=== PATIENT | female | born 1990 | race Caucasian/White ===

== ENCOUNTER 2023-11-02 20:26 | Outpatient (REF) | payer SELFPAY ==
--- OUTSIDE RECORDS SUMMARY | 2023-11-03 10:12 | XMS_ITS | CCD ---
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 Name Role Phone Nill, Eusebio R Unavailable Unavailable Nill, Eusebio R Unavailable Unavailable Nill, Eusebio R Unavailable Unavailable DAKOTAHBETH ABDI Unavailable Unavailable MD Omero Cunningham Attending Provider MD Subhash Caba Primary Care Provider [phone] GERTRUDIS, DR SUBHASH Pereyra Admitting Unavailable GERTRUDIS, DR SUBHASH Pereyra Attending Unavailable GERTRUDIS, DR SUBHASH Pereyra Primary Care Unavailable GERTRUDIS, DR SUBHASH Pereyra Consulting Unavailable ISMAEL, DR Hernesto Iqbal Admitting Unavailable ISMAEL, DR Hernesto Iqbal Attending Unavailable GERTRUDIS, DR SUBHASH Pereyra Primary Care Unavailable ISMAEL, DR Hernesto Iqbal Consulting Unavailable Subhash Caba Primary Care Unavailable Omero Cunningham Attending Unavailsusy e Omero Cunningham Admitting Unavailsusy funk Allergies Allergy Classification Reported Allergen(s) Allergy Type Date of Onset Reaction(s) Facility (1 source) Morphine Drug Allergy 04-27-2013 [facility] Repository Medications Current Medications Medication Drug Class(es) Dates Sig (Normalized) Sig (Original) loratadine 10 mg oral tablet (1 source) Start: 02-03-2023 take 10 mg by mouth once daily Loratadine Active 10 MG PO Daily February 03, 2023 12:00am pantoprazole 40 mg delayed release oral tablet (1 source) Proton Pump Inhibitor Start: 02-03-2023 take 40 mg by mouth once daily Pantoprazole Active 40 MG PO Daily February 03, 2023 12:00am Problems Problem Classification Problem Date Documented Da te Episodic/Chronic Abdominal pain (2 sources) Unspecified abdominal pain; Translations: [UNSPECIFIED ABDOMINAL PAIN] Onset: 02-03-2023 Episodic Other gastrointestinal disorders (4 sources) Other specified symptoms and signs involving the digestive system and abdomen; Translations: [OTH SPEC SX SIGNS DIGESTV SYS ABD] Onset: 01-29-2023 Episodic Other gastrointestinal disorders (1 source) Diarrhea, unspecified; Translations: [Diarrhea, unspecified] Onset: 02-03-2023 Episodic Results Test Name Value Interpretation Reference Range Facility LACTOFERRIN FECAL QUANTon Lactoferrin, Fecal, Quant. <1.00 Normal 0.00-7.24 [facility] Comment on above: Result Comment: Re sults verified by repeat testing . Baseline (normal) 0.00 - 7.24 Elevated >7.24 . An elevated result is indicative of the presence of fecal lactoferrin, a marker of intestinal inflammation. A normal result does not exclude the presence of intestinal inflammation. The test can be used as an in vitro diagnostic aid to distinguish patients with active inflammatory bowel disease (IBD) from those with non-inflammatory irritable bowel syndrome (IBS). Performed By: #### L ACTFQ #### [facility] [address] [address] [address] Susana Rivera PANCREATIC ELASTASE FECALon 02-04-2023 Pancreatic Elastase, Fecal 292 ug Elast./g Normal >200 [facility] Comment on above: Result Comment: Elaina re Pancreatic Insufficiency: <100 Moderate Pancreatic Insufficiency: 100 - 200 Normal: >200 Performed By: #### L IVER, TSH, LIPID, BMP #### [facility] [address] [address] [address] Susana Rivera HCG ( test) Gaby peoples Ql (U)Ordered By: Omero Cunningham on 02-03-2023 HCG ( test) Ql (U) Negative [facility] HCG,Urineon 02-03-2023 Beta HCG ( test) Ql (U) Negative Normal [facility] Comment on above: Result Comment: PERF ORMED BY: [place] [address] PATHOLOGIST DELIMER JAIRO LEYVA M.D. Performed By: #### U HCG #### [place] [address] [place] Christoph 02-03-2023 L Specimen: [id number] Received: 02/03/23 Status: KEVIN Taylor Num: [id number] Spec Type: Surgical Subm Dr: Omero Cunningham MD Tissues: A Duodenum - Biopsy (DUODENUM BX) B Esophagus Biopsy (ESOPHAGEAL BX) C Colon Biopsy (RANDOM COLON BX) Procedures: HE/Charlette, Gross/Micro L4/3 Age/ Patient Sex Location Account Attending Physician Elisha Colbert 32/F [id number] Omero Cunningham MD SPEC NUM: [id number] RECD: 02/03/23 STATUS: KEVIN TAYLOR NUM: [id number] STEFFANY: 02/03/23- SUBM DR: Omero Cunningham MD ENTERED: 02/03/[address] [facility] [address]: SPEC TYPE: Surgical DEPT: S ORDERED: HE/6, Gross/Micro L4/3 ORDERED: HE/6, Gross/Micro L4/3 Pathological Diagnosis A. Small bowel, duodenum, biopsy: - Small intestinal mucosa with minimally increased intraepithelial lymphocytes. - No villous blunting identified. COMMENT: Sections show fragments of small bowel mucosa with minimal increase in intraepithelial lymphocytes. There is no evidence of villous atrophy. The differential diagnosis may include chronic H. pylori associated duodenitis, food allergy, immunodeficiency disease, viral enteritis, infectious etiology, tropical sprue, autoimmune disease, NSAID related change, an early stage of celiac disease, and irritable bowel syndrome. Clinical, serologic and endoscopic correlation are recommended. B. 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 - Reflux esophagitis. - Negative for dysplasia. C. Colon, random, biopsy: - Colonic mucosa negative for significant histopathologic changes. - There is no evidence of acute, chronic or microscopic colitis. - Negative for epithelial dysplasia. Specimen: [id number] Received: 02/03/23 [facility] [id number] Spec Type: Surgical Subm Dr: Omero Cunningham MD Tissues: A Duodenum - Biopsy (DUODENUM BX) B Esophagus Biopsy (ESOPHAGEAL BX) C Colon Biopsy (RANDOM COLON BX) Procedures: HE/6, Gross/Micro L4/3 Patient: FilemonElisha [id number] (Continued) Specimen: [id number] Received: 02/03/23 (Continued) Signed (signature on file) Nan Lawler MD 02/04/23 1110 Specimen: [id number] Received: 02/03/23 Status: KEVIN Taylor Num: [id number] Spec Type: Surgical Subm Dr: Omero Cunningham MD Tissues: A Duodenum - Biopsy (DUODENUM BX) B Esophagus Biopsy (ESOPHAGEAL BX) C Colon Biopsy (RANDOM COLON BX) Procedures: HE/Charlette Gross/Micro L4/3 Patient: Elisha Colbert [id number] (Continued) Specimen: [id number] Received: 02/03/23-1216 (Continued) Clinical Information Diarrhea, constipation, abdominal pain, rule out celiac disease, rule out microscopic colitis Gross Description A. Received in formalin labeled with the patient's name, number and duodenum biopsy rule out celiac disease is one fragment of soft sarabia tissue measuring 0.5 x 0.3 x 0.2 cm. Entirely submitted in one cassette labeled A1. B. Received in formalin labeled with the patient's name, number and esophageal biopsy rule out esophagitis is one fragment of soft sarabia tissue measuring 0.3 x 0.3 x 0.2 cm. Entirely submitted in one cassette labeled B1. C. Received in formalin labeled with the patient's name, number and random colon biopsy rule out microscopic colitis are three fragments of soft sarabia tissue averaging 0.4 x 0.2 x 0.2 cm. Entirely submitted in one cassette labeled C1. Microscopic Description A. Two glass slides with H E stained material have been examined. The microscopic findings support the above pathologic diagnosis. B. Two glass slides with H E stained material have been examined. The microscopic findings support the above pathologic diagnosis. C. Two glass slides with H E stained material have been examined. The microscopic findings support the above pathologic diagnosis. CPT Codes 41724?3 --------- (more content not included)... Normal [facility] BOWEL DISORDERS EVALUATION R ULE-OUT CASCon 02-02-2023 Atypical pANCA Negative Normal Negative [facility] Comment on above: Performed By: #### B [facility] #### [facility] [address] [place] [address] Dr. Susana Rivera Note: Comment Normal [facility] Comment on above: Result Comment: Sugg estive of Crohn's disease. Subsequent testing with the Crohn's Disease Prognostic Profile (944457) that includes antiglycan antibodies AMCA, ALCA, ACCA, and Segundo may aid in the differentiation of clinical forms of CD and prognosis of disease progression. Performed By: #### B DERC #### [facility] [address] [address] [address] Susana Rivera Saccharomyces Cer. IgG 34.3 Units Critically high 0.0-24.9 [facility] Comment on above: Result Comment: Nega tive <20.0 Equivocal 20.1 - 24.9 Positive >or= 25.0 Performed By: #### B DERC #### [facility] [address] [address] [address] Susana Rivera tTG/DGP SCR Negative Normal Negative [facility] Comment on above: Result Comment: Ef fective February 04, 2023 this profile will be made non-orderable due to non-availability of reagents for tTG/DGP Combo. No replacement number is available at this time. For further information, please contact your local [facility] Lay Out Technician. Performed By: #### B DERC #### [facility] [address] [place] [address] Dr. Susana Rivera CALPROTECTIN, FECALon 2022 Calprotectin, Fecal 20 ug/g Normal 0-120 [facility] Comment on above: Result Comment: Conc entration Interpretation Follow-Up <16 - 50 ug/g Normal None >50 -120 ug/g Borderline Re-evaluate in 4-6 weeks >120 ug/g Abnormal Repeat as clinically indicated Performed By: #### L IVER, TSH, LIPID, BMP #### [facility] [address] [address] [address] Susana Rivera CHROMOGRANIN Aon 02-02-2023 Chromogranin A 85.4 ng/mL Normal 0.0-101.8 [facility] Comment on above: Result Comment: Water Mechanic mogranin A performed by [employer] methodology . Values obtained with different assay methods or kits cannot be used interchangeably. Performed By: #### C HROMOA #### [facility] [address] [address] [address] Susana Rivera CBC AUTO DIFFon 01-29-2023 BASO # 0.0 103/ul Normal 0.0-0.1 [facility] Comment on above: Performed By: #### C BC #### [facility] [address] [address] [address] Susana Rivera Basophils/100 WBC (Bld) 0.3 % Normal 0.2-2.0 [facility] Comment on above: Performed By: #### C BC #### [facility] [address] [place] [address] Dr. Susana Rivera EO # 0.2 103/ul Normal 0.0-0.7 [facility] Comment on above: Performed By: #### C BC #### [facility] [address] [place] [address] Dr. Susana Rivera Eosinophils/100 WBC (Bld) 3.3 % Normal 0.9-7.0 [facility] Comment on above: Performed By: #### C BC #### [facility] [address] [place] [address] Dr. Susana Rivera Erythrocyte distribution width (RBC) [Ratio] 12.3 % Normal 11.0-15.0 [facility] Comment on above: Performed By: #### C BC #### [facility] [address] [place] [address] Dr. Susana Rivera Hematocrit (Bld) [Volume fraction] 36.9 % Normal 36.0-48.0 [facility] Comment on above: Performed By: #### C BC #### [facility] [address] [place] [address] Dr. Susana Rivera Hemoglobin (Bld) [Mass/Vol] 12.2 g/dL Normal 12.0-16.0 [facility] Comment on above: Performed By: #### C BC #### [facility] [address] [place] [address] Dr. Susana Rivera IG # 0.01 10e3/ul Normal 0.00-0.03 [facility] Comment on above: Performed By: #### C BC #### [facility] [address] [place] [address] Dr. Susana Rivera IG % 0.2 % Normal 0.0-0.5 [facility] Comment on above: Performed By: #### C BC #### [facility] [address] [place] [address] Dr. Susana Rivera LYMPH # 2.8 103/ul Normal 1.2-3.8 [facility] Comment on above: Performed By: #### C BC #### [facility] [address] [place] [address] Dr. Susana Rivera Lymphocytes/100 WBC (Bld) 42.0 % Normal 20.5-60.0 [facility] Comment on above: Performed By: #### C BC #### [facility] [address] [place] [address] Dr. Susana Rivera MANUAL DIFF REQ NO Normal [facility] Comment on above: Performed By: #### C BC #### [facility] [address] [place] [address] Dr. Susana Rivera MCH (RBC) [Entitic mass] 31.2 pg Normal 26.7-34.0 [facility] Comment on above: Performed By: #### C BC #### [facility] [address] [place] [address] Dr. Susana Rivera MCHC (RBC) [Mass/Vol] 33.1 g/dL Normal 29.9-35.2 [facility] Comment on above: Performed By: #### C BC #### [facility] [address] [place] [address] Dr. Susana Rivera MCV (RBC) [Entitic vol] 94.4 fL Normal 81.0-99.0 [facility] Comment on above: Performed By: #### C BC #### [facility] [address] [place] [address] Dr. Susana Rivera MONO # 0.4 103/ul Normal 0.3-0.8 [facility] Comment on above: Performed By: #### C BC #### [facility] [address] [place] [address] Dr. Susana Rivera Monocytes/100 WBC (Bld) 6.5 % Normal 1.7-12.0 [facility] Comment on above: Performed By: #### C BC #### [facility] [address] [place] [address] Dr. Susana Rivera NEUT # 3.1 103/ul Normal 1.4-6.5 [facility] Comment on above: Performed By: #### C BC #### [facility] [address] [place] [address] Dr. Susana Rivera Neutrophils/100 WBC (Bld) 47.7 % Normal 43.0-75.0 [facility] Comment on above: Performed By: #### C BC #### [facility] [address] [place] [address] Dr. Susana Rivera Platelet mean volume (Bld) [Entitic vol] 11.0 fL Normal 9.5-13.5 [facility] Comment on above: Performed By: #### C BC #### [facility] [address] [place] [address] Dr. Susana Rivera PLT 213 103/ul Normal 150-450 [facility] Comment on above: Performed By: #### C BC #### [facility] [address] [place] [address] Dr. Susana Rivera RBC 3.91 106/ul Critically low 4.20-5.[address] [facility] Comment on above: Performed By: #### C BC #### [facility] [address] [place] [address] Dr. Susana Rivera WBC 6.6 103/ul Normal 4.0-11.0 [facility] Comment on above: Performed By: #### C BC #### [facility] [address] [place] [address] Dr. Susana Rivera FREE T4on 01-29-2023 Free T4 [Mass/Vol] 0.92 ng/dL Normal 0.76-1.46 [facility] Comment on above: Performed By: #### L IVER, TSH, LIPID, BMP #### [facility] [address] [place] [address] Dr. Susana Rivera PROF 14(COMP METB)on 023 Albumin [Mass/Vol] 3.6 g/dL Normal 3.4-5.0 [facility] Comment on above: Performed By: #### L IVER, TSH, LIPID, BMP #### [facility] [address] [place] [address] Dr. Susana Rivera Albumin/Globulin [Mass ratio] 0.8 {ratio} Normal [facility] Comment on above: Performed By: #### L IVER, TSH, LIPID, BMP #### [facility] [address] [place] [address] Dr. Susana Rivera ALP [Catalytic activity/Vol] 75 U/L Normal 46-116 [facility] Comment on above: Performed By: #### L IVER, TSH, LIPID, BMP #### [facility] [address] [place] [address] Dr. Susana Rivera ALT [Catalytic activity/Vol] 24 U/L Normal 14-59 [facility] Comment on above: Performed By: #### L IVER, TSH, LIPID, BMP #### [facility] [address] [place] [address] Dr. Susana Rivera Anion gap [Moles/Vol] 12.5 mmol/L Normal [facility] Comment on above: Performed By: #### L IVER, TSH, LIPID, BMP #### [facility] [address] [place] [address] Dr. Susana Rivera AST [Catalytic activity/Vol] 14 U/L Critically low 15-37 [facility] Comment on above: Performed By: #### L IVER, TSH, LIPID, BMP #### [facility] [address] [place] [address] Dr. Susana Rivera Bilirubin [Mass/Vol] 0.3 mg/dL Normal 0.2-1.0 [facility] Comment on above: Performed By: #### L IVER, TSH, LIPID, BMP #### [facility] [address] [address] [address] Susana Rivera Calcium [Mass/Vol] 9.2 mg/dL Normal 8.5-10.1 [facility] Comment on above: Performed By: #### L IVER, TSH, LIPID, BMP #### [facility] [address] [address] [address] Susana Rivera Chloride [Moles/Vol] 106 mmol/L Normal 98-107 [facility] Comment on above: Performed By: #### L IVER, TSH, LIPID, BMP #### [facility] [address] [address] [address] Susana Rivera CO2 [Moles/Vol] 25.6 mmol/L Normal 21.0-32.0 [facility] Comment on above: Performed By: #### L IVER, TSH, LIPID, BMP #### [facility] [address] [address] [address] Susana Rivera Creatinine [Mass/Vol] 0.58 mg/dL Normal 0.55-1.02 [facility] Comment on above: Performed By: #### L IVER, TSH, LIPID, BMP #### [facility] [address] [address] [address] Susana Rivera EGFR-AF BURKINAN >60 Normal >=60 [facility] Comment on above: Performed By: #### L IVER, TSH, LIPID, BMP #### [facility] [address] [address] [address] Susana Rivera EGFR-NON AF BURKINAN >60 Normal >=60 [facility] Comment on above: Performed By: #### L IVER, TSH, LIPID, BMP #### [facility] [address] [address] [address] Susana Rivera Globulin (S) [Mass/Vol] 4.3 g/dL Normal [facility] Comment on above: Performed By: #### L IVER, TSH, LIPID, BMP #### [facility] [address] [address] [address] Susana Rivera Glucose [Mass/Vol] 93 mg/dL Normal 74-106 [facility] Comment on above: Performed By: #### L IVER, TSH, LIPID, BMP #### [facility] [address] [address] [address] Susana Rivera Potassium [Moles/Vol] 4.1 mmol/L Normal 3.5-5.1 [facility] Comment on above: Performed By: #### L IVER, TSH, LIPID, BMP #### [facility] [address] [place] [address] Dr. Susana Rivera Protein [Mass/Vol] 7.9 g/dL Normal 6.4-8.2 [facility] Comment on above: Performed By: #### L IVER, TSH, LIPID, BMP #### [facility] [address] [place] [address] Dr. Susana Rivera Sodium [Moles/Vol] 140 mmol/L Normal 136-145 [facility] Comment on above: Performed By: #### L IVER, TSH, LIPID, BMP #### [facility] [address] [place] [address] Dr. Susana Rivera Urea nitrogen [Mass/Vol] 10.0 mg/dL Normal 7.0-18.0 [facility] Comment on above: Performed By: #### L IVER, TSH, LIPID, BMP #### [facility] [address] [place] [address] Dr. Susana Rivera Urea nitrogen/Creatinine [Mass ratio] 17.2 mg/mg Normal [facility] Comment on above: Performed By: #### L IVER, TSH, LIPID, BMP #### [facility] [address] [place] [address] Dr. Susana Rivera PROTIMEon 01-29-2023 INR Coag (PPP) [Relative time] 0.94 {INR} Normal [facility] Comment on above: Performed By: #### L IVER, TSH, LIPID, BMP #### [facility] [address] [place] [address] Dr. Susana Rivera INR GUIDELINES SEE BELOW Normal [facility] Comment on above: Result Comment: REYMUNDO RED INR: 2.0 - 3.0 CONDITIONS NOT LISTED BELOW 2.5 - 3.5 FOR PROSTHETIC HEART VALVE REPLACEMENT 2.5 - 3.5 RECURRENT THROMBOSIS Performed By: #### L IVER, TSH, LIPID, BMP #### [facility] [address] [place] [address] Dr. Susana Rivera PT Coag (PPP) [Time] 10.0 s Normal 9.0-11.6 [facility] Comment on above: Performed By: #### L IVER, TSH, LIPID, BMP #### [facility] [address] [place] [address] Dr. Susana Rivera TSHon 01-29-2023 TSH 1.619 uIU/mL Normal 0.358-3.740 [facility] Comment on above: Performed By: #### L IVER, TSH, LIPID, BMP #### [facility] [address] [place] [address] Dr. Susana Rivera CBC AUTO DIFFon 07-22-2022 BASO # 0.0 103/ul Normal 0.0-0.1 [facility] Comment on above: Performed By: #### C BC #### [facility] [address] [place] [address] Dr. Susana Rivera Basophils/100 WBC (Bld) 0.3 % Normal 0.2-2.0 [facility] Comment on above: Performed By: #### C BC #### [facility] [address] [place] [address] Dr. Susana Rivera EO # 0.2 103/ul Normal 0.0-0.7 [facility] Comment on above: Performed By: #### C BC #### [facility] [address] [place] [address] Dr. Susana Rivera Eosinophils/100 WBC (Bld) 2.3 % Normal 0.9-7.0 [facility] Comment on above: Performed By: #### C BC #### [facility] [address] [place] [address] Dr. Susana Rivera Erythrocyte distribution width (RBC) [Ratio] 12.3 % Normal 11.0-15.0 [facility] Comment on above: Performed By: #### C BC #### [facility] [address] [place] [address] Dr. Susana Rivera Hematocrit (Bld) [Volume fraction] 38.6 % Normal 36.0-48.0 [facility] Comment on above: Performed By: #### C BC #### [facility] [address] [place] [address] Dr. Susana Rivera Hemoglobin (Bld) [Mass/Vol] 12.4 g/dL Normal 12.0-16.0 [facility] Comment on above: Performed By: #### C BC #### [facility] [address] [place] [address] Dr. Susana Rivera IG # 0.02 10e3/ul Normal 0.00-0.03 [facility] Comment on above: Performed By: #### C BC #### [facility] [address] [place] [address] Dr. Susana Rivera IG % 0.2 % Normal 0.0-0.5 [facility] Comment on above: Performed By: #### C BC #### [facility] [address] [place] [address] Dr. Susana Rivera LYMPH # 3.3 103/ul Normal 1.2-3.8 [facility] Comment on above: Performed By: #### C BC #### [facility] [address] [place] [address] Dr. Susana Rivera Lymphocytes/100 WBC (Bld) 32.0 % Normal 20.5-60.0 [facility] Comment on above: Performed By: #### C BC #### [facility] [address] [place] [address] Dr. Susana Rivera MANUAL DIFF REQ NO Normal [facility] Comment on above: Performed By: #### C BC #### [facility] [address] [place] [address] Dr. Susana Rivera MCH (RBC) [Entitic mass] 30.7 pg Normal 26.7-34.0 [facility] Comment on above: Performed By: #### C BC #### [facility] [address] [place] [address] Dr. Susana Rivera MCHC (RBC) [Mass/Vol] 32.1 g/dL Normal 29.9-35.2 [facility] Comment on above: Performed By: #### C BC #### [facility] [address] [place] [address] Dr. Susana Rivera MCV (RBC) [Entitic vol] 95.5 fL Normal 81.0-99.0 [facility] Comment on above: Performed By: #### C BC #### [facility] [address] [place] [address] Dr. Susana Rivera MONO # 0.6 103/ul Normal 0.3-0.8 [facility] Comment on above: Performed By: #### C BC #### [facility] [address] [place] [address] Dr. Susana Rivera Monocytes/100 WBC (Bld) 5.9 % Normal 1.7-12.0 [facility] Comment on above: Performed By: #### C BC #### [facility] [address] [place] [address] Dr. Susana Rivera NEUT # 6.2 103/ul Normal 1.4-6.5 [facility] Comment on above: Performed By: #### C BC #### [facility] [address] [place] [address] Dr. Susana Rivera Neutrophils/100 WBC (Bld) 59.3 % Normal 43.0-75.0 [facility] Comment on above: Performed By: #### C BC #### [facility] [address] [place] [address] Dr. Susana Rivera Platelet mean volume (Bld) [Entitic vol] 11.2 fL Normal 9.5-13.5 [facility] Comment on above: Performed By: #### C BC #### [facility] [address] [place] [address] Dr. Susana Rivera PLT 235 103/ul Normal 150-450 [facility] Comment on above: Performed By: #### C BC #### [facility] [address] [place] [address] Dr. Susana Rivera RBC 4.04 106/ul Critically low 4.20-5.40 [facility] Comment on above: Performed By: #### C BC #### [facility] [address] [place] [address] Dr. Susana Rivera WBC 10.4 103/ul Normal 4.0-11.0 [facility] Comment on above: Performed By: #### C BC #### [facility] [address] [place] [address] Dr. Susana Rivera GLYCOHEMOGLOBIN A1Con 2021 ADA RECOMMENDATION SEE BELOW Normal [facility] Comment on above: Result Comment: ADA RECOMMENDED LIMIT 4.0 - 6.0 ADA THERAPEUTIC TARGET < 7.0 ACTION SUGGESTED > 7.0 Performed By: #### A 1C #### [facility] [address] [place] [address] Dr. Susana Rivera Glucose [Mass/Vol] 105 mg/dL Normal [facility] Comment on above: Performed By: #### A 1C #### [facility] [address] [place] [address] Dr. Susana Rivera HbA1c (Bld) [Mass fraction] 5.3 % Normal 4.5-6.2 [facility] Comment on above: Performed By: #### A 1C #### [facility] [address] [place] [address] Dr. Susana Rivera LIPID PROFILEon 07-22-2022 CHOL-HDL RATIO NORM SEE BELOW Normal [facility] Comment on above: Result Comment: 3.3 - 4.4 LOW RISK 4.4 - 7.1 AVERAGE RISK 7.1 - 11.0 MODERATE RISK >11.0 HIGH RISK Performed By: #### L IVER, TSH, LIPID, BMP #### [facility] [address] [place] [address] Dr. Susana Rivera Cholesterol [Mass/Vol] 193 mg/dL Normal <=200 [facility] Comment on above: Performed By: #### L IVER, TSH, LIPID, BMP #### [facility] [address] [place] [address] Dr. Susana Rivera Cholesterol in HDL [Mass/Vol] 45 mg/dL Normal 40-60 [facility] Comment on above: Performed By: #### L IVER, TSH, LIPID, BMP #### [facility] [address] [address] [address] Susana Rivera Cholesterol in LDL [Mass/Vol] 121.0 mg/dL Normal [facility] Comment on above: Performed By: #### L IVER, TSH, LIPID, BMP #### [facility] [address] [address] [address] Susana Rivera Cholesterol.total/Cho lesterol in HDL [Mass ratio] 4.3 {ratio} Normal [facility] Comment on above: Performed By: #### L IVER, TSH, LIPID, BMP #### [facility] [address] [place] [address] Dr. Susana Rivera HDL NORMAL > or = 60 mg/dl - LOW CARDIOVASCULAR RISK <40 mg/dl - HIGH CARDIOVASCULAR RISK Normal [facility] Comment on above: Performed By: #### L IVER, TSH, LIPID, BMP #### [facility] [address] [place] [address] Dr. Susana Rivera LDL CALC NORMAL SEE BELOW Normal [facility] Comment on above: Result Comment: <100 mg/dl OPTIMAL 100 - 129 mg/dl NEAR OR ABOVE OPTIMAL 130 - 159 mg/dl BORDERLINE HIGH 160 - 189 mg/dl HIGH >190 mg/dl VERY HIGH Performed By: #### L IVER, TSH, LIPID, BMP #### [facility] [address] [address] [address] Susana Rivera Triglyceride [Mass/Vol] 135 mg/dL Normal <=150 [facility] Comment on above: Performed By: #### L IVER, TSH, LIPID, BMP #### [facility] [address] [place] [address] Dr. Susana Rivera VLDL CALC 27.0 mg/dL Normal [facility] Comment on above: Performed By: #### L IVER, TSH, LIPID, BMP #### [facility] [address] [address] [address] Susana Rivera LIVER PROFILEon 07-22-2022 Albumin [Mass/Vol] 3.8 g/dL Normal 3.4-5.0 [facility] Comment on above: Performed By: #### L IVER, TSH, LIPID, BMP #### [facility] [address] [place] [address] Dr. Susana Rivera Albumin/Globulin [Mass ratio] 0.8 {ratio} Normal [facility] Comment on above: Performed By: #### L IVER, TSH, LIPID, BMP #### [facility] [address] [place] [address] Dr. Susana Rivera ALP [Catalytic activity/Vol] 73 U/L Normal 46-116 [facility] Comment on above: Performed By: #### L IVER, TSH, LIPID, BMP #### [facility] [address] [place] [address] Dr. Susana Rivera ALT [Catalytic activity/Vol] 27 U/L Normal 14-59 [facility] Comment on above: Performed By: #### L IVER, TSH, LIPID, BMP #### [facility] [address] [place] [address] Dr. Susana Rivera AST [Catalytic activity/Vol] 17 U/L Normal 15-37 [facility] Comment on above: Performed By: #### L IVER, TSH, LIPID, BMP #### [facility] [address] [place] [address] Dr. Susana Rivera BILI, CONJUGATED 0.1 mg/dL Normal 0.0-0.2 [facility] Comment on above: Performed By: #### L IVER, TSH, LIPID, BMP #### [facility] [address] [place] [address] Dr. Susana Rivera Bilirubin [Mass/Vol] 0.3 mg/dL Normal 0.2-1.0 [facility] Comment on above: Performed By: #### L IVER, TSH, LIPID, BMP #### [facility] [address] [place] [address] Dr. Susana Rivera Globulin (S) [Mass/Vol] 4.6 g/dL Normal [facility] Comment on above: Performed By: #### L IVER, TSH, LIPID, BMP #### [facility] [address] [place] [address] Dr. Susana Rivera Protein [Mass/Vol] 8.4 g/dL Critically high 6.4-8.2 [facility] Comment on above: Performed By: #### L IVER, TSH, LIPID, BMP #### [facility] [address] [address] [address] Susana Rivera PROF CHEM 8 (BAS METB)on Anion gap [Moles/Vol] 12.3 mmol/L Normal [facility] Comment on above: Performed By: #### L IVER, TSH, LIPID, BMP #### [facility] [address] [place] [address] Dr. Susana Rivera Calcium [Mass/Vol] 9.2 mg/dL Normal 8.5-10.1 [facility] Comment on above: Performed By: #### L IVER, TSH, LIPID, BMP #### [facility] [address] [place] [address] Dr. Susana Rivera Chloride [Moles/Vol] 104 mmol/L Normal 98-107 [facility] Comment on above: Performed By: #### L IVER, TSH, LIPID, BMP #### [facility] [address] [place] [address] Dr. Susana Rivera CO2 [Moles/Vol] 24.7 mmol/L Normal 21.0-32.0 [facility] Comment on above: Performed By: #### L IVER, TSH, LIPID, BMP #### [facility] [address] [place] [address] Dr. Susana Rivera Creatinine [Mass/Vol] 0.67 mg/dL Normal 0.55-1.02 [facility] Comment on above: Performed By: #### L IVER, TSH, LIPID, BMP #### [facility] [address] [place] [address] Dr. Susana Rivrea EGFR-AF BURKINAN >60 Normal >=60 [facility] Comment on above: Performed By: #### L IVER, TSH, LIPID, BMP #### [facility] [address] [address] [address] Susana Rivera EGFR-NON AF BURKINAN >60 Normal >=60 [facility] Comment on above: Performed By: #### L IVER, TSH, LIPID, BMP #### [facility] [address] [address] [address] Susana Rivera Glucose [Mass/Vol] 94 mg/dL Normal 74-106 [facility] Comment on above: Performed By: #### L IVER, TSH, LIPID, BMP #### [facility] [address] [address] [address] Susana Rivera Potassium [Moles/Vol] 4.0 mmol/L Normal 3.5-5.1 [facility] Comment on above: Performed By: #### L IVER, TSH, LIPID, BMP #### [facility] [address] [place] [address] Dr. Susana Rivera Sodium [Moles/Vol] 137 mmol/L Normal 136-145 [facility] Comment on above: Performed By: #### L IVER, TSH, LIPID, BMP #### [facility] [address] [address] [address] Susana Rivera Urea nitrogen [Mass/Vol] 21.0 mg/dL Critically high 7.0-18.0 [facility] Comment on above: Performed By: #### L IVER, TSH, LIPID, BMP #### [facility] [address] [address] [address] Susana Rivera Urea nitrogen/Creatinine [Mass ratio] 31.3 mg/mg Normal [facility] Comment on above: Performed By: #### L IVER, TSH, LIPID, BMP #### [facility] [address] [place] [address] Dr. Susana Rivera TSHon 07-22-2022 TSH 2.863 uIU/mL Normal 0.358-3.740 [facility] Comment on above: Performed By: #### L IVER, TSH, LIPID, BMP #### [facility] [address] [place] [address] Dr. Susana Rivera Vital Signs Date Time Vital Sign Value Performing Clinician Abby dumont 02-03-2023 12:23-0400 Diastolic blood pressure 80 mm[Hg] MD Subhash Caba Work Phone: [facility] 02-03-2023 12:23-0400 Heart rate 56 /min MD Subhash Caba Work Phone: [facility] 02-03-2023 12:23-0400 Respiratory rate 18 /min MD Subhash Caba Work Phone: [facility] 02-03-2023 12:23-0400 SaO2% (BldA) [Mass fraction] 96 % MD Subhash Caba Work Phone: [facility] 02-03-2023 12:23-0400 Systolic blood pressure 135 mm[Hg] MD Subhash Caba Work Phone: [facility] 02-03-2023 10:14-0400 Body height 162.56 cm MD Subhash Caba Work Phone: [facility] 02-03-2023 10:14-0400 Body temperature 97.7 [degF] MD Subhash Caba Work Phone: [facility] 02-03-2023 10:14-0400 Body weight 99.79 kg MD Subhash Caba Work Phone: [facility] Encounters Encounter Date Encounter Type Care Provider Facility Start: 02-03-2023 End: 02-03-2023 ambulatory Subhash Caba Facility:[facility] Start: 02-03-2023 End: 02-03-2023 Admission to same day surgery center MD Subhash Caba Work Phone: [facility] Work Phone: Start: 02-03-2023 End: 02-03-2023 ambulatory MD Subhash Caba Work Phone: [facility] Work Phone: Start: 01-29-2023 End: 01-30-[address] Hernesto CUN[place]HAM Facility:[facility] Start: 07-25-2022 Encounter for genera l adult medical examination without abnormal findings DR SUBHASH CABA [facility] Start: 07-22-2022 End: 07-23-[address] SUBHASH CABA Facility:[facility] Start: 07-22-2022 End: 07-23-2022 Encounter for general adult medical examination without abnormal findings DR SUBHASH CABA Facility:[facility] Start: 12-06-2016 End: 12-07-2016 Ambulatory Eusebio Iqbal Rupert Facility:[facility] Procedures Date Procedure Procedure Detail Performing Clinician Start: 02-03-2023 Esophagogastroduodenoscopy MD Subhash Caba Work Phone: Plan of Treatment Date Care Activity Detail Author Start: 02-03-2023 [facility] Patient Education Esophagitis Hi atal Hernia (DC) [facility] Work Phone: Payers Date Payer Category Payer Self-pay 1990 Unknown [id number] 1988 Unknown [id number] 1959 Unknown [id number] 1959 Unknown [id number] Unknown [id number] Social History Date Type Detail Facility [facility] Work Phone: Start: 1990 Sex Assigned At Female F [facility] Goals Date Patient Goal Desired Activity /State Procedure note 02-03-2023 Note Date & Type Note Facility 02-03-[address] [facility] Evaluation note Note Date & Type Note Facility Evaluation note No assessment information availa ble [facility] Work Phone: Hospital Discharge instructions Note Date & Type Note Facility Hospital Discharge instructions Additional Instructions DISCHARGE INSTRUCTIONS FOR ENDOSCOPY FOR COLONOSCOPY: -Expect a gassy or full feeling after a colonoscopy. Report any NEW abdominal pain or vomiting. -Watch for rectal bleeding if you have a polyp removed. You may have oozing, but notify the doctor if you pass clots. -Avoid aspirin for 2 days IF a polyp is removed. -It is important to keep your appointments for follow up examinations because polyps can grow back. FOR WILKERSON/EGD/ERCP/PEG: -Your throat may feel sore today from the scope that the doctor passed through your throat to visualize your stomach. Take a throat lozenge or suck on ice to ease the discomfort. -Do NOT smoke. -You may notice some streaks of blood in your sputum if the doctor has taken a biopsy. Notify the doctor if you cough up large amounts of blood. -Expect a gassy or full feeling after esophagoscopy. Report any persistent pain or vomiting. -Take it easy today. You need not stay in bed, but avoid strenuous activities such as jogging. FOR SEDATION FOR 24 HOURS: -NO driving -Do NOT operate machinery such as power tools, lawn mowers, snow blowers, sewing machines, etc. -Avoid alcoholic beverages and drugs for allergies, nerves, or sleep. -Do NOT stay alone. Do NOT leave your child unattended. -Do NOT make important personal or business decisions or sign any legal documents. -Eat solid foods and drink liquids in smaller amounts than usual until normal appetite returns. If you should experience an upset stomach, liquids high in sugar content (soda, Saul-aid, non-acid juices) are recommended. -You can resume normal activities tomorrow. FOLLOW UP Please call the office and make a follow up appointment to see me in 6-8 weeks. Low FODMAP diet [employer] 1 p.o. every morning IBgard 1-2 once or twice a day -Notify the doctor if you have any problems. -Office number [phone] [facility] Work Phone: Summary Purpose Family History No Family History Records Found Relationship Condition Age at Onset Recorded Date/T lino Not Specified No pertinent family history Unknown Advance Directives No Advanced Directives Records Found Advance Directive Response Recorded Date/ Time Advance Directives No February 02, 2 023 3:13pm Chief Complaint and Reason for Visit Chief Complaint Alternating, Diarrhe a, Constipation, Abdominal Sylvester Additional Source Comments INFORMATION SOURCE (unrecogn ized section and content) DATE CREATED AUTHOR 05/10/2018 [facility] DATE CREATED AUTHOR AUTHOR'S ORGANIZ ATION 02/13/2023 [facility] DATE CREATED AUTHOR AUTHOR'S ORGANIZ ATION 02/15/2023 [facility] Care Teams (unrecognized sec tion and content) Team Status: Active Member Role Status Dates Subhash Caba MD Primary Care Provider Active Team Status: Inactive Member Role Status Dates Omero Cunningham MD Attending Provider Active Subhash Caba MD Primary Care Provider Active FOR RECORDS PERTAINING TO PATIENTS WHO ARE OR HAVE BEEN ENROLLED IN A CHEMICAL DEPENDENCY/SUBSTANCEABUSE PROGRAM, SOME INFORMATION MAY BE OMITTED. This clinical summary was aggregated from multiple sources. Caution should be exercised in using it in the provision of clinical care. This summary normalizes information from multiple sources, and as a consequence, information in this document may materially change the coding, format and clinical context of patient data. In addition, data may be omitted in some cases. CLINICAL DECISIONS SHOULD BE BASED ON THE PRIMARY CLINICAL RECORDS. [facility] [employer] provides no warranty or guarantee of the accuracy or completeness of information in this document.
[2023-11-09 00:07] LABS: Age Gdln ACOG Testing Note (.); HPV Aptima Negative (Negative); IGP, Aptima HPV, rfx 16/18,45 Note (.)
== END 2023-11-02 20:27 | disposition home or self-care (01) ==
LOC: LAB 20:26
PROVIDERS: PCP Family Medicine; Visit Provider Physician Assistant
DX: Z01.419 Encounter for gynecological examination (general) (routine) without abnormal findings (principal)
CPT/HCPCS: 87624; G0145

== ENCOUNTER 2023-11-08 | Outpatient (REF) | payer OTHER, SELFPAY | END 2023-11-08 00:01 | disposition home or self-care (01) | LOC: LAB | PROVIDERS: PCP Family Medicine; Visit Provider Obstetrics & Gynecology | DX: N89.8 Other specified noninflammatory disorders of vagina (principal) | CPT/HCPCS: 88305; 88312; 88341; 88342 ==

== ENCOUNTER 2023-11-12 07:05 | Emergency (ER) | payer OTHER, SELFPAY ==
[2023-11-12 07:08] VITALS: BP 152/90; PULSE 98; RESP 18; TEMP 37.7; O2SAT 95; BMI 36.7
--- OUTSIDE RECORDS SUMMARY | 2023-11-12 07:17 | XMS_ITS | CCD ---
Author Name Unknown Address [address] [place] [address] Organization [facility] Care Team Providers Care Prototype Machine Operator Name Role Phone Nill, Eusebio Iqbal Unavailable Unavailable Nill, Eusebio Iqbal Unavailable Unavailable Nill, Eusebio Iqbal Unavailable Unavailable DAKOTAHBETH Unavailable Unavailable MD Omero Cunningham Attending Provider [phone] MD Subhash Caba Primary Care Provider [phone] GERTRUDIS, DR SUBHASH Pereyra Admitting Unavailable GERTRUDIS, DR SUBHASH Pereyra Attending Unavailable GERTRUDIS, DR SUBHASH Pereyra Primary Care Unavailable GERTRUDIS, DR SUBHASH Pereyra Consulting Unavailable OCTAVIO, DR Hernesto Iqbal Admitting Unavailable OCTAIVO, DR Hernesto Iqbal Attending Unavailable GERTRUDIS, DR SUBHASH Pereyra Primary Care Unavailable OCTAVIO, DR Hernesto Iqbal Consulting Unavailable Subhash Caba Primary Care Unavailable Octavio, Omero Iqbal Attending Unavailsusy Cunningham, Omero Iqbal Admitting UnavailWALKER Silva Attending Unavailable MERLE, WALKER Attending Unavailable Allergies Allergy Classification Reported Allergen(s) Allergy Type Date of Onset Reaction(s) Facility (1 source) Morphine Drug Allergy 04-27-2013 [facility] Repository Medications Current Medications Medication [...] QUANTon Lactoferrin, Fecal, Quant. <1.00 Normal 0.00-7.24 [facility] Comment on above: Result Comment: Re [...] (IBS). Performed By: #### L ACTFQ #### [facility] [address] [address] [address] Susana Rivera PANCREATIC ELASTASE FECALon 02-04-2023 Pancreatic Elastase, Fecal 292 ug Elast./g Normal >200 [facility] Comment on above: Result Comment: Elaina re Pancreatic Insufficiency: <100 Moderate Pancreatic Insufficiency: 100 - 200 Normal: >200 Performed By: #### L IVER, TSH, LIPID, BMP #### [facility] [address] [place], [place] [address] Dr. Susana Rivera HCG ( test) IA.rapi d Ql (U)Ordered By: Omero Cunningham on 02-03-2023 HCG ( test) Ql (U) Negative [facility] HCG,Urineon 02-03-2023 Beta HCG ( test) Ql (U) Negative Normal [facility] Comment on above: Result Comment: PERF ORMED BY: [facility] [address] [place] [address] PATHOLOGIST STRIPPING MACHINE OPERATOR JAIRO LEYVA M.D. Performed By: #### U HCG #### [facility] [place] [facility] [address] [place] [address] [facility] 02-03-2023 L Specimen: [id number] Received: 02/03/23 Status: KEVIN Taylor Num: [id number] Spec Type: Surgical Subm Dr: Omero Cunningham MD Tissues: A Duodenum - Biopsy (DUODENUM BX) B Esophagus Biopsy (ESOPHAGEAL BX) C Colon Biopsy (RANDOM COLON BX) Procedures: HE/Charlette, Gross/Micro L4/3 Age/ Patient Sex Location Account Attending Physician Elisha Colbert 32/F [id number] Omero Cunningham MD SPEC NUM: [id number] RECD: 02/03/23 STATUS: KEVIN MEZA NUM: [id number] STEFFANY: 02/03/23- DR: Omero Cunningham MD ENTERED: 02/03/23 [facility] DR: SPEC TYPE: Surgical DEPT: S ORDERED: [...] colitis. - Negative for epithelial dysplasia. Specimen: [id number] Received: 02/03/23 Status: KEVIN Meza Num: [id number] Spec Type: Surgical Subm Dr: Omero Cunningham MD Tissues: A Duodenum - Biopsy (DUODENUM BX) B Esophagus Biopsy (ESOPHAGEAL BX) C Colon Biopsy (RANDOM COLON BX) Procedures: HE/6, Gross/Micro L4/3 Patient: FilemonElisha [id number] (Continued) Specimen: [id number] Received: 02/03/23 (Continued) Signed (signature on file) Nan Lawler MD 02/04/23 1110 Specimen: Received: 02/03/23 Status: MISHAJonatan Taylor Num: [id number] Spec Type: Surgical Subm Dr: Omero Cunningham MD Tissues: A Duodenum - Biopsy (DUODENUM BX) B Esophagus Biopsy (ESOPHAGEAL BX) C Colon Biopsy (RANDOM COLON BX) Procedures: HE/6, Gross/Micro L4/3 Patient: Elisha Colbert [id number] (Continued) Specimen: [id number] Received: 02/03/23 (Continued) Clinical Information Diarrhea, constipation, abdominal pain, [...] support the above pathologic diagnosis. CPT Codes 67188?3 --------- (more content not included)... Normal [facility] BOWEL DISORDERS EVALUATION R ULE-OUT CASCon 02-02-2023 Atypical pANCA Negative Normal Negative [facility] Comment on above: Performed By: #### B [facility] #### [facility] [address] [place] [address] Dr. Susana Rivera Note: Comment Normal [facility] Comment on above: Result Comment: Sugg estive of Crohn's disease. Subsequent testing with the Crohn's Disease Prognostic Profile (809494) that includes antiglycan antibodies AMCA, ALCA, ACCA, and Segundo may aid in the differentiation of clinical forms of CD and prognosis of disease progression. Performed By: #### B DERC #### [facility] [address] [address] [address] Susana Rivera Saccharomyces Cer. IgG 34.3 Units Critically high 0.0-24.9 [facility] Comment on above: Result Comment: Nega tive <20.0 Equivocal 20.1 - 24.9 Positive >or= 25.0 Performed By: #### B DERC #### [facility] [address] [place] [address] Dr. Susana Rivera tTG/DGP SCR Negative Normal Negative [facility] Comment on above: Result Comment: Ef fective February 04, 2023 this profile will be made non-orderable due to non-availability of reagents for tTG/DGP Combo. No replacement number is available at this time. For further information, please contact your local [facility] Junior Business Analyst. Performed By: #### B DERC #### [facility] [address] [place] [address] Dr. Susana Rivera CALPROTECTIN, FECALon 2022 Calprotectin, Fecal 20 ug/g Normal 0-120 [facility] Comment on above: Result Comment: Conc entration Interpretation Follow-Up <16 - 50 ug/g Normal None >50 -120 ug/g Borderline Re-evaluate in 4-6 weeks >120 ug/g Abnormal Repeat as clinically indicated Performed By: #### L IVER, TSH, LIPID, BMP #### [facility] [address] [place] [address] Dr. Susana Rivera CHROMOGRANIN Aon 02-02-2023 Chromogranin A 85.4 ng/mL Normal 0.0-101.8 [facility] Comment on above: Result Comment: Post Doctoral Fellow mogranin A performed by [employer]atial/IMay[employer] KRYPTOR methodology . Values obtained with different assay methods or kits cannot be used interchangeably. Performed By: #### C HROMOA #### [facility] [address] [place] [address] Dr. Susana Rivera CBC AUTO DIFFon 01-29-2023 BASO # 0.0 103/ul Normal 0.0-0.1 [facility] Comment on above: Performed By: #### C BC #### [facility] [address] [place] [address] Dr. Susana Rivera Basophils/100 WBC (Bld) 0.3 % Normal 0.2-2.0 [facility] Comment on above: Performed By: #### C BC #### [facility] [address] [place] [address] Dr. Susana Rivera EO # 0.2 103/ul Normal 0.0-0.7 [facility] Comment on above: Performed By: #### C BC #### [facility] [address] [place] [address] Dr. Susana Rivera Eosinophils/100 WBC (Bld) 3.3 % Normal 0.9-7.0 [facility] Comment on above: Performed By: #### C BC #### [facility] [address] [place] [address] Dr. Susana Rivera Erythrocyte distribution width (RBC) [Ratio] 12.3 % Normal 11.0-15.0 [facility] Comment on above: Performed By: #### C BC #### [facility] [address] [place] [address] Dr. Susana Rivera Hematocrit (Bld) [Volume fraction] 36.9 % Normal 36.0-48.0 [facility] Comment on above: Performed By: #### C BC #### [facility] [address] [place] [address] Dr. Susana Rivera Hemoglobin (Bld) [Mass/Vol] 12.2 g/dL Normal 12.0-16.0 [facility] Comment on above: Performed By: #### C BC #### [facility] [address] [place] [address] Dr. Susana Rivera IG # 0.01 10e3/ul Normal 0.00-0.03 [facility] Comment on above: Performed By: #### C BC #### [facility] [address] [place] [address] Dr. Susana Rivera IG % 0.2 % Normal 0.0-0.5 [facility] Comment on above: Performed By: #### C BC #### [facility] [address] [place] [address] Dr. Susana Rivera LYMPH # 2.8 103/ul Normal 1.2-3.8 [facility] Comment on above: Performed By: #### C BC #### [facility] [address] [place] [address] Dr. Susana Rivera Lymphocytes/100 WBC (Bld) 42.0 % Normal 20.5-60.0 [facility] Comment on above: Performed By: #### C BC #### [facility] [address] [place] [address] Dr. Susana Rivera MANUAL DIFF REQ NO Normal [facility] Comment on above: Performed By: #### C BC #### [facility] [address] [place] [address] Dr. Susana Rivera MCH (RBC) [Entitic mass] 31.2 pg Normal 26.7-34.0 [facility] Comment on above: Performed By: #### C BC #### [facility] [address] [place] [address] Dr. Susana Rivera MCHC (RBC) [Mass/Vol] 33.1 g/dL Normal 29.9-35.2 [facility] Comment on above: Performed By: #### C BC #### [facility] [address] [place] [address] Dr. Susana Rivera MCV (RBC) [Entitic vol] 94.4 fL Normal 81.0-99.0 [facility] Comment on above: Performed By: #### C BC #### [facility] [address] [place] [address] Dr. Susana Rivera MONO # 0.4 103/ul Normal 0.3-0.8 [facility] Comment on above: Performed By: #### C BC #### [facility] [address] [place] [address] Dr. Susana Rivera Monocytes/100 WBC (Bld) 6.5 % Normal 1.7-12.0 [facility] Comment on above: Performed By: #### C BC #### [facility] [address] [place] [address] Dr. Susana Rivera NEUT # 3.1 103/ul Normal 1.4-6.5 [facility] Comment on above: Performed By: #### C BC #### [facility] [address] [place] [address] Dr. Susana Rivera Neutrophils/100 WBC (Bld) 47.7 % Normal 43.0-75.0 [facility] Comment on above: Performed By: #### C BC #### [facility] [address] [place] [address] Dr. Susana Rivera Platelet mean volume (Bld) [Entitic vol] 11.0 fL Normal 9.5-13.5 [facility] Comment on above: Performed By: #### C BC #### [facility] [address] [place] [address] Dr. Susana Rivera PLT 213 103/ul Normal 150-450 [facility] Comment on above: Performed By: #### C BC #### [facility] [address] [place] [address] Dr. Susana Rivera RBC 3.91 106/ul Critically low 4.20-5.40 [facility] Comment on above: Performed By: #### C BC #### [facility] [address] [place] [address] Dr. Susana Rivera WBC 6.6 103/ul Normal 4.0-11.0 [facility] Comment on above: Performed By: #### C BC #### [facility] [address] [place] [address] Dr. Susana Rivera FREE T4on 01-29-2023 Free T4 [Mass/Vol] 0.92 ng/dL Normal 0.76-1.46 [facility] Comment on above: Performed By: #### L IVER, TSH, LIPID, BMP #### [facility] [address] [place] [address] Dr. Susana Rivera PROF 14(COMP METB)on 023 Albumin [Mass/Vol] 3.6 g/dL Normal 3.4-5.0 [facility] Comment on above: Performed By: #### L IVER, TSH, LIPID, BMP #### [facility] [address] [place] [address] Dr. Susana Rivera Albumin/Globulin [Mass ratio] 0.8 {ratio} Normal [facility] Comment on above: Performed By: #### L IVER, TSH, LIPID, BMP #### [facility] [address] [place] [address] Dr. Susana Rivera ALP [Catalytic activity/Vol] 75 U/L Normal 46-116 [facility] Comment on above: Performed By: #### L IVER, TSH, LIPID, BMP #### [facility] [address] [place] [address] Dr. Susana Rivera ALT [Catalytic activity/Vol] 24 U/L Normal 14-59 [facility] Comment on above: Performed By: #### L IVER, TSH, LIPID, BMP #### [facility] [address] [place] [address] Dr. Susana Rivera Anion gap [Moles/Vol] 12.5 mmol/L Normal [facility] Comment on above: Performed By: #### L IVER, TSH, LIPID, BMP #### [facility] [address] [place] [address] Dr. Susana Rivera AST [Catalytic activity/Vol] 14 U/L Critically low 15-37 [facility] Comment on above: Performed By: #### L IVER, TSH, LIPID, BMP #### [facility] [address] [place] [address] Dr. Susana Rivera Bilirubin [Mass/Vol] 0.3 mg/dL Normal 0.2-1.0 [facility] Comment on above: Performed By: #### L IVER, TSH, LIPID, BMP #### [facility] [address] [address] [address] Susana Rivera Calcium [Mass/Vol] 9.2 mg/dL Normal 8.5-10.1 [facility] Comment on above: Performed By: #### L IVER, TSH, LIPID, BMP #### [facility] [address] [place] [address] Dr. Susana Rivera Chloride [Moles/Vol] 106 mmol/L Normal 98-107 [facility] Comment on above: Performed By: #### L IVER, TSH, LIPID, BMP #### [facility] [address] [place] [address] Dr. Susana Rivera CO2 [Moles/Vol] 25.6 mmol/L Normal 21.0-32.0 [facility] Comment on above: Performed By: #### L IVER, TSH, LIPID, BMP #### [facility] [address] [place] [address] Dr. Susana Rivera Creatinine [Mass/Vol] 0.58 mg/dL Normal 0.55-1.02 [facility] Comment on above: Performed By: #### L IVER, TSH, LIPID, BMP #### [facility] [address] [place] [address] Dr. Susana Rivera EGFR-AF TAIWANESE >60 Normal >=60 [facility] Comment on above: Performed By: #### L IVER, TSH, LIPID, BMP #### [facility] [address] [place] [address] Dr. Susana Rivera EGFR-NON AF TAIWANESE >60 Normal >=60 [facility] Comment on above: Performed By: #### L IVER, TSH, LIPID, BMP #### [facility] [address] [place] [address] Dr. Susana Rivera Globulin (S) [Mass/Vol] 4.3 g/dL Normal [facility] Comment on above: Performed By: #### L IVER, TSH, LIPID, BMP #### [facility] [address] [place] [address] Dr. Susana Rivera Glucose [Mass/Vol] 93 mg/dL Normal 74-106 [facility] Comment on above: Performed By: #### L IVER, TSH, LIPID, BMP #### [facility] [address] [address] [address] Susana Rivera Potassium [Moles/Vol] 4.1 mmol/L Normal 3.5-5.1 [facility] Comment on above: Performed By: #### L IVER, TSH, LIPID, BMP #### [facility] [address] [address] [address] Susana Rivera Protein [Mass/Vol] 7.9 g/dL Normal 6.4-8.2 [facility] Comment on above: Performed By: #### L IVER, TSH, LIPID, BMP #### [facility] [address] [address] [address] Susana Rivera Sodium [Moles/Vol] 140 mmol/L Normal 136-145 [facility] Comment on above: Performed By: #### L IVER, TSH, LIPID, BMP #### [facility] [address] [address] [address] Susana Rivera Urea nitrogen [Mass/Vol] 10.0 mg/dL Normal 7.0-18.0 [facility] Comment on above: Performed By: #### L IVER, TSH, LIPID, BMP #### [facility] [address] [address] [address] Susana Rivera Urea nitrogen/Creatinine [Mass ratio] 17.2 mg/mg Normal [facility] Comment on above: Performed By: #### L IVER, TSH, LIPID, BMP #### [facility] [address] [address] [address] Susana Rivera PROTIMEon 01-29-2023 INR Coag (PPP) [Relative time] 0.94 {INR} Normal [facility] Comment on above: Performed By: #### L IVER, TSH, LIPID, BMP #### [facility] [address] [address] [address] Susana Rivera INR GUIDELINES SEE BELOW Normal [facility] Comment on above: Result Comment: REYMUNDO RED INR: 2.0 - 3.0 CONDITIONS NOT LISTED BELOW 2.5 - 3.5 FOR PROSTHETIC HEART VALVE REPLACEMENT 2.5 - 3.5 RECURRENT THROMBOSIS Performed By: #### L IVER, TSH, LIPID, BMP #### [facility] [address] [place] [address] Dr. Susana Rivera PT Coag (PPP) [Time] 10.0 s Normal 9.0-11.6 [facility] Comment on above: Performed By: #### L IVER, TSH, LIPID, BMP #### [facility] [address] [place] [address] Dr. Susana Rivera TSHon 01-29-2023 TSH 1.619 uIU/mL Normal 0.358-3.740 [facility] Comment on above: Performed By: #### L IVER, TSH, LIPID, BMP #### [facility] [address] [place] [address] Dr. Susana Rivera CBC AUTO DIFFon 07-22-2022 BASO # 0.0 103/ul Normal 0.0-0.1 [facility] Comment on above: Performed By: #### C BC #### [facility] [address] [place] [address] Dr. Susana Rivera Basophils/100 WBC (Bld) 0.3 % Normal 0.2-2.0 [facility] Comment on above: Performed By: #### C BC #### [facility] [address] [place] [address] Dr. Susana Rivera EO # 0.2 103/ul Normal 0.0-0.7 [facility] Comment on above: Performed By: #### C BC #### [facility] [address] [place] [address] Dr. Susana Rivera Eosinophils/100 WBC (Bld) 2.3 % Normal 0.9-7.0 [facility] Comment on above: Performed By: #### C BC #### [facility] [address] [place] [address] Dr. Susana Rivera Erythrocyte distribution width (RBC) [Ratio] 12.3 % Normal 11.0-15.0 [facility] Comment on above: Performed By: #### C BC #### [facility] [address] [place] [address] Dr. Susana Rivera Hematocrit (Bld) [Volume fraction] 38.6 % Normal 36.0-48.0 [facility] Comment on above: Performed By: #### C BC #### [facility] [address] [place] [address] Dr. Susana Rivera Hemoglobin (Bld) [Mass/Vol] 12.4 g/dL Normal 12.0-16.0 [facility] Comment on above: Performed By: #### C BC #### [facility] [address] [place] [address] Dr. Susana Rivera IG # 0.02 10e3/ul Normal 0.00-0.03 [facility] Comment on above: Performed By: #### C BC #### [facility] [address] [place] [address] Dr. Susana Rivera IG % 0.2 % Normal 0.0-0.5 [facility] Comment on above: Performed By: #### C BC #### [facility] [address] [place] [address] Dr. Susana Rivera LYMPH # 3.3 103/ul Normal 1.2-3.8 [facility] Comment on above: Performed By: #### C BC #### [facility] [address] [place] [address] Dr. Susana Rivera Lymphocytes/100 WBC (Bld) 32.0 % Normal 20.5-60.0 [facility] Comment on above: Performed By: #### C BC #### [facility] [address] [place] [address] Dr. Susana Rivera MANUAL DIFF REQ NO Normal [facility] Comment on above: Performed By: #### C BC #### [facility] [address] [place] [address] Dr. Susana Rivera MCH (RBC) [Entitic mass] 30.7 pg Normal 26.7-34.0 [facility] Comment on above: Performed By: #### C BC #### [facility] [address] [address] [address] Susana Rivera MCHC (RBC) [Mass/Vol] 32.1 g/dL Normal 29.9-35.2 [facility] Comment on above: Performed By: #### C BC #### [facility] [address] [address] [address] Susana Rivera MCV (RBC) [Entitic vol] 95.5 fL Normal 81.0-99.0 [facility] Comment on above: Performed By: #### C BC #### [facility] [address] [place] [address] Dr. Susana Rivera MONO # 0.6 103/ul Normal 0.3-0.8 [facility] Comment on above: Performed By: #### C BC #### [facility] [address] [place] [address] Dr. Susana Rivera Monocytes/100 WBC (Bld) 5.9 % Normal 1.7-12.0 [facility] Comment on above: Performed By: #### C BC #### [facility] [address] [place] [address] Dr. Susana Rivera NEUT # 6.2 103/ul Normal 1.4-6.5 [facility] Comment on above: Performed By: #### C BC #### [facility] [address] [place] [address] Dr. Susana Rivera Neutrophils/100 WBC (Bld) 59.3 % Normal 43.0-75.0 [facility] Comment on above: Performed By: #### C BC #### [facility] [address] [address] [address] Susana Rivera Platelet mean volume (Bld) [Entitic vol] 11.2 fL Normal 9.5-13.5 [facility] Comment on above: Performed By: #### C BC #### [facility] [address] [place] [address] Dr. Susana Rivera PLT 235 103/ul Normal 150-450 [facility] Comment on above: Performed By: #### C BC #### [facility] [address] [address] [address] Susana Rivera RBC 4.04 106/ul Critically low 4.20-5.40 [facility] Comment on above: Performed By: #### C BC #### [facility] [address] [address] [address] Susana Rivera WBC 10.4 103/ul Normal 4.0-11.0 [facility] Comment on above: Performed By: #### C BC #### [facility] [address] [address] [address] Susana Rivera GLYCOHEMOGLOBIN A1Con 2021 ADA RECOMMENDATION SEE BELOW Normal [facility] Comment on above: Result Comment: ADA RECOMMENDED LIMIT 4.0 - 6.0 ADA THERAPEUTIC TARGET < 7.0 ACTION SUGGESTED > 7.0 Performed By: #### A 1C #### [facility] [address] [place] [address] Dr. Susana Rivera Glucose [Mass/Vol] 105 mg/dL Normal [facility] Comment on above: Performed By: #### A 1C #### [facility] [address] [place] [address] Dr. Susana Rivera HbA1c (Bld) [Mass fraction] 5.3 % Normal 4.5-6.2 [facility] Comment on above: Performed By: #### A 1C #### [facility] [address] [place] [address] Dr. Susana Rivera LIPID PROFILEon 07-22-2022 CHOL-HDL RATIO NORM SEE BELOW Normal [facility] Comment on above: Result Comment: 3.3 - 4.4 LOW RISK 4.4 - 7.1 AVERAGE RISK 7.1 - 11.0 MODERATE RISK >11.0 HIGH RISK Performed By: #### L IVER, TSH, LIPID, BMP #### [facility] [address] [place] [address] Dr. Susana Rivera Cholesterol [Mass/Vol] 193 mg/dL Normal <=200 [facility] Comment on above: Performed By: #### L IVER, TSH, LIPID, BMP #### [facility] [address] [address] [address] Susana Rivera Cholesterol in HDL [Mass/Vol] 45 mg/dL Normal 40-60 [facility] Comment on above: Performed By: #### L IVER, TSH, LIPID, BMP #### [facility] [address] [address] [address] Susana Rivera Cholesterol in LDL [Mass/Vol] 121.0 mg/dL Normal [facility] Comment on above: Performed By: #### L IVER, TSH, LIPID, BMP #### [facility] [address] [address] [address] Susana Rivera Cholesterol.total/Cho lesterol in HDL [Mass ratio] 4.3 {ratio} Normal [facility] Comment on above: Performed By: #### L IVER, TSH, LIPID, BMP #### [facility] [address] [address] [address] Susana Rivera HDL NORMAL > or = 60 mg/dl - LOW CARDIOVASCULAR RISK <40 mg/dl - HIGH CARDIOVASCULAR RISK Normal [facility] Comment on above: Performed By: #### L IVER, TSH, LIPID, BMP #### [facility] [address] [address] [address] Susana Rivera LDL CALC NORMAL SEE BELOW [facility] [facility] Comment on above: Result Comment: <100 mg/dl OPTIMAL 100 - 129 mg/dl NEAR OR ABOVE OPTIMAL 130 - 159 mg/dl BORDERLINE HIGH 160 - 189 mg/dl HIGH >190 mg/dl VERY HIGH Performed By: #### L IVER, TSH, LIPID, BMP #### [facility] [address] [address] [address] Susana Rivera Triglyceride [Mass/Vol] 135 mg/dL Normal <=150 [facility] Comment on above: Performed By: #### L IVER, TSH, LIPID, BMP #### [facility] [address] [address] [address] Susana Rivera VLDL CALC 27.0 mg/dL Normal [facility] Comment on above: Performed By: #### L IVER, TSH, LIPID, BMP #### [facility] [address] [place] [address] Dr. Susana Rivera LIVER PROFILEon 07-22-2022 Albumin [Mass/Vol] 3.8 g/dL Normal 3.4-5.0 [facility] Comment on above: Performed By: #### L IVER, TSH, LIPID, BMP #### [facility] [address] [place] [address] Dr. Susana Rivera Albumin/Globulin [Mass ratio] 0.8 {ratio} Normal [facility] Comment on above: Performed By: #### L IVER, TSH, LIPID, BMP #### [facility] [address] [place] [address] Dr. Susana Rivera ALP [Catalytic activity/Vol] 73 U/L Normal 46-116 [facility] Comment on above: Performed By: #### L IVER, TSH, LIPID, BMP #### [facility] [address] [place] [address] Dr. Susana Rivera ALT [Catalytic activity/Vol] 27 U/L Normal 14-59 [facility] Comment on above: Performed By: #### L IVER, TSH, LIPID, BMP #### [facility] [address] [place] [address] Dr. Susana Rivera AST [Catalytic activity/Vol] 17 U/L Normal 15-37 [facility] Comment on above: Performed By: #### L IVER, TSH, LIPID, BMP #### [facility] [address] [place] [address] Dr. Susana Rivera BILI, CONJUGATED 0.1 mg/dL Normal 0.0-0.2 [facility] Comment on above: Performed By: #### L IVER, TSH, LIPID, BMP #### [facility] [address] [place] [address] Dr. Susana Rivera Bilirubin [Mass/Vol] 0.3 mg/dL Normal 0.2-1.0 [facility] Comment on above: Performed By: #### L IVER, TSH, LIPID, BMP #### [facility] [address] [place] [address] Dr. Susana Rivera Globulin (S) [Mass/Vol] 4.6 g/dL Normal [facility] Comment on above: Performed By: #### L IVER, TSH, LIPID, BMP #### [facility] [address] [address] [address] Susana Rivera Protein [Mass/Vol] 8.4 g/dL Critically high 6.4-8.2 [facility] Comment on above: Performed By: #### L IVER, TSH, LIPID, BMP #### [facility] [address] [address] [address] Susana Rivera PROF CHEM 8 (BAS METB)on Anion gap [Moles/Vol] 12.3 mmol/L Normal [facility] Comment on above: Performed By: #### L IVER, TSH, LIPID, BMP #### [facility] [address] [place] [address] Dr. Susana Rivera Calcium [Mass/Vol] 9.2 mg/dL Normal 8.5-10.1 [facility] Comment on above: Performed By: #### L IVER, TSH, LIPID, BMP #### [facility] [address] [address] [address] Susana Rivera Chloride [Moles/Vol] 104 mmol/L Normal 98-107 [facility] Comment on above: Performed By: #### L IVER, TSH, LIPID, BMP #### [facility] [address] [address] [address] Susana Rivera CO2 [Moles/Vol] 24.7 mmol/L Normal 21.0-32.0 [facility] Comment on above: Performed By: #### L IVER, TSH, LIPID, BMP #### [facility] [address] [address] [address] Susana Rivera Creatinine [Mass/Vol] 0.67 mg/dL Normal 0.55-1.02 [facility] Comment on above: Performed By: #### L IVER, TSH, LIPID, BMP #### [facility] [address] [address] [address] Susana Rivera EGFR-AF TAIWANESE >60 Normal >=60 [facility] Comment on above: Performed By: #### L IVER, TSH, LIPID, BMP #### [facility] [address] [place] [address] Dr. Susana Rivera EGFR-NON AF TAIWANESE >60 Normal >=60 [facility] Comment on above: Performed By: #### L IVER, TSH, LIPID, BMP #### [facility] [address] [place] [address] Dr. Susana Rivera Glucose [Mass/Vol] 94 mg/dL Normal 74-106 [facility] Comment on above: Performed By: #### L IVER, TSH, LIPID, BMP #### [facility] [address] [place] [address] Dr. Susana Rivera Potassium [Moles/Vol] 4.0 mmol/L Normal 3.5-5.1 [facility] Comment on above: Performed By: #### L IVER, TSH, LIPID, BMP #### [facility] [address] [place] [address] Dr. Susana Rivera Sodium [Moles/Vol] 137 mmol/L Normal 136-145 [facility] Comment on above: Performed By: #### L IVER, TSH, LIPID, BMP #### [facility] [address] [place] [address] Dr. Susana Rivera Urea nitrogen [Mass/Vol] 21.0 mg/dL Critically high 7.0-18.0 [facility] Comment on above: Performed By: #### L IVER, TSH, LIPID, BMP #### [facility] [address] [place] [address] Dr. Susana Rivera Urea nitrogen/Creatinine [Mass ratio] 31.3 mg/mg Normal [facility] Comment on above: Performed By: #### L IVER, TSH, LIPID, BMP #### [facility] [address] [place] [address] Dr. Susana Rivera TSHon 07-22-2022 TSH 2.863 uIU/mL Normal 0.358-3.740 [facility] Comment on above: Performed By: #### L IVER, TSH, LIPID, BMP #### [facility] [address] [address] [address] Susana Rivera Vital Signs Date Time Vital Sign Value Performing Clinician Abby dumont 02-03-2023 12:23-0400 Diastolic blood pressure 80 mm[Hg] MD Subhash Caba Work Phone: [facility] 02-03-2023 12:23-0400 Heart rate 56 /min MD Subhash Caba Work Phone: [facility] 02-03-2023 12:23-0400 Respiratory rate 18 /min MD Subhash Caba Work Phone: [facility] 02-03-2023 12:23-0400 SaO2% (BldA) [Mass fraction] 96 % MD Subhash Caba Work Phone: [facility] 02-03-2023 12:23-0400 Systolic blood pressure 135 mm[Hg] MD Subhash Caba Work Phone: [facility] 02-03-2023 10:14-0400 Body height 162.56 cm MD Subhash Caba Work Phone: [facility] 02-03-2023 10:14-0400 Body temperature 97.7 [degF] MD Subhash Caba Work Phone: [facility] 02-03-2023 10:14-0400 Body weight 99.79 kg MD Subhash Caba Work Phone: [facility] Encounters Encounter Date Encounter Type Care Provider Facility Start: 11-08-2023 End: 11-08-2023 ambulatory [facility] Not Available Start: 11-02-2023 End: 11-02-2023 ambulatory [facility] Not Available Start: 02-03-2023 End: 02-03-2023 ambulatory Subhash Caba Facility:[facility] Start: 02-03-2023 End: 02-03-2023 Admission to same day surgery center MD Subhash Caba Work Phone: [facility] Work Phone: Start: 02-03-2023 End: 02-03-2023 ambulatory MD Subhash Caba Work Phone: [facility] Work Phone: Start: 01-29-2023 End: 01-30-[address] Hernesto CUNNINGHAM Facility:[facility] Start: 07-25-2022 Encounter for genera l adult medical examination without abnormal findings DR SUBHASH CABA [facility] Start: 07-22-2022 End: 07-23-[address] SUBHASH CABA Facility:[facility] Start: 07-22-2022 End: 07-23-2022 Encounter for general adult medical examination without abnormal findings DR SUBHASH CABA Facility:[facility] Start: 12-06-2016 End: 12-07-2016 Ambulatory Eusebio Emery Facility:[facility] Procedures Date Procedure Procedure Detail Performing Clinician Start: 02-03-2023 Esophagogastroduodenoscopy MD Subhash Caba Work Phone: Plan of Treatment Date Care Activity Detail Author Start: 02-03-2023 [facility] Patient Education Esophagitis Hi atal Hernia (DC) [facility] Work Phone: Payers Date Payer Category Payer Self-pay 1990 Unknown [id number] 1988 Unknown [id number] 1988 Unknown [id number] 1988 Unknown [id number] 1959 Unknown [id number] 1959 Unknown [id number] Unknown [id number] Social History Date Type Detail Facility Tobacco smoking stat [facility] Unknown if ever smoked [facility] Work Phone: Start: 1990 Sex Assigned At Female F [facility] Goals Date Patient Goal Desired Activity /State Procedure note 02-03-2023 Note Date & Type Note Facility 02-03-2023 Procedure note [facility] Evaluation note Note Date & Type Note Facility Evaluation note No assessment information availa ble [facility] Work Phone: Hospital Discharge instructions Note Date [...] me in 6-8 weeks. Low FODMAP diet Moni 1 p.o. every morning IBgard 1-2 once or twice a day -Notify the doctor if you have any problems. -Office number [phone] [facility] Work Phone: Summary Purpose Family History [...] section and content) DATE CREATED AUTHOR 05/10/2018 Dawn Harris [facility] DATE CREATED AUTHOR AUTHOR'S ORGANIZ ATION 02/13/2023 [facility] DATE CREATED AUTHOR AUTHOR'S ORGANIZ ATION 02/15/2023 [facility] DATE CREATED AUTHOR AUTHOR'S ORGANIZ ATION 11/10/2023 [facility] Care Teams (unrecognized sec tion and content) [...] BE BASED ON THE PRIMARY CLINICAL RECORDS. [employer] provides no warranty or guarantee of the accuracy or completeness of information in this document.
[2023-11-12 07:36] LABS: SARS-CoV-2 Ag POSITIVE (NEGATIVE)
--- NOTE | 2023-11-12 07:36 | ED_ITS ---
HPI - URI/Sore Throat General Chief Complaint: Upper Respiratory Infection Stated Complaint: SHORTNESS OF BREATH Time Seen by Provider: 11/12/23 07:18 Source: patient Limitations: no limitations History of Present Illness HPI Narrative: The patient is coming to the ER with a few days history of generalized body ache headache as well as a runny nose no nausea or vomiting with the patient also have a cough and difficulty breathing, the patient does have history of asthma but she has not been responding to her inhaler. There is no other complaints the patient tried contacting her primary care doctor but he did not call medication for her Related Data Previous Rx's Medication Instructions Recorded albuterol sulfate 2.5 mg/3 mL 2.5 mg (3 mL) inhalation Q6H PRN 11/12/23 (0.083 %) solution for nebulization wheezing #90 mL prednisone 50 mg tablet 50 mg PO DAILY 5 days #5 tabs 11/12/23 Allergies Allergy/AdvReac Type Severity Reaction Status Date / Time No Known Drug Allergies Allergy Verified 11/12/23 07:07 Review of Systems ROS Status of ROS 10 or more systems reviewed and unremark able except as noted in history and below Exam Narrative Exam Narrative: Nurses notes and vital signs reviewed and patient is not hypoxic. General: Well-appearing and in no apparent distress. Skin: Warm, dry, no pallor noted. No rash. Head: Normocephalic, atraumatic. Neck: Supple, non-tender. Eye: Pupils are equal, round and EOMI. No scleral icterus. Ears, Nose, Mouth, and Throat: TM are clear, no nasal mucosal hypertrophy. Oral mucosa is moist, no posterior oropharynx erythema, uvula is mid-line Cardiovascular: Regular Rate and Rhythm without murmur, gallop or rub. Respiratory: No accessory muscle use or respiratory distress. Lungs there is bilateral expiratory lung wheezes Chest Wall: no tenderness Back: No midline thoracic or lumbar vertebral tenderness. No CVA tenderness Musculoskeletal: normal ROM, no calf or popliteal tenderness, no lower extremity edema/swelling GI: Abdomen is soft, non-distended. Normal bowel sounds. No masses appreciated. No tenderness to palpation. No rebound, guarding, or rigidity noted. Neurological: A&O x4. No cranial nerve dysfunction observed. No truncal ataxia. Moves all extremities. Sensation intact. Psychiatric: Cooperative and interactive. Normal mood and affect. Constitutional Vital Signs, click to edit/add: Last Vital Signs Temp 99.9 F 11/12/23 07:08 Pulse 98 H 11/12/23 07:08 Resp 18 11/12/23 07:08 BP 152/90 H 11/12/23 07:08 Pulse Ox 95 11/12/23 07:08 Course Vital Signs Vital signs: Vital Signs Temperature 99.9 F 11/12/23 07:08 Pulse Rate 98 H 11/12/23 07:08 Respiratory Rate 18 11/12/23 07:08 Blood Pressure 152/90 H 11/12/23 07:08 Pulse Oximetry 95 11/12/23 07:08 Temperature 99.9 F 11/12/23 07:08 Pulse Rate 98 H 11/12/23 07:08 Respiratory Rate 18 11/12/23 07:08 Blood Pressure 152/90 H 11/12/23 07:08 Pulse Oximetry 95 11/12/23 07:08 MDM - URI/Sore Throat MDM Narrative Medical decision making narrative: The patient COVID test is positive right now she is presenting with a mild asthma exacerbation viral symptoms Right now the patient to continue supportive care at home with hydration as well as prednisone and albuterol and she was treated in the ER with prednisone albuterol before getting discharged Also the patient was provided with a work excuse the patient was instructed that in case their primary care doctor called in the prescription she is just to take the medication that I prescribed for her not to over take the medication The patient is to follow up with primary care physician in next 2-3 days or to return to the emergency department should any of the signs or symptoms worsen or new symptoms develop. The patient agrees with the following Diagnosis and Treatment plan and the patient will be discharged home. Lab Data Labs: Lab Results 11/12/23 Range/Units 07:10 SARS-CoV-2 (PCR) Positive A (NEGATIVE) Discharge Plan Discharge Chief Complaint: Upper Respiratory Infection Clinical Impression: COVID-19 Patient Disposition: Home, Self-Care Time of Disposition Decision: 07:38 Condition: Good Prescriptions / Home Meds: New prednisone 50 mg tablet 50 mg PO DAILY 5 Days Qty: 5 0RF albuterol sulfate 2.5 mg /3 mL (0.083 %) solution for nebulization 2.5 mg inhalation Q6H PRN (Reason: wheezing) Qty: 90 0RF Instructions: COVID-19 (Coronavirus Disease 2019) (ED) Stand Alone Forms: Portal Instructions Referrals: Subhash Segovia MD [Primary Care Provider] - 1 week
[2023-11-12] MEDS: PREDNISONE 20 MG TABLET 40 MG PO (07:40)
[2023-11-12] MEDS: IPRATROPIUM/ALBUTEROL SULFATE 3 ML AMPUL.NEB IH (07:53)
[2023-11-12 08:01] VITALS: PULSE 89; RESP 18; O2SAT 95
== END 2023-11-12 08:01 | disposition home or self-care (01) ==
PROVIDERS: Emergency Provider Emergency Medicine; PCP Family Medicine
DX: U07.1 COVID-19 (principal); J45.901 Unspecified asthma with (acute) exacerbation; R50.9 Fever, unspecified
CPT/HCPCS: 87811; 94640; 99283

== ENCOUNTER 2024-07-25 10:10 | Outpatient (OUT) | payer OTHER, SELFPAY ==
--- NOTE | 2024-07-25 10:33 | US_ITS ---
The [address] [address] Patient Name: SOMMER FABIAN MRN: [id number] date: 1990 Sex: F Assigned Patient Location: [place] Current Patient Location: Accession/Order Number: [id number] Exam Date: 07/25/2024 10:34 Report Date: 07/26/2024 09:41 At the request of: RAMBO URBINA Procedure: US pelvis w/ transvaginal EXAMINATION: US pelvis w/ transvaginal HISTORY: Female Fertility Problem, Polycystic Ovarian Syndrome COMPARISON: No relevant comparison available. FINDINGS: The uterus is normal in size, contour and echotexture measuring 8.1 x 3.7 x 4.8 cm. The uterus is anteflexed. No focal mass. Endometrium measures 12.2 mm, normal. The right ovary is nonvisualized consistent with prior known oophorectomy Left ovary measures 4.6 x 2.1 x 3.3 cm. Ill-defined elongated area of hypoechoic echogenicity measuring 2.1 x 1.8 x 1.3 cm No free fluid US/US pelvis w/ transvaginal IMPRESSION: No evidence of polycystic ovarian morphology Electronically authenticated by: KAELYN FABIAN Date: 07/26/2024 09:41
[2024-07-25 10:41] LABS: Basophils Percent Auto 0.4 % (0.2-2.0); Eosinophils Absolute Auto 0.2 10^3/uL (0.0-0.7); Eosinophils Percent Auto 2.5 % (0.9-7.0); Hematocrit 37.6 % (36.0-48.0); Hemoglobin 12.5 g/dL (12.0-16.0); Immature Granulocytes Abs Auto 0.01 10^3/uL (0.00-0.03); Immature Granulocytes Pct Auto 0.1 % (0.0-0.5); Lymphocytes Percent Auto 35.3 % (20.5-60.0); Mean Corpuscular HGB Conc 33.2 g/dL (29.9-35.2); Mean Corpuscular Hemoglobin 31.9 pg (26.7-34.0); Mean Corpuscular Volume 95.9 fL (81.0-99.0); Mean Platelet Volume 10.5 fL (9.5-13.5); Monocytes Absolute Auto 0.4 10^3/uL (0.3-0.8); Monocytes Percent Auto 5.3 % (1.7-12.0); Neutrophils Absolute Auto 4.7 10^3/uL (1.4-6.5); Neutrophils Percent Auto 56.4 % (43.0-75.0); Platelet Count 228 10^3/uL (150-450); Red Blood Count 3.92 10^6/uL (4.20-5.40); Red Cell Distribution Width 12.4 % (11.0-15.0); White Blood Count 8.4 10^3/uL (4.0-11.0)
[2024-07-25 11:52] LABS: HCG Quantitative <1 mIU/mL; Thyroid Stimulating Hormone 3.889 uIU/mL (0.358-3.740)
[2024-07-25 11:57] LABS: Free T4 0.85 ng/dL (0.76-1.46)
[2024-07-26 04:12] LABS: DHEA-Sulfate 65.6 ug/dL (57.3-279.2); FSH 4.3 mIU/mL (.); Luteinizing Hormone(LH) 10.4 mIU/mL (.)
[2024-07-28 03:47] LABS: Anti-Mullerian Hormone (AMH) 2.73 ng/mL (.)
== END 2024-07-25 10:11 | disposition home or self-care (01) ==
LOC: US 10:10
PROVIDERS: PCP Family Medicine; Visit Provider Obstetrics & Gynecology
DX: N97.9 Female infertility, unspecified (principal); E28.2 Polycystic ovarian syndrome
CPT/HCPCS: 36415; 76830; 76856; 82397; 82626; 82627; 83001; 83002; 84439; 84443; 84702; 85025

== ENCOUNTER 2024-08-23 15:08 | Outpatient (OUT) | payer OTHER, SELFPAY ==
--- OUTSIDE RECORDS SUMMARY | 2024-08-23 15:22 | XMS_ITS | CCD ---
Author Organization [facility] Care Team Providers Care Proof Operator Name Role Phone Nill, Eusebio R Unavailable Unavailable Nill, Eusebio R Unavailable Unavailable Nill, Eusebio R Unavailable Unavailable BETH CLAIRE Unavailable Unavailable MD Omero Cunningham Attending Provider MD Subhash Caba Primary Care Provider GERTRUDIS, DR SUBHASH Pereyra Admitting Unavailable BRIDGETTEEREFarida, DR SUBHASH Pereyra Attending Unavailable BRIDGETTEEREFarida, DR SUBHASH Pereyra Primary Care Unavailable GERTRUDIS, DR SUBHASH Pereyra Consulting Unavailable ISMAEL, DR Hernesto Iqbal Admitting Unavailable ISMAEL, DR Hernesto Iqbal Attending Unavailable GERTRUDIS, DR SUBHASH Pereyra Primary Care Unavailable ISMAEL, DR Hernesto Iqbal Consulting Unavailable Subhash Caba Primary Care Unavailable Omero Cunningham Attending UnavailOmero Covarrubias Admitting Unavailsusy e Unavailable Primary Care Provider Unavailsusy Caba MD, Subhash Primary Care Provider MELQUIADES WEBER Attending Unavailable SUBHASH CABA Primary Care Unavailable SUBHASH CABA Referring Unavailable SUBHASH CABA Primary Care Unavailable TIA, ANJADIONYKA Admitting Unavailable MELQUIADES WEBER Attending Unavailable TIA ANJAMICAELA Referring Unavailable SUBHASH CABA Primary Care Unavailable NATASHA SANTANA Attending Unavailable SUBHASH CABA Primary Care Unavailable WALKER BLOOM Attending Unavailable RAMBO LA Attending Unavailable SUBHASH CABA Attending Unavailable MIKAYLA SIN Attending Unavailable MIKAYLA SIN Referring Unavailable MIKAYLA SIN Referring Unavailable JR. KAM GEORGE C Attending Unavaila ble MIKAYLA SIN Attending Unavailable MIKAYLA SIN Attending Unavailable MIKAYLA SIN Attending Unavailable RAMBO LA Attending Unavailable WALKER BLOOM Attending Unavailable CHELA RODRIGUEZ Attending Unavailable SUBHASH CABA Referring Unavailable SUBHASH CABA Primary Care Unavailable SUBHASH CABA Referring Unavailable SUBHASH CABA Primary Care Unavailable CHELA RODRIGUEZ Attending Unavailable SUBHASH CABA Referring Unavailable SUBHASH CABA Primary Care Unavailable MELQUIADES WEBER Referring Unavailable SUBHASH CABA Primary Care Unavailable CHELA RODRIGUEZ Attending Unavailable SUBHASH CABA Referring Unavailable SUBHASH CABA Primary Care Unavailable Allergies Allergy Classification Reported Allergen(s) Allergy Type Date of Onset Reaction(s) Facility (1 source) Morphine Drug Allergy 04-27-2013 [facility] Repository Medications Current Medications Medication Drug Class(es) Dates Sig (Normalized) Sig (Original) acetaminophen 500 mg oral tablet (3 sources) Start: 12-22-2023 take 2 tablets by mouth every eight hours acetaminophen (TYLENOL EXTRA STRENGTH) 500 mg tablet Take 2 tablets (1,000 mg total) by mouth every 8 (eight) hours. 30 tablet 0 12/22/2023 Active ibuprofen 800 mg oral tablet (1 source) Nonsteroidal Anti-inflammatory Drug Start: 12-22-2023 End: 12-27-2023 take 1 tablet by mouth every eight hours as needed for pain ibuprofen (MOTRIN) 800 mg tablet Take 1 tablet (800 mg total) by mouth every 8 (eight) hours as needed for pain for up to 5 days. 15 tablet 0 12/22/2023 12/27/2023 Active loratadine 10 mg oral tablet (8 sources) Start: 02-03-2023 take 10 mg by mouth once daily Loratadine Active 10 MG PO Daily February 03, 2023 12:00am pantoprazole 40 mg delayed release oral tablet (8 sources) Proton Pump Inhibitor Start: 07-26-2023 take 1 tablet by mouth in the morning pantoprazole (PROTONIX) 40 mg EC tablet Indications: gastroesophageal reflux disease Take 1 tablet (40 mg total) by mouth in the morning. Indications: gastroesophageal reflux disease. 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] Onset: 01-03-2024 01-03-2024 Chronic Other aftercare (2 sources) Postoperative visit; Translations: [Encounter for other specified surgical aftercare] 01-03-2024 Episodic Other female genital disorders (2 sources) Dysplasia of vulva; Translations: [Dysplasia of vulva, unspecified] 12-12-2023 Episodic Other gastrointestinal disorders (4 sources) Other specified symptoms and signs involving the digestive system and abdomen; Translations: [OTH SPEC SX SIGNS DIGESTV SYS ABD] Onset: 01-29-2023 Episodic Other gastrointestinal disorders (1 source) Diarrhea, unspecified; Translations: [Diarrhea, unspecified] Onset: 02-03-2023 Episodic Other nervous system disorders (1 source) Other acute postprocedural pain; Translations: [Other acute postprocedural pain] Onset: 12-22-2023 Episodic Unclassified (1 source) VULVAR DYSPLASIA Onset: 12-22-2023 Past or Other Problems Problem Classification Problem Date Documented Da te Episodic/Chronic Other female genital disorders (1 source) Dysplasia of vulva, unspecified; Translations: [Dysplasia of vulva, unspecified] Onset: 12-19-2023 Episodic Results Test Name Value Interpretation Reference Range Facility MR WRIST RIGHT WO IV CONTRAS Ton 03-02-2024 MR WRIST RIGHT WO IV CONTRAST HISTORY: Right wrist pain. TECHNIQUE: Routine MRI of the wrist, right side; COMPARISON: Radiographs 02/27/2024. RESULT: Some limitations from motion. BONE MARROW: There is no evidence of fracture, bone bruise or osteonecrosis. LIGAMENTS: The scapholunate ligament and lunotriquetral ligament appear to be intact. TRIANGULAR FIBROCARTILAGE: The triangular fibrocartilage appears to be intact. CARTILAGE: The articular cartilage of the radiocarpal and intercarpal joints is preserved. TENDONS: The flexor and extensor tendons appear intact with small amount of increased fluid in the second and third extensor compartments which may be physiologic or trace tenosynovitis. NERVES: The visualized portions of the median and ulnar nerves appear to be within normal limits. JOINT FLUID AND SYNOVIUM: Lobular cystic lesion along the dorsal aspect of the mid wrist from the level of the radiocarpal joint to the mid capitate measuring approximately 0.8 cm AP by 1.8 cm transverse by 1.4 cm craniocaudal, with some thin septations, overall suggestive of ganglion cyst OTHER: No other significant abnormality. IMPRESSION: Dorsal ganglion cyst as discussed. Possible trace tenosynovitis of the second and third extensor compartments. ELECTRONICALLY SIGNED BY: Griffin Norris MD Normal Not Available BASIC METABOLIC PANLon 02-28 Anion gap [Moles/Vol] 10 mmol/L Normal 5-15 [facility] Comment on above: Performed By: #### C BCA, BMP, 02019-6, LIVR, 3016-3 #### [facility] ([id number]) [address], [address] [place] [address] Calcium [Mass/Vol] 9.5 mg/dL Normal 8.5-10.5 [facility] Comment on above: Performed By: #### C BCA, BMP, 00550-1, LIVR, 3016-3 #### [facility] ([id number]) [address], [address] [place] [address] Chloride [Moles/Vol] 104 mmol/L Normal 98-109 [facility] Comment on above: Performed By: #### C BCA, BMP, 47968-7, LIVR, 3016-3 #### [facility] ([id number]) [address], [address] [place] [address] CO2 [Moles/Vol] 25 mmol/L Normal 22-32 [facility] Comment on above: Performed By: #### C BCA, BMP, 41149-0, LIVR, 3016-3 #### [facility] ([id number]) [address], [address] [place] [address] Creatinine [Mass/Vol] 0.67 mg/dL Normal 0.40-1.00 [facility] Comment on above: Result Comment: METH OD TRACEABLE TO IDMS STANDARD Performed By: #### C BCA, BMP, 60773-2, LIVR, 3016-3 #### [facility] ([id number]) [address] [address] [place] [address] eGFR (CKD-EPI) NON-RACE DEPENDENT >90 Normal >59 [facility] Comment on above: Result Comment: Reported eGFR is based on the CKD-EPI 2020 equation that does not use a race coefficient. Performed By: #### C BCA, BMP, 46215-7, LIVR, 3016-3 #### [facility] ([id number]) [address] [address] [place] [address] Glucose [Mass/Vol] 75 mg/dL Normal 65-99 [facility] Comment on above: Performed By: #### C BCA, BMP, 23122-6, LIVR, 3016-3 #### [facility] ([id number]) [address] [address] [place] [address] Potassium [Moles/Vol] 3.8 mmol/L Normal 3.5-5.0 [facility] Comment on above: Performed By: #### C BCA, BMP, 01045-3, LIVR, 3016-3 #### [facility] ([id number]) [address] [address] [place] [address] Sodium [Moles/Vol] 139 mmol/L Normal 134-146 [facility] Comment on above: Performed By: #### C BCA, BMP, 82020-3, LIVR, 3016-3 #### [facility] ([id number]) [address] [address] [place] [address] Urea nitrogen [Mass/Vol] 13 mg/dL Normal 5-23 [facility] Comment on above: Performed By: #### C BCA, BMP, 56377-4, LIVR, 3016-3 #### [facility] ([id number]) [address] [address] [place] [address] CBC AND AUTO DIFFon 02-29-20 24 ABSOLUTE BASOPHIL 0.0 X10E9/L Normal 0.0-0.2 [facility] Comment on above: Performed By: #### C BCA, BMP, 69387-0, LIVR, 3016-3 #### [facility] ([id number]) [address], [facility] [address] [place] [address] ABSOLUTE NEUTROPHIL 4.3 X10E9/L Normal 1.5-6.6 [facility] Comment on above: Performed By: #### C BCA, BMP, 04505-0, LIVR, 3016-3 #### [facility] ([id number]) [address], [address] [address] Basophils/100 WBC (Bld) 0.4 % Normal [facility] Comment on above: Performed By: #### Billy BCA, BMP, 26160-5, LIVR, 6-3 #### [facility] ([id number]) [address] [address] Eosinophils (Bld) [#/Vol] 0.1 10*3/uL Normal 0.0-0.4 [facility] Comment on above: Performed By: #### Billy BCA, BMP, 69283-2, LIVR, 3015-3 #### [facility] ([id number]) [address] [address] Eosinophils/100 WBC (Bld) 1.6 % Normal [facility] Comment on above: Performed By: #### C BCA, BMP, 85142-7, LIVR, 3016-3 #### [facility] ([id number]) [address] [address] [place] [address] Erythrocyte distribution width (RBC) [Ratio] 12.9 % Normal 11.5-15.0 [facility] Comment on above: Performed By: #### C BCA, BMP, 82614-7, LIVR, 3016-3 #### [facility] ([id number]) [address], [address] [place] [address] Hematocrit (Bld) [Volume fraction] 36.5 % Normal 35-47 [facility] Comment on above: Performed By: #### C BCA, BMP, 44398-7, LIVR, 301-3 #### [facility] ([id number]) [address], [address] [place] [address] Hemoglobin (Bld) [Mass/Vol] 12.5 g/dL Normal 11.7-15.5 [facility] Comment on above: Performed By: #### C BCA, BMP, 93402-8, LIVR, 3016-01 #### [facility] ([id number]) [address], [facility] [address] [place] [address] Lymphocytes (Bld) [#/Vol] 3.3 10*3/uL Normal 1.0-3.5 [facility] Comment on above: Performed By: #### C BCA, BMP, 67852-5, LIVR, 3015- #### [facility] ([id number]) [address], [facility] [address] [place] [address] Lymphocytes/100 WBC (Bld) 40.3 % Normal [facility] Comment on above: Performed By: #### C BCA, BMP, 25735-6, LIVR, 3015-3 #### [facility] ([id number]) [address], [address] [place] [address] MCH (RBC) [Entitic mass] 32.1 pg Normal 27-34 [facility] Comment on above: Performed By: #### C BCA, BMP, 70420-4, LIVR, 6-3 #### [facility] ([id number]) [address], [address] [place] [address] MCHC (RBC) [Mass/Vol] 34.3 g/dL Normal 32-[address] [facility] Comment on above: Performed By: #### C BCA, BMP, 06312-0, LIVR, 3016-3 #### [facility] ([id number]) [address], [address] [place] [address] MCV (RBC) [Entitic vol] 94 fL Normal 80-100 [facility] Comment on above: Performed By: #### C BCA, BMP, 73514-1, LIVR, 6-3 #### [facility] ([id number]) [address], [address] [place] [address] Monocytes (Bld) [#/Vol] 0.4 10*3/uL Normal 0-0.9 [facility] Comment on above: Performed By: #### Billy BCA, BMP, 46021-0, LIVR, 3015- #### [facility] ([id number]) [address], [address] [place] [address] Monocytes/100 WBC (Bld) 4.9 % Normal [facility] Comment on above: Performed By: #### C BCA, BMP, 84576-5, LIVR, 3015- #### [facility] ([id number]) [address] [address] [place] [address] Neutrophils/100 WBC (Bld) 52.8 % Normal [facility] Comment on above: Performed By: #### C BCA, BMP, 52067-6, LIVR, 3015- #### [facility] ([id number]) [address], [address] [place] [address] Platelet mean volume (Bld) [Entitic vol] 9.7 fL Normal 7-12 [facility] Comment on above: Performed By: #### C BCA, BMP, 92125-1, LIVR, 3016-3 #### [facility] ([id number]) [address], [address] [place] [address] Platelets (Bld) [#/Vol] 254 10*3/uL Normal 150-450 [facility] Comment on above: Performed By: #### C ALLY MARTIN, 72956-0, LIVR, 3016-3 #### [facility] ([id number]) [address], [facility] [address] [place] [address] RBC COUNT 3.90 X10E12/L Normal 3.80-5.20 [facility] Comment on above: Performed By: #### C MARIO, ALLY, 56579-2, LIVR, 6-3 #### [facility] ([id number]) [address] [address] [place] [address] WBC (Bld) [#/Vol] 8.2 10*3/uL Normal 4.0-11.0 [facility] Comment on above: Performed By: #### C ALLY MARTIN, 31032-1, LIVR, 3016-3 #### [facility] ([id number]) [address], [facility] [address] [place] [address] HGB A1C (GLYCO-HGB)on 2023 Glucose [Mass/Vol] 103 mg/dL Normal [facility] Comment on above: Performed By: #### C ALLY MARTIN, 11702-4, LIVR, 3016-3 #### [facility] ([id number]) [address] [address] [place] [address] HbA1c (Bld) [Mass fraction] 5.2 % Normal 4.4-5.6 [facility] Comment on above: Result Comment: NOTE ADA Guidelines Result HgbA1c Normal : less than 5.7 % Prediabetes : 5.7 % to 6.4 % Diabetes : > 6.4 % Use with caution in patients with abnormal hemoglobin variants as the half-life of red blood cells and in vivo glycation rates are affected. Performed By: #### C MARIO, BMP, 75467-2, LIVR, 3016-3 #### [facility] ([id number]) [address], [address] [place] [address] LIVER PANELon 02-29-2024 Albumin [Mass/Vol] 4.5 g/dL Normal 3.2-5.3 [facility] Comment on above: Performed By: #### C BCA, BMP, 97812-6, LIVR, 3016-3 #### [facility] ([id number]) [address], [address] [place] [address] ALP [Catalytic activity/Vol] 84 U/L Normal 39-130 [facility] Comment on above: Performed By: #### C BCA, BMP, 76260-5, LIVR, 3016-3 #### [facility] ([id number]) [address], [address] [place] [address] ALT [Catalytic activity/Vol] 23 U/L Normal 0-31 [facility] Comment on above: Performed By: #### C BCA, BMP, 90992-6, LIVR, 3016-3 #### [facility] ([id number]) [address], [address] [place] [address] AST [Catalytic activity/Vol] 19 U/L Normal 0-41 [facility] Comment on above: Performed By: #### C BCA, BMP, 20217-5, LIVR, 6-3 #### [facility] ([id number]) [address], [address] [place] [address] Bilirubin [Mass/Vol] 0.5 mg/dL Normal 0.3-1.2 [facility] Comment on above: Performed By: #### C BCA, BMP, 57967-0, LIVR, 3016-3 #### [facility] ([id number]) [address], [address] [place] [address] Bilirubin.direct [Mass/Vol] 0.1 mg/dL Normal 0.0-0.4 [facility] Comment on above: Performed By: #### C BCA, BMP, 35564-0, LIVR, 3016-3 #### [facility] ([id number]) [address], [address] [place] [address] Protein [Mass/Vol] 8.1 g/dL High 6.0-8.0 [facility] Comment on above: Performed By: #### C BCA, BMP, 90264-7, LIVR, 3016-3 #### [facility] ([id number]) [address], [address] [place] [address] Lipid 1996 panelon 4 Cholesterol [Mass/Vol] 197 mg/dL Normal 150-200 [facility] Comment on above: Performed By: #### Billy BCA, BMP, 32281-7, LIVR, 3016-3 #### [facility] ([id number]) [address], [address] [place] [address] Cholesterol in HDL [Mass/Vol] 50 mg/dL Normal >39 [facility] Comment on above: Result Comment: HDL <40 mg/dL - High Risk HDL > or = 40mg/dL- Desirable HDL >60 mg/dL - Negative Risk Performed By: #### C BCA, BMP, 55738-6, LIVR, 3016-3 #### [facility] ([id number]) [address], [address] [place] [address] Cholesterol in LDL [Mass/Vol] 130 mg/dL High <130 [facility] Comment on above: Result Comment: LDL <100 mg/dL - Desirable LDL >160 mg/dL - High Risk Performed By: #### C BCA, BMP, 85047-2, LIVR, 3016-3 #### [facility] ([id number]) [address], [address] [address] Cholesterol in VLDL [Mass/Vol] 17 mg/dL Normal 0-30 [facility] Comment on above: Performed By: #### C BCA, BMP, 57939-6, LIVR, 3016-3 #### [facility] ([id number]) [address], [facility] [address] [place] [address] CHOLESTEROL:HDL 3.9 Normal 1.0-5.0 [facility] Comment on above: Performed By: #### C BCA, BMP, 38000-9, LIVR, 3016-3 #### [facility] ([id number]) [address] [address] Triglyceride [Mass/Vol] 85 mg/dL Normal 27-150 [facility] Comment on above: Performed By: #### C BCA, BMP, 16770-5, LIVR, 3016-3 #### [facility] ([id number]) [address], [address] [address] TSH Qnon 02-29-2024 TSH 2.50 uIU/mL Normal 0.49-4.67 [facility] Comment on above: Performed By: #### C BCA, BMP, 58852-9, LIVR, 3016-3 #### [facility] ([id number]) [address], [facility] [address] [place] [address] HCG ( test) Ql (U)o n 12-22-2023 Beta HCG ( test) Ql (U) Negative Normal NEG [facility] Comment on above: Performed By: #### 2 106-3 #### [facility] ([id number]) [address] [place] [address] Surgical Pathologyon 024 Surgical Pathology Normal [facility] Comment on above: Result Comment: [facility] [address] [place] [address] Surgical Pathology Consultation Patient Name:ELISHA COLBERT:1990 (Age: 32)Gender:FTaken:4Reported:4Physician(s):Melquiades Weber MD ([phone])Copy To: Rec. 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 Clinical History Vulvar dysplasia. Gross Description Received in formalin labeled RUI, left vulvar is a pink-sarabia ellipse of skin oriented with a suture at the 12:00 periphery. The specimen is 4.6 cm 12:00-6:00, 3.5 cm 9:00-3:00, excised to depth of 0.5 cm. Centrally located on the skin is a pale pink wrinkled lesion, 2.8 x 2.2 cm. The lesion is situated 0.4 cm to the 6:00 margin, 0.5 cm to the 9:00 margin, 1.5 cm to the 12:00 margin and 0.5 cm to the 3:00 margin. The resection margin of the 3:00 half is inked orange and the 9:00 half is inked green. The 12:00 and 6:00 tips are amputated and trisected. The remainder of the specimen is serially sectioned from 12:00 to 6:00. The specimen is submitted entirely in sequential order from the 12:00 tip in cassette A to the 6:00 tip in cassette F. (6,ns,[id number], m6) . /12/22/2023GR Microscopic Findings Microscopic examination performed. Specimen(s) Received Left vulva Fee Codes(s): 1; 65462 COMPLETE BLOOD COUNTon 12-19 Erythrocyte distribution width (RBC) [Ratio] 13.3 % Normal 11.5-15.0 [facility] Comment on above: Performed By: #### C BC, CMP #### [facility] ([id number]) [address], [address] [place] [address] Hematocrit (Bld) [Volume fraction] 36.4 % Normal 35-47 [facility] Comment on above: Performed By: #### C BC, CMP #### [facility] ([id number]) [address], [address] [place] [address] Hemoglobin (Bld) [Mass/Vol] 12.2 g/dL Normal 11.7-15.5 [facility] Comment on above: Performed By: #### C BC, CMP #### [facility] ([id number]) [address], [address] [place] [address] MCH (RBC) [Entitic mass] 31.4 pg Normal 27-34 [facility] Comment on above: Performed By: #### C BC, CMP #### [facility] ([id number]) [address], [address] [place] [address] MCHC (RBC) [Mass/Vol] 33.5 g/dL Normal 32-36 [facility] Comment on above: Performed By: #### C BC, CMP #### [facility] ([id number]) [address], [address] [place] [address] MCV (RBC) [Entitic vol] 94 fL Normal 80-100 [facility] Comment on above: Performed By: #### C BC, CMP #### [facility] ([id number]) [address], [address] [place] [address] Platelet mean volume (Bld) [Entitic vol] 9.8 fL Normal 7-12 [facility] Comment on above: Performed By: #### C BC, CMP #### [facility] ([id number]) [address], [address] [place] [address] Platelets (Bld) [#/Vol] 226 10*3/uL Normal 150-450 [facility] Comment on above: Performed By: #### C BC, CMP #### [facility] ([id number]) [address], [address] [place] [address] RBC COUNT 3.89 X10E12/L Normal 3.80-5.20 [facility] Comment on above: Performed By: #### C BC, CMP #### [facility] ([id number]) [address], [address] [place] [address] WBC (Bld) [#/Vol] 11.0 10*3/uL Normal 4.0-11.0 [facility] Comment on above: Performed By: #### C BALDO, CMP #### [facility] ([id number]) [address] [place] [address] COMPREHENSIVE METABOLIC PANE Christoph 12-19-2023 Albumin [Mass/Vol] 4.3 g/dL Normal 3.2-5.3 [facility] Comment on above: Performed By: #### C BC, CMP #### [facility] ([id number]) [address] [place] [address] ALP [Catalytic activity/Vol] 65 U/L Normal 39-130 [facility] Comment on above: Performed By: #### C BC, CMP #### [facility] ([id number]) [address], [address] [place] [address] ALT [Catalytic activity/Vol] 14 U/L Normal 0-31 [facility] Comment on above: Performed By: #### C BC, CMP #### [facility] ([id number]) [address], [address] [place] [address] Anion gap [Moles/Vol] 10 mmol/L Normal 5-15 [facility] Comment on above: Performed By: #### C BC, CMP #### [facility] ([id number]) [address], [address] [place] [address] AST [Catalytic activity/Vol] 14 U/L Normal 0-41 [facility] Comment on above: Performed By: #### C BALDO, CMP #### [facility] ([id number]) [address], [address] [place] [address] Bilirubin [Mass/Vol] 0.4 mg/dL Normal 0.3-1.2 [facility] Comment on above: Performed By: #### Billy BLAND, CMP #### [facility] ([id number]) [address] [place] [address] Calcium [Mass/Vol] 9.6 mg/dL Normal 8.5-10.5 [facility] Comment on above: Performed By: #### C BALDO, CMP #### [facility] ([id number]) [address], [address] [place] [address] Chloride [Moles/Vol] 106 mmol/L Normal 98-109 [facility] Comment on above: Performed By: #### C BALDO, CMP #### [facility] ([id number]) [address], [address] [place] [address] CO2 [Moles/Vol] 24 mmol/L Normal 22-32 [facility] Comment on above: Performed By: #### C BALDO, CMP #### [facility] ([id number]) [address], [address] [place] [address] Creatinine [Mass/Vol] 0.70 mg/dL Normal 0.40-1.00 [facility] [facility] Comment on above: Result Comment: METH OD TRACEABLE TO IDMS STANDARD Performed By: #### C BALDO, CMP #### [facility] ([id number]) [address], [address] [place] [address] eGFR (CKD-EPI) NON-RACE DEPENDENT >90 Normal >59 [facility] Comment on above: Result Comment: Reported eGFR is based on the CKD-EPI 2020 equation that does not use a race coefficient. Performed By: #### C BALDO, CMP #### [facility] ([id number]) [address], [address] [place] [address] Glucose [Mass/Vol] 79 mg/dL Normal 65-99 [facility] Comment on above: Performed By: #### C BALDO, CMP #### [facility] ([id number]) [address], [address] [place] [address] Potassium [Moles/Vol] 3.7 mmol/L Normal 3.5-5.0 [facility] Comment on above: Performed By: #### C BALDO, CMP #### [facility] ([id number]) [address] [place] [address] Protein [Mass/Vol] 7.7 g/dL Normal 6.0-8.0 [facility] Comment on above: Performed By: #### C BALDO, CMP #### [facility] ([id number]) [address], [address] [place] [address] Sodium [Moles/Vol] 140 mmol/L Normal 134-146 [facility] Comment on above: Performed By: #### C BALDO, CMP #### [facility] ([id number]) [address] [place] [address] Urea nitrogen [Mass/Vol] 12 mg/dL Normal 5-23 [facility] Comment on above: Performed By: #### C BALDO, CMP #### [facility] ([id number]) [address], [address] [place] [address] LACTOFERRIN FECAL QUANTon Lactoferrin, Fecal, Quant. <1.00 Normal 0.00-7.24 [facility] Comment on above: Result Comment: Re [...] (IBS). Performed By: #### L ACTFQ #### [facility] [address] [place] [address] Dr. Susana Rivera PANCREATIC ELASTASE FECALon 02-04-2023 Pancreatic Elastase, Fecal 292 ug Elast./g Normal >200 [facility] Comment on above: Result Comment: Elaina re Pancreatic Insufficiency: <100 Moderate Pancreatic Insufficiency: 100 - 200 Normal: >200 Performed By: #### L IVER, TSH, LIPID, BMP #### [facility] [address] [place] [address] Dr. Susana Rivera HCG ( test) Gaby peoples Ql (U)Ordered By: Omero Cunningham on 02-03-2023 HCG ( test) Ql (U) Negative [facility] HCG,Urineon 02-03-2023 Beta HCG ( test) Ql (U) Negative Normal [facility] Comment on above: Result Comment: PERF ORMED BY: [place] [address] PATHOLOGIST FLAG DECORATOR JAIRO LEYVA M.D. Performed By: #### U HCG #### [place] [address] [place] Christoph 02-03-2023 L Specimen: [id number] Received: 02/03/23 Status: KEVIN Ramirezmatt Num: [id number] Spec Type: Surgical Subm Dr: Omero Cunningham MD Tissues: A Duodenum - Biopsy (DUODENUM BX) B Esophagus Biopsy (ESOPHAGEAL BX) C Colon Biopsy (RANDOM COLON BX) Procedures: HE/6, Gross/Micro L4/3 Age/ Patient Sex Location Account Attending Physician Elisha Colbert 32/F [id number] Omero Cunningham MD SPEC NUM: [id number] RECD: 02/03/23 STATUS: KEVIN FIDEL NUM: [id number] STEFFANY: 02/03/23- SUBM DR: Omero Cunningham MD ENTERED: 02/03/23 ARANZA BARRAZA: SPEC TYPE: Surgical DEPT: S ORDERED: HE/6, [...] colitis. - Negative for epithelial dysplasia. Specimen: [id number] Received: 02/03/23 Status: KEVIN Taylor Num: [id number] Spec Type: Surgical Subm Dr: Omero Cunningham MD Tissues: A Duodenum - Biopsy (DUODENUM BX) B Esophagus Biopsy (ESOPHAGEAL BX) C Colon Biopsy (RANDOM COLON BX) Procedures: HE/6, Gross/Micro L4/3 Patient: Elisha Colbert [id number] (Continued) Specimen: [id number] Received: 02/03/23 (Continued) Signed (signature on file) Nan Lawler MD 02/04/23 1110 Specimen: [id number] Received: 02/03/23 Status: KEVIN Taylor Num: [id number] Spec Type: Surgical Subm Dr: Omero Cunningham MD Tissues: A Duodenum - Biopsy (DUODENUM BX) B Esophagus Biopsy (ESOPHAGEAL BX) C Colon Biopsy (RANDOM COLON BX) Procedures: RODRIGUEZ/Charlette, Gross/Micro L4/3 Patient: Elisha Colbert [id number] (Continued) Specimen: [id number] Received: 02/03/23 (Continued) Clinical Information Diarrhea, constipation, [...] support the above pathologic diagnosis. CPT Codes 36044?3 --------- (more content not included)... Normal [facility] BOWEL DISORDERS EVALUATION R ULE-OUT CASCon 02-02-2023 Atypical pANCA Negative Normal Negative [facility] Comment on above: Performed By: #### B [facility] #### [facility] [address] [place] [address] Dr. Susana Rivera Note: Comment Normal [facility] Comment on above: Result Comment: Sugg estive of Crohn's disease. Subsequent testing with the Crohn's Disease Prognostic Profile (314348) that includes antiglycan antibodies AMCA, ALCA, ACCA, and Segundo may aid in the differentiation of clinical forms of CD and prognosis of disease progression. Performed By: #### B DERC #### [facility] [address] [place] [address] Dr. Susana Rivera Saccharomyces Cer. IgG 34.3 Units Critically high 0.0-24.9 [facility] Comment on above: Result Comment: Nega tive <20.0 Equivocal 20.1 - 24.9 Positive >or= 25.0 Performed By: #### B DERC #### [facility] [address] [place] [address] Dr. Susana Rivera tTG/DGP SCR Negative Normal Negative [facility] Comment on above: Result Comment: Ef fective February 04, 2023 this profile will be made non-orderable due to non-availability of reagents for tTG/DGP Combo. No replacement number is available at this time. For further information, please contact your local [facility]. Performed By: #### B DERC #### [facility] [address] [place] [address] Dr. Susana Rivera CALPROTECTIN, FECALon 2022 Calprotectin, Fecal 20 ug/g Normal 0-120 [facility] Comment on above: Result Comment: Conc entration Interpretation Follow-Up <16 - 50 ug/g Normal None >50 -120 ug/g Borderline Re-evaluate in 4-6 weeks >120 ug/g Abnormal Repeat as clinically indicated Performed By: #### L IVER, TSH, LIPID, BMP #### [facility] [address] [place] [address] Dr. Susana Rivera CHROMOGRANIN Aon 02-02-2023 Chromogranin A 85.4 ng/mL Normal 0.0-101.8 [facility] Comment on above: Result Comment: Senior Web Analyst mogranin A performed by [employer] KRYPTOR methodology . Values obtained with different assay methods or kits cannot be used interchangeably. Performed By: #### C HROMOA #### [facility] [address] [place] [address] Dr. Susana Rivera CBC AUTO DIFFon 01-29-2023 BASO # 0.0 103/ul Normal 0.0-0.1 [facility] Comment on above: Performed By: #### C BC #### [facility] [address] [place] [address] Dr. Susana Rivera Basophils/100 WBC (Bld) 0.3 % Normal 0.2-2.0 [facility] Comment on above: Performed By: #### C BC #### [facility] [address] [place] [address] Dr. Susana Rivera EO # 0.2 103/ul Normal 0.0-0.7 [facility] Comment on above: Performed By: #### C BC #### [facility] [address] [place] [address] Dr. Susana Rivera Eosinophils/100 WBC (Bld) 3.3 % Normal 0.9-7.0 [facility] Comment on above: Performed By: #### C BC #### [facility] [address] [place] [address] Dr. Susana Rivera Erythrocyte distribution width (RBC) [Ratio] 12.3 % Normal 11.0-15.0 [facility] Comment on above: Performed By: #### C BC #### [facility] [address] [place] [address] Dr. Susana Rivera Hematocrit (Bld) [Volume fraction] 36.9 % Normal 36.0-48.0 [facility] Comment on above: Performed By: #### C BC #### [facility] [address] [place] [address] Dr. Susana Rivera Hemoglobin (Bld) [Mass/Vol] 12.2 g/dL Normal 12.0-16.0 [facility] Comment on above: Performed By: #### C BC #### [facility] [address] [place] [address] Dr. Susana Rivera IG # 0.01 10e3/ul Normal 0.00-0.03 [facility] Comment on above: Performed By: #### C BC #### [facility] [address] [place] [address] Dr. Susana Rivera IG % 0.2 % Normal 0.0-0.5 [facility] Comment on above: Performed By: #### C BC #### [facility] [address] [place] [address] Dr. Susana Rivera LYMPH # 2.8 103/ul Normal 1.2-3.8 [facility] Comment on above: Performed By: #### C BC #### [facility] [address] [place] [address] Dr. Susana Rivera Lymphocytes/100 WBC (Bld) 42.0 % Normal 20.5-60.0 [facility] Comment on above: Performed By: #### C BC #### [facility] [address] [place] [address] Dr. Susana Rivera MANUAL DIFF REQ NO Normal [facility] Comment on above: Performed By: #### C BC #### [facility] [address] [place] [address] Dr. Susana Rivera MCH (RBC) [Entitic mass] 31.2 pg Normal 26.7-34.0 [facility] Comment on above: Performed By: #### C BC #### [facility] [address] [place] [address] Dr. Susana Rivera MCHC (RBC) [Mass/Vol] 33.1 g/dL Normal 29.9-35.2 [facility] Comment on above: Performed By: #### C BC #### [facility] [address] [place] [address] Dr. Susana Rivera MCV (RBC) [Entitic vol] 94.4 fL Normal 81.0-99.0 [facility] Comment on above: Performed By: #### C BC #### [facility] [address] [place] [address] Dr. Susana Rivera MONO # 0.4 103/ul Normal 0.3-0.8 [facility] Comment on above: Performed By: #### C BC #### [facility] [address] [place] [address] Dr. Susana Rivera Monocytes/100 WBC (Bld) 6.5 % Normal 1.7-12.0 [facility] Comment on above: Performed By: #### C BC #### [facility] [address] [address] [address] Susana Rivera NEUT # 3.1 103/ul Normal 1.4-6.5 [facility] Comment on above: Performed By: #### C BC #### [facility] [address] [address] [address] Susana Rivera Neutrophils/100 WBC (Bld) 47.7 % Normal 43.0-75.0 [facility] Comment on above: Performed By: #### C BC #### [facility] [address] [address] [address] Susana Rivera Platelet mean volume (Bld) [Entitic vol] 11.0 fL Normal 9.5-13.5 [facility] Comment on above: Performed By: #### C BC #### [facility] [address] [place] [address] Dr. Susana Rivera PLT 213 103/ul Normal 150-450 [facility] Comment on above: Performed By: #### C BC #### [facility] [address] [address] [address] Susana Rivera RBC 3.91 106/ul Critically low 4.20-5.40 [facility] Comment on above: Performed By: #### C BC #### [facility] [address] [address] [address] Susana Rivera WBC 6.6 103/ul Normal 4.0-11.0 [facility] Comment on above: Performed By: #### C BC #### [facility] [address] [address] [address] Susana Rivera FREE T4on 01-29-2023 Free T4 [Mass/Vol] 0.92 ng/dL Normal 0.76-1.46 [facility] Comment on above: Performed By: #### L IVER, TSH, LIPID, BMP #### [facility] [address] [address] [address] Susana Rivera PROF 14(COMP METB)on 03-18-2 023 Albumin [Mass/Vol] 3.6 g/dL Normal 3.4-5.0 [facility] Comment on above: Performed By: #### L IVER, TSH, LIPID, BMP #### [facility] [address] [place] [address] Dr. Susana Rivera Albumin/Globulin [Mass ratio] 0.8 {ratio} Normal [facility] Comment on above: Performed By: #### L IVER, TSH, LIPID, BMP #### [facility] [address] [place] [address] Dr. Susana Rivera ALP [Catalytic activity/Vol] 75 U/L Normal 46-116 [facility] Comment on above: Performed By: #### L IVER, TSH, LIPID, BMP #### [facility] [address] [place] [address] Dr. Susana Rivera ALT [Catalytic activity/Vol] 24 U/L Normal 14-59 [facility] Comment on above: Performed By: #### L IVER, TSH, LIPID, BMP #### [facility] [address] [place] [address] Dr. Susana Rivera Anion gap [Moles/Vol] 12.5 mmol/L Normal [facility] Comment on above: Performed By: #### L IVER, TSH, LIPID, BMP #### [facility] [address] [place] [address] Dr. Susana Rivera AST [Catalytic activity/Vol] 14 U/L Critically low 15-37 [facility] Comment on above: Performed By: #### L IVER, TSH, LIPID, BMP #### [facility] [address] [place] [address] Dr. Susana Rivera Bilirubin [Mass/Vol] 0.3 mg/dL Normal 0.2-1.0 [facility] Comment on above: Performed By: #### L IVER, TSH, LIPID, BMP #### [facility] [address] [place] [address] Dr. Susana Rivera Calcium [Mass/Vol] 9.2 mg/dL Normal 8.5-10.1 [facility] Comment on above: Performed By: #### L IVER, TSH, LIPID, BMP #### [facility] [address] [place] [address] Dr. Susana Rivera Chloride [Moles/Vol] 106 mmol/L Normal 98-107 [facility] Comment on above: Performed By: #### L IVER, TSH, LIPID, BMP #### [facility] [address] [place] [address] Dr. Susana Rivera CO2 [Moles/Vol] 25.6 mmol/L Normal 21.0-32.0 [facility] Comment on above: Performed By: #### L IVER, TSH, LIPID, BMP #### [facility] [address] [place] [address] Dr. Susana Rivera Creatinine [Mass/Vol] 0.58 mg/dL Normal 0.55-1.02 [facility] Comment on above: Performed By: #### L IVER, TSH, LIPID, BMP #### [facility] [address] [place] [address] Dr. Susana Rivera EGFR-AF PAKISTANI >60 Normal >=60 [facility] Comment on above: Performed By: #### L IVER, TSH, LIPID, BMP #### [facility] [address] [place] [address] Dr. Susana Rivera EGFR-NON AF PAKISTANI >60 Normal >=60 [facility] Comment on above: Performed By: #### L IVER, TSH, LIPID, BMP #### [facility] [address] [place] [address] Dr. Susana Rivera Globulin (S) [Mass/Vol] 4.3 g/dL Normal [facility] Comment on above: Performed By: #### L IVER, TSH, LIPID, BMP #### [facility] [address] [place] [address] Dr. Susana Rivera Glucose [Mass/Vol] 93 mg/dL Normal 74-106 [facility] Comment on above: Performed By: #### L IVER, TSH, LIPID, BMP #### [facility] [address] [place] [address] Dr. Susana Rivera Potassium [Moles/Vol] 4.1 mmol/L Normal 3.5-5.1 [facility] Comment on above: Performed By: #### L IVER, TSH, LIPID, BMP #### [facility] [address] [address] [address] Susana Rivera Protein [Mass/Vol] 7.9 g/dL Normal 6.4-8.2 [facility] Comment on above: Performed By: #### L IVER, TSH, LIPID, BMP #### [facility] [address] [place] [address] Dr. Susana Rivera Sodium [Moles/Vol] 140 mmol/L Normal 136-145 [facility] Comment on above: Performed By: #### L IVER, TSH, LIPID, BMP #### [facility] [address] [place] [address] Dr. Susana Rivera Urea nitrogen [Mass/Vol] 10.0 mg/dL Normal 7.0-18.0 [facility] Comment on above: Performed By: #### L IVER, TSH, LIPID, BMP #### [facility] [address] [place] [address] Dr. Susana Rivera Urea nitrogen/Creatinine [Mass ratio] 17.2 mg/mg Normal [facility] Comment on above: Performed By: #### L IVER, TSH, LIPID, BMP #### [facility] [address] [place] [address] Dr. Susana Rivera PROTIMEon 01-29-2023 INR Coag (PPP) [Relative time] 0.94 {INR} Normal [facility] Comment on above: Performed By: #### L IVER, TSH, LIPID, BMP #### [facility] [address] [place] [address] Dr. Susana Rivera INR GUIDELINES SEE BELOW Normal [facility] Comment on above: Result Comment: REYMUNDO RED INR: 2.0 - 3.0 CONDITIONS NOT LISTED BELOW 2.5 - 3.5 FOR PROSTHETIC HEART VALVE REPLACEMENT 2.5 - 3.5 RECURRENT THROMBOSIS Performed By: #### L IVER, TSH, LIPID, BMP #### [facility] [address] [place] [address] Dr. Susana Rivera PT Coag (PPP) [Time] 10.0 s Normal 9.0-11.6 [facility] Comment on above: Performed By: #### L IVER, TSH, LIPID, BMP #### [facility] [address] [place] [address] Dr. Susana Rivera TSHon 01-29-2023 TSH 1.619 uIU/mL Normal 0.358-3.740 [facility] Comment on above: Performed By: #### L IVER, TSH, LIPID, BMP #### [facility] [address] [place] [address] Dr. Susana Rivera CBC AUTO DIFFon 07-22-2022 BASO # 0.0 103/ul Normal 0.0-0.1 [facility] Comment on above: Performed By: #### C BC #### [facility] [address] [place] [address] Dr. Susana Rivera Basophils/100 WBC (Bld) 0.3 % Normal 0.2-2.0 [facility] Comment on above: Performed By: #### C BC #### [facility] [address] [place] [address] Dr. Susana Rivera EO # 0.2 103/ul Normal 0.0-0.7 [facility] Comment on above: Performed By: #### C BC #### [facility] [address] [place] [address] Dr. Susana Rivera Eosinophils/100 WBC (Bld) 2.3 % Normal 0.9-7.0 [facility] Comment on above: Performed By: #### C BC #### [facility] [address] [place] [address] Dr. Susana Rivera Erythrocyte distribution width (RBC) [Ratio] 12.3 % Normal 11.0-15.0 [facility] Comment on above: Performed By: #### C BC #### [facility] [address] [place] [address] Dr. Susana Rivera Hematocrit (Bld) [Volume fraction] 38.6 % Normal 36.0-48.0 [facility] Comment on above: Performed By: #### C BC #### [facility] [address] [address] [address] Susana Rivera Hemoglobin (Bld) [Mass/Vol] 12.4 g/dL Normal 12.0-16.0 [facility] Comment on above: Performed By: #### C BC #### [facility] [address] [address] [address] Susana Rivera IG # 0.02 10e3/ul Normal 0.00-0.03 [facility] Comment on above: Performed By: #### C BC #### [facility] [address] [place] [address] Dr. Susana Rivera IG % 0.2 % Normal 0.0-0.5 [facility] Comment on above: Performed By: #### C BC #### [facility] [address] [place] [address] Dr. Susana Rivera LYMPH # 3.3 103/ul Normal 1.2-3.8 [facility] Comment on above: Performed By: #### C BC #### [facility] [address] [place] [address] Dr. Susana Rivera Lymphocytes/100 WBC (Bld) 32.0 % Normal 20.5-60.0 [facility] Comment on above: Performed By: #### C BC #### [facility] [address] [place] [address] Dr. Susana Rivera MANUAL DIFF REQ NO Normal [facility] Comment on above: Performed By: #### C BC #### [facility] [address] [place] [address] Dr. Susana Rivera MCH (RBC) [Entitic mass] 30.7 pg Normal 26.7-34.0 [facility] Comment on above: Performed By: #### C BC #### [facility] [address] [place] [address] Dr. Susana Rivera MCHC (RBC) [Mass/Vol] 32.1 g/dL Normal 29.9-35.2 [facility] Comment on above: Performed By: #### C BC #### [facility] [address] [address] [address] Susana Rivera MCV (RBC) [Entitic vol] 95.5 fL Normal 81.0-99.0 [facility] Comment on above: Performed By: #### C BC #### [facility] [address] [address] [address] Susana Rivera MONO # 0.6 103/ul Normal 0.3-0.8 [facility] Comment on above: Performed By: #### C BC #### [facility] [address] [address] [address] Susana Rivera Monocytes/100 WBC (Bld) 5.9 % Normal 1.7-12.0 [facility] Comment on above: Performed By: #### C BC #### [facility] [address] [place] [address] Dr. Susana Rivera NEUT # 6.2 103/ul Normal 1.4-6.5 [facility] Comment on above: Performed By: #### C BC #### [facility] [address] [place] [address] Dr. Susana Rivera Neutrophils/100 WBC (Bld) 59.3 % Normal 43.0-75.0 [facility] Comment on above: Performed By: #### C BC #### [facility] [address] [address] [address] Susana Rivera Platelet mean volume (Bld) [Entitic vol] 11.2 fL Normal 9.5-13.5 [facility] Comment on above: Performed By: #### C BC #### [facility] [address] [place] [address] Dr. Susana Rivera PLT 235 103/ul Normal 150-450 [facility] Comment on above: Performed By: #### C BC #### [facility] [address] [address] [address] Susana Rivera RBC 4.04 106/ul Critically low 4.20-5.40 [facility] Comment on above: Performed By: #### C BC #### [facility] [address] [address] [address] Susana Rivera WBC 10.4 103/ul Normal 4.0-11.0 [facility] Comment on above: Performed By: #### C BC #### [facility] [address] [address] [address] Susana Rivera GLYCOHEMOGLOBIN A1Con 2021 ADA RECOMMENDATION SEE BELOW Normal [facility] Comment on above: Result Comment: ADA RECOMMENDED LIMIT 4.0 - 6.0 ADA THERAPEUTIC TARGET < 7.0 ACTION SUGGESTED > 7.0 Performed By: #### A 1C #### [facility] [address] [address] [address] Susana Rivera Glucose [Mass/Vol] 105 mg/dL Normal [facility] Comment on above: Performed By: #### A 1C #### [facility] [address] [place] [address] Dr. Susana Rivera HbA1c (Bld) [Mass fraction] 5.3 % Normal 4.5-6.2 [facility] Comment on above: Performed By: #### A 1C #### [facility] [address] [place] [address] Dr. Susana Rivera LIPID PROFILEon 07-22-2022 CHOL-HDL RATIO NORM SEE BELOW Normal [facility] Comment on above: Result Comment: 3.3 - 4.4 LOW RISK 4.4 - 7.1 AVERAGE RISK 7.1 - 11.0 MODERATE RISK >11.0 HIGH RISK Performed By: #### L IVER, TSH, LIPID, BMP #### [facility] [address] [place] [address] Dr. Susana Rivera Cholesterol [Mass/Vol] 193 mg/dL Normal <=200 [facility] Comment on above: Performed By: #### L IVER, TSH, LIPID, BMP #### [facility] [address] [address] [address] Susana Rivera Cholesterol in HDL [Mass/Vol] 45 mg/dL Normal 40-60 [facility] Comment on above: Performed By: #### L IVER, TSH, LIPID, BMP #### [facility] [address] [address] [address] Susana Rivera Cholesterol in LDL [Mass/Vol] 121.0 mg/dL Normal [facility] Comment on above: Performed By: #### L IVER, TSH, LIPID, BMP #### [facility] [address] [place] [address] Dr. Susana Rivera Cholesterol.total/Cho lesterol in HDL [Mass ratio] 4.3 {ratio} Normal [facility] Comment on above: Performed By: #### L IVER, TSH, LIPID, BMP #### [facility] [address] [address] [address] Susana Rivera HDL NORMAL > or = 60 mg/dl - LOW CARDIOVASCULAR RISK <40 mg/dl - HIGH CARDIOVASCULAR RISK Normal [facility] Comment on above: Performed By: #### L IVER, TSH, LIPID, BMP #### [facility] [address] [place] [address] Dr. Susana Rivera LDL CALC NORMAL SEE BELOW Normal [facility] Comment on above: Result Comment: <100 mg/dl OPTIMAL 100 - 129 mg/dl NEAR OR ABOVE OPTIMAL 130 - 159 mg/dl BORDERLINE HIGH 160 - 189 mg/dl HIGH >190 mg/dl VERY HIGH Performed By: #### L IVER, TSH, LIPID, BMP #### [facility] [address] [place] [address] Dr. Susana Rivera Triglyceride [Mass/Vol] 135 mg/dL Normal <=150 [facility] Comment on above: Performed By: #### L IVER, TSH, LIPID, BMP #### [facility] [address] [place] [address] Dr. Susana Rivera VLDL CALC 27.0 mg/dL Normal [facility] Comment on above: Performed By: #### L IVER, TSH, LIPID, BMP #### [facility] [address] [place] [address] Dr. Susana Rivera LIVER PROFILEon 07-22-2022 Albumin [Mass/Vol] 3.8 g/dL Normal 3.4-5.0 [facility] Comment on above: Performed By: #### L IVER, TSH, LIPID, BMP #### [facility] [address] [address] [address] Susana Rivera Albumin/Globulin [Mass ratio] 0.8 {ratio} Normal [facility] Comment on above: Performed By: #### L IVER, TSH, LIPID, BMP #### [facility] [address] [address] [address] Susana Rivera ALP [Catalytic activity/Vol] 73 U/L Normal 46-116 [facility] Comment on above: Performed By: #### L IVER, TSH, LIPID, BMP #### [facility] [address] [address] [address] Ssuana Rivera ALT [Catalytic activity/Vol] 27 U/L Normal 14-59 [facility] Comment on above: Performed By: #### L IVER, TSH, LIPID, BMP #### [facility] [address] [place] [address] Dr. Susana Rivera AST [Catalytic activity/Vol] 17 U/L Normal 15-37 [facility] Comment on above: Performed By: #### L IVER, TSH, LIPID, BMP #### [facility] [address] [address] [address] Susana Rivera BILI, CONJUGATED 0.1 mg/dL Normal 0.0-0.2 [facility] Comment on above: Performed By: #### L IVER, TSH, LIPID, BMP #### [facility] [address] [address] [address] Susana Rivera Bilirubin [Mass/Vol] 0.3 mg/dL Normal 0.2-1.0 [facility] Comment on above: Performed By: #### L IVER, TSH, LIPID, BMP #### [facility] [address] [address] [address] Susana Rivera Globulin (S) [Mass/Vol] 4.6 g/dL Normal [facility] Comment on above: Performed By: #### L IVER, TSH, LIPID, BMP #### [facility] [address] [address] [address] Susana Rivera Protein [Mass/Vol] 8.4 g/dL Critically high 6.4-8.2 [facility] Comment on above: Performed By: #### L IVER, TSH, LIPID, BMP #### [facility] [address] [place] [address] Dr. Susana Rivera PROF CHEM 8 (BAS METB)on Anion gap [Moles/Vol] 12.3 mmol/L Normal [facility] Comment on above: Performed By: #### L IVER, TSH, LIPID, BMP #### [facility] [address] [place] [address] Dr. Susana Rivera Calcium [Mass/Vol] 9.2 mg/dL Normal 8.5-10.1 [facility] Comment on above: Performed By: #### L IVER, TSH, LIPID, BMP #### [facility] [address] [place] [address] Dr. Susana Rivera Chloride [Moles/Vol] 104 mmol/L Normal 98-107 [facility] Comment on above: Performed By: #### L IVER, TSH, LIPID, BMP #### [facility] [address] [place] [address] Dr. Susana Rivera CO2 [Moles/Vol] 24.7 mmol/L Normal 21.0-32.0 [facility] Comment on above: Performed By: #### L IVER, TSH, LIPID, BMP #### [facility] [address] [place] [address] Dr. Susana Rivera Creatinine [Mass/Vol] 0.67 mg/dL Normal 0.55-1.02 [facility] Comment on above: Performed By: #### L IVER, TSH, LIPID, BMP #### [facility] [address] [place] [address] Dr. Susana Rivera EGFR-AF PAKISTANI >60 Normal >=60 [facility] Comment on above: Performed By: #### L IVER, TSH, LIPID, BMP #### [facility] [address] [place] [address] Dr. Susana Rivera EGFR-NON AF PAKISTANI >60 Normal >=60 [facility] Comment on above: Performed By: #### L IVER, TSH, LIPID, BMP #### [facility] [address] [address] [address] Susana Rivera Glucose [Mass/Vol] 94 mg/dL Normal 74-106 [facility] Comment on above: Performed By: #### L IVER, TSH, LIPID, BMP #### [facility] [address] [place] [address] Dr. Susana Rivera Potassium [Moles/Vol] 4.0 mmol/L Normal 3.5-5.1 [facility] Comment on above: Performed By: #### L IVER, TSH, LIPID, BMP #### [facility] [address] [place] [address] Dr. Susana Rivera Sodium [Moles/Vol] 137 mmol/L Normal 136-145 [facility] Comment on above: Performed By: #### L IVER, TSH, LIPID, BMP #### [facility] [address] [place] [address] Dr. Susana Rivera Urea nitrogen [Mass/Vol] 21.0 mg/dL Critically high 7.0-18.0 [facility] Comment on above: Performed By: #### L IVER, TSH, LIPID, BMP #### [facility] [address] [place] [address] Dr. Susana Rivera Urea nitrogen/Creatinine [Mass ratio] 31.3 mg/mg Normal [facility] Comment on above: Performed By: #### L IVER, TSH, LIPID, BMP #### [facility] [address] [place] [address] Dr. Susana Rivera TSHon 07-22-2022 TSH 2.863 uIU/mL Normal 0.358-3.740 [facility] Comment on above: Performed By: #### L IVER, TSH, LIPID, BMP #### [facility] [address] [place] [address] Dr. Susana Rivera Vital Signs Date Time Vital Sign Value Performing Clinician Abby dumont 01-24-2024 09:22-0400 Body height 165.1 cm Chela HILL Work Phone: [facility] 01-24-2024 09:22-0400 Body mass index (BMI) [Ratio] 38.77 kg/m2 Chela Rodriguez PA [facility] 01-24-2024 09:22-0400 Body temperature 98.8 [degF] [facility] Rodriguez [facility] 01-24-2024 09:22-0400 Body weight 105.69 kg Chela Rodriguez PA [facility] 01-24-2024 09:22-0400 Diastolic blood pressure 89 mm[Hg] Chela Rodriguez PA [facility] 01-24-2024 09:22-0400 Heart rate 73 /min Chela Rodriguez PA [facility] 01-24-2024 09:22-0400 Respiratory rate 16 /min Chela Rodriguez PA [facility] 01-24-2024 09:22-0400 SaO2% (BldA) [Mass fraction] 98 % Chela Rodriguez PA [facility] 01-24-2024 09:22-0400 Systolic blood pressure 142 mm[Hg] Chela Rodriguez PA [facility] 01-03-2024 08:27-0500 Body height 165.1 cm Chela Rodriguez PA [facility] 01-03-2024 08:27-0500 Body mass index (BMI) [Ratio] 38.11 kg/m2 Chela Rodriguez PA [facility] 01-03-2024 08:27-0500 Body temperature 98.8 [degF] Chela Rodriguez PA [facility] 01-03-2024 08:27-0500 Body weight 103.87 kg Chela Rodriguez PA Work Phone: [facility] 01-03-2024 08:27-0500 Diastolic blood pressure 90 mm[Hg] Chela Romerone PA Work Phone: [facility] 01-03-2024 08:27-0500 Heart rate 90 /min Chela Romerone PA Work Phone: [facility] 01-03-2024 08:27-0500 Respiratory rate 16 /min Chela Romerone PA Work Phone: [facility] 01-03-2024 08:27-0500 SaO2% (BldA) [Mass fraction] 97 % Chela Romerone PA Work Phone: [facility] 01-03-2024 08:27-0500 Systolic blood pressure 145 mm[Hg] Chela Romerone PA Work Phone: [facility] 12-21-2023 15:23-0500 Body height 167 cm Metro 2 [facility] 12-21-2023 15:23-0500 Body mass index (BMI) [Ratio] 36.59 kg/m2 Metro 2 [facility] 12-21-2023 15:23-0500 Body weight 102.06 kg Metro 2 [facility] 12-12-2023 09:09-0500 Diastolic blood pressure 84 mm[Hg] Melquiades Weber MD Work Phone: [facility] 12-12-2023 09:09-0500 Heart rate 77 /min Melquiades Weber MD Work Phone: [facility] 12-12-2023 09:09-0500 SaO2% (BldA) [Mass fraction] 98 % Melquiades Weber MD Work Phone: [facility] 12-12-2023 09:09-0500 Systolic blood pressure 136 mm[Hg] Melquiades Weber MD Work Phone: [facility] 12-12-2023 09:03-0500 Body height 167 cm Melquiades Weber MD Work Phone: [facility] 12-12-2023 09:03-0500 Body mass index (BMI) [Ratio] 37.08 kg/m2 Melquiades Weber MD Work Phone: [facility] 12-12-2023 09:03-0500 Body weight 103.42 kg Melquiades Weber MD Work Phone: [facility] 02-03-2023 12:23-0400 Diastolic blood pressure 80 mm[Hg] MD Subhash Caba Work Phone: [facility] 02-03-2023 12:23-0400 Heart rate 56 /min MD Subhash Caba Work Phone: [facility] 02-03-2023 12:23-0400 Respiratory rate 18 /min MD Subhash Caba Work Phone: [facility] 02-03-2023 12:23-0400 SaO2% (BldA) [Mass fraction] 96 % MD Subhash Caba Work Phone: [facility] 02-03-2023 12:23-0400 Systolic blood pressure 135 mm[Hg] MD Subhash Caba Work Phone: [facility] 02-03-2023 10:14-0400 Body height 162.56 cm MD Subhash Caba Work Phone: [facility] 02-03-2023 10:14-0400 Body temperature 97.7 [degF] MD Subhash Caba Work Phone: [facility] 02-03-2023 10:14-0400 Body weight 99.79 kg MD Subhash Caba Work Phone: [facility] Encounters Encounter Date Encounter Type Care Provider Facility Start: 07-31-2024 End: 08-04-2024 [facility] Start: 07-23-2024 End: 07-23-2024 ambulatory RAMBO LA Not Available Start: 06-06-2024 End: 06-06-2024 ambulatory MIKAYLA SIN Not Available Start: 05-25-2024 End: 05-25-2024 ambulatory MIKAYLA SIN Not Available Start: 05-01-2024 End: 05-01-2024 ambulatory MIKAYLA SIN Not Available Start: 03-14-2024 End: 03-14-2024 ambulatory DANAE QUIÑONES EDDY Not Available Start: 03-02-2024 End: 03-02-2024 ambulatory MIKAYLA SIN Not Available Start: 02-29-2024 End: 02-29-2024 ambulatory SUBHASH CABA [facility] Start: 02-29-2024 Encounter for genera l adult medical examination without abnormal findings [facility] Start: 02-27-2024 End: 02-27-2024 ambulatory MIKAYLA SIN Not Available Start: 02-23-2024 End: 02-23-2024 ambulatory SUBHASH CABA Not Available Start: 01-24-2024 End: 01-24-2024 Postop follow up visit related to original px Chela HILL Work Phone: [facility] Comment on above: 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); Encounter for postoperative care Start: 01-24-2024 End: 01-24-2024 ambulatory [facility] Start: 01-03-2024 End: 01-03-2024 Postop follow up visit related to original px Chela HILL Work Phone: [facility] Comment on above: 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); Encounter for postoperative care Start: 01-03-2024 End: 01-03-2024 ambulatory [facility] Start: 12-27-2023 Telephone encounter Chela HILL Work Phone: [facility] Start: 12-22-2023 End: 12-22-2023 Evaluation and management of inpatient NATASHA SANTANA [facility] Start: 12-22-2023 End: 12-22-2023 Evaluation and management of inpatient [facility] Start: 12-21-2023 End: 12-21-2023 ambulatory SUBHASH CABA [facility] Start: 12-20-2023 End: 12-21-2023 Admission to [facility] Phone Call Provider [facility] Start: 12-19-2023 End: 12-19-2023 ambulatory [facility] Start: 12-19-2023 Encounter for other preprocedural examination CHELA RODRIGUEZ [facility] Start: 12-16-2023 Orders Only Melquiades Mott i, MD Work Phone: [facility] Comment on above: Vulvar dysplasia (Pr imary Dx); Pre-op testing Start: 12-16-2023 Patient encounter status Felipe Weber MD Work Phone: [facility] Start: 12-13-2023 Telephone encounter [facility] Work Phone: [facility] Start: 12-12-2023 End: 12-12-2023 ambulatory [facility] Start: 12-12-2023 End: 12-12-2023 Office outpatient new 45 minutes Melquiades Weber MD Work Phone: [facility] Comment on above: Vulvar dysplasia (Pr imary Dx); Encounter for tobacco use cessation counseling Start: 12-01-2023 Telephone encounter Celine Mccauley RN [facility] Start: 11-30-2023 End: 11-30-2023 ambulatory RAMBO LA Not Available Start: 11-08-2023 End: 11-08-2023 ambulatory WALKER BLOOM Not Available Start: 11-02-2023 End: 11-02-2023 ambulatory WALKER BLOOM Not Available Start: 02-03-2023 End: 02-03-2023 ambulatory Subhash Caba Facility:[facility] Start: 02-03-2023 End: 02-03-2023 Admission to same day surgery center MD Subhash Caba Work Phone: [facility] Work Phone: Start: 02-03-2023 End: 02-03-2023 ambulatory MD Subhash Caba Work Phone: [facility] Work Phone: Start: 01-29-2023 End: 01-30-[address] Hernesto CUNNINGHAM Facility:[facility] Start: 07-25-2022 Encounter for genera l adult medical examination without abnormal findings DR SUBHASH CABA [facility] Start: 07-22-2022 End: 07-23-[address] SUBHASH CABA Facility:[facility] Start: 07-22-2022 End: 07-23-2022 Encounter for general adult medical examination without abnormal findings DR SUBHASH CABA Facility:[facility] Start: 12-06-2016 End: 12-07-2016 Ambulatory Eusebio Emery Facility:[facility] Procedures Date Procedure Procedure Detail Performing Clinician Start: 01-24-2024 Follow-up visit Follow-up KIKA RODRIGUEZ Start: 02-03-2023 Esophagogastroduodenoscopy MD Subhash Caba Work Phone: Plan of Treatment Date Care Activity Detail Author Start: 01-23-2025 Adult BMI Screening Adult BMI Screen ing [facility] [employer] [facility] Start: 01-03-2025 Adult BMI Screening [facility] Start: 12-22-2024 Adult BMI Screening [facility] ing [facility] Start: 12-22-2024 Tobacco Screening [facility] [employer] [facility] Start: 12-12-2024 Adult BMI Screening Adult BMI Screen ing [facility] [employer] [facility] Start: 12-12-2024 Tobacco Screening Tobacco Screening [facility] [employer] [facility] Start: 07-31-2024 End: 07-31-2024 Patient encounter procedure 07/31/2024 8:30 AM EDT Office Visit [facility] [address] [place] [address], [place] [address] Chela Rodriguez PA [address] [place] [address] [facility] Start: 01-24-2024 End: 01-24-2024 Patient encounter procedure 01/24/2024 9:30 AM EDT Office Visit [facility] [place] [facility] [address] [place] [phone] Chela Rodriguez, SERGIO [address] [facility] [place] [address] [facility] Start: 01-03-2024 End: 01-03-2024 Patient encounter procedure 01/03/2024 8:30 AM EST Office Visit [facility] [address] [place] [phone] Chela Rodriguez PA [address] [place] [address] [facility] [place] [facility] Start: 12-22-2023 End: 12-22-2023 Admission to same day surgery center 12/22/2023 7:30 AM EST - 12/22/2023 8:45 AM EST Surgery [facility] - Surgery [address] [place] [address] Melquiades Weber MD [address] [place] [address] WIDE LOCAL EXCISION LESION VULVA [facility] - Surgery Comment on above: WIDE LOCAL EXCISION LESION VULVA Start: 12-22-2023 End: 12-22-2023 BIOPSY VULVA BIOPSY VULVA VULVAR DYSPLASIA 12/22/2023 7:30 AM EST [facility] Start: 12-22-2023 End: 12-22-2023 EXCISION LESION VULVA EXCISION LESION VULVA VULVAR DYSPLASIA 12/22/2023 7:30 AM EST [facility] Start: 12-22-2023 Subsequent hospital visit by physician 12/22/2023 7:30 AM EST Hospital Encounter [facility] - Surgery [address] [address] Melquiades Weber MD [address] [place] [address] [facility] - Surgery Start: 12-20-2023 End: 12-20-2023 Admission to establishment 12/20/2023 8:00 AM EST [facility] [address] [address] [facility] Start: 12-12-2023 End: 12-12-2023 Patient encounter procedure 12/12/2023 9:00 AM EST [facility] [address] [place] [address] Melquiades Weber MD [address] [place] [address] [facility] Start: 07-15-2023 Influenza vaccination Influenza Vacc ine [facility] Start: 02-03-2023 [facility] Start: 2009 Screening for malign ant neoplasm of cervix Pap Smear [facility] Start: 2007 DTaP,Tdap and Td Vaccines (1 - Tdap) DTaP,Tdap and Td Vaccines (1 - Tdap) [facility] Start: 2006 Adult BMI Follow Up Plan Adult BMI Follow Up Plan [facility] Start: 2006 Adult BMI Screening Adult BMI Screen ing [facility] Start: 2000 Depression Screening Depression Scre ening [facility] Start: 2000 Tobacco [facility]ening [facility] Start: 1988 Tobacco Counseling Tobacco Counselin kalen [facility] End: 12-16-2024 CBC panel - Blood by Automated count CBC without diff Lab Routine Vulvar dysplasia Pre-op testing 1 Occurrences starting 12/16/2023 until 12/16/2024 [employer] Work Phone: Comment on above: 1 Occurrences starti ng 12/16/2023 until 12/16/2024 End: 12-16-2024 Comprehensive metabolic 2000 panel - Serum or Plasma Comprehensive metabolic panel Lab Routine Vulvar dysplasia Pre-op testing 1 Occurrences starting 12/16/2023 until 12/16/2024 [facility] Comment on above: 1 Occurrences starti ng 12/16/2023 until 12/16/2024 Patient Education Esophagitis Hi atal Hernia (DC) [facility] Work Phone: Payers Date Payer Category Payer Self-pay 2022 Private Health Insurance [facility] [id number] 2022-Present [phone] [address] [address] [place] [address] [id number] 1988 Unknown [id number] 2.16.840.1.339867.3.579 .2.593 1988 Unknown [id number] 2.16.840.1.350277.3.579 .2.593 1988 Unknown [id number] 2.16.840.1.253358.3.579 .2.1286 1988 Unknown [id number] 2.16.840.1.765024.3.579 .2.1286 1988 Unknown [id number] 2.16.840.1.408403.3.579 .2.1286 1988 Unknown [id number] 2.16.840.1.165745.3.579 .2.6 1988 Unknown [id number] 2.16.840.1.689394.3.579 .2.1258 1988 Unknown [id number] 2.16.840.1.116612.3.579 .2.1258 1988 Unknown [id number] 2.16.840.1.263826.3.579 .2.1258 1988 Unknown [id number] 2.16.840.1.088097.3.579 .2.1258 1988 Unknown [id number] 2.16.840.1.108491.3.579 .2.1258 1988 Unknown [id number] 2.16.840.1.062394.3.579 .2.1258 1988 Unknown [id number] 2.16.840.1.548947.3.579 .2.1258 1988 Unknown [id number] 2.16.840.1.106588.3.579 .2.1258 1988 Unknown [id number] 2.16.840.1.769760.3.579 .2.1258 1988 Unknown [id number] 2.16.840.1.417695.3.579 .2.1258 1988 Unknown [id number] 2.16.840.1.496048.3.579 .2.1258 1988 Unknown [id number] 2.16.840.1.972163.3.579 .2.1258 1988 Unknown [id number] 2.16.840.1.692793.3.579 .2.1285 1988 Unknown [id number] 2.16.840.1.213078.3.579 .2.1285 1988 Unknown [id number] 2.16.840.1.417929.3.579 .2.1285 1988 Unknown [id number] 2.16.840.1.948890.3.579 .2.1286 1988 Unknown [id number] 2.16.840.1.526628.3.579 .2.1286 1959 Unknown [id number] 1959 Unknown [id number] Unknown [id number] 2.16.840.1.988845.3.579 .2.531 Social History Date Type Detail Facility [facility] Work Phone: Start: 1990 Sex Assigned At Female F [facility] Tobacco smoking stat [facility] Tobacco smoking consumption unknown [facility] Start: 04-25-2019 End: 01-24-2024 History of Social function [facility] Start: 04-25-2019 End: 01-24-2024 Housing Instability [facility] Housing Instability Unknown [facility] Start: 1988 Sex Assigned At Not on file P [facility] Start: 11-14-2006 End: 12-21-2023 Tobacco smoking status NHIS Smokes tobacco daily [facility] Work Phone: Start: 11-14-2006 History of tobacco use Cigarette Smo ker [facility] Start: 12-12-2023 End: 12-21-2023 Tobacco use and exposure Smokeless tobacco non-user [facility] Start: 12-12-2023 End: 12-22-2023 Alcohol intake Lifetime non-drinker (finding) [facility] How hard is it for y ou to pay for the very basics like food, housing, medical care, and heating Hard [facility] Goals Date Patient Goal Desired Activity /State Clinical Notes 02-03-2023 to 01-24-2024 SERGIO Coleman - 01/24/2024 9:30 AM SERGIO Saucedo - 01/03/2024 8:30 AM ESTTelephone Encounter - SERGIO Coleman - 12/27/2023 10:53 AM Chalo Weber MD - 12/12/2023 9:00 AM EST Note Date & Type Note Facility 01-24-2024 History of Presen t illness Narrative Subjective: Elisha Colbert female who is 33 y.o. female who is s/p a WLE of the vulva on 12/22/23. Pathology: TIM III, negative margins She is doing well post-operatively. She reports significant improvement in her pain. She is back to work without problems. She denies any bleeding or drainage. Normal bowel and bladder habits. No fevers, chills, N/V, N/T, SOB, vaginal bleeding. Patient was originally a consultation from Dr. La for evaluation and management of HSIL vulvar biopsy. Oncology History No history exists. Elisha Colbert Denies Early satiety Denies Abdominal distention Denies Leg swelling Denies Shortness of breath Denies Vaginal bleeding Denies Change in bowel habits Denies Change in bladder habits Denies Nausea and vomiting All other systems negative, unless specifically noted in HPI. Past Gynecologic History: OB History 0 Para 0 Term 0 0 AB 0 Living 0 SAB 0 IAB 0 Ectopic 0 Multiple 0 Live Births 0 No LMP recorded. Patient has had an implant. Hormonal Contraceptives No HRT use No History of abnormal pap No Past Surgical History: Procedure Laterality Date APPENDECTOMY 2009 open BIOPSY VULVA N/A 12/22/2023 Performed by Melquiades Weber MD at [facility] SURGERY COLONOSCOPY 2022 COLONOSCOPY 2016 OOPHORECTOMY Right 2009 performed at time of appendectomy WIDE LOCAL EXCISION LESION VULVA N/A 12/22/2023 Performed by Melquiades Weber MD at [facility] [facility] Past Medical History: Diagnosis Date Asthma Carpal tunnel syndrome GERD (gastroesophageal reflux disease) IBS (irritable bowel syndrome) PCOS (polycystic ovarian syndrome) Visual impairment glasses Family History Problem Relation Age of Onset Melanoma Maternal Aunt Lung cancer Maternal Grandfather Cancer Maternal Grandfather Anesthesia problems Neg Hx Social History Socioeconomic History Marital status: Single Spouse name: Not on file Number of children: Not on file Years of education: Not on file Highest education level: Not on file Occupational History Not on file Tobacco Use Smoking status: Every Day Packs/day: 0.50 Years: 17.00 Additional pack years: 0.00 Total pack years: 8.50 Types: Cigarettes Start date: 2006 Smokeless tobacco: Never Vaping Use Vaping Use: Never used Substance and Sexual Activity Alcohol use: Never Drug use: Never Sexual activity: Defer Other Topics Concern Not on file Social History Narrative Not on file Social Determinants of Health Financial Resource Strain: High Risk (01/24/2024) Overall Financial Resource Strain (CARDIA) Difficulty of Paying Living Expenses: Hard Food Insecurity: Food Insecurity Present (01/24/2024) Hunger Screening Food Insecurity - Worry: Sometimes True Food Insecurity - Inability: Sometimes True Transportation Needs: No Transportation Needs (01/24/2024) PRAPARE - Transportation Lack of Transportation (Medical): No Lack of Transportation (Non-Medical): No Physical Activity: Not on file Stress: Not on file Social Connections: Not on file Interpersonal Safety: Not on file Housing Instability: Low Risk (01/24/2024) Housing Instability Housing Instability: No Review of Symptoms: Pertinent items are noted in HPI. Objective: BP 142/89 Pulse 73 Temp 37.1 C (98.8 F) (Oral) Resp 16 Ht 165.1 cm (5' 5 ) Wt 105.7 kg (233 lb) SpO2 98% BMI 38.77 kg/m ECO- Asymptomatic General appearance: alert, appears stated age and cooperative Head: Normocephalic, without obvious abnormality, atraumatic Lungs: clear to auscultation bilaterally Heart: regular rate and rhythm, S1, S2 normal, no murmur, click, rub or gallop Abdomen: soft, nontender Pelvic: vulva: well healed incision along the left labia majora with sutures resolved, minimal swelling, no erythema, drainage or dehiscence. Extremities: extremities normal, atraumatic, no cyanosis or edema Pulses: 2+ and symmetric Skin: Skin color, texture, turgor normal. No rashes or lesions Lymph nodes: Cervical, supraclavicular, and axillary nodes normal. Neurologic: Grossly normal Labs: Lab Results Component Value Date WBC 11.0 12/19/2023 HGB 12.2 12/19/2023 HCT 36.4 12/19/2023 MCV 94 12/19/2023 PLT 226 12/19/2023 Lab Results Component Value Date GLU 79 12/19/2023 CALCIUM 9.6 12/19/2023 SODIUM 140 12/19/2023 K 3.7 12/19/2023 CO2 24 12/19/2023 BUN 12 12/19/2023 CREATININE 0.70 12/19/2023 No results found for: CA125 Assessment: Patient is diagnosed with TIM III S/p WLE Plan: Post op care - she is progressing well. Restriction lifted. Reviewed pathology which revealed TIM III with negative margins. We discussed the possible recurrence rates and for dysplasia checks over the next two years. We discussed the risk factors for recurrence including immunosuppression, smoking, HPV positivity. She may resume well-woman exams with Dr. La at any time. We will begin surveillance checks after postop care, every 6 months. *An evaluation and management service unrelated to the patient's post-op care was performed today (within the post operative period), therefore a modifier 24 was affixed. *The patient has a documented plan of care to address pain. All questions were answered to the patient's satisfaction. She is agreeable to this plan of care. *This note was completed using a voice flat sorter processor system. Every effort was made to ensure accuracy. However, inadvertent computerized flat sorter processor errors may be present. .Total time spent was 26 minutes: Preparing to see the patient (e.g., review of tests) Performing a medically appropriate examination and/or evaluation Counseling and educating the patient/family/caregiver Documenting clinical information in the electronic or other health record Care coordination (not separately reported) Chela Rodriguez PA-C, RD, IF SERGIO Coleman 01/24/24 1010 documented in this encounter [facility] [employer] 01-03-2024 History of Presen t illness Narrative Subjective: Elisha Colbert female who is 33 y.o. female who is s/p a WLE of the vulva on 12/22/23. Pathology: TIM III, negative margins She is doing well post-operatively. Is occasional discomfort at one particular spot along her incision but states this is not painful. She denies any bleeding or drainage. Normal bowel and bladder habits. No fevers, chills, N/V, N/T, SOB, vaginal bleeding. Patient was originally a consultation from Dr. La for evaluation and management of HSIL vulvar biopsy. Oncology History No history exists. Elisha Colbert Denies Early satiety Denies Abdominal distention Denies Leg swelling Denies Shortness of breath Denies Vaginal bleeding Denies Change in bowel habits Denies Change in bladder habits Denies Nausea and vomiting All other systems negative, unless specifically noted in HPI. Past Gynecologic History: OB History 0 Para 0 Term 0 0 AB 0 Living 0 SAB 0 IAB 0 Ectopic 0 Multiple 0 Live Births 0 No LMP recorded. Patient has had an implant. Hormonal Contraceptives No HRT use No History of abnormal pap No Past Surgical History: Procedure Laterality Date APPENDECTOMY 2009 open BIOPSY VULVA N/A 12/22/2023 Performed by Melquiades Weber MD at [facility] COLONOSCOPY 2022 COLONOSCOPY 2016 OOPHORECTOMY Right 2009 performed at time of appendectomy WIDE LOCAL EXCISION LESION VULVA N/A 12/22/2023 Performed by Melquiades Weber MD at [facility] Past Medical History: Diagnosis Date Asthma Carpal tunnel syndrome GERD (gastroesophageal reflux disease) IBS (irritable bowel syndrome) PCOS (polycystic ovarian syndrome) Visual impairment glasses Family History Problem Relation Age of Onset Melanoma Maternal Aunt Lung cancer Maternal Grandfather Cancer Maternal Grandfather Anesthesia problems Neg Hx Social History Socioeconomic History Marital status: Single Spouse name: Not on file Number of children: Not on file Years of education: Not on file Highest education level: Not on file Occupational History Not on file Tobacco Use Smoking status: Every Day Packs/day: 0.50 Years: 17.00 Additional pack years: 0.00 Total pack years: 8.50 Types: Cigarettes Start date: 2006 Smokeless tobacco: Never Vaping Use Vaping Use: Never used Substance and Sexual Activity Alcohol use: Never Drug use: Never Sexual activity: Defer Other Topics Concern Not on file Social History Narrative Not on file Social Determinants of Health Financial Resource Strain: Not on file Food Insecurity: No Food Insecurity (12/21/2023) Hunger Screening Food Insecurity - Worry: Never True Food Insecurity - Inability: Never True Transportation Needs: Not on file Physical Activity: Not on file Stress: Not on file Social Connections: Not on file Interpersonal Safety: Not on file Housing Instability: Not on file Review of Symptoms: Pertinent items are noted in HPI. Objective: BP 145/90 Pulse 90 Temp 37.1 C (98.8 F) (Oral) Resp 16 Ht 165.1 cm (5' 5 ) Wt 103.9 kg (229 lb) SpO2 97% BMI 38.11 kg/m ECO- Asymptomatic General appearance: alert, appears stated age and cooperative Head: Normocephalic, without obvious abnormality, atraumatic Lungs: clear to auscultation bilaterally Heart: regular rate and rhythm, S1, S2 normal, no murmur, click, rub or gallop Abdomen: soft, nontender Pelvic: vulva: 5 cm incision along the left labia majora with sutures intact, slight swelling, no erythema, drainage or dehiscence. Extremities: extremities normal, atraumatic, no cyanosis or edema Pulses: 2+ and symmetric Skin: Skin color, texture, turgor normal. No rashes or lesions Lymph nodes: Cervical, supraclavicular, and axillary nodes normal. Neurologic: Grossly normal Labs: Lab Results Component Value Date WBC 11.0 12/19/2023 HGB 12.2 12/19/2023 HCT 36.4 12/19/2023 MCV 94 12/19/2023 PLT 226 12/19/2023 Lab Results Component Value Date GLU 79 12/19/2023 CALCIUM 9.6 12/19/2023 SODIUM 140 12/19/2023 K 3.7 12/19/2023 CO2 24 12/19/2023 BUN 12 12/19/2023 CREATININE 0.70 12/19/2023 No results found for: CA125 Assessment: Patient is diagnosed with TIM III S/p WLE Plan: Post op care - she is progressing well. We discussed the postop lifting and pelvic restrictions over the next several weeks. Would recommend an additional week off work with RTW date of 01/12/24, note provided. Reviewed pathology which revealed TIM III with negative margins. We discussed the possible recurrence rates and for dysplasia checks over the next two years. We discussed the risk factors for recurrence including immunosuppression, smoking, HPV positivity. She may resume well-woman exams with Dr. La at any time. We will begin surveillance checks after postop care, every 3-6 months. *An evaluation and management service unrelated to the patient's post-op care was performed today (within the post operative period), therefore a modifier 24 was affixed. *The patient has a documented plan of care to address pain. All questions were answered to the patient's satisfaction. She is agreeable to this plan of care. *This note was completed using a voice flat sorter processor system. Every effort was made to ensure accuracy. However, inadvertent computerized flat sorter processor errors may be present. .Total time spent was 26 minutes: Preparing to see the patient (e.g., review of tests) Performing a medically appropriate examination and/or evaluation Counseling and educating the patient/family/caregiver Documenting clinical information in the electronic or other health record Care coordination (not separately reported) Chela Rodriguez PA-C, RD, IF SERGIO Coleman 01/03/24 0912 documented in this encounter [facility] 12-27-2023 Miscellaneous Notes Spoke with patient regarding surgery results, explaining TIM III with negative margins. She is doing well at home. Pain well controlled. No drainage, bleeding, fevers/chills. Post op appt confirmed. [facility] encounter [facility] 12-27-2023 Telephone encounter Note Spoke with patient regarding surgery results, explaining TIM III with negative margins. She is doing well at home. Pain well controlled. No drainage, bleeding, fevers/chills. Post op appt confirmed. [email or web address] Work Phone: 12-21-2023 Instructions Formatting of th is note might be different from the original. Your surgery/procedure is scheduled at [facility] on 12/22/23 at 0730 Arrival Time [address] [facility] Address: [address] [place] [address], [address] [address] in the Emergency Center Parking lot. Report to the service desk manager in the Emergency/Surgery Registration lobby of the hospital. Please call Pre-Admission Clinic at [phone] if you have any questions prior to surgery. For questions the morning of surgery, please call the Pre-op Department at [phone]. IF YOU DO NOT FOLLOW THESE INSTRUCTIONS YOUR SURGERY MAY BE CANCELLED Take the following medications the morning of surgery with a sip of water: Protonix Take inhalers as prescribed the morning of surgery. Notify your surgeon if you develop any illness such as a cold, cough, fever, sore throat or vomiting between now and your surgery. Your Surgeon wants you in the best possible health for your surgery. STOP TAKING: UNLESS OTHERWISE DIRECTED BY YOUR SURGEON Blood thinners: Medications such as Coumadin, Heparin, aspirin, Plavix, and non-steroidal anti-inflammatory drugs (NSAIDS) affect the body's blood clotting capabilities. These medications are usually stopped 3-7 days prior to surgery. Please contact your physician regarding a stop date for these medications. Diabetics: If you take insulin, contact your prescribing doctor for instructions on how to manage this the night before and the morning of surgery. You must stop all weight loss medications at least 2 weeks prior to surgery. Vitamins: Stop taking all vitamins, supplements, and herbal products, including herbal tea, 1 week before your surgery. Some vitamins and herbal products may not react well with the medicine used to put you to sleep and/or may thin the blood. Stop marijuana 72 hours prior to surgery, stop CBD oil 48 hours prior to surgery. If you have been given bowel prep instructions by your surgeon, please call the surgeon's office with any questions about these instructions. What do I do the day of Surgery? Age 2 through adult - Stop all solids by midnight, You may have clear liquids up to 2 hours before surgery, unless otherwise instructed by your surgeon Clear liquids are: water, sports drinks such as Gatorade or G2, or apple juice. You may NOT have: tube feedings, dairy products, alcoholic beverages, orange juice, or any liquids with solids or pulp in it If applicable, shower again with CHG soap the morning of your surgery. If you received a green plastic bracelet, bring it with you the day of surgery and your nurse will put it on you. What do I need to do to prepare for surgery? If you will be going home the same day as your surgery, arrange for an adult over [address] Riding in a bus or taxi by yourself is not permitted. You should not smoke or drink alcohol 24 hours before your surgery. Smoking increases the risk of breathing problems after surgery. Alcohol thins the blood and may cause bleeding problems during surgery If you have been assigned ERIN Education by your surgeon's office, please complete this education prior to your surgery. For questions regarding ERIN education, reach out to your surgeons office. If you have been given a prescription for occupational, physical or speech therapy, please set up these appointments before your procedure. If you would like to schedule therapy at a [facility] facility, please call [phone] ([phone]). Do not use lotions, creams, powders, perfume, make up, cologne or after-shaves day of surgery. Remove ALL jewelry including wedding rings, body piercings, hair extensions that contain metal, nail azeri, make-up, and contact lens. You may brush your teeth the morning of surgery, but do not swallow the water. Wear your dentures and partial plates to the hospital (no adhesive). Shower the night the before. If applicable, use the CHG (chlorhexidine gluconate) soap or wipes. Please be advised, [employer] has transitioned to a cashless payment system. What should I bring to the hospital? If you received a green plastic bracelet, bring it with you the day of surgery and your nurse will put it on you. Eyeglass or contact lens case If you will be spending the night, please bring personal care items and leave them in the car until you are taken to your room after surgery. Leave ALL valuables at home. If any of these instructions conflict with those you recieved from the surgeon, please seek clarification from your surgeon's office. DEEP BREATHING EXERCISES This exercise helps promote good air exchange and helps to prevent pneumonia after surgery. Breathe in slowly and deeply through the nose. Hold your breath for a few seconds and then exhale slowly through the mouth. Repeat this three times and then cough.Coughing helps to clear your lungs. If you have had a surgery with an incision into your abdomen or chest, press gently against your incision with a pillow or a folded blanket when you cough. Please be aware - it may not be babb to cough following some types of surgeries involving the eyes, ears, sinuses and throat. Always follow your doctor's instructions. LEG EXERCISES These exercises help promote good circulation and help to prevent blood clots after surgery. Point your toes to the ceiling and then point them to the wall. Do this slowly about 15-20 times. You may also move your feet in circles. Do the exercise that is most comfortable for you. If you have had surgery involving your shoulder or arm, we recommend you move your fingers. PRACTICING We ask that you begin practicing these exercises before your surgery. After surgery try to do both exercises at least every 2 hours during the day and early evening. SURGICAL SITE INFECTION AND PREVENTION What is a Surgical Site Infection? Infection can happen to the area of the body where surgery is done. This is called a surgical site infection (SSI). A SSI does not happen very often. Can SSIs be treated? Antibiotics are used to treat SSI. Some patients may need another surgery to treat the infection. The doctor will discuss treatment options with you. What are some of the things that hospitals are doing to prevent SSIs? Soap and water or alcohol hand rub are used before and after caring for each patient. Special soap is used to clean surgery workers hands and arms just before the surgery. Masks, gowns, gloves and hair covers are worn during the surgery to keep the area clean. Hair in the surgery area may be removed with clippers (not razors). A special soap that kills germs is used to clean the skin at the surgery site. Antibiotics may be given before the surgery starts. What can you do to prevent SSIs? Before surgery: You may be asked to shower or bathe with a special soap that kills germs the night before and the day of surgery. Use the soap as you were told. If you smoke, stop or cut down. Ask your doctor about ways to quit. Do not shave near where you will have surgery. Shaving can irritate the skin and make it easier to get and infection. After surgery: Be sure that the doctors and nurses clean their hands before and after touching you. Be sure your family and friends clean their hands before and after visiting you. Do not be afraid to remind them. * Care for your wound at home as told by your doctor or nurse * Call your doctor right away if you have fever, redness, increased pain, or drainage at the surgery site. Further questions? Contact the doctor, nurse or the Infection Prevention and Control department if you have any questions. PATIENT RIGHTS AND RESPONSIBILITIES As a patient at [facility], you have the right to: Receive medical care and be informed of who is taking care of you Be treated with dignity and respect Have a family member/education courses sales representative of choice and your physician notified of your admission Receive information and actively participate in decisions about your care and treatment Refuse care, treatment and services Decide who may provide your support and speak for you Access jehovah's witness and spiritual services Participate in ethical issues and questions about your care Receive private and confidential care Have appropriate assessment and management of your pain Know guest visitation restrictions or limitations Have an advance directive Access protective services Consent or refuse to participate in research studies or production or recordings, films or other images Have resolution of your complaints Receive information of hospital charges and payment methods Patient/patient education courses sales representative responsibilities are to: Provide information about health status to facilitate care, treatment and services Follow the treatment, plan, keep appointments and speak up when you do not understand the plan Respect the rights of other patients and healthcare personnel Follow organizational rules and regulations that support quality care and a safe environment Fulfill financial obligations as promptly as possible [facility] 12-21-2023 Miscellaneous Notes Your surgery/procedure is scheduled at [facility] on 12/22/23 at 0730 [address]rival Time [address] [place] [address] Address: [address] [place] [address], [facility] Park in the Emergency Center Parking lot. Report to the service desk manager in the Emergency/Surgery Registration lobby of the hospital. Please call Pre-Admission Clinic at [phone] if you have any questions prior to surgery. For questions the morning of surgery, please call the Pre-op Department at [phone]. IF YOU DO NOT FOLLOW THESE INSTRUCTIONS YOUR SURGERY MAY BE CANCELLED Take the following medications the morning of surgery with a sip of water: Protonix Take inhalers as prescribed the morning of surgery. Notify your surgeon if you develop any illness such as a cold, cough, fever, sore throat or vomiting between now and your surgery. Your Surgeon wants you in the best possible health for your surgery. STOP TAKING: UNLESS OTHERWISE DIRECTED BY YOUR SURGEON Blood thinners: Medications such as Coumadin, Heparin, aspirin, Plavix, and non-steroidal anti-inflammatory drugs (NSAIDS) affect the body's blood clotting capabilities. These medications are usually stopped 3-7 days prior to surgery. Please contact your physician regarding a stop date for these medications. Diabetics: If you take insulin, contact your prescribing doctor for instructions on how to manage this the night before and the morning of surgery. You must stop all weight loss medications at least 2 weeks prior to surgery. Vitamins: Stop taking all vitamins, supplements, and herbal products, including herbal tea, 1 week before your surgery. Some vitamins and herbal products may not react well with the medicine used to put you to sleep and/or may thin the blood. Stop marijuana 72 hours prior to surgery, stop CBD oil 48 hours prior to surgery. If you have been given bowel prep instructions by your surgeon, please call the surgeon's office with any questions about these instructions. What do I do the day of Surgery? Age 2 through adult - Stop all solids by midnight, You may have clear liquids up to 2 hours before surgery, unless otherwise instructed by your surgeon Clear liquids are: water, sports drinks such as Gatorade or G2, or apple juice. You may NOT have: tube feedings, dairy products, alcoholic beverages, orange juice, or any liquids with solids or pulp in it If applicable, shower again with CHG soap the morning of your surgery. If you received a green plastic bracelet, bring it with you the day of surgery and your nurse will put it on you. What do I need to do to prepare for surgery? If you will be going home the same day as your surgery, arrange for an adult over [address] Riding in a bus or taxi by yourself is not permitted. You should not smoke or drink alcohol 24 hours before your surgery. Smoking increases the risk of breathing problems after surgery. Alcohol thins the blood and may cause bleeding problems during surgery If you have been assigned ERIN Education by your surgeon's office, please complete this education prior to your surgery. For questions regarding ERIN education, reach out to your surgeons office. If you have been given a prescription for occupational, physical or speech therapy, please set up these appointments before your procedure. If you would like to schedule therapy at a [facility] facility, please call [phone] ([phone]). Do not use lotions, creams, powders, perfume, make up, cologne or after-shaves day of surgery. Remove ALL jewelry including wedding rings, body piercings, hair extensions that contain metal, nail azeri, make-up, and contact lens. You may brush your teeth the morning of surgery, but do not swallow the water. Wear your dentures and partial plates to the hospital (no adhesive). Shower the night the before. If applicable, use the CHG (chlorhexidine gluconate) soap or wipes. Please be advised, [facility] has transitioned to a cashless payment system. What should I bring to the hospital? If you received a green plastic bracelet, bring it with you the day of surgery and your nurse will put it on you. Eyeglass or contact lens case If you will be spending the night, please bring personal care items and leave them in the car until you are taken to your room after surgery. Leave ALL valuables at home. If any of these instructions conflict with those you recieved from the surgeon, please seek clarification from your surgeon's office. DEEP BREATHING EXERCISES This exercise helps promote good air exchange and helps to prevent pneumonia after surgery. Breathe in slowly and deeply through the nose. Hold your breath for a few seconds and then exhale slowly through the mouth. Repeat this three times and then cough.Coughing helps to clear your lungs. If you have had a surgery with an incision into your abdomen or chest, press gently against your incision with a pillow or a folded blanket when you cough. Please be aware - it may not be babb to cough following some types of surgeries involving the eyes, ears, sinuses and throat. Always follow your doctor's instructions. LEG EXERCISES These exercises help promote good circulation and help to prevent blood clots after surgery. Point your toes to the ceiling and then point them to the wall. Do this slowly about 15-20 times. You may also move your feet in circles. Do the exercise that is most comfortable for you. If you have had surgery involving your shoulder or arm, we recommend you move your fingers. PRACTICING We ask that you begin practicing these exercises before your surgery. After surgery try to do both exercises at least every 2 hours during the day and early evening. SURGICAL SITE INFECTION AND PREVENTION What is a Surgical Site Infection? Infection can happen to the area of the body where surgery is done. This is called a surgical site infection (SSI). A SSI does not happen very often. Can SSIs be treated? Antibiotics are used to treat SSI. Some patients may need another surgery to treat the infection. The doctor will discuss treatment options with you. What are some of the things that hospitals are doing to prevent SSIs? Soap and water or alcohol hand rub are used before and after caring for each patient. Special soap is used to clean surgery workers hands and arms just before the surgery. Masks, gowns, gloves and hair covers are worn during the surgery to keep the area clean. Hair in the surgery area may be removed with clippers (not razors). A special soap that kills germs is used to clean the skin at the surgery site. Antibiotics may be given before the surgery starts. What can you do to prevent SSIs? Before surgery: You may be asked to shower or bathe with a special soap that kills germs the night before and the day of surgery. Use the soap as you were told. If you smoke, stop or cut down. Ask your doctor about ways to quit. Do not shave near where you will have surgery. Shaving can irritate the skin and make it easier to get and infection. After surgery: Be sure that the doctors and nurses clean their hands before and after touching you. Be sure your family and friends clean their hands before and after visiting you. Do not be afraid to remind them. * Care for your wound at home as told by your doctor or nurse * Call your doctor right away if you have fever, redness, increased pain, or drainage at the surgery site. Further questions? Contact the doctor, nurse or the Infection Prevention and Control department if you have any questions. PATIENT RIGHTS AND RESPONSIBILITIES As a patient at [facility], you have the right to: Receive medical care and be informed of who is taking care of you Be treated with dignity and respect Have a family member/education courses sales representative of choice and your physician notified of your admission Receive information and actively participate in decisions about your care and treatment Refuse care, treatment and services Decide who may provide your support and speak for you Access jehovah's witness and spiritual services Participate in ethical issues and questions about your care Receive private and confidential care Have appropriate assessment and management of your pain Know guest visitation restrictions or limitations Have an advance directive Access protective services Consent or refuse to participate in research studies or production or recordings, films or other images Have resolution of your complaints Receive information of hospital charges and payment methods Patient/patient education courses sales representative responsibilities are to: Provide information about health status to facilitate care, treatment and services Follow the treatment, plan, keep appointments and speak up when you do not understand the plan Respect the rights of other patients and healthcare personnel Follow organizational rules and regulations that support quality care and a safe environment Fulfill financial obligations as promptly as possible documented in this encounter [facility] 12-13-2023 Miscellaneous Notes New referral received from Dr. Melquiades Weber for tobacco cessation with Michelle LOPEZ. Patient saw provider on 12/12/2023. Patient has a history of tobacco use 1.5 PPD x 17 years. She has quit using tobacco products for a period of time in the past. At that point she quit on her own without use of nicotine replacement or alternative medications. She was interested in smoking cessation program. Called patient at [phone] and left a voicemail requesting a callback to schedule an appointment. Lennie Buenrostro 12/13/2023 0951 Called patient again at [phone] and left message for patient to call back to schedule visit with pharmacist. documented in this encounter [facility] 12-13-2023 Telephone encounter Note New referral received from Dr. Melquiades Weber for tobacco cessation with Michelle LOPEZ. Patient saw provider on 12/12/2023. Patient has a history of tobacco use 1.5 PPD x 17 years. She has quit using tobacco products for a period of time in the past. At that point she quit on her own without use of nicotine replacement or alternative medications. She was interested in smoking cessation program. Called patient at [phone] and left a voicemail requesting a callback to schedule an appointment. Lennie Buenrostro 12/13/2023 0951 [facility] 12-13-2023 Telephone encounter Note Called patient again at [phone] and left message for patient to call back to schedule visit with pharmacist. [employer] Work Phone: 12-12-2023 History of Presen t illness Narrative Subjective: Elisha is a 32 y.o. female here for consultation from Dr. La for evaluation and management of HSIL vulvar biopsy. She first noticed a dime sized bump on her left inner labia in August 2023. Over time she has not noticed any change in the lesion size. She does note occasional pruritis, sometimes painful with rubbing on clothing. She had a pap with her provider which was negative, had a vulvar culture which was inconclusive, and a biopsy which showed HSIL. She denies history of any similar lesions. Denies history of abnormal pap smears. She has been using tobacco products for the past 17 years and currently smokes 1.5 ppd. She has quit using tobacco products for a period of time in the past. At that point she quit cold turkey and instead would consume hard candy. She would consider trying to quit again. Oncology History No overview note Elisha : Denies Early satiety Denies Abdominal distention Denies Leg swelling Denies Shortness of breath Denies Vaginal bleeding Denies Change in bowel habits Denies Change in bladder habits Denies Nausea and vomiting All other systems negative, unless specifically noted in HPI. Past Gynecologic History: OB History 0 Para 0 Term 0 0 AB 0 Living 0 SAB 0 IAB 0 Ectopic 0 Multiple 0 Live Births 0 No LMP recorded. Hx PCOS - has irregular menstrual cycles Hormonal Contraceptives No HRT use No History of abnormal pap No Past Surgical History: Procedure Laterality Date APPENDECTOMY open OOPHORECTOMY Right performed at time of appendectomy Past Medical History: Diagnosis Date Carpal tunnel syndrome GERD (gastroesophageal reflux disease) Hypertension IBS (irritable bowel syndrome) PCOS (polycystic ovarian syndrome) Family History Problem Relation Age of Onset Lung cancer Maternal Grandfather Cancer Maternal Grandfather Social History Tobacco Use Smoking status: Every Day Packs/day: 1 Types: Cigarettes Smokeless tobacco: Never Substance Use Topics Alcohol use: Never Review of Symptoms: Pertinent items are noted in HPI. Objective: BP 136/84 Pulse 77 Ht 167 cm (5' 5.75 ) Wt 103.4 kg (228 lb) SpO2 98% BMI 37.08 kg/m ECO- Asymptomatic General appearance: alert, appears stated age and cooperative Head: Normocephalic, without obvious abnormality, atraumatic Neck: supple, symmetrical, trachea midline and thyroid not enlarged, symmetric, no tenderness/mass/nodules Lungs: clear to auscultation bilaterally Heart: regular rate and rhythm, S1, S2 normal, no murmur, click, rub or gallop Abdomen: abnormal findings: soft, nondistended Pelvic: Acetic acid applied. 3-4 cm raised round whitened lesion along left inner labia minora at 4 o'clock position (if 12 o'clock at clitoris), small skin tag right side inner groin/buttocks. Otherwise normal external genitalia without aceto-white change. Extremities: extremities normal, atraumatic, no cyanosis or edema Skin: Skin color, texture, turgor normal. No rashes or lesions Neurologic: Grossly normal Labs: No results found for: WBC , RBC , HGB , HCT , MCH , MCHC , PLT , MPV , RDW No results found for: BUN , NA , K , CL , BICARBONATE , GLUCOSE , ALBUMIN , PROT , CA , ALKP , AST , LABBILI No results found for: GGT No results found for: LDH No results found for: MG No results found for: PHOS No results found for: URIC Assessment/Plan: 1. Left vulvar lesion, HSIL on biopsy - 3-4 cm raised, acetowhite change - We discussed in detail the possibilities of a pre-malignant or malignant process. Although prior biopsy showed HSIL, there is a possibility that an invasive cancer is present at a separate area of the lesion outside of the biopsy site. We discussed the options of topical therapy, destructive therapy via laser, or surgical excision of the lesion and the recommendation for surgical excision to decrease the recurrence risk. Explained that a wide local excision would be the initial surgery with a goal for 1 cm margins. Based on final pathology, lesion size, and depth of invasion there may be a need for further excision or lymph node resection as a further surgical procedure down the road. - We discussed the risks of surgery including risk of bleeding, possibly to anemia requiring blood transfusion, risk of infection, and risk of damage to surrounding structures including, but not limited to, anus, urethra, nerves, arteries, and veins. We also discussed the risk of needing rotational flaps, poor cosmesis, wound breakdown, or second surgery if carcinoma is diagnosed on path review. Patient expressed understanding and desires to proceed. All questions were answered and the consent form was signed. - Patient lives in [place] - will follow up with SERGIO [place] - Will request Pap report from Dr. La's office. 2. Tobacco use - 1.5 PPD x 17 years - Patient has quit using tobacco products for a period of time in the past. At that point she quit on her own without use of nicotine replacement or alternative medications. - We discussed the association of tobacco use with HPV dysplasia. - Reviewed the option of a smoking cessation program to assist provide support, and she is interested in this option. We will place a referral. 3. Medical comorbidities - PCOS - BMI 38 - GERD - takes pantoprazole - IBS 4. Total time spent was 48 minutes: Preparing to see the patient (e.g., review of tests) Performing a medically appropriate examination and/or evaluation Counseling and educating the patient/family/caregiver Ordering medications, tests, or procedures Referring and communicating with other health customer care consultant (not separately reported) Documenting clinical information in the electronic or other health record Independently interpreting results (not separately reported) and communicating results to the patient/family/caregiver Patient seen and examined with Lawanda Eaton MD PGY-4 MELQUIADES WEBER MD documented in this encounter [facility] 12-01-2023 Miscellaneous Notes Left VM to schedule [employer] appt with faceter onc, call back number provided. documented in this encounter [facility] 12-01-2023 Telephone encounter Note Left VM to schedule [facility] appt with faceter onc, call back number provided. 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 Low FODMAP diet [email or web address] 1 p.o. every morning IBgard 1-2 once or twice a day -Notify the doctor if you have any problems. -Office number [phone] Work Phone: InstructionsNot on filedocumented in this encounter [employer] SystemInstructionsNot on filedocumented in this encounter [employer] SystemInstructionsNot on filedocumented in this encounter [employer] SystemInstructionsNot on filedocumented in this encounter [employer] SystemInstructionsNot on filedocumented in this encounter [employer] SystemInstructionsNot on filedocumented in this encounter [facility] SystemReason for referral (narrative)* Consultation (Routine) - Pending Review Specialty Diagnoses / Procedures Referred By Contlaure t Referred To Contact Medication Therapy Management Diagnoses Encounter for tobacco use cessation counseling Melquiades Weber MD [address] [place] [address] [facility] [address] [place] [address] Referral ID Status Reason Start Date Expiration Date Visits Requested Visits Authorized [id number] Pending Review Specialty Services Required 12/12/2023 12/11/2024 [facility] Summary Purpose Family History No Family History Records Found Relationship Condition Age at Onset Recorded Date/T lion Not Specified No pertinent family history Unknown Advance Directives No Advanced Directives Records Found Advance Directive Response Recorded Date/ Time Advance Directives No February 02, 2 023 3:13pm Chief Complaint and Reason for Visit Chief Complaint Alternating, Diarrhe a, Constipation, Abdominal Sylvester Additional Source Comments INFORMATION SOURCE (unrecogn ized section and content) DATE CREATED AUTHOR 05/10/2018 [facility] DATE CREATED AUTHOR 'S ORGANIZ ATION 02/13/2023 [facility] DATE CREATED AUTHOR AUTHOR'S ORGANIZ ATION 02/15/2023 [facility] DATE CREATED AUTHOR AUTHOR'S ORGANIZ ATION 12/13/2023 [facility] DATE CREATED AUTHOR AUTHOR'S ORGANIZ ATION 12/28/2023 [facility] DATE CREATED AUTHOR AUTHOR'S ORGANIZ ATION 07/24/2024 [facility] DATE CREATED AUTHOR AUTHOR'S ORGANIZ ATION 08/06/2024 [facility] Teams (unrecognized sec tion and content) Team Status: Active Member Role Status Dates Subhash Caba MD Primary Care Provider Active Team Status: Inactive Member Role Status Dates Omero Cunningham MD Attending Provider Active Subhash Caba MD Primary Care Provider Active Proof Operator Relationship Specialty Start Date End Date Subhash Caba MD [address] [place] [address] PCP - General Family Medicine 12/12/23 Proof Operator Relationship Specialty Start Date End Date Subhash Caba MD [address] [place] [address] PCP - General Family Medicine 12/12/23 Proof Operator Relationship Specialty Start Date End Date Subhash Caba MD [address] [place] [address] PCP - General Family Medicine 12/12/23 Proof Operator Relationship Specialty Start Date End Date Subhash Caba MD [address] [place] [address] PCP - General Family Medicine 12/12/23 Reason for Visit (unrecogniz ed section and content) Reason Comments New Patient HSIL VULVAPt states she noticed small bump on vulva in Augid have some itching or irritation at timesHad bx Oct 2023 Reason Comments Follow-up FOR RECORDS PERTAINING TO PATIENTS WHO ARE [...] BE BASED ON THE PRIMARY CLINICAL RECORDS. [facility] [employer], [facility]. provides no warranty or guarantee of the accuracy or completeness of information in this document.
[2024-08-25 04:10] LABS: Progesterone 18.5 ng/mL (.)
== END 2024-08-23 15:09 | disposition home or self-care (01) ==
LOC: LAB 15:08
PROVIDERS: PCP Family Medicine; Visit Provider Obstetrics & Gynecology
DX: E28.2 Polycystic ovarian syndrome (principal); N97.0 Female infertility associated with anovulation
CPT/HCPCS: 36415; 84144

== ENCOUNTER 2024-09-24 15:08 | Outpatient (OUT) | payer OTHER, SELFPAY ==
[2024-09-26 04:08] LABS: Progesterone 12.5 ng/mL (.)
== END 2024-09-24 15:09 | disposition home or self-care (01) ==
LOC: LAB 15:08
PROVIDERS: PCP Family Medicine; Visit Provider Obstetrics & Gynecology
DX: E28.2 Polycystic ovarian syndrome (principal); N97.0 Female infertility associated with anovulation
CPT/HCPCS: 36415; 84144

== ENCOUNTER 2024-10-26 10:51 | Outpatient (RCR) | payer OTHER, SELFPAY ==
[2024-10-27 09:11] LABS: Progesterone 14.2 ng/mL (.)
== END 2024-11-13 10:44 | disposition home or self-care (01) ==
LOC: LAB 10:51
PROVIDERS: PCP Family Medicine; Visit Provider Obstetrics & Gynecology
DX: E28.2 Polycystic ovarian syndrome (principal); N97.0 Female infertility associated with anovulation
CPT/HCPCS: 36415; 84144

== ENCOUNTER 2024-11-12 18:14 | Outpatient (REF) | payer OTHER, SELFPAY ==
--- OUTSIDE RECORDS SUMMARY | 2024-11-12 18:19 | XMS_ITS | CCD ---
Author Organization [facility] Care Team Providers Care Planning Coordinator Name Role Phone Nill, Eusebio R Unavailable Unavailable Nill, Eusebio R Unavailable Unavailable Nill, Eusebio R Unavailable Unavailable BETH CLAIRE Unavailable Unavailable MD Omero Cunningham Attending Provider MD Subhash Caba Primary Care Provider [phone] GERTRUDIS, DR SUBHASH Pereyra Admitting Unavailable GERTRUDIS, DR SUBHASH Pereyra Attending Unavailable GERTRUDIS, DR SUBHASH Pereyra Primary Care Unavailable GERTRUDIS, DR SUBHASH Pereyra Consulting Unavailable ISMAEL, DR Hernesto Iqbal Admitting Unavailable ISMAEL, DR Hernesto Iqbal Attending Unavailable GERTRUDIS, DR SUBHASH Pereyra Primary Care Unavailable ISMAEL, DR Hernesto Iqbal Consulting Unavailable Subhash Caba Primary Care Unavailable Omero Cunningham Attending Unavailsusy Cunningham, Omero Iqbal Admitting Unavailsusy funk Unavailable Primary Care Provider UnavailSubhash Hill MD Primary Care Provider [phone] MELQUIADES WEBER Attending Unavailable SUBHASH CABA Primary Care Unavailable SUBHASH CABA Referring Unavailable SUBHASH CABA Primary Care Unavailable MELQUIADES WEBER Admitting Unavailable MELQUIADES WEBER Attending Unavailable MELQUIADES WEBER Referring Unavailable SUBHASH CABA Primary Care Unavailable NATASHA SANTANA Attending Unavailable SUBHASH CABA Primary Care Unavailable VIVIANA BLOOM Attending Unavailable RAMBO LA Attending Unavailable SUBHASH CABA Attending Unavailable MIKAYLA SIN Attending Unavailable MIKAYLA SIN Referring Unavailable MIKAYLA SIN Referring Unavailable JR. KAM GEORGE C Attending Unavaila ble MIKAYLA SIN Attending Unavailable MIKAYLA SIN Attending Unavailable MIKAYLA SIN Attending Unavailable RAMBO LA Attending Unavailable VIVIANA BLOOM Attending Unavailable CHELA RODRIGUEZ Attending Unavailable SUBHASH CABA Referring Unavailable SUBHASH CABA Primary Care Unavailable SUBHASH CABA Referring Unavailable SUBHASH CABA Primary Care Unavailable CHELA RODRIGUEZ Attending Unavailable SUBHASH CABA Referring Unavailable SUBHASH CABA Primary Care Unavailable MELQUIADES WEBER Referring Unavailable SUBHASH CABA Primary Care Unavailable CHELA RODRIGUEZ Attending Unavailable SUBHASH CABA Referring Unavailable SUBHASH CABA Primary Care Unavailable Subhash Caba MD Primary Care Provider [phone] Allergies Allergy Classification Reported Allergen(s) Allergy Type Date of Onset Reaction(s) Facility (1 source) Morphine Drug Allergy 04-27-2013 [facility] Medications Current Medications Medication Drug Class(es) Dates Sig (Normalized) Sig (Original) acetaminophen 500 mg oral tablet (3 sources) Start: 12-22-2023 take 2 tablets by mouth every eight hours acetaminophen (TYLENOL EXTRA STRENGTH) 500 mg tablet Take 2 tablets (1,000 mg total) by mouth every 8 (eight) hours. 30 tablet 0 12/22/2023 Active albuterol 0.83 mg/ml inhalation solution (10 sources) beta2-Adrenergic Agonist Start: 11-12-2023 albuterol (2.5 MG/3ML) 0.083% nebulizer solution INHALE 3ml BY MOUTH EVERY 6 HOURS NEEDED FOR WHEEZING 11/12/2023 Active ibuprofen 800 mg oral tablet (1 [...] 12/27/2023 Active loratadine 10 mg oral tablet (18 sources) Start: 02-29-2024 End: 08-02-2025 take 1 tablet by mouth once daily loratadine (Claritin) 10 MG tablet Indications: Seasonal allergic rhinitis due to pollen Take 1 tablet (10 mg) by mouth Daily 30 tablet 11 08/02/2024 08/02/2025 Active Start: 02-03-2023 take 10 mg by mouth once daily Loratadine Active 10 MG PO Daily February 03, 2023 12:00am pantoprazole 40 mg delayed release oral tablet (18 sources) Proton Pump Inhibitor Start: 02-29-2024 End: 08-02-2025 take 1 tablet by mouth once daily pantoprazole (ProtoNix) 40 MG EC tablet Indications: Gastroesophageal reflux disease without esophagitis Take 1 tablet (40 mg) by mouth Daily 30 tablet 11 08/02/2024 08/02/2025 Active Start: 07-26-2023 take 1 tablet by samm th in the morning pantoprazole (PROTONIX) 40 mg [...] abdominal pain; Translations: [UNSPECIFIED ABDOMINAL PAIN] Onset: 3 Episodic Administrative/social admission (1 source) Patient encounter status; Translations: [Tobacco abuse counseling] 12-12-2023 Episodic Cancer of other female genital organs (5 sources) Vulval intraepithelial neoplasia grade 3; 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] Onset: 4 01-03-2024 Chronic Esophageal disorders (10 sources) Gastroesophageal reflux disease without esophagitis; Translations: [Gastro-esophageal reflux disease without esophagitis] Onset: 4 02-23-2024 Chronic Female infertility (10 sources) Anovulation; Translations: [Female infertility associated with anovulation] Onset: 4 08-06-2024 Chronic Other aftercare (2 sources) Postoperative visit; Translations: [Encounter for other specified surgical aftercare] 01-03-2024 Episodic Other endocrine disorders (10 sources) Polycystic ovary syndrome; Translations: [Polycystic ovarian syndrome] Onset: 4 08-06-2024 Chronic Other female genital disorders (2 sources) Dysplasia of vulva; Translations: [Dysplasia of vulva, unspecified] 12-12-2023 Episodic Other gastrointestinal disorders (10 sources) Irritable bowel syndrome; Translations: [Mixed irritable bowel syndrome] Onset: 4 02-23-2024 Chronic Other gastrointestinal disorders (4 sources) Other specified symptoms and signs involving the digestive system and abdomen; Translations: [OTH SPEC SX SIGNS DIGESTV SYS ABD] Onset: 3 Episodic Other gastrointestinal disorders (1 source) Diarrhea, unspecified; Translations: [Diarrhea, unspecified] Onset: 3 Episodic Other nervous system disorders (1 source) Other acute postprocedural pain; Translations: [Other acute postprocedural pain] Onset: 4 Episodic Other upper respiratory disease (10 sources) Allergic rhinitis due to pollen; Translations: [Allergic rhinitis due to pollen] Onset: 4 02-23-2024 Chronic Unclassified (1 source) VULVAR DYSPLASIA Onset: 4 Past or Other Problems Problem Classification Problem Date Documented Da te Episodic/Chronic Other connective tissue disease (10 sources) Ganglion cyst of right dorsal wrist; Translations: [Ganglion, right wrist] Onset: 02-23-2024 02-23-2024 Episodic Other female genital disorders (1 source) Dysplasia of vulva, unspecified; Translations: [Dysplasia of vulva, unspecified] Onset: 12-19-2023 Episodic Other screening for suspected conditions (not mental disorders or infectious disease) (10 sources) Lesion of vulva; Translations: [Abnormal cytological findings in specimens from other female genital organs] Onset: 11-30-2023 11-30-2023 Episodic Results Test Name Value Interpretation Reference Range Facility ALL PROGESTERONEon 4 PROGESTERONE 14.2 ng/mL . [facility] are Comment on above: Follicular phase 0.1 - 0.9 Luteal phase 1.8 - 23.9 Ovulation phase 0.1 - 12.0 First trimester 11.0 - 44.3 Second trimester 25.4 - 83.3 Third trimester 58.7 - 214.0 Postmenopausal 0.0 - 0.1 Performed at: [address] [id number] Clinical Administrator: Jose Chaney PhD, Phone: [phone] [facility] ALL PROGESTERONEon 4 PROGESTERONE 12.5 ng/mL . [facility] are Comment on above: Follicular phase 0.1 - 0.9 Luteal phase 1.8 - 23.9 Ovulation phase 0.1 - 12.0 First trimester 11.0 - 44.3 Second trimester 25.4 - 83.3 Third trimester 58.7 - 214.0 Postmenopausal 0.0 - 0.1 Performed at: [address] [id number] Clinical Administrator: Jose Chaney PhD, Phone: [phone] [facility]EverypostUNIVERSITY HOSPITALViewRay e ALL PROGESTERONEon PROGESTERONE 18.5 ng/mL . [facility] are Comment on above: Follicular phase 0.1 - 0.9 Luteal phase 1.8 - 23.9 Ovulation phase 0.1 - 12.0 First trimester 11.0 - 44.3 Second trimester 25.4 - 83.3 Third trimester 58.7 - 214.0 Postmenopausal 0.0 - 0.1 Performed at: [facility] BookitNow![address] [id number] Clinical Administrator: Jose Chaney PhD, Phone: [phone] [facility]EverypostUNIVERSITY HOSPITALViewRay e ALL CBC WITH AUTO DIFFon BASOPHILS ABSOLUTE AUTO 0.0 [facility] Basophils/100 WBC (Bld) 0.4 % 0.2 - 2.0 % [facility] Eosinophils/100 WBC (Bld) 2.5 % 0.9 - 7.0 % [facility] Erythrocyte distribution width (RBC) [Ratio] 12.4 % 11.0 - 15.0 % [facility] Hematocrit (Bld) [Volume fraction] 37.6 % 36.0 - 48.0 % [facility] Fanchimpcar e Hemoglobin (Bld) [Mass/Vol] 12.5 g/dL 12.0 - 16.0 g/dL [facility] IMMATURE GRANULOCYTES ABS AUTO 0.01 [facility] Immature granulocytes/100 WBC (Bld) 0.1 % 0.0 - 0.5 % [facility] Interpretation and review of laboratory results Abnormal [facility] LYMPHOCYTES ABSOLUTE AUTO 3.0 [facility] Lymphocytes/100 WBC (Bld) 35.3 % 20.5 - 60.0 % [facility] MCH (RBC) [Entitic mass] 31.9 pg 26.7 - 34.0 pg [facility] MCHC (RBC) [Mass/Vol] 33.2 g/dL 29.9 - 35.2 g/dL [facility] MCV (RBC) [Entitic vol] 95.9 fL 81.0 - 99.0 fL [facility] MONOCYTES ABSOLUTE AUTO 0.4 [facility] Monocytes/100 WBC (Bld) 5.3 % 1.7 - 12.0 % [facility] NEUTROPHILS ABSOLUTE AUTO 4.7 [facility] Neutrophils/100 WBC (Bld) 56.4 % 43.0 - 75.0 % [facility] Platelet mean volume (Bld) [Entitic vol] 10.5 fL 9.5 - 13.5 fL [facility] are TBH EO # 0.2 [facility] PLT 228 [facility] RBC 3.92 Low [facility] WBC 8.4 [facility] e MR WRIST RIGHT WO IV CONTRAS Ton [...] [Moles/Vol] 10 mmol/L Normal 5-[address] [facility] Comment on above: Performed By: #### C BCA, BMP, 93362-0, LIVR, 3016-3 #### [facility] ([id number]) [address] [address] [place] [address] Calcium [Mass/Vol] 9.5 mg/dL Normal 8.5-10.5 [facility] Comment on above: Performed By: #### C BCA, BMP, 06224-0, LIVR, 3016-3 #### [facility] ([id number]) [address], [address] [place] [address] Chloride [Moles/Vol] 104 mmol/L Normal 98-109 [facility] Comment on above: Performed By: #### C BCA, BMP, 90904-6, LIVR, 3016-3 #### [facility] ([id number]) [address], [facility] [address] [place] [address] CO2 [Moles/Vol] 25 mmol/L Normal 22-[address] [facility] Comment on above: Performed By: #### C BCA, BMP, 92997-0, LIVR, 3016-3 #### [facility] ([id number]) [address] [address] [place] [address] Creatinine [Mass/Vol] 0.67 mg/dL Normal 0.40-1.[address] [facility] Comment on above: Result Comment: METH OD TRACEABLE TO IDMS STANDARD Performed By: #### C BCA, BMP, 14477-6, LIVR, 3016-3 #### [facility] ([id number]) [address] [address] [place] [address] eGFR (CKD-EPI) NON-RACE DEPENDENT >90 Normal >[address] [facility] Comment on above: Result Comment: Reported eGFR is based on the CKD-EPI 2020 equation that does not use a race coefficient. Performed By: #### C BCA, BMP, 69576-2, LIVR, 3016-3 #### [facility] ([id number]) [address], [address] [place] [address] Glucose [Mass/Vol] 75 mg/dL Normal 65-99 [facility] Comment on above: Performed By: #### C BCA, BMP, 85671-6, LIVR, 3016-3 #### [facility] ([id number]) [address], [address] [place] [address] Potassium [Moles/Vol] 3.8 mmol/L Normal 3.5-5.[address] [facility] Comment on above: Performed By: #### C BCA, BMP, 62804-6, LIVR, 3016-3 #### [facility] ([id number]) [address], [address] [place] [address] Sodium [Moles/Vol] 139 mmol/L Normal 134-146 [facility] Comment on above: Performed By: #### C BCA, BMP, 45738-9, LIVR, 3015-3 #### [facility] ([id number]) [address], [address] [place] [address] Urea nitrogen [Mass/Vol] 13 mg/dL Normal 5-[address] [facility] Comment on above: Performed By: #### C BCA, BMP, 14049-2, LIVR, 3016-3 #### [facility] ([id number]) [address], [address] [place] [address] CBC AND AUTO DIFFon 02-29-20 24 ABSOLUTE BASOPHIL 0.0 X10E9/L Normal 0.0-0.2 [facility] Comment on above: Performed By: #### C BCA, BMP, 99127-6, LIVR, 3016-3 #### [facility] ([id number]) [address], [address] [place] [address] ABSOLUTE NEUTROPHIL 4.3 X10E9/L Normal 1.5-6.6 [facility] Comment on above: Performed By: #### C BCA, BMP, 21933-6, LIVR, 3015-3 #### [facility] ([id number]) [address] [address] [place] [address] Basophils/100 WBC (Bld) 0.4 % Normal [facility] Comment on above: Performed By: #### C BCA, BMP, 85940-1, LIVR, 3016-3 #### [facility] ([id number]) [address], [facility] [address] [place] [address] Eosinophils (Bld) [#/Vol] 0.1 10*3/uL Normal 0.0-0.[address] [facility] Comment on above: Performed By: #### C BCA, BMP, 52899-4, LIVR, 3015- #### [facility] ([id number]) [address] [address] [place] [address] Eosinophils/100 WBC (Bld) 1.6 % Normal [facility] Comment on above: Performed By: #### C BCA, BMP, 27919-8, LIVR, 3015- #### [facility] ([id number]) [address] [address] [place] [address] Erythrocyte distribution width (RBC) [Ratio] 12.9 % Normal 11.5-15.[address] [facility] Comment on above: Performed By: #### C BCA, BMP, 64357-1, LIVR, 3015- #### [facility] ([id number]) [address] [address] [place] [address] Hematocrit (Bld) [Volume fraction] 36.5 % Normal 35-[address] [facility] Comment on above: Performed By: #### C BCA, BMP, 34686-6, LIVR, 3016-3 #### [facility] ([id number]) [address] [address] [place] [address] Hemoglobin (Bld) [Mass/Vol] 12.5 g/dL Normal 11.7-15.[address] [facility] Comment on above: Performed By: #### C BCA, BMP, 07835-0, LIVR, 3015- #### [facility] ([id number]) [address] [address] Lymphocytes (Bld) [#/Vol] 3.3 10*3/uL Normal 1.0-3.[address] [facility] Comment on above: Performed By: #### C BCA, BMP, 71834-8, LIVR, 3015- #### [facility] ([id number]) [address] [address] Lymphocytes/100 WBC (Bld) 40.3 % Normal [facility] Comment on above: Performed By: #### C BCA, BMP, 21523-2, LIVR, 3016-01 #### [facility] ([id number]) [address], [address] [address] MCH (RBC) [Entitic mass] 32.1 pg Normal 27-[address] [facility] Comment on above: Performed By: #### C BCA, BMP, 91398-3, LIVR, 3016-01 #### [facility] ([id number]) [address] [address] MCHC (RBC) [Mass/Vol] 34.3 g/dL Normal 32-[address] [facility] Comment on above: Performed By: #### C BCA, BMP, 71276-4, LIVR, 3015- #### [facility] ([id number]) [address] [address] MCV (RBC) [Entitic vol] 94 fL Normal 80-[address] [facility] Comment on above: Performed By: #### C BCA, BMP, 38849-4, LIVR, 3016- #### [facility] ([id number]) [address] [place] [address] Monocytes (Bld) [#/Vol] 0.4 10*3/uL Normal 0-0.[address] [facility] Comment on above: Performed By: #### C BCA, BMP, 41265-5, LIVR, 3016-3 #### [facility] ([id number]) [address], [facility] [address] [place] [address] Monocytes/100 WBC (Bld) 4.9 % Normal [facility] Comment on above: Performed By: #### C BCA, BMP, 15395-6, LIVR, 3016-3 #### [facility] ([id number]) [address], [facility] [address] [place] [address] Neutrophils/100 WBC (Bld) 52.8 % Normal [facility] Comment on above: Performed By: #### C BCA, BMP, 51589-7, LIVR, 6-3 #### [facility] ([id number]) [address], [facility] [address] [place] [address] Platelet mean volume (Bld) [Entitic vol] 9.7 fL Normal 7-[address] [facility] Comment on above: Performed By: #### C BCA, BMP, 54249-6, LIVR, 6- #### [facility] ([id number]) [address], [facility] [address] [place] [address] Platelets (Bld) [#/Vol] 254 10*3/uL Normal 150-[address] [facility] Comment on above: Performed By: #### C BCA, BMP, 52583-6, LIVR, 3016-3 #### [facility] ([id number]) [address], [facility] [address] [place] [address] RBC COUNT 3.90 X10E12/L Normal 3.80-5.[address] [facility] Comment on above: Performed By: #### C BCA, BMP, 42925-9, LIVR, 3016-3 #### [facility] ([id number]) [address], [address] [place] [address] WBC (Bld) [#/Vol] 8.2 10*3/uL Normal 4.0-11.0 [facility] Comment on above: Performed By: #### C BCA, BMP, 74380-9, LIVR, 3016-3 #### [facility] ([id number]) [address], [facility] [address] [place] [address] HGB A1C (GLYCO-HGB)on 2023 Glucose [Mass/Vol] 103 mg/dL Normal [facility] Comment on above: Performed By: #### C MARIO BMP, 98735-4, LIVR, 3016-3 #### [facility] ([id number]) [address] [address] [place] [address] HbA1c (Bld) [Mass fraction] 5.2 % Normal 4.4-5.[address] [facility] Comment on above: Result Comment: NOTE ADA Guidelines Result HgbA1c Normal : less than 5.7 % Prediabetes : 5.7 % to 6.4 % Diabetes : > 6.4 % Use with caution in patients with abnormal hemoglobin variants as the half-life of red blood cells and in vivo glycation rates are affected. Performed By: #### C BCA, BMP, 72483-9, LIVR, 6-3 #### [facility] ([id number]) [address], [address] [place] [address] LIVER PANELon 02-29-2024 Albumin [Mass/Vol] 4.5 g/dL Normal 3.2-5.3 [facility] Comment on above: Performed By: #### C BCA, BMP, 15996-1, LIVR, 3016-3 #### [facility] ([id number]) [address] [address] [place] [address] ALP [Catalytic activity/Vol] 84 U/L Normal 39-[address] [facility] Comment on above: Performed By: #### C BCA, BMP, 96433-6, LIVR, 3016-3 #### [facility] ([id number]) [address], [address] [place] [address] ALT [Catalytic activity/Vol] 23 U/L Normal 0-[address] [facility] Comment on above: Performed By: #### C BCA, BMP, 46957-6, LIVR, 3016-3 #### [facility] ([id number]) [address], [address] [place] [address] AST [Catalytic activity/Vol] 19 U/L Normal 0-[address] [facility] Comment on above: Performed By: #### C BCA, BMP, 58622-4, LIVR, 3016-3 #### [facility] ([id number]) [address], [address] [place] [address] Bilirubin [Mass/Vol] 0.5 mg/dL Normal 0.3-1.2 [facility] Comment on above: Performed By: #### C BCA, BMP, 15564-4, LIVR, 3016- #### [facility] ([id number]) [address], [address] [place] [address] Bilirubin.direct [Mass/Vol] 0.1 mg/dL Normal 0.0-0.[address] [facility] Comment on above: Performed By: #### C BCA, BMP, 03746-5, LIVR, 3016-3 #### [facility] ([id number]) [address], [address] [place] [address] Protein [Mass/Vol] 8.1 g/dL High 6.0-8.0 [facility] Comment on above: Performed By: #### C BCA, BMP, 67524-4, LIVR, 3016-3 #### [facility] ([id number]) [address], [address] [place] [address] Lipid 1996 panelon 4 Cholesterol [Mass/Vol] 197 mg/dL Normal 150-[address] [facility] Comment on above: Performed By: #### C BCA, BMP, 60425-5, LIVR, 3016-3 #### [facility] ([id number]) [address], [address] [place] [address] Cholesterol in HDL [Mass/Vol] 50 mg/dL Normal >[address] [facility] Comment on above: Result Comment: HDL <40 mg/dL - High Risk HDL > or = 40mg/dL- Desirable HDL >60 mg/dL - Negative Risk Performed By: #### C BCA, BMP, 20262-2, LIVR, 3016-3 #### [facility] ([id number]) [address], [address] [place] [address] Cholesterol in LDL [Mass/Vol] 130 mg/dL High <[address] [facility] Comment on above: Result Comment: LDL <100 mg/dL - Desirable LDL >160 mg/dL - High Risk Performed By: #### C BCA, BMP, 31130-5, LIVR, 3016-3 #### [facility] ([id number]) [address], [address] [place] [address] Cholesterol in VLDL [Mass/Vol] 17 mg/dL Normal 0-[address] [facility] Comment on above: Performed By: #### C BCA, BMP, 04670-7, LIVR, 3016-3 #### [facility] ([id number]) [address], [address] [place] [address] CHOLESTEROL:HDL 3.9 Normal 1.0-5.[address] [facility] Comment on above: Performed By: #### C BCA, BMP, 66567-0, LIVR, 3016-3 #### [facility] ([id number]) [address] [facility], [address] [place] [address] Triglyceride [Mass/Vol] 85 mg/dL Normal 27-[address] [facility] Comment on above: Performed By: #### C BCA, BMP, 03412-9, LIVR, 3016-3 #### [facility] ([id number]) [address] [facility], [facility] [address] [place] [address] TSH Qnon 02-29-2024 TSH 2.50 uIU/mL Normal 0.49-4.[address] [facility] Comment on above: Performed By: #### C BCA, BMP, 82282-2, LIVR, 3016-3 #### [facility] ([id number]) [address] [facility] [place] [address] HCG ( test) Ql (U)o n 12-22-2023 Beta HCG ( test) Ql (U) Negative Normal NEG [facility] Comment on above: Performed By: #### 2 106-3 #### [facility] ([id number]) [address] [place] [address] Surgical Pathologyon 024 Surgical Pathology Normal [facility] Comment on above: Result Comment: [facility] [address] [place] [address] Surgical Pathology Consultation Patient Name:ELISHA COLBERT:1990 (Age: 32)Gender:FTaken:4Reported:4Physician(s):Melquiades Weber MD ([phone])Copy To: Rec. 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 Clinical History Vulvar dysplasia. Gross Description Received in formalin labeled FILEMON, left vulvar is a pink-sarabia ellipse of [...] to the 6:00 tip in cassette F. (6,ns,[id number], m6) . /12/22/2023GR Microscopic Findings Microscopic examination performed. Specimen(s) Received Left vulva Fee Codes(s): 1; 71274 COMPLETE BLOOD COUNTon 12-19 Erythrocyte distribution width (RBC) [Ratio] 13.3 % Normal 11.5-15.[address] [facility] Comment on above: Performed By: #### C BC, [facility] #### [facility] ([id number]) [address] [place] [address], [address] [place] [address] Hematocrit (Bld) [Volume fraction] 36.4 % Normal 35-[address] [facility] Comment on above: Performed By: #### C BALDO, CMP #### [facility] ([id number]) [address], [address] [place] [address] Hemoglobin (Bld) [Mass/Vol] 12.2 g/dL Normal 11.7-15.[address] [facility] Comment on above: Performed By: #### C BC, CMP #### [facility] ([id number]) [address], [address] [place] [address] MCH (RBC) [Entitic mass] 31.4 pg Normal 27-[address] [facility] Comment on above: Performed By: #### C BALDO, CMP #### [facility] ([id number]) [address], [address] [place] [address] MCHC (RBC) [Mass/Vol] 33.5 g/dL Normal 32-[address] [facility] Comment on above: Performed By: #### C BALDO, CMP #### [facility] ([id number]) [address], [address] [place] [address] MCV (RBC) [Entitic vol] 94 fL Normal 80-[address] [facility] Comment on above: Performed By: #### C BC, CMP #### [facility] ([id number]) [address], [address] [place] [address] Platelet mean volume (Bld) [Entitic vol] 9.8 fL Normal 7-[address] [facility] Comment on above: Performed By: #### C BC, CMP #### [facility] ([id number]) [address], [address] [place] [address] Platelets (Bld) [#/Vol] 226 10*3/uL Normal 150-[address] [facility] Comment on above: Performed By: #### C BC, CMP #### [facility] ([id number]) [address], [address] [place] [address] RBC COUNT 3.89 X10E12/L Normal 3.80-5.[address] [facility] Comment on above: Performed By: #### C BC, CMP #### [facility] ([id number]) [address], [address] [place] [address] WBC (Bld) [#/Vol] 11.0 10*3/uL Normal 4.0-11.0 [facility] Comment on above: Performed By: #### C BC, CMP #### [facility] ([id number]) [address], [address] [place] [address] COMPREHENSIVE METABOLIC PANE Christoph 12-19-2023 Albumin [Mass/Vol] 4.3 g/dL Normal 3.2-5.3 [facility] Comment on above: Performed By: #### C BALDO, CMP #### [facility] ([id number]) [address], [address] [place] [address] ALP [Catalytic activity/Vol] 65 U/L Normal 39-[address] [facility] Comment on above: Performed By: #### C BALDO, CMP #### [facility] ([id number]) [address], [address] [place] [address] ALT [Catalytic activity/Vol] 14 U/L Normal 0-[address] [facility] Comment on above: Performed By: #### C BC, CMP #### [facility] ([id number]) [address], [address] [place] [address] Anion gap [Moles/Vol] 10 mmol/L Normal 5-[address] [facility] Comment on above: Performed By: #### C BC, CMP #### [facility] ([id number]) [address], [address] [place] [address] AST [Catalytic activity/Vol] 14 U/L Normal 0-[address] [facility] Comment on above: Performed By: #### C BC, CMP #### [facility] ([id number]) [address], [address] [place] [address] Bilirubin [Mass/Vol] 0.4 mg/dL Normal 0.3-1.2 [facility] Comment on above: Performed By: #### C BC, CMP #### [facility] ([id number]) [address], [address] [place] [address] Calcium [Mass/Vol] 9.6 mg/dL Normal 8.5-10.5 [facility] Comment on above: Performed By: #### C BC, CMP #### [facility] ([id number]) [address], [address] [place] [address] Chloride [Moles/Vol] 106 mmol/L Normal 98-109 [facility] Comment on above: Performed By: #### C BC, CMP #### [facility] ([id number]) [address], [address] [place] [address] CO2 [Moles/Vol] 24 mmol/L Normal 22-[address] [facility] Comment on above: Performed By: #### C BC, CMP #### [facility] ([id number]) [address] [address] [place] [address] Creatinine [Mass/Vol] 0.70 mg/dL Normal 0.40-1.[address] [facility] Comment on above: Result Comment: METH OD TRACEABLE TO IDMS STANDARD Performed By: #### C BC, CMP #### [facility] ([id number]) [address] [address] [place] [address] eGFR (CKD-EPI) NON-RACE DEPENDENT >90 Normal >[address] [facility] Comment on above: Result Comment: Reported eGFR is based on the CKD-EPI 2020 equation that does not use a race coefficient. Performed By: #### C BC, CMP #### [facility] ([id number]) [address], [address] [place] [address] Glucose [Mass/Vol] 79 mg/dL Normal 65-99 [facility] Comment on above: Performed By: #### C BC, CMP #### [facility] ([id number]) [address], [facility] [address] [place] [address] Potassium [Moles/Vol] 3.7 mmol/L Normal 3.5-5.[address] [facility] Comment on above: Performed By: #### C BC, CMP #### [facility] ([id number]) [address], [facility] [address] [place] [address] Protein [Mass/Vol] 7.7 g/dL Normal 6.0-8.0 [facility] Comment on above: Performed By: #### C BC, CMP #### [facility] ([id number]) [address] [address] [place] [address] Sodium [Moles/Vol] 140 mmol/L Normal 134-146 [facility] Comment on above: Performed By: #### C BALDO, CMP #### [facility] ([id number]) [address] [address] Urea nitrogen [Mass/Vol] 12 mg/dL Normal 5-[address] [facility] Comment on above: Performed By: #### C BC, CMP #### [facility] ([id number]) [address] [address] Cytology Cervical or vaginal smear or scraping studyOrdered By: Cathy Blum on 11-02-2023 [facility] Health[facility] e LACTOFERRIN FECAL QUANTon Lactoferrin, Fecal, Quant. <1.00 Normal 0.00-7.24 [facility] Comment on above: Result Comment: Re sults [...] (IBS). Performed By: #### L ACTFQ #### [facility] [address] [address] [address] Susana Rivera PANCREATIC ELASTASE FECALon 02-04-2023 Pancreatic Elastase, Fecal 292 ug Elast./g Normal >200 [facility] Comment on above: Result Comment: Elaina re Pancreatic Insufficiency: <100 Moderate Pancreatic Insufficiency: 100 - 200 Normal: >200 Performed By: #### L IVER, TSH, LIPID, BMP #### [facility] [id number] Susana Rivera HCG ( test) IA.rapi d Ql (U)Ordered By: Omero Cunningham on 02-03-2023 HCG ( test) Ql (U) Negative [facility] HCG,Urineon 02-03-2023 Beta HCG ( test) Ql (U) Negative Normal [facility] Comment on above: Result Comment: PERF ORMED BY: [place] [address] PATHOLOGIST [employer] JAIRO LEYVA M.D. Performed By: #### U HCG #### [address] Christoph 02-03-2023 L Specimen: [id number] Received: 02/03/23 Status: KEVIN Taylor Num: [id number] Spec Type: Surgical Subm Dr: Omero Cunningham MD Tissues: A Duodenum - Biopsy (DUODENUM BX) B Esophagus Biopsy (ESOPHAGEAL BX) C Colon Biopsy (RANDOM COLON BX) Procedures: HE/6, Gross/Micro L4/3 Age/ Patient Sex Location Account Attending Physician Elisha Colbert 32/F [id number] Omero Cunningham MD SPEC NUM: [id number] RECD: 02/03/23 STATUS: KEVIN TAYLOR NUM: [id number] STEFFANY: 02/03/23- [facility] DR: Omero Cunningham MD ENTERED: 02/03/[address] [facility] [address]: SOFIYA TYPE: Surgical DEPT: S ORDERED: HE/6, Gross/Micro [...] colitis. - Negative for epithelial dysplasia. Specimen: [id number] Received: 02/03/23 Status: KEVIN Taylor Num: [id number] Spec Type: Surgical Subm Dr: Omero Cunningham MD Tissues: A Duodenum - Biopsy (DUODENUM BX) B Esophagus Biopsy (ESOPHAGEAL BX) C Colon Biopsy (RANDOM COLON BX) Procedures: HE/6, Gross/Micro L4/3 Patient: FilemonElisha [id number] (Continued) Specimen: [id number] Received: 02/03/23 (Continued) Signed (signature on file) Nan Lawler MD 02/04/23 1110 Specimen: [id number] Received: 02/03/23 Status: KEVIN Taylor Num: [id number] Spec Type: Surgical Subm Dr: Omero Cunningham MD Tissues: A Duodenum - Biopsy (DUODENUM BX) B Esophagus Biopsy (ESOPHAGEAL BX) C Colon Biopsy (RANDOM COLON BX) Procedures: HE/6, Gross/Micro L4/3 Patient: Elisha Colbert [id number] (Continued) Specimen: [id number] Received: 02/03/23 (Continued) Clinical Information Diarrhea, constipation, [...] support the above pathologic diagnosis. CPT Codes 04205?3 --------- (more content not included)... Normal [facility] BOWEL DISORDERS EVALUATION R ULE-OUT CASCon 02-02-2023 Atypical pANCA Negative Normal Negative [facility] Comment on above: Performed By: #### B DERC #### [facility] [address] [place] [address] Dr. Susana Rivera Note: Comment Normal [facility] Comment on above: Result Comment: Sugg estive of Crohn's disease. Subsequent testing with the Crohn's Disease Prognostic Profile (400880) that includes antiglycan antibodies AMCA, ALCA, ACCA, and Segundo may aid in the differentiation of clinical forms of CD and prognosis of disease progression. Performed By: #### B DERC #### [facility] [address] [address] [address] Susana Rivera Saccharomyces Cer. IgG 34.3 Units Critically high 0.0-24.9 [facility] Comment on above: Result Comment: Nega tive <20.0 Equivocal 20.1 - 24.9 Positive >or= 25.0 Performed By: #### B DERC #### [facility] [address] [place] [address] Dr. Susana Rivera tTG/DGP SCR Negative Normal Negative [facility] Comment on above: Result Comment: Ef fective February 04, 2023 this profile will be made non-orderable due to non-availability of reagents for tTG/DGP Combo. No replacement number is available at this time. For further information, please contact your local [facility] Laundry Supervisor. Performed By: #### B DERC #### [facility] [address] [place] [address] Dr. Susana Rivera CALPROTECTIN, FECALon 2022 Calprotectin, Fecal 20 ug/g Normal 0-120 [facility] Comment on above: Result Comment: Conc entration Interpretation Follow-Up <16 - 50 ug/g Normal None >50 -120 ug/g Borderline Re-evaluate in 4-6 weeks >120 ug/g Abnormal Repeat as clinically indicated Performed By: #### L IVER, TSH, LIPID, BMP #### [facility] [address] [place] [address] Dr. Susana Rivera CHROMOGRANIN Aon 02-02-2023 Chromogranin A 85.4 ng/mL Normal 0.0-101.8 [facility] Comment on above: Result Comment: Piping Drafter mogranin A performed by [employer] KRYPTOR methodology . Values obtained with different assay methods or kits cannot be used interchangeably. Performed By: #### C HROMOA #### [facility] [address] [place] [address] Dr. Susana Rivera CBC AUTO DIFFon 01-29-2023 BASO # 0.0 103/ul Normal 0.0-0.1 [facility] Comment on above: Performed By: #### C BC #### [facility] [address] [place] [address] Dr. Susana Rivera Basophils/100 WBC (Bld) 0.3 % Normal 0.2-2.0 [facility] Comment on above: Performed By: #### C BC #### [facility] [address] [place] [address] Dr. Susana Rivera EO # 0.2 103/ul Normal 0.0-0.7 [facility] Comment on above: Performed By: #### C BC #### [facility] [address] [place] [address] Dr. Susana Rivera Eosinophils/100 WBC (Bld) 3.3 % Normal 0.9-7.0 [facility] Comment on above: Performed By: #### C BC #### [facility] [address] [place] [address] Dr. Susana Rivera Erythrocyte distribution width (RBC) [Ratio] 12.3 % Normal 11.0-15.0 [facility] Comment on above: Performed By: #### C BC #### [facility] [address] [place] [address] Dr. Susana Rivera Hematocrit (Bld) [Volume fraction] 36.9 % Normal 36.0-48.0 [facility] Comment on above: Performed By: #### C BC #### [facility] [address] [place] [address] Dr. Susana Rivera Hemoglobin (Bld) [Mass/Vol] 12.2 g/dL Normal 12.0-16.0 [facility] Comment on above: Performed By: #### C BC #### [facility] [address] [place] [address] Dr. Susana Rivera IG # 0.01 10e3/ul Normal 0.00-0.03 [facility] Comment on above: Performed By: #### C BC #### [facility] [address] [place] [address] Dr. Susana Rivera IG % 0.2 % Normal 0.0-0.5 [facility] Comment on above: Performed By: #### C BC #### [facility] [address] [place] [address] Dr. Susana Rivera LYMPH # 2.8 103/ul Normal 1.2-3.8 [facility] Comment on above: Performed By: #### C BC #### [facility] [address] [place] [address] Dr. Susana Rivera Lymphocytes/100 WBC (Bld) 42.0 % Normal 20.5-60.0 [facility] Comment on above: Performed By: #### C BC #### [facility] [address] [place] [address] Dr. Susana Rivera MANUAL DIFF REQ NO Normal [facility] Comment on above: Performed By: #### C BC #### [facility] [address] [place] [address] Dr. Susana Rivera MCH (RBC) [Entitic mass] 31.2 pg Normal 26.7-34.0 [facility] Comment on above: Performed By: #### C BC #### [facility] [address] [place] [address] Dr. Susana Rivera MCHC (RBC) [Mass/Vol] 33.1 g/dL Normal 29.9-35.2 [facility] Comment on above: Performed By: #### C BC #### [facility] [address] [place] [address] Dr. Susana Rivera MCV (RBC) [Entitic vol] 94.4 fL Normal 81.0-99.0 [facility] Comment on above: Performed By: #### C BC #### [facility] [address] [place] [address] Dr. Susana Rivera MONO # 0.4 103/ul Normal 0.3-0.8 [facility] Comment on above: Performed By: #### C BC #### [facility] [address] [place] [address] Dr. Susana Rivera Monocytes/100 WBC (Bld) 6.5 % Normal 1.7-12.0 [facility] Comment on above: Performed By: #### C BC #### [facility] [address] [place] [address] Dr. Susana Rivera NEUT # 3.1 103/ul Normal 1.4-6.5 [facility] Comment on above: Performed By: #### C BC #### [facility] [address] [place] [address] Dr. Susana Rivera Neutrophils/100 WBC (Bld) 47.7 % Normal 43.0-75.0 [facility] Comment on above: Performed By: #### C BC #### [facility] [address] [place] [address] Dr. Susana Rivera Platelet mean volume (Bld) [Entitic vol] 11.0 fL Normal 9.5-13.5 [facility] Comment on above: Performed By: #### C BC #### [facility] [address] [place] [address] Dr. Susana Rivera PLT 213 103/ul Normal 150-450 [facility] Comment on above: Performed By: #### C BC #### [facility] [address] [place] [address] Dr. Susana Rivera RBC 3.91 106/ul Critically low 4.20-5.40 [facility] Comment on above: Performed By: #### C BC #### [facility] [address] [place] [address] Dr. Susana Rivera WBC 6.6 103/ul Normal 4.0-11.0 [facility] Comment on above: Performed By: #### C BC #### [facility] [address] [place] [address] Dr. Susana Rivera FREE T4on 01-29-2023 Free T4 [Mass/Vol] 0.92 ng/dL Normal 0.76-1.46 [facility] Comment on above: Performed By: #### L IVER, TSH, LIPID, BMP #### [facility] [address] [place] [address] Dr. Susana Rivera PROF 14(COMP METB)on 023 Albumin [Mass/Vol] 3.6 g/dL Normal 3.4-5.0 [facility] Comment on above: Performed By: #### L IVER, TSH, LIPID, BMP #### [facility] [address] [place] [address] Dr. Susana Rivera Albumin/Globulin [Mass ratio] 0.8 {ratio} Normal [facility] Comment on above: Performed By: #### L IVER, TSH, LIPID, BMP #### [facility] [address] [address] [address] Susana Rivera ALP [Catalytic activity/Vol] 75 U/L Normal 46-116 [facility] Comment on above: Performed By: #### L IVER, TSH, LIPID, BMP #### [facility] [address] [address] [address] Susana Rivera ALT [Catalytic activity/Vol] 24 U/L Normal 14-59 [facility] Comment on above: Performed By: #### L IVER, TSH, LIPID, BMP #### [facility] [address] [address] [address] Susana Rivera Anion gap [Moles/Vol] 12.5 mmol/L Normal [facility] Comment on above: Performed By: #### L IVER, TSH, LIPID, BMP #### [facility] [address] [address] [address] Susana Rivera AST [Catalytic activity/Vol] 14 U/L Critically low 15-37 [facility] Comment on above: Performed By: #### L IVER, TSH, LIPID, BMP #### [facility] [address] [address] [address] Susana Rivera Bilirubin [Mass/Vol] 0.3 mg/dL Normal 0.2-1.0 [facility] Comment on above: Performed By: #### L IVER, TSH, LIPID, BMP #### [facility] [address] [address] [address] Susana Rivera Calcium [Mass/Vol] 9.2 mg/dL Normal 8.5-10.1 [facility] Comment on above: Performed By: #### L IVER, TSH, LIPID, BMP #### [facility] [address] [address] [address] Susana Rivera Chloride [Moles/Vol] 106 mmol/L Normal 98-107 [facility] Comment on above: Performed By: #### L IVER, TSH, LIPID, BMP #### [facility] [address] [address] [address] Susana Rivera CO2 [Moles/Vol] 25.6 mmol/L Normal 21.0-32.0 [facility] Comment on above: Performed By: #### L IVER, TSH, LIPID, BMP #### [facility] [address] [place] [address] Dr. Susana Rivera Creatinine [Mass/Vol] 0.58 mg/dL Normal 0.55-1.02 [facility] Comment on above: Performed By: #### L IVER, TSH, LIPID, BMP #### [facility] [address] [place] [address] Dr. Susana Rivera EGFR-AF JORDANIAN >60 Normal >=60 [facility] Comment on above: Performed By: #### L IVER, TSH, LIPID, BMP #### [facility] [address] [place] [address] Dr. Susana Rivera EGFR-NON AF JORDANIAN >60 Normal >=60 [facility] Comment on above: Performed By: #### L IVER, TSH, LIPID, BMP #### [facility] [address] [place] [address] Dr. Susana Rivera Globulin (S) [Mass/Vol] 4.3 g/dL Normal [facility] Comment on above: Performed By: #### L IVER, TSH, LIPID, BMP #### [facility] [address] [place] [address] Dr. Susana Rivera Glucose [Mass/Vol] 93 mg/dL Normal 74-106 [facility] Comment on above: Performed By: #### L IVER, TSH, LIPID, BMP #### [facility] [address] [place] [address] Dr. Susana Rivera Potassium [Moles/Vol] 4.1 mmol/L Normal 3.5-5.1 [facility] Comment on above: Performed By: #### L IVER, TSH, LIPID, BMP #### [facility] [address] [place] [address] Dr. Susana Rivera Protein [Mass/Vol] 7.9 g/dL Normal 6.4-8.2 [facility] Comment on above: Performed By: #### L IVER, TSH, LIPID, BMP #### [facility] [address] [address] [address] Susana Rivera Sodium [Moles/Vol] 140 mmol/L Normal 136-145 [facility] Comment on above: Performed By: #### L IVER, TSH, LIPID, BMP #### [facility] [address] [place] [address] Dr. Susana Rivera Urea nitrogen [Mass/Vol] 10.0 mg/dL Normal 7.0-18.0 [facility] Comment on above: Performed By: #### L IVER, TSH, LIPID, BMP #### [facility] [address] [place] [address] Dr. Susana Rivera Urea nitrogen/Creatinine [Mass ratio] 17.2 mg/mg Normal [facility] Comment on above: Performed By: #### L IVER, TSH, LIPID, BMP #### [facility] [address] [place] [address] Dr. Susana Rivera PROTIMEon 01-29-2023 INR Coag (PPP) [Relative time] 0.94 {INR} Normal [facility] Comment on above: Performed By: #### L IVER, TSH, LIPID, BMP #### [facility] [address] [place] [address] Dr. Susana Rivera INR GUIDELINES SEE BELOW Normal [facility] Comment on above: Result Comment: REYMUNDO RED INR: 2.0 - 3.0 CONDITIONS NOT LISTED BELOW 2.5 - 3.5 FOR PROSTHETIC HEART VALVE REPLACEMENT 2.5 - 3.5 RECURRENT THROMBOSIS Performed By: #### L IVER, TSH, LIPID, BMP #### [facility] [address] [place] [address] Dr. Susana Rivera PT Coag (PPP) [Time] 10.0 s Normal 9.0-11.6 [facility] Comment on above: Performed By: #### L IVER, TSH, LIPID, BMP #### [facility] [address] [place] [address] Dr. Susana Rivera TSHon 01-29-2023 TSH 1.619 uIU/mL Normal 0.358-3.[address] [facility] Comment on above: Performed By: #### L IVER, TSH, LIPID, BMP #### [facility] [address] [address] [address] Susana Rivera CBC AUTO DIFFon 07-22-2022 BASO # 0.0 103/ul Normal 0.0-0.1 [facility] Comment on above: Performed By: #### C BC #### [facility] [address] [place] [address] Dr. Susana Rivera Basophils/100 WBC (Bld) 0.3 % Normal 0.2-2.0 [facility] Comment on above: Performed By: #### C BC #### [facility] [address] [place] [address] Dr. Susana Rivera EO # 0.2 103/ul Normal 0.0-0.7 [facility] Comment on above: Performed By: #### C BC #### [facility] [address] [place] [address] Dr. Susana Rivera Eosinophils/100 WBC (Bld) 2.3 % Normal 0.9-7.0 [facility] Comment on above: Performed By: #### C BC #### [facility] [address] [place] [address] Dr. Susana Rivera Erythrocyte distribution width (RBC) [Ratio] 12.3 % Normal 11.0-15.0 [facility] Comment on above: Performed By: #### C BC #### [facility] [address] [place] [address] Dr. Susana Rivera Hematocrit (Bld) [Volume fraction] 38.6 % Normal 36.0-48.0 [facility] Comment on above: Performed By: #### C BC #### [facility] [address] [place] [address] Dr. Susana Rivera Hemoglobin (Bld) [Mass/Vol] 12.4 g/dL Normal 12.0-16.0 [facility] Comment on above: Performed By: #### C BC #### [facility] [address] [place] [address] Dr. Susana Rivera IG # 0.02 10e3/ul Normal 0.00-0.03 [facility] Comment on above: Performed By: #### C BC #### [facility] [address] [place] [address] Dr. Susana Rivera IG % 0.2 % Normal 0.0-0.5 [facility] Comment on above: Performed By: #### C BC #### [facility] [address] [place] [address] Dr. Susana Rivera LYMPH # 3.3 103/ul Normal 1.2-3.8 [facility] Comment on above: Performed By: #### C BC #### [facility] [address] [place] [address] Dr. Susana Rivera Lymphocytes/100 WBC (Bld) 32.0 % Normal 20.5-60.0 [facility] Comment on above: Performed By: #### C BC #### [facility] [address] [place] [address] Dr. Susana Rivera MANUAL DIFF REQ NO Normal [facility] Comment on above: Performed By: #### C BC #### [facility] [address] [place] [address] Dr. Susana Rivera MCH (RBC) [Entitic mass] 30.7 pg Normal 26.7-34.0 [facility] Comment on above: Performed By: #### C BC #### [facility] [address] [place] [address] Dr. Susana Rivera MCHC (RBC) [Mass/Vol] 32.1 g/dL Normal 29.9-35.2 [facility] Comment on above: Performed By: #### C BC #### [facility] [address] [place] [address] Dr. Susana Rivera MCV (RBC) [Entitic vol] 95.5 fL Normal 81.0-99.0 [facility] Comment on above: Performed By: #### C BC #### [facility] [address] [place] [address] Dr. Susana Rivear MONO # 0.6 103/ul Normal 0.3-0.8 [facility] Comment on above: Performed By: #### C BC #### [facility] [address] [address] [address] Susana Rivera Monocytes/100 WBC (Bld) 5.9 % Normal 1.7-12.0 [facility] Comment on above: Performed By: #### C BC #### [facility] [address] [address] [address] Susana Rivera NEUT # 6.2 103/ul Normal 1.4-6.5 [facility] Comment on above: Performed By: #### C BC #### [facility] [address] [address] [address] Susana Rivera Neutrophils/100 WBC (Bld) 59.3 % Normal 43.0-75.0 [facility] Comment on above: Performed By: #### C BC #### [facility] [address] [place] [address] Dr. Susana Rivera Platelet mean volume (Bld) [Entitic vol] 11.2 fL Normal 9.5-13.5 [facility] Comment on above: Performed By: #### C BC #### [facility] [address] [address] [address] Susana Rivera PLT 235 103/ul Normal 150-450 [facility] Comment on above: Performed By: #### C BC #### [facility] [address] [place] [address] Dr. Susana Rivera RBC 4.04 106/ul Critically low 4.20-5.40 [facility] Comment on above: Performed By: #### C BC #### [facility] [address] [place] [address] Dr. Susana Rivera WBC 10.4 103/ul Normal 4.0-11.0 [facility] Comment on above: Performed By: #### C BC #### [facility] [address] [place] [address] Dr. Susana Rivera GLYCOHEMOGLOBIN A1Con 2021 ADA RECOMMENDATION SEE BELOW Normal [facility] Comment on above: Result Comment: ADA RECOMMENDED LIMIT 4.0 - 6.0 ADA THERAPEUTIC TARGET < 7.0 ACTION SUGGESTED > 7.0 Performed By: #### A 1C #### [facility] [address] [address] [address] Susana Rivera Glucose [Mass/Vol] 105 mg/dL Normal [facility] Comment on above: Performed By: #### A 1C #### [facility] [address] [address] [address] Susana Rivera HbA1c (Bld) [Mass fraction] 5.3 % Normal 4.5-6.2 [facility] Comment on above: Performed By: #### A 1C #### [facility] [address] [place] [address] Dr. Susana Rivera LIPID PROFILEon 07-22-2022 CHOL-HDL RATIO NORM SEE BELOW Normal [facility] Comment on above: Result Comment: 3.3 - 4.4 LOW RISK 4.4 - 7.1 AVERAGE RISK 7.1 - 11.0 MODERATE RISK >11.0 HIGH RISK Performed By: #### L IVER, TSH, LIPID, BMP #### [facility] [address] [address] [address] Susana Rivera Cholesterol [Mass/Vol] 193 mg/dL Normal <=200 [facility] Comment on above: Performed By: #### L IVER, TSH, LIPID, BMP #### [facility] [address] [place] [address] Dr. Susana Rivera Cholesterol in HDL [Mass/Vol] 45 mg/dL Normal 40-60 [facility] Comment on above: Performed By: #### L IVER, TSH, LIPID, BMP #### [facility] [address] [address] [address] Susana Rivera Cholesterol in LDL [Mass/Vol] 121.0 mg/dL Normal [facility] Comment on above: Performed By: #### L IVER, TSH, LIPID, BMP #### [facility] [address] [place] [address] Dr. Susana Rivera Cholesterol.total/Ch olesterol in HDL [Mass ratio] 4.3 {ratio} Normal [facility] Comment on above: Performed By: #### L IVMELINDA, TSH, LIPID, BMP #### [facility] [address] [address] [address] Susana Rivera HDL NORMAL > or = 60 mg/dl - LOW CARDIOVASCULAR RISK <40 mg/dl - HIGH CARDIOVASCULAR RISK Normal [facility] Comment on above: Performed By: #### L IVER, TSH, LIPID, BMP #### [facility] [address] [address] [address] Susana Rivera LDL CALC NORMAL SEE BELOW Normal [facility] Comment on above: Result Comment: <100 mg/dl OPTIMAL 100 - 129 mg/dl NEAR OR ABOVE OPTIMAL 130 - 159 mg/dl BORDERLINE HIGH 160 - 189 mg/dl HIGH >190 mg/dl VERY HIGH Performed By: #### L IVER, TSH, LIPID, BMP #### [facility] [address] [address] [address] Susaan Rivera Triglyceride [Mass/Vol] 135 mg/dL Normal <=150 [facility] Comment on above: Performed By: #### L IVER, TSH, LIPID, BMP #### [facility] [address] [address] [address] Susana Rivera VLDL CALC 27.0 mg/dL Normal [facility] Comment on above: Performed By: #### L IVER, TSH, LIPID, BMP #### [facility] [address] [address] [address] Susana Rivera LIVER PROFILEon 07-22-2022 Albumin [Mass/Vol] 3.8 g/dL Normal 3.4-5.0 [facility] Comment on above: Performed By: #### L IVER, TSH, LIPID, BMP #### [facility] [address] [address] [address] Susana Rivera Albumin/Globulin [Mass ratio] 0.8 {ratio} Normal [facility] Comment on above: Performed By: #### L IVER, TSH, LIPID, BMP #### [facility] [address] [address] [address] Susana Rivera ALP [Catalytic activity/Vol] 73 U/L Normal 46-116 [facility] Comment on above: Performed By: #### L IVER, TSH, LIPID, BMP #### [facility] [address] [place] [address] Dr. Susana Rivera ALT [Catalytic activity/Vol] 27 U/L Normal 14-59 [facility] Comment on above: Performed By: #### L IVER, TSH, LIPID, BMP #### [facility] [address] [place] [address] Dr. Susana Rivera AST [Catalytic activity/Vol] 17 U/L Normal 15-37 [facility] Comment on above: Performed By: #### L IVER, TSH, LIPID, BMP #### [facility] [address] [place] [address] Dr. Susana Rivera BILI, CONJUGATED 0.1 mg/dL Normal 0.0-0.2 [facility] Comment on above: Performed By: #### L IVER, TSH, LIPID, BMP #### [facility] [address] [place] [address] Dr. Susana Rivera Bilirubin [Mass/Vol] 0.3 mg/dL Normal 0.2-1.0 [facility] Comment on above: Performed By: #### L IVER, TSH, LIPID, BMP #### [facility] [address] [place] [address] Dr. Susana Rivera Globulin (S) [Mass/Vol] 4.6 g/dL Normal [facility] Comment on above: Performed By: #### L IVER, TSH, LIPID, BMP #### [facility] [address] [place] [address] Dr. Susana Rivera Protein [Mass/Vol] 8.4 g/dL Critically high 6.4-8.[address] [facility] Comment on above: Performed By: #### L IVER, TSH, LIPID, BMP #### [facility] [address] [place] [address] Dr. Susana Rivera PROF CHEM 8 (BAS METB)on Anion gap [Moles/Vol] 12.3 mmol/L Normal [facility] Comment on above: Performed By: #### L IVER, TSH, LIPID, BMP #### [facility] [address] [address] [address] Susana Rivera Calcium [Mass/Vol] 9.2 mg/dL Normal 8.5-10.1 [facility] Comment on above: Performed By: #### L IVER, TSH, LIPID, BMP #### [facility] [address] [address] [address] Susana Rivera Chloride [Moles/Vol] 104 mmol/L Normal 98-107 [facility] Comment on above: Performed By: #### L IVER, TSH, LIPID, BMP #### [facility] [address] [address] [address] Susana Rivera CO2 [Moles/Vol] 24.7 mmol/L Normal 21.0-32.0 [facility] Comment on above: Performed By: #### L IVER, TSH, LIPID, BMP #### [facility] [address] [address] [address] Susana Rivera Creatinine [Mass/Vol] 0.67 mg/dL Normal 0.55-1.02 [facility] Comment on above: Performed By: #### L IVER, TSH, LIPID, BMP #### [facility] [address] [place] [address] Dr. Susana Rivera EGFR-AF JORDANIAN >60 Normal >=60 [facility] Comment on above: Performed By: #### L IVER, TSH, LIPID, BMP #### [facility] [address] [address] [address] Susana Rivera EGFR-NON AF JORDANIAN >60 Normal >=60 [facility] Comment on above: Performed By: #### L IVER, TSH, LIPID, BMP #### [facility] [address] [address] [address] Susana Rivera Glucose [Mass/Vol] 94 mg/dL Normal 74-106 [facility] Comment on above: Performed By: #### L IVER, TSH, LIPID, BMP #### [facility] [address] [address] [address] Susana Rivera Potassium [Moles/Vol] 4.0 mmol/L Normal 3.5-5.1 [facility] Comment on above: Performed By: #### L IVER, TSH, LIPID, BMP #### [facility] [address] [address] [address] Susana Rivera Sodium [Moles/Vol] 137 mmol/L Normal 136-145 [facility] Comment on above: Performed By: #### L IVER, TSH, LIPID, BMP #### [facility] [address] [place] [address] Dr. Susana Rivera Urea nitrogen [Mass/Vol] 21.0 mg/dL Critically high 7.0-18.0 [facility] Comment on above: Performed By: #### L IVER, TSH, LIPID, BMP #### [facility] [address] [place] [address] Dr. Susana Rivera Urea nitrogen/Creatinine [Mass ratio] 31.3 mg/mg Normal [facility] Comment on above: Performed By: #### L IVER, TSH, LIPID, BMP #### [facility] [address] [place] [address] Dr. Susana Rivera TSHon 07-22-2022 TSH 2.863 uIU/mL Normal 0.358-3.[address] [facility] Comment on above: Performed By: #### L IVER, TSH, LIPID, BMP #### [facility] [address] [place] [address] Dr. Susana Rivera Vital Signs Date Time Vital Sign Value Performing Clinician Facility 11-12-2024 16:00-0500 Body mass index (BMI) [Ratio] 36.84 kg/m2 Viviana HILL Work Phone: [facility] 11-12-2024 16:00-0500 Body weight 100.43 kg Viviana HILL Work Phone: [facility] 11-12-2024 16:00-0500 Diastolic blood pressure 80 mm[Hg] Viviana HILL Work Phone: [facility] 11-12-2024 16:00-0500 Systolic blood pressure 120 mm[Hg] Viviana HILL Work Phone: [facility] 07-23-2024 15:44-0400 Body height 165.1 cm Rambo Abhinav DO Work Phone: [facility] 07-23-2024 15:44-0400 Body mass index (BMI) [Ratio] 35.47 kg/m2 Rambo Abhinav DO Work Phone: [facility] 07-23-2024 15:44-0400 Body weight 96.67 kg Rambo Abhinav DO Work Phone: [facility] 07-23-2024 15:44-0400 Diastolic blood pressure 80 mm[Hg] Rambo Abhinav DO Work Phone: [facility] 07-23-2024 15:44-0400 Systolic blood pressure 130 mm[Hg] Rambo Abhinav DO Work Phone: [facility] 01-24-2024 09:22-0400 Body height 165.1 cm Chela Rodriguez PA Work Phone: [facility] 01-24-2024 09:22-0400 Body mass index (BMI) [Ratio] 38.77 kg/m2 Chela Rodriguez PA Work Phone: [facility] 01-24-2024 09:22-0400 Body temperature 98.8 [degF] Chela Rodriguez PA Work Phone: [facility] 01-24-2024 09:22-0400 Body weight 105.69 kg Chela Rodriguez PA Work Phone: [facility] 01-24-2024 09:22-0400 Diastolic blood pressure 89 mm[Hg] Chela Rodriguez PA Work Phone: [facility] 01-24-2024 09:22-0400 Heart rate 73 /min Chela Rodriguez PA Work Phone: [facility] 01-24-2024 09:22-0400 Respiratory rate 16 /min Chela Rodriguez PA Work Phone: [facility] 01-24-2024 09:22-0400 SaO2% (BldA) [Mass fraction] 98 % [facility] Rodriguez [facility] 01-24-2024 09:22-0400 Systolic blood pressure 142 mm[Hg] Chela Rodriguez PA [facility] 01-03-2024 08:27-0500 Body height 165.1 cm Chela Rodriguez PA [facility] 01-03-2024 08:27-0500 Body mass index (BMI) [Ratio] 38.11 kg/m2 Chela Rodriguez PA [facility] 01-03-2024 08:27-0500 Body temperature 98.8 [degF] Chela Rodriguez PA [facility] 01-03-2024 08:27-0500 Body weight 103.87 kg Chela Rodriguez PA Work [facility] 01-03-2024 08:27-0500 Diastolic blood pressure 90 mm[Hg] Chela Rodriguez PA [facility] 01-03-2024 08:27-0500 Heart rate 90 /min [facility] 01-03-2024 08:27-0500 Respiratory rate 16 /min Chela Rodriguez PA [facility] 01-03-2024 08:27-0500 SaO2% (BldA) [Mass fraction] 97 % Chela Rodriguez PA [facility] 01-03-2024 08:27-0500 Systolic blood pressure 145 mm[Hg] Chela Rodriguez PA [facility] 12-21-2023 15:23-0500 Body height 167 cm [facility] 12-21-2023 15:23-0500 Body mass index (BMI) [Ratio] 36.59 kg/m2 [facility] 12-21-2023 15:23-0500 Body weight 102.06 kg [facility] 2 [facility] 12-12-2023 09:09-0500 Diastolic blood pressure 84 mm[Hg] Melquiades Weber MD Work Phone: [facility] 12-12-2023 09:09-0500 Heart rate 77 /min Melquiades Weber MD Work Phone: [facility] 12-12-2023 09:09-0500 SaO2% (BldA) [Mass fraction] 98 % Melquiades Weber MD Work Phone: [facility] 12-12-2023 09:09-0500 Systolic blood pressure 136 mm[Hg] Melquiaeds Weber MD Work Phone: [facility] 12-12-2023 09:03-0500 Body height 167 cm Melquiades Weber MD Work Phone: [facility] 12-12-2023 09:03-0500 Body mass index (BMI) [Ratio] 37.08 kg/m2 Melquiades Weber MD Work Phone: [facility] 12-12-2023 09:03-0500 Body weight 103.42 kg Melquiades Weber MD Work Phone: [facility] 02-03-2023 12:23-0400 Diastolic blood pressure 80 mm[Hg] MD Subhash Caba Work Phone: [facility] 02-03-2023 12:23-0400 Heart rate 56 /min MD Subhash Caba Work Phone: [facility] 02-03-2023 12:23-0400 Respiratory rate 18 /min MD Subhash Caba Work Phone: [facility] 02-03-2023 12:23-0400 SaO2% (BldA) [Mass fraction] 96 % MD Subhash Caba Work Phone: [facility] 02-03-2023 12:040 Systolic blood pressure 135 mm[Hg] MD Subhash Caba Work Phone: [facility] 02-03-2023 10:040 Body height 162.56 cm MD Subhash Caba Work Phone: [facility] 02-03-2023 10:040 Body temperature 97.7 [degF] MD Subhash Caba Work Phone: [facility] 02-03-2023 10:040 Body weight 99.79 kg MD Subhash Caba Work Phone: [facility] Encounters Encounter Date Encounter Type Care Provider Facility Start: 11-12-2024 End: 11-12-2024 Periodic preventive med est patient 18-39 yrs Viviana HILL Work Phone: [facility] Comment on above: Well woman exam with routine gynecological exam Start: 11-12-2024 End: 11-12-2024 Bamboo flowsheet Viviana HILL Work Phone: [facility] Start: 11-12-2024 End: 11-12-2024 Bamboo flowsheet Viviana HILL Work Phone: [facility] Start: 11-12-2024 End: 11-12-2024 Patient encounter procedure Viviana HILL Work Phone: [facility] Start: 10-26-2024 End: 10-27-2024 Clinisync Result Encounter Rambo Abhinav DO Work Phone: [facility] Unsolicited Start: 10-26-2024 End: 10-27-2024 Clinisync Result Encounter Rambo Abhniav DO Work Phone: [facility] Unsolic[facility] Start: 09-24-2024 End: 09-26-2024 Clinisync Result Encounter Generic External Data Provider [facility]olic[facility] Start: 09-24-2024 End: 09-26-2024 Clinisync Result Encounter Generic External Data Provider [facility] Unsolic[facility] Start: 08-23-2024 End: 08-25-2024 Clinisync Result Encounter Generic External Data Provider [facility] Unsolicited Start: 08-23-2024 End: 08-25-2024 Clinisync Result Encounter Generic External Data Provider [facility] Unsolicited Start: 07-31-2024 End: [facility] 07-25-[facility]24 End: 07-25-2024 Clinisync Result Encounter Generic External Data Provider [facility] Unsolicited Start: 07-25-2024 End: 07-25-2024 Clinisync Result Encounter Generic External Data Provider [facility] Unsolicited Start: 07-23-2024 End: 07-23-2024 Office outpatient visit 15 minutes Rambo Abhinav DO Work Phone: [facility] Comment on above: Female fertility pro blem; PCOS (polycystic ovarian syndrome) Start: 07-23-2024 End: 07-23-2024 ambulatory RAMBO ABHINAV Not Available Start: 07-23-2024 End: 07-23-2024 Bamboo flowsheet Rambo Abhinav DO Work Phone: [facility] Start: 07-23-2024 End: 07-23-2024 Bamboo flowsheet Rambo Abhinav DO Work Phone: [facility] Start: 06-06-2024 End: 06-06-2024 ambulatory MIKAYLA SIN Not Available Start: 05-25-2024 End: 05-25-2024 ambulatory MIKAYLA SIN Not Available Start: 05-01-2024 End: 05-01-2024 ambulatory MIKAYLA SIN Not Available Start: 03-14-2024 End: 03-14-2024 ambulatory DANAE QUIÑONES Not Available Start: 03-02-2024 End: 03-02-2024 ambulatory MIKAYLA SIN Not Available Start: 02-29-2024 End: 02-29-2024 ambulatory [facility] Start: 02-29-2024 Encounter for genera l adult medical examination without abnormal findings [facility] Start: 02-27-2024 End: 02-27-2024 ambulatory MIKAYLA SIN Not Available Start: 02-23-2024 End: 02-23-2024 ambulatory SUBHASH CABA Not Available Start: 02-23-2024 Patient encounter procedure Rambo La DO Work Phone: [facility] Start: 01-24-2024 End: 01-24-2024 Postop follow up visit related to original px Chela HILL Work Phone: [facility] Comment on above: 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); Encounter for postoperative care Start: 01-24-2024 End: 01-24-2024 ambulatory [facility] Start: 01-03-2024 End: 01-03-2024 Postop follow up visit related to original px Chela HILL Work Phone: [facility] Comment on above: 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); Encounter for postoperative care Start: 01-03-2024 End: 01-03-2024 ambulatory [facility] Start: 12-27-2023 Telephone encounter Chela HILL Work Phone: [facility] Start: 12-22-2023 End: 12-22-2023 Evaluation and management of inpatient NATASHA SANTANA [facility] Start: 12-22-2023 End: 12-22-2023 [facility] Start: 12-21-2023 End: 12-21-2023 ambulatory [facility] Start: 12-20-2023 End: 12-21-2023 Admission to [facility] Phone Call Provider [address] [facility] Start: 12-19-2023 End: 12-19-2023 ambulatory [facility] Start: 12-19-2023 Encounter for other preprocedural examination CHELA RODRIGUEZ [facility] Start: 12-16-2023 Orders Only Melquiades Mott i, MD Work Phone: [facility] Comment on above: Vulvar dysplasia (Pr imary Dx); Pre-op testing Start: 12-16-2023 Patient encounter status Felipe Weber MD Work Phone: [facility] Start: 12-13-2023 Telephone encounter [facility] Work Phone: [facility] Start: 12-12-2023 End: 12-12-2023 ambulatory [facility] Start: 12-12-2023 End: 12-12-2023 Office outpatient new 45 minutes Melquiades Weber MD Work Phone: [facility] Comment on above: Vulvar dysplasia (Pr imary Dx); Encounter for tobacco use cessation counseling Start: 12-01-2023 Telephone encounter Celine Mccauley RN [facility] Start: 11-30-2023 End: 11-30-2023 ambulatory RAMBO LA Not Available Start: 11-08-2023 End: 11-08-2023 ambulatory VIVIANA BLOOM Not Available Start: 11-02-2023 End: 11-02-2023 ambulatory VIVIANA BLOOM Not Available Start: 02-03-2023 End: 02-03-2023 ambulatory Subhash Caba Facility:[facility] Start: 02-03-2023 End: 02-03-2023 Admission to same day surgery center MD Subhash Caba Work Phone: [facility] Work Phone: Start: 02-03-2023 End: 02-03-2023 ambulatory MD Subhash Caba Work Phone: [facility] Work Phone: Start: 01-29-2023 End: 01-30-[address] Hernesto CUNNINGHAM Facility:[facility] Start: 07-25-2022 Encounter for genera l adult medical examination without abnormal findings DR SUBHASH CABA [facility] Start: 07-22-2022 End: 07-23-[address] SUBHASH CABA Facility:[facility] Start: 07-22-2022 End: 07-23-2022 Encounter for general adult medical examination without abnormal findings DR SUBHASH CABA Facility:[facility] Start: 12-06-2016 End: 12-07-2016 Ambulatory Eusebio Emery Facility:[facility] Procedures Date Procedure Procedure Detail Performing Clinician Start: 10-26-2024 ALL PROGESTERONE Rambo Abhinav DO Work Phone: Start: 09-24-2024 ALL PROGESTERONE Rambo Abhinav DO Work Phone: Start: 08-23-2024 ALL PROGESTERONE Rambo Abhinav DO Work Phone: Start: 07-25-2024 ALL CBC WITH AUTO DIFF Rambo Abhinav DO Work Phone: Start: 01-24-2024 Follow-up visit Follow-up CHELA RODRIGUEZ Start: 11-02-2023 Microscopic observation [Identifier] in Cervix by Cyto stain Rambo Abhinav DO Work Phone: Start: 11-02-2023 Cytp cerv/vag auto thin layer prep mnl screen Viviana HILL Work Phone: Start: 02-03-2023 Esophagogastroduodenoscopy MD Subhash jones Work Phone: Plan of Treatment Date Care Activity Detail Author Start: 11-02-2028 Screening for malign ant neoplasm of cervix [facility] Start: 01-23-2025 Adult BMI Screening [facility] Start: 01-03-2025 Adult BMI Screening Adult [facility] Start: 12-22-2024 Adult BMI Screening [facility] Start: 12-22-2024 Tobacco Screening Tobacco Screening [facility] Start: 12-12-2024 Adult BMI Screening Adult BMI Screen ing [facility] Start: 12-12-2024 Tobacco Screening Tobacco Screening [facility] Start: 11-12-2024 End: 11-12-2024 Patient encounter procedure [facility] Comment on above: Arrived Start: 07-31-2024 End: 07-31-2024 Patient encounter procedure 07/31/2024 8:30 AM EDT Office Visit [facility] [address] [place] [address] Chela Rodriguez PA [address] [place] [address] [facility] Start: 07-23-2024 End: 07-23-2024 Patient encounter procedure 07/23/2024 3:40 PM EDT Office Visit [facility] [address] [place] [id number] Rambo La, [address] [place] [address] Arrived [facility] Comment on above: Arrived Start: 07-23-2024 End: 07-23-2025 Antimullerian hormone (AMH) Antimullerian hormone (AMH) Lab Routine PCOS (polycystic ovarian syndrome) Expected: 07/23/2024 (Approximate), Expires: 07/23/2025 [facility] Comment on above: Expected: 07/23/2024 (Approximate), Expires: 07/23/2025 Start: 07-23-2024 End: 07-23-2025 DHEA DHEA Lab Routine Female fertility problem PCOS (polycystic ovarian syndrome) Expected: 07/23/2024 (Approximate), Expires: 07/23/2025 [facility] Comment on above: Expected: 07/23/2024 (Approximate), Expires: 07/23/2025 Start: 07-23-2024 End: 07-23-2025 US for US PELVIS-TRANSVAG IF INDICATED Imaging Routine Female fertility problem PCOS (polycystic ovarian syndrome) Expected: 07/23/2024 (Approximate), Expires: 07/23/2025 [facility] Comment on above: Expected: 07/23/2024 (Approximate), Expires: 07/23/2025 Start: 07-15-2024 Influenza vaccination Influenza Vacc ine (#1) [facility] Start: 01-24-2024 End: 01-24-2024 Patient encounter procedure 01/24/2024 9:30 AM EDT Office Visit [facility] - Medical Oncology [address] [place] [phone] Chela Rodriguez PA [address] [place] [address] Silva [facility] Medical Oncology Start: 01-03-2024 End: 01-03-2024 Patient encounter procedure 01/03/2024 8:30 AM EST Office Visit Silva [facility]aman [facility] Medical Oncology [address] [place] [phone] Chela Rodriguez PA [address] [place] [address] Silva [facility]aman [facility] Medical Oncology Start: 12-22-2023 End: 12-22-2023 Admission to same day surgery center 12/22/2023 7:30 AM EST - 12/22/2023 8:45 AM EST Surgery [facility] - Surgery [address] [address] Melquiades Weber MD [address] [place] [address] WIDE LOCAL EXCISION LESION VULVA [facility] - Surgery Comment on above: WIDE LOCAL EXCISION LESION VULVA Start: 12-22-2023 End: 12-22-2023 BIOPSY VULVA BIOPSY VULVA VULVAR DYSPLASIA 12/22/2023 7:30 AM EST [facility] Start: 12-22-2023 End: 12-22-2023 EXCISION LESION VULVA EXCISION LESION VULVA VULVAR DYSPLASIA 12/22/2023 7:30 AM EST [facility] Start: 12-22-2023 Subsequent hospital visit by physician 12/22/2023 7:30 AM EST Hospital Encounter [facility] - Surgery [address] [address] Melquiades Weber MD [address] [place] [address] [facility] - Surgery Start: 12-20-2023 End: 12-20-2023 Admission to establishment 12/20/2023 8:00 AM EST Support Visit [facility] Pre-Admission Clinic On [address] [phone] [facility] Pre-Admission Clinic On [facility] Start: 12-12-2023 End: 12-12-2023 Patient encounter procedure 12/12/2023 9:00 AM EST Office Visit [facility] [address] [facility] [address] Melquiades Weber MD [address] [place] [address] [facility] Start: 07-15-2023 Influenza vaccination Influenza Vacc ine [facility] Start: 02-03-2023 [facility] Start: 2009 Screening for malign ant neoplasm of cervix Pap Smear [facility] Start: 2007 DTaP,Tdap and Td Vaccines (1 - Tdap) DTaP,Tdap and Td Vaccines (1 - Tdap) [facility] Start: 2006 Adult BMI Follow Up Plan Adult BMI Follow Up Plan [facility] Start: 2006 Adult BMI Screening Adult BMI Screen ing [facility] Start: 2000 Depression Screening Depression Scre ening [facility] Start: 2000 Tobacco Screening Tobacco Screening [facility] Start: 1988 Tobacco Counseling Tobacco Counselin g [facility] End: 12-16-2024 CBC panel - Blood by Automated count CBC without diff Lab Routine Vulvar dysplasia Pre-op testing 1 Occurrences starting 12/16/2023 until 12/16/2024 [facility] Work Phone: Comment on above: 1 Occurrences starti ng 12/16/2023 until 12/16/2024 CBC W Auto Different ial panel - Blood CBC and differential Lab Routine Female fertility problem PCOS (polycystic ovarian syndrome) Ordered: 07/23/2024 [facility] [employer] Comment on above: Ordered: 07/23/2024 End: 12-16-2024 Comprehensive metabolic 2000 panel - Serum or Plasma Comprehensive metabolic panel Lab Routine Vulvar dysplasia Pre-op testing 1 Occurrences starting 12/16/2023 until 12/16/2024 [facility] Comment on above: 1 Occurrences starti ng 12/16/2023 until 12/16/2024 Cytology Cervical or vaginal smear or scraping study Pap Smear Pathology and Cytology Routine Well woman exam with routine gynecological exam Ordered: 11/12/2024 [facility] [employer] Work Phone: Comment on above: Ordered: 11/12/2024 DHEA-sulfate DHEA-sulfate Lab Routine Female fertility problem PCOS (polycystic ovarian syndrome) Ordered: 07/23/2024 [facility] [employer] Comment on above: Ordered: 07/23/2024 Follicle stimulating hormone Follicle stimulating hormone Lab Routine Female fertility problem PCOS (polycystic ovarian syndrome) Ordered: 07/23/2024 [facility] [employer] Comment on above: Ordered: 07/23/2024 hCG, quantitative, hCG, quantitative, Lab Routine Female fertility problem PCOS (polycystic ovarian syndrome) Ordered: 07/23/2024 [facility] [employer] Work Phone: Comment on above: Ordered: 07/23/2024 Human papilloma viru s DNA [Presence] in Unspecified specimen by Probe with amplification HPV DNA probe, amplified Microbiology Routine Well woman exam with routine gynecological exam Ordered: 11/12/2024 [facility] [employer] Comment on above: Ordered: 11/12/2024 Luteinizing hormone Luteinizing hormone Lab Routine Female fertility problem PCOS (polycystic ovarian syndrome) Ordered: 07/23/2024 [facility] Comment on above: Ordered: 07/23/2024 Patient Education Esophagitis Hi atal Hernia (DC) [facility] Work Phone: Thyrotropin [Units/volume] in Serum or Plasma TSH Lab Routine Female fertility problem PCOS (polycystic ovarian syndrome) Ordered: 07/23/2024 [facility] Comment on above: Ordered: 07/23/2024 Thyroxine (T4) free [Mass/volume] in Serum or Plasma T4, free Lab Routine Female fertility problem PCOS (polycystic ovarian syndrome) Ordered: 07/23/2024 [facility] Comment on above: Ordered: 07/23/2024 Payers Date Payer Category Payer Unknown [employer] [id number] 2023-Present [phone] [address] [address] [place] [address] [id number] 2023 Self-pay 2022 Private Health Insurance [id number] .[id number] 1988 Unknown [id number] 2.16.840.1.562009.3.579 .2.593 1988 Unknown [id number] 2.16.840.1.791017.3.579 .2.593 1988 Unknown [id number] 2.16.840.1.243252.3.579 .2.1286 1988 Unknown [id number] 2.16.840.1.996295.3.579 .2.1286 1988 Unknown [id number] 2.16.840.1.961005.3.579 .2.1286 1988 Unknown [id number] 2.16.840.1.499141.3.579 .2.1286 1988 Unknown [id number] 2.16.840.1.433165.3.579 .2.1259 1988 Unknown [id number] 2.16.840.1.224270.3.579 .2.1259 1988 Unknown [id number] 2.16.840.1.053454.3.579 .2.9 1988 Unknown [id number] 2.16.840.1.693101.3.579 .2.9 1988 Unknown [id number] 2.16.840.1.275335.3.579 .2.1258 1988 Unknown [id number] 2.16.840.1.617519.3.579 .2.9 1988 Unknown [id number] 2.16.840.1.411685.3.579 .2.1258 1988 Unknown [id number] 2.16.840.1.133149.3.579 .2.1258 1988 Unknown [id number] 2.16.840.1.218680.3.579 .2.1258 1988 Unknown [id number] 2.16.840.1.175781.3.579 .2.1258 1988 Unknown [id number] 2.16.840.1.882320.3.579 .2.1258 1988 Unknown [id number] 2.16.840.1.112732.3.579 .2.1258 1988 Unknown [id number] 2.16.840.1.948148.3.579 .2.1285 1988 Unknown [id number] 2.16.840.1.981122.3.579 .2.1285 1988 Unknown [id number] 2.16.840.1.742142.3.579 .2.1285 1988 Unknown [id number] 2.16.840.1.050825.3.579 .2.1285 1988 Unknown [id number] 2.16.840.1.880475.3.579 .2.1286 1959 Unknown [id number] 1959 Unknown [id number] Unknown [id number] 2.16.840.1.559909.3.579 .2.531 Social History Date Type Detail [facility] Work Phone: Start: 1990 Sex Assigned At Female [facility] Tobacco smoking stat [facility] Tobacco smoking consumption unknown [facility] Start: 04-25-2019 End: 02-23-2024 History of Social function [facility] Start: 04-25-2019 End: 02-23-2024 Housing Instability [facility] Housing Instability Unknown [facility] Start: 1988 Sex Assigned At Not on file [facility] Start: 12-12-2023 End: 05-01-2024 Tobacco smoking status NHIS Smokes tobacco daily [facility] Work Phone: Start: 11-14-2006 History of tobacco use Cigarette Smoker [facility] Start: 12-12-2023 End: 05-01-2024 Tobacco use and exposure Smokeless tobacco non-user [facility] Start: 12-12-2023 End: 07-23-2024 Alcohol intake Lifetime non-drinker (finding) [facility] How hard is it for y ou to pay for the very basics like food, housing, medical care, and heating Hard [facility] History of tobacco use Passive smoker [facility] Start: 11-01-2023 Alcohol Comment Caffeine intake: 3-4 cups per day [facility] Start: 10-13-2023 Gender identity Identifies as female gender (finding) [facility] Start: 10-13-2023 Sexual orientation Heterosexual (finding) [facility] Healthcare Goals Date Patient Goal Desired Activity /State Clinical Notes 02-03-2023 to 11-12-2024 SERGIO Galvan - 11/12/2024 4:00 PM Alejandro Manzo LPN - 07/23/2024 3:40 PM SERGIO Saucedo - 01/24/2024 9:30 AM SERGIO Saucedo - 01/03/2024 8:30 AM EST Note Date & Type Note Facility 11-12-2024 History of Presen t illness Narrative Reason for Appointment: Patient ID: Elisha Colbert is a 33 y.o. female who presents for No chief complaint on file. Patient presents today for Annual Exam. 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 11/30/2023 Irritable bowel syndrome with both constipation and diarrhea 02/23/2024 Gastroesophageal reflux disease without esophagitis 02/23/2024 Seasonal allergic rhinitis due to pollen 02/23/2024 Annual physical exam 02/23/2024 Ganglion cyst of dorsum of right wrist 02/23/2024 PCOS (polycystic ovarian syndrome) 08/06/2024 Anovulation 08/06/2024 Resolved Ambulatory Problems Diagnosis Date Noted No Resolved Ambulatory Problems Past Medical History: Diagnosis Date Acute pharyngitis Carpal tunnel syndrome, right IBS (irritable bowel syndrome) HISTORY PAST MEDICAL HISTORY SOCIAL HISTORY Past Medical History: Diagnosis Date Acute pharyngitis Carpal tunnel syndrome, right Gastroesophageal reflux disease without esophagitis IBS (irritable bowel syndrome) PCOS (polycystic ovarian syndrome) Seasonal allergic rhinitis due to pollen Social History Tobacco Use Smoking status: Every Day Current packs/day: 0.50 Types: Cigarettes Passive exposure: Current Smokeless tobacco: Never Vaping Use Vaping status: Never Used Substance Use Topics Alcohol use: Never Comment: Caffeine intake: 3-4 cups per day Drug use: Never FAMILY HISTORY Family History Problem Relation Name Age of Onset Other (other) Mother Myxedema Hypothyroidism Mother Cancer Maternal Grandfather Irritable bowel syndrome Maternal Grandfather SURGICAL HISTORY Past Surgical History: Procedure Laterality Date APPENDECTOMY CARPAL TUNNEL RELEASE Right 05/10/2024 RT CTR- DR KAM OVARY SURGERY Right REVIEW OF SYSTEMS Review of Systems: Review of Systems All other systems reviewed and are negative. OBJECTIVE Objective: Physical Exam Constitutional: Appearance: Normal appearance. Genitourinary: Right Adnexa: not tender and no mass present. Left Adnexa: not tender and no mass present. No cervical discharge. Breasts: Breasts are soft. Right: Normal. Left: Normal. HENT: Head: Normocephalic. Nose: Nose normal. Mouth/Throat: Mouth: Mucous membranes are moist. Cardiovascular: Rate and Rhythm: Normal rate. Pulmonary: Effort: Pulmonary effort is normal. Abdominal: General: Bowel sounds are normal. Palpations: Abdomen is soft. Musculoskeletal: General: Normal range of motion. Cervical back: Normal range of motion. Neurological: General: No focal deficit present. Mental Status: She is alert. Skin: General: Skin is warm and dry. Psychiatric: Mood and Affect: Mood normal. Vitals and nursing note reviewed. Exam conducted with a asian studies program chair present. Vitals: Estimated body mass index is 35.47 kg/m as calculated from the following: Height as of 07/23/24: 5' 5 . Weight as of 07/23/24: 213 lb 1.9 oz. BP: No LMP recorded. ASSESSMENT & PLAN ICD-10-CM 1. Well woman exam with routine gynecological exam Z01.419 Pap Smear HPV DNA probe, amplified Annual Exam: Patient presents today for an annual exam. Patient states she is doing well and has no complaints. Pap was obtained without difficulty. Orders Placed This Encounter Procedures HPV DNA probe, amplified Follow Up: Patient is to return in one year for annual unless needed otherwise. Documented by Brenda Manzo LPN on behalf of: SERGIO Galvan documented in this encounter [facility] 07-23-2024 History of Presen t illness Narrative Reason for Appointment: Patient ID: Elisha Colbert is a 33 y.o. female who presents for Infertility Patient presents today for Consult appointment. 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 11/30/2023 Irritable bowel syndrome with both constipation and diarrhea 02/23/2024 Gastroesophageal reflux disease without esophagitis 02/23/2024 Seasonal allergic rhinitis due to pollen 02/23/2024 Annual physical exam 02/23/2024 Ganglion cyst of dorsum of right wrist 02/23/2024 Resolved Ambulatory Problems Diagnosis Date Noted No Resolved Ambulatory Problems Past Medical History: Diagnosis Date Acute pharyngitis Carpal tunnel syndrome, right IBS (irritable bowel syndrome) PCOS (polycystic ovarian syndrome) HISTORY PAST MEDICAL HISTORY SOCIAL HISTORY Past Medical History: Diagnosis Date Acute pharyngitis Carpal tunnel syndrome, right Gastroesophageal reflux disease without esophagitis IBS (irritable bowel syndrome) PCOS (polycystic ovarian syndrome) Seasonal allergic rhinitis due to pollen Social History Tobacco Use Smoking status: Every Day Current packs/day: 0.50 Types: Cigarettes Passive exposure: Current Smokeless tobacco: Never Vaping Use Vaping status: Never Used Substance Use Topics Alcohol use: Never Comment: Caffeine intake: 3-4 cups per day Drug use: Never FAMILY HISTORY Family History Problem Relation Name Age of Onset Other (other) Mother Myxedema Hypothyroidism Mother Cancer Maternal Grandfather Irritable bowel syndrome Maternal Grandfather SURGICAL HISTORY Past Surgical History: Procedure Laterality Date APPENDECTOMY CARPAL TUNNEL RELEASE Right 05/10/2024 RT CTR- STEPANIC OVARY SURGERY Right REVIEW OF SYSTEMS Review of Systems: Review of Systems All other systems reviewed and are negative. OBJECTIVE Objective: Physical Exam Constitutional: Appearance: Normal appearance. She is well-developed. Cardiovascular: Rate and Rhythm: Normal rate and regular rhythm. Pulmonary: Effort: Pulmonary effort is normal. Breath sounds: Normal breath sounds. Abdominal: General: Bowel sounds are normal. There is no distension. Palpations: Abdomen is soft. Tenderness: There is no abdominal tenderness. There is no guarding or rebound. Musculoskeletal: General: No swelling. Normal range of motion. Right lower leg: No edema. Left lower leg: No edema. Neurological: Mental Status: She is alert and oriented to person, place, and time. Skin: General: Skin is warm and dry. Psychiatric: Mood and Affect: Mood normal. Behavior: Behavior normal. Vitals and nursing note reviewed. Exam conducted with a asian studies program chair present. Vitals: Estimated body mass index is 35.47 kg/m as calculated from the following: Height as of this encounter: 5' 5 . Weight as of this encounter: 213 lb 1.9 oz. BP: 130/80 Patient's last menstrual period was 07/01/2024. ASSESSMENT & PLAN ICD-10-CM 1. Female fertility problem N97.9 Patient presents today to discuss fertility. Patient was given an ultrasound to have obtained as well as lab orders. Patient was instructed to call the office once menstrual cycle begins so femara can be called into patients pharmacy. Patient has been instructed to take Femara on days 3-7 of cycle. On day 21 of cycle patient is to have progesterone labs drawn. Patient was advised to have intercourse on days 12, 14, 16, 18, and 20 of cycle. We will do three rounds of Femara and if patient has not conceived by then, we will perform HSG. Patient has voiced understanding and will call our office for any further questions/concerns. Also, ordered AMH, but called progesterone at this time as patient missed Day 21 of cycle for this month. If at anytime patient and spouse desire to have semen analysis done then patient will notify office. Orders Placed This Encounter Procedures US PELVIS-TRANSVAG IF INDICATED hCG, quantitative, TSH T4, free CBC and differential Follicle stimulating hormone Luteinizing hormone DHEA-sulfate DHEA Antimullerian hormone (AMH) Progesterone Follow Up: In 4-5 months if not conceived. Patient is already scheduled for annual appointment in October with Viviana OSEGUERA Documented by Brenda Manzo LPN on behalf of: Rambo La DO documented in this encounter [facility] 01-24-2024 History of Presen t illness Narrative [...] 12/22/2023 Performed by Melquiades Weber MD at [facility] COLONOSCOPY 2022 COLONOSCOPY 2016 OOPHORECTOMY Right 2009 performed at time of appendectomy WIDE LOCAL EXCISION LESION VULVA N/A 12/22/2023 Performed by Melquiades Weber MD at [facility] Past Medical History: Diagnosis Date Asthma [...] *This note was completed using a voice forder operator system. Every effort was made to ensure accuracy. However, inadvertent computerized forder operator errors may be present. .Total time spent was 26 minutes: Preparing to see the patient (e.g., review of tests) Performing a medically appropriate examination and/or evaluation Counseling and educating the patient/family/caregiver Documenting clinical information in the electronic or other health record Care coordination (not separately reported) Chela Rodriguez PA-C, RD, IF SERGIO Coleman 01/24/24 1010 documented in this encounter [facility] 01-03-2024 History of Presen t illness Narrative [...] 12/22/2023 Performed by Melquiades Weber MD at [facility] COLONOSCOPY 2022 COLONOSCOPY 2016 OOPHORECTOMY Right 2009 performed at time of appendectomy WIDE LOCAL EXCISION LESION VULVA N/A 12/22/2023 Performed by Melquiades Weber MD at [facility] Past Medical History: Diagnosis Date Asthma [...] *This note was completed using a voice forder operator system. Every effort was made to ensure accuracy. However, inadvertent computerized forder operator errors may be present. .Total time spent was 26 minutes: Preparing to see the patient (e.g., review of tests) Performing a medically appropriate examination and/or evaluation Counseling and educating the patient/family/caregiver Documenting clinical information in the electronic or other health record Care coordination (not separately reported) Chela Rodriguez PA-C, RD, IF SERGIO Coleman 01/03/24 0912 [facility] Miscellaneous Notes Spoke with patient regarding surgery results, explaining TIM III with negative margins. She is doing well at home. Pain well controlled. No drainage, bleeding, fevers/chills. Post op appt confirmed. 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 She is doing well at home. Pain well controlled. No drainage, bleeding, fevers/chills. Post op appt confirmed. [facility] Work Phone: 12-21-2023 Instructions Formatting of th is note might be different from the original. Your surgery/procedure is scheduled at [facility] on 12/22/23 at 0730 Arrival Time 30 [facility] Address: [address] [place] [address], [address] [place] [address] in the Emergency Center Parking lot. Report to the front desk person in the Emergency/Surgery Registration lobby of the hospital. Please call Pre-Admission Clinic at [phone] if you have any questions prior to surgery. For questions the morning of surgery, please call the Pre-op Department at [phone]. IF YOU DO NOT FOLLOW THESE INSTRUCTIONS [...] would like to schedule therapy at a [facility] Total Rehab facility, please call [phone] ([phone]). Do not use lotions, creams, powders, perfume, make up, cologne or after-shaves day of surgery. Remove ALL jewelry including wedding rings, body piercings, hair extensions that contain metal, nail swiss, make-up, and contact lens. You may brush your teeth the morning of surgery, but do not swallow the water. Wear your dentures and partial plates to the hospital (no adhesive). Shower the night the before. If applicable, use the CHG (chlorhexidine gluconate) soap or wipes. Please be advised, [facility] has transitioned to a cashless payment [...] RIGHTS AND RESPONSIBILITIES As a patient at [facility], you have the right to: Receive medical care and be informed of who is taking care of you Be treated with dignity and respect Have a family member/termite control service representative of choice and your physician notified of your admission Receive information and actively participate in decisions about your care and treatment Refuse care, treatment and services Decide who may provide your support and speak for you Access restorationist and spiritual services Participate in ethical issues [...] of hospital charges and payment methods Patient/patient termite control service representative responsibilities are to: Provide information about health status to facilitate care, treatment and services Follow the treatment, plan, keep appointments and speak up when you do not understand the plan Respect the rights of other patients and healthcare personnel Follow organizational rules and regulations that support quality care and a safe environment Fulfill financial obligations as promptly as possible [facility] 12-21-2023 Miscellaneous Notes Your surgery/procedure is scheduled at [facility] on 12/22/23 at 0730 Arrival Time 0530 [facility] Address: [address] [place] [address], [facility], [facility] in the Emergency Center Parking lot. Report to the front desk person in the Emergency/Surgery Registration lobby of the hospital. Please call Pre-Admission Clinic at [phone] if you have any questions prior to surgery. For questions the morning of surgery, please call the Pre-op Department at [phone]. IF YOU DO NOT FOLLOW THESE INSTRUCTIONS [...] would like to schedule therapy at a [facility] facility, please call [phone] ([phone]). Do not use lotions, creams, powders, perfume, make up, cologne or after-shaves day of surgery. Remove ALL jewelry including wedding rings, body piercings, hair extensions that contain metal, nail swiss, make-up, and contact lens. You may brush your teeth the morning of surgery, but do not swallow the water. Wear your dentures and partial plates to the hospital (no adhesive). Shower the night the before. If applicable, use the CHG (chlorhexidine gluconate) soap or wipes. Please be advised, [facility] has transitioned to a cashless payment [...] RIGHTS AND RESPONSIBILITIES As a patient at [facility], you have the right to: Receive medical care and be informed of who is taking care of you Be treated with dignity and respect Have a family member/termite control service representative of choice and your physician notified of your admission Receive information and actively participate in decisions about your care and treatment Refuse care, treatment and services Decide who may provide your support and speak for you Access restorationist and spiritual services Participate in ethical issues [...] of hospital charges and payment methods Patient/patient termite control service representative responsibilities are to: Provide information about [...] promptly as possible documented in this encounter [facility] 12-13-2023 Miscellaneous Notes New referral received [...] in smoking cessation program. Called patient at [phone] and left a voicemail requesting a callback to schedule an appointment. Lennie Buenrostro 12/13/2023 0951 Called patient again at [phone] and left message for patient to call back to schedule visit with pharmacist. documented in this encounter [facility] 12-13-2023 Telephone encounter Note New referral received from Dr. Melquiades Weber for tobacco cessation with [facility]. Patient saw provider on 12/12/2023. Patient has a history of tobacco use 1.5 PPD x 17 years. She has quit using tobacco products for a period of time in the past. At that point she quit on her own without use of nicotine replacement or alternative medications. She was interested in smoking cessation program. Called patient at [phone] and left a voicemail requesting a callback to schedule an appointment. Lennie Buenrostro 12/13/2023 0951 [facility] 12-13-2023 Telephone encounter Note Called patient again at [phone] and left message for patient to call back to schedule visit with pharmacist. [employer] Work Phone: 12-12-2023 History of Presen t [...] form was signed. - Patient lives in [place] - will follow up with SERGIO Coleman in [place] - Will request Pap report from Dr. [...] procedures Referring and communicating with other health animal daycare provider (not separately reported) Documenting clinical information in the electronic or other health record Independently interpreting results (not separately reported) and communicating results to the patient/family/caregiver Patient seen and examined with Lawanda Eaton MD PGY-4 MELQUIADES WEBER MD documented in this encounter [facility] 12-01-2023 Miscellaneous Notes Left VM to schedule CATERPILLAR OPERATOR appt with gauge checker onc, call back number provided. documented in this encounter [facility] 12-01-2023 Telephone encounter Note Left VM to schedule CATERPILLAR OPERATOR appt with gauge checker onc, call back number provided. [facility] 02-03-2023 Procedure note [facility] Evaluation note No assessment inform ation available [facility] Work Phone: Evaluation note Diagnosis Vulvar dysplasia- Primary Other specified noninflammatory disorder of vulva and perineum Encounter for tobacco use cessation counseling [facility] Vulvar dysplasia- Primary Other specified noninflammatory disorder of vulva and perineum Pre-op testing Unspecified pre-operative examination [facility] 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, vulva Encounter for postoperative care [facility] Female fertility problem PCOS (polycystic ovarian syndrome) Polycystic ovaries documented in this encounter [facility] HealthcareEvaluation note* Diagnosis Annual physical exam- Primary Routine general medical examination at a health care facility Ganglion cyst of dorsum of right wrist Irritable bowel syndrome with both constipation and diarrhea Well woman exam with routine gynecological exam Routine gynecological examination documented in this encounter [facility] Discharge instructions Additional Instructions DISCHARGE INSTRUCTIONS FOR [...] me in 6-8 weeks. Low FODMAP diet [employer] 1 p.o. every morning IB[employer] 1-2 once or twice a day -Notify the doctor if you have any problems. -Office number [phone] Work Phone: InstructionsNot on filedocumented in this encounter [facility] filed[facility] filedocumented in this encounter [facility] filedocumented in this encounter [facility] on filedocumented in this encounter [facility]ructionsNot on filedocumented in this encounter [facility] for [facility] (narrative)* Consultation (Routine) - Pending Review Specialty Diagnoses / Procedures Referred By Kam beaulieu Referred To Contact Medication Therapy Management Diagnoses Encounter for tobacco use cessation counseling Melquiades Weber MD [address] [place] [address] [facility] [address] [place] [address] Referral ID Status Reason Start Date Expiration Date Visits Requested Visits Authorized [id number] Pending Review Specialty Services Required 12/12/2023 12/11/2024 1 [facility] Summary Purpose Family History Relationship Condition Age at Onset Recorded Date/T lino Not Specified No pertinent family history Unknown Advance Directives Advance Directive Response Recorded Date/ Time Advance Directives No February 02, 2 023 3:13pm Chief Complaint and Reason for Visit Chief Complaint Alternating, Diarrhe a, Constipation, Abdominal Sylvester Additional Source Comments INFORMATION SOURCE (unrecogn ized section and content) DATE CREATED AUTHOR 05/10/2018 [facility] DATE CREATED AUTHOR AUTHOR'S ORGANIZ ATION 02/13/2023 [facility] DATE CREATED AUTHOR AUTHOR'S ORGANIZ ATION 02/15/2023 [facility] DATE CREATED AUTHOR AUTHOR'S ORGANIZ ATION 12/13/2023 [facility] DATE CREATED AUTHOR AUTHOR'S ORGANIZ ATION 12/28/2023 [facility] DATE CREATED AUTHOR AUTHOR'S ORGANIZ ATION 07/24/2024 [facility] DATE CREATED AUTHOR AUTHOR'S ORGANIZ ATION 08/06/2024 [facility] Care Teams (unrecognized sec tion and content) Team Status: Active Member Role Status Dates Subhash Caba MD Primary Care Provider Active Team Status: Inactive Member Role Status Dates Omero Cunningham MD Attending Provider Active Subhash Caba MD Primary Care Provider Active Planning Coordinator Relationship Specialty Start Date End Date Subhash Caba MD [address] [place] [address] PCP - General Family Medicine 12/12/23 Planning Coordinator Relationship Specialty Start Date End Date Subhash Caba MD [address] [place] [address] PCP - General Family Medicine 12/12/23 Planning Coordinator Relationship Specialty Start Date End Date Subhash Caba MD [address] [place] [address] PCP - General Family Medicine 12/12/23 Planning Coordinator Relationship Specialty Start Date End Date Subhash Caba MD [address] [place] [address] PCP - General Family Medicine 12/12/23 Planning Coordinator Relationship Specialty Start Date End Date Subhash Caba MD [address] [place] [address] PCP - General Family Medicine 02/23/24 Planning Coordinator Relationship Specialty Start Date End Date Subhash Caba MD [address] [place] [address] PCP - General Family Medicine 02/23/24 Planning Coordinator Relationship Specialty Start Date End Date Subhash Caba MD [address] [place] [phone] PCP - General Family Medicine 02/23/24 Planning Coordinator Relationship Specialty Start Date End Date Subhash Caba MD [address] [place] [phone] PCP - General Family Medicine 02/23/24 Planning Coordinator Relationship Specialty Start Date End Date Subhash Caba MD [address] [place] [address] PCP - General Family Medicine 02/23/24 Planning Coordinator Relationship Specialty Start Date End Date Subhash Caba MD [address] [place] [address] PCP - General Family Medicine 02/23/24 Reason for Visit (unrecogniz ed section and content) Reason Comments New Patient HSIL VULVAPt states she noticed small bump on vulva in Augid have some itching or irritation at timesHad bx Oct 2023 Reason Comments Follow-up Reason Comments Infertility Reason Comments Gynecologic Exam FOR RECORDS PERTAINING TO PATIENTS WHO ARE [...] BE BASED ON THE PRIMARY CLINICAL RECORDS. [employer] provides no warranty or guarantee of the accuracy or completeness of information in this document.
[2024-11-19 10:07] LABS: Age Gdln ACOG Testing Note (.); HPV Aptima Negative (Negative); IGP, Aptima HPV, rfx 16/18,45 Note (.)
== END 2024-11-12 18:15 | disposition home or self-care (01) ==
LOC: LAB 18:14
PROVIDERS: PCP Family Medicine; Visit Provider Physician Assistant
DX: Z01.419 Encounter for gynecological examination (general) (routine) without abnormal findings (principal)
CPT/HCPCS: 87624; 88175

== ENCOUNTER 2024-11-23 15:22 | Outpatient (OUT) | payer OTHER, SELFPAY ==
--- OUTSIDE RECORDS SUMMARY | 2024-11-23 15:43 | XMS_ITS | CCD ---
Author Organization [facility] Care Team Providers Care Superintendent [employer] Name Role Phone Nill, Eusebio R Unavailable Unavailable Nill, Eusebio R Unavailable Unavailable Nill, Eusebio R Unavailable Unavailable DAKOTAHBETH ABDI Unavailable Unavailable MD Omero Cunningham Attending Provider MD Subhash Caba Primary Care Provider GERTRUDIS, DR SUBHASH Pereyra Admitting Unavailable NADERER, DR SUBHASH Pereyra Attending Unavailable NADERER, DR SUBHASH Pereyra Primary Care Unavailable NADERER, DR SUBHASH Pereyra Consulting Unavailable ISMAEL, DR Hernesto Iqbal Admitting Unavailable ISMAEL, DR Hernesto Iqbal Attending Unavailable NADERER, DR SUBHASH Pereyra Primary Care Unavailable ISMAEL, DR Hernesto Iqbal Consulting Unavailable Subhash Caba Primary Care Unavailable Ismael, Omero Iqbal Attending Unavailsusy e Ismael, Omero Iqbal Admitting Unavailabl e Unavailable Primary Care Provider UnavailSubhash Hill MD Primary Care Provider MELQUIADES WEBER Attending Unavailable SUBHASH CABA Primary Care Unavailable SUBHASH CABA Referring Unavailable SUBHASH CABA Primary Care Unavailable TIA, ANJALIKA Admitting Unavailable MELQUIADES WEBER Attending Unavailable TIA, ANJADIONYKA Referring Unavailable SUBHASH CABA Primary Care Unavailable NATASHA SANTANA Attending Unavailable SUBHASH CABA Primary Care Unavailable CHELA RODRIGUEZ Attending Unavailable SUBHASH CABA Referring Unavailable BRIDGETTEERESUBHASH Iqbal Primary Care Unavailable SUBHASH CABA Referring Unavailable SUBHASH CABA Primary Care Unavailable CHELA RODRIGUEZ Attending Unavailable SUBHASH CABA Referring Unavailable SUBHASH CABA Primary Care Unavailable TIA, MELQUIADES Referring Unavailable SUBHASH CABA Primary Care Unavailable CHELA RODRIGUEZ Attending Unavailable SUBHASH CABA Referring Unavailable NADEREFarida, SUBHASH Primary Care Unavailable Naderer MD, Subhash Primary Care Provider SWAPNIL LA Attending Unavailable SUBHASH CABA Attending Unavailable MIKAYLA SIN Attending Unavailable MIKAYLA SIN Referring Unavailable MIKAYLA SIN Referring Unavailable JR. KAM GEORGE C Attending UnavailMIKAYLA Austin Attending Unavailable MIKAYLA SIN Attending Unavailable MIKAYLA SIN Attending Unavailable SWAPNIL LA Attending Unavailable VIVIANA BLOOM Attending Unavailable Allergies Allergy Classification Reported Allergen(s) Allergy Type Date of Onset Reaction(s) Facility (1 source) Morphine Drug Allergy 04-27-2013 [facility] Repository Medications Current Medications Medication Drug Class(es) Dates Sig (Normalized) Sig (Original) acetaminophen 500 mg oral tablet (3 sources) Start: 12-22-2023 take 2 tablets by mouth every eight hours acetaminophen (TYLENOL EXTRA STRENGTH) 500 mg tablet Take 2 tablets (1,000 mg total) by mouth every 8 (eight) hours. 30 tablet 0 12/22/2023 Active albuterol 0.83 mg/ml inhalation solution (11 sources) beta2-Adrenergic Agonist Start: 11-12-2023 albuterol (2.5 [...] 12/27/2023 Active loratadine 10 mg oral tablet (19 sources) Start: 02-29-2024 End: 08-02-2025 take 1 [...] pantoprazole 40 mg delayed release oral tablet (19 sources) Proton Pump Inhibitor Start: 02-29-2024 End: [...] vulva] Onset: 4 01-03-2024 Chronic Esophageal disorders (11 sources) Gastroesophageal reflux disease without esophagitis; Translations: [Gastro-esophageal reflux disease without esophagitis] Onset: 4 02-23-2024 Chronic Female infertility (11 sources) Anovulation; Translations: [Female infertility associated with anovulation] Onset: 4 08-06-2024 Chronic Other aftercare (2 sources) Postoperative visit; Translations: [Encounter for other specified surgical aftercare] 01-03-2024 Episodic Other endocrine disorders (11 sources) Polycystic ovary syndrome; Translations: [Polycystic ovarian syndrome] Onset: 4 08-06-2024 Chronic Other female genital disorders (2 sources) Dysplasia of vulva; Translations: [Dysplasia of vulva, unspecified] 12-12-2023 Episodic Other gastrointestinal disorders (11 sources) Irritable bowel syndrome; Translations: [Mixed irritable [...] Onset: 4 Episodic Other upper respiratory disease (11 sources) Allergic rhinitis due to pollen; Translations: [Allergic rhinitis due to pollen] Onset: 4 02-23-2024 Chronic Unclassified (1 source) VULVAR DYSPLASIA Onset: 4 Past or Other Problems Problem Classification Problem Date Documented Da te Episodic/Chronic Other connective tissue disease (11 sources) Ganglion cyst of right dorsal wrist; Translations: [Ganglion, right wrist] Onset: 02-23-2024 02-23-2024 Episodic Other female genital disorders (1 source) Dysplasia of vulva, unspecified; Translations: [Dysplasia of vulva, unspecified] Onset: 12-19-2023 Episodic Other screening for suspected conditions (not mental disorders or infectious disease) (11 sources) Lesion of vulva; Translations: [Abnormal cytological findings in specimens from other female genital organs] Onset: 11-30-2023 11-30-2023 Episodic Results Test Name Value Interpretation Reference Range Facility IGP,APTIMA HPV,AGE GDLNon AGE GDLN ACOG TESTING Note . [facility] Comment on above: TESTS RESULT FLAG UN ITS REF RANGE LAB Clinician Provided Cytology Information Source.............Cervix No. of containers..01 ThinPrep Vial Age Algo ACOG Senait... 30-65 FLAG LEGEND: L-Low Normal,H-High Normal,LL-Alert Low,HH-Alert High <-Panic Low,>-Panic High,A-Abnormal,AA-Critical Abnormal Performed at: 01 =[address] [phone] Myriam Levi MD, HPV APTIMA Negative Negative [facility] Comment on above: This nucleic acid am plification test detects fourteen high- risk HPV types (16,18,31,33,35,39,45,51,52,56,58,59,66,68) without differentiation. Performed at: =[address] [id number] Instrument Panel Assembler: Myriam Levi MD, Phone: [phone] Performed at: [address] [id number] Instrument Panel Assembler: Myriam Levi MD, Phone: [phone] IGP, APTIMA HPV, RFX 16/18,[address] [facility] Comment on above: TESTS RESULT FLAG UN ITS REF RANGE LAB DIAGNOSIS: 02 NEGATIVE FOR INTRAEPITHELIAL LESION OR MALIGNANCY. THIS SPECIMEN WAS RESCREENED PART OF OUR [employer]M MANAGER PROGRAM. Specimen adequacy: 02 Satisfactory for evaluation. No endocervical component is identified. Performed by: Nickie Tse, Custom Wood Stair Builder (ASC) QC reviewed by: Nickie Avalos [employer] Stair Builder . 02 Note: Note 02 The Pap smear is a screening test designed to aid in the detection of premalignant and malignant conditions of the uterine cervix. It is not a diagnostic procedure and should not be used as the sole means of detecting cervical cancer. Both false-positive and false-negative reports do occur. Test Methodology: Note 02 This liquid based ThinPrep(R) pap test was screened with the use of an image guided system. HPV Genotype Reflex Note 02 Criteria not met, HPV Genotype not performed. FLAG LEGEND: L-Low Normal,H-High Normal,LL-Alert Low,HH-Alert High <-Panic Low,>-Panic High,A-Abnormal,AA-Critical Abnormal Performed at: [address] [place] [phone] Myriam Levi MD, BRUSH-SPATULA CERVIX [facility] [employer] ALL PROGESTERONEon 4 PROGESTERONE 14.2 ng/mL . [facility] Comment on above: Follicular phase 0.1 - 0.9 Luteal phase 1.8 - 23.9 Ovulation phase 0.1 - 12.0 First trimester 11.0 - 44.3 Second trimester 25.4 - 83.3 Third trimester 58.7 - 214.0 Postmenopausal 0.0 - 0.1 Performed at: [facility] [employer] [id number] Instrument Panel Assembler: Jose Cahney PhD, Phone: [phone] [facility] CENTERInSound MedicalSAINT [facility] [employer] ALL PROGESTERONEon 4 PROGESTERONE 12.5 ng/mL . [facility] Comment on above: Follicular phase 0.1 - 0.9 Luteal phase 1.8 - 23.9 Ovulation phase 0.1 - 12.0 First trimester 11.0 - 44.3 Second trimester 25.4 - 83.3 Third trimester 58.7 - 214.0 Postmenopausal 0.0 - 0.1 Performed at: [address] [id number] Instrument Panel Assembler: Jose Chaney PhD, Phone: [phone] [facility] ALL PROGESTERONEon PROGESTERONE 18.5 ng/mL . [facility] Comment on above: Follicular phase 0.1 - 0.9 Luteal phase 1.8 - 23.9 Ovulation phase 0.1 - 12.0 First trimester 11.0 - 44.3 Second trimester 25.4 - 83.3 Third trimester 58.7 - 214.0 Postmenopausal 0.0 - 0.1 Performed at: [facility] [employer] [id number] Instrument Panel Assembler: Jose Chaney PhD, Phone: [phone] [facility] ALL CBC WITH AUTO DIFFon BASOPHILS ABSOLUTE AUTO 0.0 [facility] Basophils/100 WBC (Bld) 0.4 % 0.2 - 2.0 % [facility] Eosinophils/100 WBC (Bld) 2.5 % 0.9 - 7.0 % [facility] Erythrocyte distribution width (RBC) [Ratio] 12.4 % 11.0 - 15.0 % [facility] Hematocrit (Bld) [Volume fraction] 37.6 % 36.0 - 48.0 % [facility] Hemoglobin (Bld) [Mass/Vol] 12.5 g/dL 12.0 - 16.0 g/dL [facility] IMMATURE GRANULOCYTES ABS AUTO 0.01 [facility] Immature granulocytes/100 WBC (Bld) 0.1 % 0.0 - 0.5 % [facility] Interpretation and review of laboratory results Abnormal [facility] LYMPHOCYTES ABSOLUTE AUTO 3.0 [facility] Lymphocytes/100 WBC (Bld) 35.3 % 20.5 - 60.0 % [facility] MCH (RBC) [Entitic mass] 31.9 pg 26.7 - 34.[address] [facility] MCHC (RBC) [Mass/Vol] 33.2 g/dL 29.9 - 35.2 g/dL [facility] MCV (RBC) [Entitic vol] 95.9 fL 81.0 - 99.[address] [facility] MONOCYTES ABSOLUTE AUTO 0.4 [facility] Monocytes/100 WBC (Bld) 5.3 % 1.7 - 12.0 % [facility] NEUTROPHILS ABSOLUTE AUTO 4.7 [facility] Neutrophils/100 WBC (Bld) 56.4 % 43.0 - 75.0 % [facility] Platelet mean volume (Bld) [Entitic vol] 10.5 fL 9.5 - 13.[address] [facility] TBH EO # 0.2 [facility] TB PLT 228 [facility] TB RBC 3.92 Low [facility] WBC 8.4 [facility] MR WRIST RIGHT WO IV CONTRAS Ton [...] Anion gap [Moles/Vol] 10 mmol/L Normal 5-15 [facility] Comment on above: Performed By: #### C BCA, BMP, 13774-8, LIVR, 3016-3 #### [facility] ([id number]) [address], [address] [place] [address] Calcium [Mass/Vol] 9.5 mg/dL Normal 8.5-10.5 [facility] Comment on above: Performed By: #### C BCA, BMP, 71366-8, LIVR, 3016-3 #### [facility] ([id number]) [address], [address] [place] [address] Chloride [Moles/Vol] 104 mmol/L Normal 98-109 [facility] Comment on above: Performed By: #### C BCA, BMP, 74944-4, LIVR, 3016-3 #### [facility] ([id number]) [address], [address] [place] [address] CO2 [Moles/Vol] 25 mmol/L Normal 22-32 [facility] Comment on above: Performed By: #### C BCA, BMP, 23977-5, LIVR, 3016-3 #### [facility] ([id number]) [address], [address] [place] [address] Creatinine [Mass/Vol] 0.67 mg/dL Normal 0.40-1.00 [facility] Comment on above: Result Comment: METH OD TRACEABLE TO IDMS STANDARD Performed By: #### C BCA, BMP, 01497-1, LIVR, 3015-3 #### [facility] ([id number]) [address], [address] [place] [address] eGFR (CKD-EPI) NON-RACE DEPENDENT >90 Normal >59 [facility] Comment on above: Result Comment: Reported eGFR is based on the CKD-EPI 2021 equation that does not use a race coefficient. Performed By: #### C BCA, BMP, 95330-7, LIVR, 3016-3 #### [facility] ([id number]) [address], [address] [place] [address] Glucose [Mass/Vol] 75 mg/dL Normal 65-99 [facility] Comment on above: Performed By: #### C BCA, BMP, 16642-0, LIVR, 3016-3 #### [facility] ([id number]) [address], [address] [place] [address] Potassium [Moles/Vol] 3.8 mmol/L Normal 3.5-5.0 [facility] Comment on above: Performed By: #### C BCA, BMP, 82411-7, LIVR, 3016-3 #### [facility] ([id number]) [address], [address] [place] [address] Sodium [Moles/Vol] 139 mmol/L Normal 134-146 [facility] Comment on above: Performed By: #### C BCA, BMP, 73821-7, LIVR, 301-3 #### [facility] ([id number]) [address], [address] [place] [address] Urea nitrogen [Mass/Vol] 13 mg/dL Normal 5-23 [facility] Comment on above: Performed By: #### C BCA, BMP, 62822-5, LIVR, 3 #### [facility] ([id number]) [address], [facility] [address] [place] [address] CBC AND AUTO DIFFon 02-29-20 24 ABSOLUTE BASOPHIL 0.0 X10E9/L Normal 0.0-0.2 [facility] Comment on above: Performed By: #### C BCA, BMP, 48426-6, LIVR, 3015-3 #### [facility] ([id number]) [address], [address] [place] [address] ABSOLUTE NEUTROPHIL 4.3 X10E9/L Normal 1.5-6.6 [facility] Comment on above: Performed By: #### C BCA, BMP, 12625-3, LIVR, 3015-3 #### [facility] ([id number]) [address] [address] [place] [address] Basophils/100 WBC (Bld) 0.4 % Normal [facility] Comment on above: Performed By: #### C BCA, BMP, 42526-8, LIVR, 3016-3 #### [facility] ([id number]) [address] [address] [place] [address] Eosinophils (Bld) [#/Vol] 0.1 10*3/uL Normal 0.0-0.4 [facility] Comment on above: Performed By: #### C BCA, BMP, 39361-5, LIVR, 3016-3 #### [facility] ([id number]) [address], [facility] [address] [place] [address] Eosinophils/100 WBC (Bld) 1.6 % Normal [facility] Comment on above: Performed By: #### C BCA, BMP, 38424-7, LIVR, 6-3 #### [facility] ([id number]) [address] [address] [place] [address] Erythrocyte distribution width (RBC) [Ratio] 12.9 % Normal 11.5-15.0 [facility] Comment on above: Performed By: #### C BCA, BMP, 28707-9, LIVR, 3016- #### [facility] ([id number]) [address] [address] [place] [address] Hematocrit (Bld) [Volume fraction] 36.5 % Normal 35-47 [facility] Comment on above: Performed By: #### C BCA, BMP, 29058-9, LIVR, 6-3 #### [facility] ([id number]) [address] [address] [place] [address] Hemoglobin (Bld) [Mass/Vol] 12.5 g/dL Normal 11.7-15.5 [facility] Comment on above: Performed By: #### C BCA, BMP, 45010-2, LIVR, 3016-3 #### [facility] ([id number]) [address] [place] [address] Lymphocytes (Bld) [#/Vol] 3.3 10*3/uL Normal 1.0-3.5 [facility] Comment on above: Performed By: #### C BCA, BMP, 98406-0, LIVR, 3015- #### [facility] ([id number]) [address] [address] [place] [address] Lymphocytes/100 WBC (Bld) 40.3 % Normal [facility] Comment on above: Performed By: #### C BCA, BMP, 37881-2, LIVR, 3016-01 #### [facility] ([id number]) [address] [address] MCH (RBC) [Entitic mass] 32.1 pg Normal 27-34 [facility] Comment on above: Performed By: #### C BCA, BMP, 70086-4, LIVR, 3016-01 #### [facility] ([id number]) [address] [address] [place] [address] MCHC (RBC) [Mass/Vol] 34.3 g/dL Normal 32-36 [facility] Comment on above: Performed By: #### C BCA, BMP, 23315-9, LIVR, 3016-01 #### [facility] ([id number]) [address] [address] [place] [address] MCV (RBC) [Entitic vol] 94 fL Normal 80-100 [facility] Comment on above: Performed By: #### C BCA, BMP, 30193-9, LIVR, 3015- #### [facility] ([id number]) [address] [address] [place] [address] Monocytes (Bld) [#/Vol] 0.4 10*3/uL Normal 0-0.9 [facility] Comment on above: Performed By: #### C BCA, BMP, 64843-3, LIVR, 3015- #### [facility] ([id number]) [address], [address] [place] [address] Monocytes/100 WBC (Bld) 4.9 % Normal [facility] Comment on above: Performed By: #### C BCA, BMP, 55838-2, LIVR, 3016-3 #### [facility] ([id number]) [address], [address] [place] [address] Neutrophils/100 WBC (Bld) 52.8 % Normal [facility] Comment on above: Performed By: #### C BCA, BMP, 58869-6, LIVR, 6- #### [facility] ([id number]) [address], [address] [place] [address] Platelet mean volume (Bld) [Entitic vol] 9.7 fL Normal 7-12 [facility] Comment on above: Performed By: #### C BCA, BMP, 39332-1, LIVR, 3015- #### [facility] ([id number]) [address], [address] [place] [address] Platelets (Bld) [#/Vol] 254 10*3/uL Normal 150-450 [facility] Comment on above: Performed By: #### C BCA, BMP, 91002-6, LIVR, 3016-3 #### [facility] ([id number]) [address] [place] [address] RBC COUNT 3.90 X10E12/L Normal 3.80-5.20 [facility] Comment on above: Performed By: #### C BCA, BMP, 37940-6, LIVR, 3016-3 #### [facility] ([id number]) [address], [address] [place] [address] WBC (Bld) [#/Vol] 8.2 10*3/uL Normal 4.0-11.0 [facility] Comment on above: Performed By: #### C BCA, BMP, 61320-0, LIVR, 3016-3 #### [facility] ([id number]) [address], [address] [place] [address] HGB A1C (GLYCO-HGB)on 2023 Glucose [Mass/Vol] 103 mg/dL Normal [facility] Comment on above: Performed By: #### C BCA, BMP, 33201-4, LIVR, 3016-3 #### [facility] ([id number]) [address], [address] [place] [address] HbA1c (Bld) [Mass fraction] 5.2 % Normal 4.4-5.6 [facility] Comment on above: Result Comment: NOTE ADA Guidelines Result HgbA1c Normal : less than 5.7 % Prediabetes : 5.7 % to 6.4 % Diabetes : > 6.4 % Use with caution in patients with abnormal hemoglobin variants as the half-life of red blood cells and in vivo glycation rates are affected. Performed By: #### C BCA, BMP, 59963-1, LIVR, 6-3 #### [facility] ([id number]) [address], [address] [place] [address] LIVER PANELon 02-29-2024 Albumin [Mass/Vol] 4.5 g/dL Normal 3.2-5.3 [facility] Comment on above: Performed By: #### C BCA, BMP, 79208-9, LIVR, 3016-3 #### [facility] ([id number]) [address], [address] [place] [address] ALP [Catalytic activity/Vol] 84 U/L Normal 39-130 [facility] Comment on above: Performed By: #### C BCA, BMP, 56871-6, LIVR, 3016-3 #### [facility] ([id number]) [address], [address] [place] [address] ALT [Catalytic activity/Vol] 23 U/L Normal 0-31 [facility] Comment on above: Performed By: #### C BCA, BMP, 76666-7, LIVR, 3016-3 #### [facility] ([id number]) [address] [place] [address] AST [Catalytic activity/Vol] 19 U/L Normal 0-41 [facility] Comment on above: Performed By: #### C BCA, BMP, 57307-8, LIVR, 3016-3 #### [facility] ([id number]) [address], [address] [place] [address] Bilirubin [Mass/Vol] 0.5 mg/dL Normal 0.3-1.2 [facility] Comment on above: Performed By: #### C BCA, BMP, 15966-8, LIVR, 3016-3 #### [facility] ([id number]) [address] [place] [address] Bilirubin.direct [Mass/Vol] 0.1 mg/dL Normal 0.0-0.4 [facility] Comment on above: Performed By: #### C BCA, BMP, 31437-2, LIVR, 3016-3 #### [facility] ([id number]) [address] [place] [address] Protein [Mass/Vol] 8.1 g/dL High 6.0-8.0 [facility] Comment on above: Performed By: #### C BCA, BMP, 64180-8, LIVR, 3016-3 #### [facility] ([id number]) [address], [address] [place] [address] Lipid 1996 panelon 4 Cholesterol [Mass/Vol] 197 mg/dL Normal 150-200 [facility] Comment on above: Performed By: #### C BCA, BMP, 63115-8, LIVR, 3016-3 #### [facility] ([id number]) [address], [facility] [address] [place] [address] Cholesterol in HDL [Mass/Vol] 50 mg/dL Normal >39 [facility] Comment on above: Result Comment: HDL <40 mg/dL - High Risk HDL > or = 40mg/dL- Desirable HDL >60 mg/dL - Negative Risk Performed By: #### C BCA, BMP, 71125-0, LIVR, 3016-3 #### [facility] ([id number]) [address] [place] [address] Cholesterol in LDL [Mass/Vol] 130 mg/dL High <130 [facility] Comment on above: Result Comment: LDL <100 mg/dL - Desirable LDL >160 mg/dL - High Risk Performed By: #### C BCA, BMP, 22259-2, LIVR, 3016-3 #### [facility] ([id number]) [address] [place] [address] Cholesterol in VLDL [Mass/Vol] 17 mg/dL Normal 0-30 [facility] Comment on above: Performed By: #### C BCA, BMP, 37104-9, LIVR, 3016-3 #### [facility] ([id number]) [address], [facility] [address] [place] [address] CHOLESTEROL:HDL 3.9 Normal 1.0-5.0 [facility] Comment on above: Performed By: #### C BCA, BMP, 07762-9, LIVR, 3016-3 #### [facility] ([id number]) [address] [place] [address] Triglyceride [Mass/Vol] 85 mg/dL Normal 27-150 [facility] Comment on above: Performed By: #### C BCA, BMP, 21956-1, LIVR, 3016-3 #### [facility] ([id number]) [address] [place] [address] TSH Qnon 02-29-2024 TSH 2.50 uIU/mL Normal 0.49-4.67 [facility] Comment on above: Performed By: #### C BCA, BMP, 44858-7, LIVR, 3016-3 #### [facility] ([id number]) [address] [place] [address] HCG ( test) Ql (U)o n 12-22-2023 Beta HCG ( test) Ql (U) Negative Normal [facility]G [facility] Comment on above: Performed By: #### 2 106-3 #### [facility] ([id number]) [address] [place] [address] Surgical Pathologyon 024 Surgical Pathology Normal [facility] Comment on above: Result Comment: [facility] [address] [place] [address] Surgical Pathology Consultation Patient Name:ELISHA COLBERT:1990 (Age: 32)Gender:FTaken:4Reported:4Physician(s):Melquiades Weber MD ([phone])Copy To: Rec. 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 Clinical History Vulvar dysplasia. Gross Description Received [...] to the 6:00 tip in cassette F. (6,ns,[id number], m6) . /12/22/2023GR Microscopic Findings Microscopic examination performed. Specimen(s) Received Left vulva Fee Codes(s): 1; 30453 COMPLETE BLOOD COUNTon 12-19 Erythrocyte distribution width (RBC) [Ratio] 13.3 % Normal 11.5-15.0 [facility] Comment on above: Performed By: #### C BC, CMP #### [facility] ([id number]) [address], [address] [place] [address] Hematocrit (Bld) [Volume fraction] 36.4 % Normal 35-47 [facility] Comment on above: Performed By: #### C BC, CMP #### [facility] ([id number]) [address], [address] [place] [address] Hemoglobin (Bld) [Mass/Vol] 12.2 g/dL Normal 11.7-15.5 [facility] Comment on above: Performed By: #### C BALDO, CMP #### [facility] ([id number]) [address], [address] [place] [address] MCH (RBC) [Entitic mass] 31.4 pg Normal 27-34 [facility] Comment on above: Performed By: #### C BC, CMP #### [facility] ([id number]) [address], [address] [place] [address] MCHC (RBC) [Mass/Vol] 33.5 g/dL Normal 32-36 [facility] Comment on above: Performed By: #### C BALDO, CMP #### [facility] ([id number]) [address], [address] [place] [address] MCV (RBC) [Entitic vol] 94 fL Normal 80-100 [facility] Comment on above: Performed By: #### Billy BLAND, CMP #### [facility] ([id number]) [address], [address] [place] [address] Platelet mean volume (Bld) [Entitic vol] 9.8 fL Normal 7-12 [facility] Comment on above: Performed By: #### Billy BLAND, CMP #### [facility] ([id number]) [address], [address] [place] [address] Platelets (Bld) [#/Vol] 226 10*3/uL Normal 150-450 [facility] Comment on above: Performed By: #### C BALDO, CMP #### [facility] ([id number]) [address] [address] [place] [address] RBC COUNT 3.89 X10E12/L Normal 3.80-5.20 [facility] Comment on above: Performed By: #### Billy BLAND, CMP #### [facility] ([id number]) [address] [address] [place] [address] WBC (Bld) [#/Vol] 11.0 10*3/uL Normal 4.0-11.0 [facility] Comment on above: Performed By: #### C BC, CMP #### [facility] ([id number]) [address] [place] [address] COMPREHENSIVE METABOLIC PANE Christoph 12-19-2023 Albumin [Mass/Vol] 4.3 g/dL Normal 3.2-5.3 [facility] Comment on above: Performed By: #### C BALDO, CMP #### [facility] ([id number]) [address] [place] [address] ALP [Catalytic activity/Vol] 65 U/L Normal 39-130 [facility] Comment on above: Performed By: #### C BALDO, CMP #### [facility] ([id number]) [address] [place] [address] ALT [Catalytic activity/Vol] 14 U/L Normal 0-31 [facility] Comment on above: Performed By: #### C BADLO, CMP #### [facility] ([id number]) [address], [address] [place] [address] Anion gap [Moles/Vol] 10 mmol/L Normal 5-15 [facility] Comment on above: Performed By: #### C BC, CMP #### [facility] ([id number]) [address] [place] [address] AST [Catalytic activity/Vol] 14 U/L Normal 0-41 [facility] Comment on above: Performed By: #### C BC, CMP #### [facility] ([id number]) [address] [place] [address] Bilirubin [Mass/Vol] 0.4 mg/dL Normal 0.3-1.2 [facility] Comment on above: Performed By: #### C BALDO, CMP #### [facility] ([id number]) [address] [place] [address] Calcium [Mass/Vol] 9.6 mg/dL Normal 8.5-10.5 [facility] Comment on above: Performed By: #### C BALDO, CMP #### [facility] ([id number]) [address] [place] [address] Chloride [Moles/Vol] 106 mmol/L Normal 98-109 [facility] Comment on above: Performed By: #### C BALDO, CMP #### [facility] ([id number]) [address] [address] [place] [address] CO2 [Moles/Vol] 24 mmol/L Normal 22-32 [facility] Comment on above: Performed By: #### Billy BLAND, CMP #### [facility] ([id number]) [address] [address] [place] [address] Creatinine [Mass/Vol] 0.70 mg/dL Normal 0.40-1.00 [facility] Comment on above: Result Comment: METH OD TRACEABLE TO IDMS STANDARD Performed By: #### C BALDO, CMP #### [facility] ([id number]) [address] [address] [place] [address] eGFR (CKD-EPI) NON-RACE DEPENDENT >90 Normal >59 [facility] Comment on above: Result Comment: Reported eGFR is based on the CKD-EPI 2021 equation that does not use a race coefficient. Performed By: #### C BALDO, CMP #### [facility] ([id number]) [address] [address] [place] [address] Glucose [Mass/Vol] 79 mg/dL Normal 65-99 [facility] Comment on above: Performed By: #### C BALDO, CMP #### [facility] ([id number]) [address] [address] [place] [address] Potassium [Moles/Vol] 3.7 mmol/L Normal 3.5-5.0 [facility] Comment on above: Performed By: #### C BC, CMP #### [facility] ([id number]) [address] [place] [address] Protein [Mass/Vol] 7.7 g/dL Normal 6.0-8.0 [facility] Comment on above: Performed By: #### C BC, CMP #### [facility] ([id number]) [address] [place] [address] Sodium [Moles/Vol] 140 mmol/L Normal 134-146 [facility] Comment on above: Performed By: #### C BC, CMP #### [facility] ([id number]) [address], [address] [place] [address] Urea nitrogen [Mass/Vol] 12 mg/dL Normal 5-23 [facility] Comment on above: Performed By: #### C BC, CMP #### [facility] ([id number]) [address], [facility] [address] [place] [address] Cytology Cervical or vaginal smear or scraping studyOrdered By: Cathy Blum on 11-02-2023 [facility] LACTOFERRIN FECAL QUANTon Lactoferrin, Fecal, Quant. <1.00 Normal 0.00-7.24 [facility] Comment on above: Result Comment: Re [...] (IBS). Performed By: #### L ACTFQ #### [facility] [address] [address] [address] Susana Rivera PANCREATIC ELASTASE FECALon 02-04-2023 Pancreatic Elastase, Fecal 292 ug Elast./g Normal >200 [facility] Comment on above: Result Comment: Elaina villareal Pancreatic Insufficiency: <100 Moderate Pancreatic Insufficiency: 100 - 200 Normal: >200 Performed By: #### L IVER, TSH, LIPID, BMP #### [facility] [address] [address] [address] Susana Rivera HCG ( test) IA.rapi d Ql (U)Ordered By: Omero Cunningham on 02-03-2023 HCG ( test) Ql (U) Negative [facility] HCG,Urineon 02-03-2023 Beta HCG ( test) Ql (U) Negative Normal [facility] Comment on above: Result Comment: PERF ORMED BY: [place] [address] PATHOLOGIST [employer] JAIRO LEYVA M.D. Performed By: #### U HCG #### [address] Christoph 02-03-2023 L - -------- Specimen: [id number] Received: 02/03/23 Status: KEVIN Taylor Num: [id number] Spec Type: Surgical Subm Dr: Omero Cunningham MD Tissues: A Duodenum - Biopsy (DUODENUM BX) B Esophagus Biopsy (ESOPHAGEAL BX) C Colon Biopsy (RANDOM COLON BX) Procedures: HE/6, Gross/Micro L4/3 -------- Age/ Patient Sex Location Account Attending Physician -------- FilemonElisha 32/F [id number] Omero Cunningham MD -------- SPEC NUM: [id number] RECD: 02/03/23 STATUS: KEVIN TAYLOR NUM: [id number] STEFFANY: 02/03/23- [facility] DR: Omero Cunningham MD ENTERED: 02/03/23 [facility] [address]: SOFIYA TYPE: Surgical DEPT: S ORDERED: [...] microscopic colitis. - Negative for epithelial dysplasia. -------- Specimen: [id number] Received: 02/03/23 Status: KEVIN Taylor Num: [id number] Spec Type: Surgical Subm Dr: Omero Cunningham MD Tissues: A Duodenum - Biopsy (DUODENUM BX) B Esophagus Biopsy (ESOPHAGEAL BX) C Colon Biopsy (RANDOM COLON BX) Procedures: HE/6, Gross/Micro L4/3 -------- Patient: Elisha Colbert [id number] (Continued) -------- Specimen: [id number] Received: 02/03/23 (Continued) Signed (signature on file) Nan Lawler MD 02/04/23 1110 -------- Specimen: [id number] Received: 02/03/23 Status: KEVIN Taylor Num: [id number] Spec Type: Surgical Subm Dr: Omero Cunningham MD Tissues: A Duodenum - Biopsy (DUODENUM BX) B Esophagus Biopsy (ESOPHAGEAL BX) C Colon Biopsy (RANDOM COLON BX) Procedures: HE/6, Gross/Micro L4/3 -------- Patient: FilemonElisha [id number] (Continued) -------- Specimen: [id number] Received: 02/03/23 (Continued) Clinical Information Diarrhea, constipation, [...] support the above pathologic diagnosis. CPT Codes 84472?3 ----- (more content not included)... Normal [facility] BOWEL DISORDERS EVALUATION R ULE-OUT CASCon 02-02-2023 Atypical pANCA Negative Normal Negative [facility] Comment on above: Performed By: #### B DERC #### [facility] [address] [place] [address] Dr. Susana Rivera Note: Comment Normal [facility] Comment on above: Result Comment: Sugg estive of Crohn's disease. Subsequent testing with the Crohn's Disease Prognostic Profile (148746) that includes antiglycan antibodies AMCA, ALCA, ACCA, and Segundo may aid in the differentiation of clinical forms of CD and prognosis of disease progression. Performed By: #### B DERC #### [facility] [address] [address] [address] Susana Rivera Saccharomyces Cer. IgG 34.3 Units Critically high 0.0-24.9 [facility] Comment on above: Result Comment: Nega tive <20.0 Equivocal 20.1 - 24.9 Positive >or= 25.0 Performed By: #### B DERC #### [facility] [address] [place] [address] Dr. Susana Rivera tTG/DGP SCR Negative Normal Negative [facility] Comment on above: Result Comment: Ef fective February 04, 2023 this profile will be made non-orderable due to non-availability of reagents for tTG/DGP Combo. No replacement number is available at this time. For further information, please contact your local [facility]. Performed By: #### B DERC #### [facility] [address] [place] [address] Dr. Susana Rivera CALPROTECTIN, FECALon 2022 Calprotectin, Fecal 20 ug/g Normal 0-120 [facility] Comment on above: Result Comment: Conc entration Interpretation Follow-Up <16 - 50 ug/g Normal None >50 -120 ug/g Borderline Re-evaluate in 4-6 weeks >120 ug/g Abnormal Repeat as clinically indicated Performed By: #### L IVER, TSH, LIPID, BMP #### [facility] [address] [place] [address] Dr. Susana Rivera CHROMOGRANIN Aon 02-02-2023 Chromogranin A 85.4 ng/mL Normal 0.0-101.8 [facility] Comment on above: Result Comment: Bone Char Puller mogranin A performed by [employer] methodology . Values obtained with different assay methods or kits cannot be used interchangeably. Performed By: #### C HROMOA #### [facility] [address] [place] [address] Dr. Susana Rivera CBC AUTO DIFFon 01-29-2023 BASO # 0.0 103/ul Normal 0.0-0.1 [facility] Comment on above: Performed By: #### C BC #### [facility] [address] [place] [address] Dr. Susana Rivera Basophils/100 WBC (Bld) 0.3 % Normal 0.2-2.0 [facility] Comment on above: Performed By: #### C BC #### [facility] [address] [place] [address] Dr. Susana Rivera EO # 0.2 103/ul Normal 0.0-0.7 [facility] Comment on above: Performed By: #### C BC #### [facility] [address] [place] [address] Dr. Susana Rivera Eosinophils/100 WBC (Bld) 3.3 % Normal 0.9-7.0 [facility] Comment on above: Performed By: #### C BC #### [facility] [address] [place] [address] Dr. Susana Rivera Erythrocyte distribution width (RBC) [Ratio] 12.3 % Normal 11.0-15.0 [facility] Comment on above: Performed By: #### C BC #### [facility] [address] [place] [address] Dr. Susana Rivera Hematocrit (Bld) [Volume fraction] 36.9 % Normal 36.0-48.0 [facility] Comment on above: Performed By: #### C BC #### [facility] [address] [place] [address] Dr. Susana Rivera Hemoglobin (Bld) [Mass/Vol] 12.2 g/dL Normal 12.0-16.0 [facility] Comment on above: Performed By: #### C BC #### [facility] [address] [place] [address] Dr. Susana Rivera IG # 0.01 10e3/ul Normal 0.00-0.03 [facility] Comment on above: Performed By: #### C BC #### [facility] [address] [place] [address] Dr. Susana Rivera IG % 0.2 % Normal 0.0-0.5 [facility] Comment on above: Performed By: #### C BC #### [facility] [address] [place] [address] Dr. Susana Rivera LYMPH # 2.8 103/ul Normal 1.2-3.8 [facility] Comment on above: Performed By: #### C BC #### [facility] [address] [place] [address] Dr. Susana Rivera Lymphocytes/100 WBC (Bld) 42.0 % Normal 20.5-60.0 [facility] Comment on above: Performed By: #### C BC #### [facility] [address] [place] [address] Dr. Susana Rivera MANUAL DIFF REQ NO Normal [facility] Comment on above: Performed By: #### C BC #### [facility] [address] [place] [address] Dr. Susana Rivera MCH (RBC) [Entitic mass] 31.2 pg Normal 26.7-34.0 [facility] Comment on above: Performed By: #### C BC #### [facility] [address] [place] [address] Dr. Susana Rivera MCHC (RBC) [Mass/Vol] 33.1 g/dL Normal 29.9-35.2 [facility] Comment on above: Performed By: #### C BC #### [facility] [address] [place] [address] Dr. Susana Rivera MCV (RBC) [Entitic vol] 94.4 fL Normal 81.0-99.0 [facility] Comment on above: Performed By: #### C BC #### [facility] [address] [place] [address] Dr. Susana Rivera MONO # 0.4 103/ul Normal 0.3-0.8 [facility] Comment on above: Performed By: #### C BC #### [facility] [address] [place] [address] Dr. Susana Rivera Monocytes/100 WBC (Bld) 6.5 % Normal 1.7-12.0 [facility] Comment on above: Performed By: #### C BC #### [facility] [address] [place] [address] Dr. Susana Rivera NEUT # 3.1 103/ul Normal 1.4-6.5 [facility] Comment on above: Performed By: #### C BC #### [facility] [address] [place] [address] Dr. Susana Rivera Neutrophils/100 WBC (Bld) 47.7 % Normal 43.0-75.0 [facility] Comment on above: Performed By: #### C BC #### [facility] [address] [place] [address] Dr. Susana Rivera Platelet mean volume (Bld) [Entitic vol] 11.0 fL Normal 9.5-13.5 [facility] Comment on above: Performed By: #### C BC #### [facility] [address] [place] [address] Dr. Susana Rivera PLT 213 103/ul Normal 150-450 [facility] Comment on above: Performed By: #### C BC #### [facility] [address] [address] [address] Susana Rivera RBC 3.91 106/ul Critically low 4.20-5.40 [facility] Comment on above: Performed By: #### C BC #### [facility] [address] [place] [address] Dr. Susana Rivera WBC 6.6 103/ul Normal 4.0-11.0 [facility] Comment on above: Performed By: #### C BC #### [facility] [address] [place] [address] Dr. Susana Rivera FREE T4on 01-29-2023 Free T4 [Mass/Vol] 0.92 ng/dL Normal 0.76-1.46 [facility] Comment on above: Performed By: #### L IVER, TSH, LIPID, BMP #### [facility] [address] [place] [address] Dr. Susana Rivera PROF 14(COMP METB)on 023 Albumin [Mass/Vol] 3.6 g/dL Normal 3.4-5.0 [facility] Comment on above: Performed By: #### L IVER, TSH, LIPID, BMP #### [facility] [address] [place] [address] Dr. Susana Rivera Albumin/Globulin [Mass ratio] 0.8 {ratio} Normal [facility] Comment on above: Performed By: #### L IVER, TSH, LIPID, BMP #### [facility] [address] [place] [address] Dr. Susana Rivera ALP [Catalytic activity/Vol] 75 U/L Normal 46-116 [facility] Comment on above: Performed By: #### L IVER, TSH, LIPID, BMP #### [facility] [address] [address] [address] Susana Rivera ALT [Catalytic activity/Vol] 24 U/L Normal 14-59 [facility] Comment on above: Performed By: #### L IVER, TSH, LIPID, BMP #### [facility] [address] [address] [address] Susana Rivera Anion gap [Moles/Vol] 12.5 mmol/L Normal [facility] Comment on above: Performed By: #### L IVER, TSH, LIPID, BMP #### [facility] [address] [address] [address] Susana Rivera AST [Catalytic activity/Vol] 14 U/L Critically low 15-37 [facility] Comment on above: Performed By: #### L IVER, TSH, LIPID, BMP #### [facility] [address] [address] [address] Susana Rivera Bilirubin [Mass/Vol] 0.3 mg/dL Normal 0.2-1.0 [facility] Comment on above: Performed By: #### L IVER, TSH, LIPID, BMP #### [facility] [address] [address] [address] Susana Rivera Calcium [Mass/Vol] 9.2 mg/dL Normal 8.5-10.1 [facility] Comment on above: Performed By: #### L IVER, TSH, LIPID, BMP #### [facility] [address] [address] [address] Susana Rivera Chloride [Moles/Vol] 106 mmol/L Normal 98-107 [facility] Comment on above: Performed By: #### L IVER, TSH, LIPID, BMP #### [facility] [address] [address] [address] Susana Rivera CO2 [Moles/Vol] 25.6 mmol/L Normal 21.0-32.0 [facility] Comment on above: Performed By: #### L IVER, TSH, LIPID, BMP #### [facility] [address] [address] [address] Susana Rivera Creatinine [Mass/Vol] 0.58 mg/dL Normal 0.55-1.02 [facility] Comment on above: Performed By: #### L IVER, TSH, LIPID, BMP #### [facility] [address] [place] [address] Dr. Susana Rivera EGFR-AF CROATIAN >60 Normal >=60 [facility] Comment on above: Performed By: #### L IVER, TSH, LIPID, BMP #### [facility] [address] [place] [address] Dr. Susana Rivera EGFR-NON AF CROATIAN >60 Normal >=60 [facility] Comment on above: Performed By: #### L IVER, TSH, LIPID, BMP #### [facility] [address] [place] [address] Dr. Susana Rivera Globulin (S) [Mass/Vol] 4.3 g/dL Normal [facility] Comment on above: Performed By: #### L IVER, TSH, LIPID, BMP #### [facility] [address] [place] [address] Dr. Susana Rivera Glucose [Mass/Vol] 93 mg/dL Normal 74-106 [facility] Comment on above: Performed By: #### L IVER, TSH, LIPID, BMP #### [facility] [address] [place] [address] Dr. Susana Rivera Potassium [Moles/Vol] 4.1 mmol/L Normal 3.5-5.1 [facility] Comment on above: Performed By: #### L IVER, TSH, LIPID, BMP #### [facility] [address] [place] [address] Dr. Susana Rivera Protein [Mass/Vol] 7.9 g/dL Normal 6.4-8.2 [facility] Comment on above: Performed By: #### L IVER, TSH, LIPID, BMP #### [facility] [address] [place] [address] Dr. Susana Rivera Sodium [Moles/Vol] 140 mmol/L Normal 136-145 [facility] Comment on above: Performed By: #### L IVER, TSH, LIPID, BMP #### [facility] [address] [place] [address] Dr. Susana Rivera Urea nitrogen [Mass/Vol] 10.0 mg/dL Normal 7.0-18.0 [facility] Comment on above: Performed By: #### L IVER, TSH, LIPID, BMP #### [facility] [address] [place] [address] Dr. Susana Rivera Urea nitrogen/Creatinine [Mass ratio] 17.2 mg/mg Normal [facility] Comment on above: Performed By: #### L IVER, TSH, LIPID, BMP #### [facility] [address] [place] [address] Dr. Susana Rivera PROTIMEon 01-29-2023 INR Coag (PPP) [Relative time] 0.94 {INR} Normal [facility] Comment on above: Performed By: #### L IVER, TSH, LIPID, BMP #### [facility] [address] [place] [address] Dr. Susana Rivera INR GUIDELINES SEE BELOW Normal [facility] Comment on above: Result Comment: REYMUNDO RED INR: 2.0 - 3.0 CONDITIONS NOT LISTED BELOW 2.5 - 3.5 FOR PROSTHETIC HEART VALVE REPLACEMENT 2.5 - 3.5 RECURRENT THROMBOSIS Performed By: #### L IVER, TSH, LIPID, BMP #### [facility] [address] [place] [address] Dr. Susana Rivera PT Coag (PPP) [Time] 10.0 s Normal 9.0-11.6 [facility] Comment on above: Performed By: #### L IVER, TSH, LIPID, BMP #### [facility] [address] [place] [address] Dr. Susana Rivera TSHon 01-29-2023 TSH 1.619 uIU/mL Normal 0.358-3.740 [facility] Comment on above: Performed By: #### L IVER, TSH, LIPID, BMP #### [facility] [address] [place] [address] Dr. Susana Rivera CBC AUTO DIFFon 07-22-2022 BASO # 0.0 103/ul Normal 0.0-0.1 [facility] Comment on above: Performed By: #### C BC #### [facility] [address] [address] [address] Susana Rivera Basophils/100 WBC (Bld) 0.3 % Normal 0.2-2.0 [facility] Comment on above: Performed By: #### C BC #### [facility] [address] [address] [address] Susana Rivera EO # 0.2 103/ul Normal 0.0-0.7 [facility] Comment on above: Performed By: #### C BC #### [facility] [address] [place] [address] Dr. Susana Rivera Eosinophils/100 WBC (Bld) 2.3 % Normal 0.9-7.0 [facility] Comment on above: Performed By: #### C BC #### [facility] [address] [place] [address] Dr. Susana Rivera Erythrocyte distribution width (RBC) [Ratio] 12.3 % Normal 11.0-15.0 [facility] Comment on above: Performed By: #### C BC #### [facility] [address] [place] [address] Dr. Susana Rivera Hematocrit (Bld) [Volume fraction] 38.6 % Normal 36.0-48.0 [facility] Comment on above: Performed By: #### C BC #### [facility] [address] [place], [place] [address] Dr. Susana Rivera Hemoglobin (Bld) [Mass/Vol] 12.4 g/dL Normal 12.0-16.0 [facility] Comment on above: Performed By: #### C BC #### [facility] [address] [place] [address] Dr. Susana Rivera IG # 0.02 10e3/ul Normal 0.00-0.03 [facility] Comment on above: Performed By: #### C BC #### [facility] [address] [place] [address] Dr. Susana Rivera IG % 0.2 % Normal 0.0-0.5 [facility] Comment on above: Performed By: #### C BC #### [facility] [address] [place] [address] Dr. Susana Rivera LYMPH # 3.3 103/ul Normal 1.2-3.8 [facility] Comment on above: Performed By: #### C BC #### [facility] [address] [place] [address] Dr. Susana Rivera Lymphocytes/100 WBC (Bld) 32.0 % Normal 20.5-60.0 [facility] Comment on above: Performed By: #### C BC #### [facility] [address] [place] [address] Dr. Susana Rivera MANUAL DIFF REQ NO Normal [facility] Comment on above: Performed By: #### C BC #### [facility] [address] [place] [address] Dr. Susana Rivera MCH (RBC) [Entitic mass] 30.7 pg Normal 26.7-34.0 [facility] Comment on above: Performed By: #### C BC #### [facility] [address] [place] [address] Dr. Susana Rivera MCHC (RBC) [Mass/Vol] 32.1 g/dL Normal 29.9-35.2 [facility] Comment on above: Performed By: #### C BC #### [facility] [address] [place] [address] Dr. Susana Rivera MCV (RBC) [Entitic vol] 95.5 fL Normal 81.0-99.0 [facility] Comment on above: Performed By: #### C BC #### [facility] [address] [place] [address] Dr. Susana Rivera MONO # 0.6 103/ul Normal 0.3-0.8 [facility] Comment on above: Performed By: #### C BC #### [facility] [address] [place] [address] Dr. Susana Rivera Monocytes/100 WBC (Bld) 5.9 % Normal 1.7-12.0 [facility] Comment on above: Performed By: #### C BC #### [facility] [address] [address] [address] Susana Rivera NEUT # 6.2 103/ul Normal 1.4-6.5 [facility] Comment on above: Performed By: #### C BC #### [facility] [address] [address] [address] Susana Rivera Neutrophils/100 WBC (Bld) 59.3 % Normal 43.0-75.0 [facility] Comment on above: Performed By: #### C BC #### [facility] [address] [address] [address] Susana Rivera Platelet mean volume (Bld) [Entitic vol] 11.2 fL Normal 9.5-13.5 [facility] Comment on above: Performed By: #### C BC #### [facility] [address] [place] [address] Dr. Susana Rivera PLT 235 103/ul Normal 150-450 [facility] Comment on above: Performed By: #### C BC #### [facility] [address] [place] [address] Dr. Susana Rivera RBC 4.04 106/ul Critically low 4.20-5.40 [facility] Comment on above: Performed By: #### C BC #### [facility] [address] [place] [address] Dr. Susana Rivera WBC 10.4 103/ul Normal 4.0-11.0 [facility] Comment on above: Performed By: #### C BC #### [facility] [address] [place] [address] Dr. Susana Rivera GLYCOHEMOGLOBIN A1Con 2021 ADA RECOMMENDATION SEE BELOW Normal [facility] Comment on above: Result Comment: ADA RECOMMENDED LIMIT 4.0 - 6.0 ADA THERAPEUTIC TARGET < 7.0 ACTION SUGGESTED > 7.0 Performed By: #### A 1C #### [facility] [address] [place] [address] Dr. Susana Rivera Glucose [Mass/Vol] 105 mg/dL Normal [facility] Comment on above: Performed By: #### A 1C #### [facility] [address] [address] [address] Susana Rivera HbA1c (Bld) [Mass fraction] 5.3 % Normal 4.5-6.2 [facility] Comment on above: Performed By: #### A 1C #### [facility] [address] [place] [address] Dr. Susana Rivera LIPID PROFILEon 07-22-2022 CHOL-HDL RATIO NORM SEE BELOW Normal [facility] Comment on above: Result Comment: 3.3 - 4.4 LOW RISK 4.4 - 7.1 AVERAGE RISK 7.1 - 11.0 MODERATE RISK >11.0 HIGH RISK Performed By: #### L IVER, TSH, LIPID, BMP #### [facility] [address] [place] [address] Dr. Susana Rivera Cholesterol [Mass/Vol] 193 mg/dL Normal <=200 [facility] Comment on above: Performed By: #### L IVER, TSH, LIPID, BMP #### [facility] [address] [place] [address] Dr. Susana Rivera Cholesterol in HDL [Mass/Vol] 45 mg/dL Normal 40-60 [facility] Comment on above: Performed By: #### L IVER, TSH, LIPID, BMP #### [facility] [address] [place] [address] Dr. Susana Rivera Cholesterol in LDL [Mass/Vol] 121.0 mg/dL Normal [facility] Comment on above: Performed By: #### L IVER, TSH, LIPID, BMP #### [facility] [address] [place] [address] Dr. Susana Rivera Cholesterol.total/Ch olesterol in HDL [Mass ratio] 4.3 {ratio} Normal [facility] Comment on above: Performed By: #### L IVER, TSH, LIPID, BMP #### [facility] [address] [place] [address] Dr. Susana Rivera HDL NORMAL > or = 60 mg/dl - LO W CARDIOVASCULAR RISK <40 mg/dl - HIGH CARDIOVASCULAR RISK Normal [facility] Comment on above: Performed By: #### L IVER, TSH, LIPID, BMP #### [facility] [address] [address] [address] Susana Rivera LDL CALC NORMAL SEE BELOW Normal [facility] Comment on above: Result Comment: <100 mg/dl OPTIMAL 100 - 129 mg/dl NEAR OR ABOVE OPTIMAL 130 - 159 mg/dl BORDERLINE HIGH 160 - 189 mg/dl HIGH >190 mg/dl VERY HIGH Performed By: #### L IVER, TSH, LIPID, BMP #### [facility] [address] [address] [address] Suasna Rivera Triglyceride [Mass/Vol] 135 mg/dL Normal <=150 [facility] Comment on above: Performed By: #### L IVER, TSH, LIPID, BMP #### [facility] [address] [place] [address] Dr. Susana Rivera VLDL CALC 27.0 mg/dL Normal [facility] Comment on above: Performed By: #### L IVER, TSH, LIPID, BMP #### [facility] [address] [place] [address] Dr. Susana Rivera LIVER PROFILEon 07-22-2022 Albumin [Mass/Vol] 3.8 g/dL Normal 3.4-5.0 [facility] Comment on above: Performed By: #### L IVER, TSH, LIPID, BMP #### [facility] [address] [place] [address] Dr. Susana Rivera Albumin/Globulin [Mass ratio] 0.8 {ratio} Normal [facility] Comment on above: Performed By: #### L IVER, TSH, LIPID, BMP #### [facility] [address] [address] [address] Susana Rivera ALP [Catalytic activity/Vol] 73 U/L Normal 46-116 [facility] Comment on above: Performed By: #### L IVER, TSH, LIPID, BMP #### [facility] [address] [address] [address] Susana Rivera ALT [Catalytic activity/Vol] 27 U/L Normal 14-59 [facility] Comment on above: Performed By: #### L IVER, TSH, LIPID, BMP #### [facility] [address] [place] [address] Dr. Susana Rivera AST [Catalytic activity/Vol] 17 U/L Normal 15-37 [facility] Comment on above: Performed By: #### L IVER, TSH, LIPID, BMP #### [facility] [address] [place] [address] Dr. Susana Rivera BILI, CONJUGATED 0.1 mg/dL Normal 0.0-0.2 [facility] Comment on above: Performed By: #### L IVER, TSH, LIPID, BMP #### [facility] [address] [place] [address] Dr. Susana Rivera Bilirubin [Mass/Vol] 0.3 mg/dL Normal 0.2-1.0 [facility] Comment on above: Performed By: #### L IVER, TSH, LIPID, BMP #### [facility] [address] [place] [address] Dr. Susana Rivera Globulin (S) [Mass/Vol] 4.6 g/dL Normal [facility] Comment on above: Performed By: #### L IVER, TSH, LIPID, BMP #### [facility] [address] [place] [address] Dr. Susana Rivera Protein [Mass/Vol] 8.4 g/dL Critically high 6.4-8.2 [facility] Comment on above: Performed By: #### L IVER, TSH, LIPID, BMP #### [facility] [address] [place] [address] Dr. Susana Rivera PROF CHEM 8 (BAS METB)on Anion gap [Moles/Vol] 12.3 mmol/L Normal [facility] Comment on above: Performed By: #### L IVER, TSH, LIPID, BMP #### [facility] [address] [place] [address] Dr. Susana Rivera Calcium [Mass/Vol] 9.2 mg/dL Normal 8.5-10.1 [facility] Comment on above: Performed By: #### L IVER, TSH, LIPID, BMP #### [facility] [address] [address] [address] Susana Rivera Chloride [Moles/Vol] 104 mmol/L Normal 98-107 [facility] Comment on above: Performed By: #### L IVER, TSH, LIPID, BMP #### [facility] [address] [address] [address] Susana Rivera CO2 [Moles/Vol] 24.7 mmol/L Normal 21.0-32.0 [facility] Comment on above: Performed By: #### L IVER, TSH, LIPID, BMP #### [facility] [address] [address] [address] Susana Rivera Creatinine [Mass/Vol] 0.67 mg/dL Normal 0.55-1.02 [facility] Comment on above: Performed By: #### L IVER, TSH, LIPID, BMP #### [facility] [address] [address] [address] Susana Rivera EGFR-AF CROATIAN >60 Normal >=60 [facility] Comment on above: Performed By: #### L IVER, TSH, LIPID, BMP #### [facility] [address] [address] [address] Susana Rivera EGFR-NON AF CROATIAN >60 Normal >=60 [facility] Comment on above: Performed By: #### L IVER, TSH, LIPID, BMP #### [facility] [address] [address] [address] Susana Rivera Glucose [Mass/Vol] 94 mg/dL Normal 74-106 [facility] Comment on above: Performed By: #### L IVER, TSH, LIPID, BMP #### [facility] [address] [address] [address] Susana Rivera Potassium [Moles/Vol] 4.0 mmol/L Normal 3.5-5.1 [facility] Comment on above: Performed By: #### L IVER, TSH, LIPID, BMP #### [facility] [address] [address] [address] Susana Rivera Sodium [Moles/Vol] 137 mmol/L Normal 136-145 [facility] Comment on above: Performed By: #### L IVER, TSH, LIPID, BMP #### [facility] [address] [address] [address] Susana Rivera Urea nitrogen [Mass/Vol] 21.0 mg/dL Critically high 7.0-18.0 [facility] Comment on above: Performed By: #### L IVER, TSH, LIPID, BMP #### [facility] [address] [address] [address] Susana Rivera Urea nitrogen/Creatinine [Mass ratio] 31.3 mg/mg Normal [facility] Comment on above: Performed By: #### L IVER, TSH, LIPID, BMP #### [facility] [address] [place] [address] Dr. Susana Rivera TSHon 07-22-2022 TSH 2.863 uIU/mL Normal 0.358-3.740 [facility] Comment on above: Performed By: #### L IVER, TSH, LIPID, BMP #### [facility] [address] [place] [address] Dr. Susana Rivera Vital Signs Date Time Vital Sign Value Performing Clinician Facility 11-12-2024 16:00-0500 Body mass index (BMI) [Ratio] 36.84 kg/m2 Viviana HILL Work Phone: [facility] 11-12-2024 16:00-0500 Body weight 100.43 kg Viviana HILL Work Phone: [facility] 11-12-2024 16:00-0500 Diastolic blood pressure 80 mm[Hg] Viviana HILL Work Phone: [facility] 11-12-2024 16:00-0500 Systolic blood pressure 120 mm[Hg] Viviana HILL Work Phone: [facility] 07-23-2024 15:44-0400 Body height 165.1 cm Swapnil La DO Work Phone: [facility] 07-23-2024 15:44-0400 Body mass index (BMI) [Ratio] 35.47 kg/m2 Swapnil Abhinav DO Work Phone: [facility] 07-23-2024 15:44-0400 Body weight 96.67 kg Swapnil Abhinav DO Work Phone: [facility] 07-23-2024 15:44-0400 Diastolic blood pressure 80 mm[Hg] Swapnil Abhinav DO Work Phone: [facility] 07-23-2024 15:44-0400 Systolic blood pressure 130 mm[Hg] Swapnil Abhinav DO Work Phone: [facility] 01-24-2024 09:22-0400 Body height 165.1 cm Chela Rodriguez PA Work Phone: [facility] 01-24-2024 09:22-0400 Body mass index (BMI) [Ratio] 38.77 kg/m2 Chela Rodriguez PA Work Phone: [facility] 01-24-2024 09:22-0400 Body temperature 98.8 [degF] Chela Rodriguez PA Work Phone: [facility] 01-24-2024 09:22-0400 Body weight 105.69 kg Chela Rodriguez PA Work Phone: [facility] 01-24-2024 09:22-0400 Diastolic blood pressure 89 mm[Hg] Chela Rodriguez PA Work Phone: [facility] 01-24-2024 09:22-0400 Heart rate 73 /min Chela Rodriguez PA Work Phone: [facility] [employer] 01-24-2024 09:22-0400 Respiratory rate 16 /min Chela Rodriguez PA Work Phone: [facility] [employer] 01-24-2024 09:22-0400 SaO2% (BldA) [Mass fraction] 98 % Chela Rodriguez PA Work Phone: [facility] 01-24-2024 09:22-0400 Systolic blood pressure 142 mm[Hg] [facility] 01-03-2024 08:27-0500 Body height 165.1 cm [facility] 01-03-2024 08:27-0500 Body mass index (BMI) [Ratio] 38.11 kg/m2 Chela Rodriguez PA [facility] 01-03-2024 08:27-0500 Body temperature 98.8 [degF] [facility] 01-03-2024 08:27-0500 Body weight 103.87 kg Chela Rodriguez PA [facility] 01-03-2024 08:27-0500 Diastolic blood pressure 90 mm[Hg] Chela Rodriguez PA [facility] 01-03-2024 08:27-0500 Heart rate 90 /min [facility] Rodriguez [facility] 01-03-2024 08:27-0500 Respiratory rate 16 /min Chela Rodriguez PA [facility] 01-03-2024 08:27-0500 SaO2% (BldA) [Mass fraction] 97 % Chela Rodriguez PA [facility] 01-03-2024 08:27-0500 Systolic blood pressure 145 mm[Hg] Chela Rodriguez PA [facility] 12-21-2023 15:23-0500 Body height 167 cm [facility] 12-21-2023 15:23-0500 Body mass index (BMI) [Ratio] 36.59 kg/m2 [facility] 12-21-2023 15:23-0500 Body weight 102.06 kg [facility] 12-12-2023 09:09-0500 Diastolic blood pressure 84 mm[Hg] Melquiades Weber MD Work Phone: [facility] 12-12-2023 09:09-0500 Heart rate 77 /min Melquiades Weber MD Work Phone: [facility] 12-12-2023 09:09-0500 SaO2% (BldA) [Mass fraction] 98 % Melquiades Weber MD Work Phone: [facility] 12-12-2023 09:09-0500 Systolic blood pressure 136 mm[Hg] Melquiades Weber MD Work Phone: [facility] 12-12-2023 09:03-0500 Body height 167 cm Melquiades Weber MD Work Phone: [facility] 12-12-2023 09:03-0500 Body mass index (BMI) [Ratio] 37.08 kg/m2 Melquiades Weber MD Work Phone: [facility] 12-12-2023 09:03-0500 Body weight 103.42 kg Melquiades Weber MD Work Phone: [facility] 02-03-2023 12:23-0400 Diastolic blood pressure 80 mm[Hg] MD Subhash Caba Work Phone: [facility] 02-03-2023 12:23-0400 Heart rate 56 /min MD Subhash Caba Work Phone: [facility] 02-03-2023 12:23-0400 Respiratory rate 18 /min MD Subhash Caba Work Phone: [facility] 02-03-2023 12:23-0400 SaO2% (BldA) [Mass fraction] 96 % MD Subhash Caba Work Phone: [facility] 02-03-2023 12:23-0400 Systolic blood pressure 135 mm[Hg] MD Subhash aCba Work Phone: [facility] 02-03-2023 10:14 Body height 162.56 cm MD Subhash Caba Work Phone: [facility] 02-03-2023 10:14 Body temperature 97.7 [degF] MD Subhash Caba Work Phone: [facility] 02-03-2023 10: Body weight 99.79 kg MD Subhash Caba Work Phone: [facility] Encounters Encounter Date Encounter Type Care Provider Facility Start: 11-12-2024 End: 11-12-2024 Periodic preventive med est patient 18-39 yrs Viviana HILL Work Phone: [facility] Comment on above: Well woman exam with routine gynecological exam Start: 11-12-2024 End: 11-12-2024 ambulatory VIVIANA BLOOM Not Available Start: 11-12-2024 End: 11-12-2024 Bamboo flowsheet Viviana HLIL Work Phone: [facility] Start: 11-12-2024 End: 11-19-2024 Bamboo flowsheet Viviana HILL Work Phone: [facility] Start: 11-12-2024 End: 11-19-2024 Clinisync Result Encounter Generic External Data Provider [facility] Unsolicited Start: 11-12-2024 End: 11-12-2024 Patient encounter procedure Viviana HILL Work Phone: [facility] Start: 10-26-2024 End: 10-27-2024 Clinisync Result Encounter Swapnil Abhinav DO Work Phone: [facility] Unsolicited Start: 10-26-2024 End: 10-27-2024 Clinisync Result Encounter Swapnil Abhinav DO Work Phone: [facility] [...] Unsolicited Start: 07-31-2024 End: 08-04-2024 ambulatory CHELA [facility] Start: 07-25-2024 End: 07-25-2024 Clinisync Result Encounter Generic External Data Provider [facility] Unsolicited Start: 07-25-2024 End: 07-25-2024 Clinisync Result Encounter Generic External Data Provider [facility] External [facility] Unsolicited Start: 07-23-2024 End: 07-23-2024 Office outpatient visit 15 minutes Swapnil Abhinav DO Work Phone: [facility] Comment on above: Female fertility pro blem; PCOS (polycystic ovarian syndrome) Start: 07-23-2024 End: 07-23-2024 ambulatory SWAPNIL ABHINAV Not Available Start: 07-23-2024 End: 07-23-2024 Bamboo flowsheet Swapnil Abhinav DO Work Phone: [facility] Start: 07-23-2024 End: 07-23-2024 Bamboo flowsheet Swapnil Abhinav DO Work Phone: [facility] Start: 06-06-2024 End: 06-06-2024 ambulatory MIKAYLA SIN Not Available Start: 05-25-2024 End: 05-25-2024 ambulatory MIKAYLA SIN Not Available Start: 05-01-2024 End: 05-01-2024 ambulatory MIKAYLA SIN Not Available Start: 03-14-2024 End: 03-14-2024 ambulatory DANAE QUIÑONES Not Available Start: 03-02-2024 End: 03-02-2024 ambulatory MIKAYLA SIN Not Available Start: 02-29-2024 End: 02-29-2024 ambulatory SUBHASH [facility] Start: 02-29-2024 Encounter for genera l adult medical examination without abnormal findings [facility] Start: 02-27-2024 End: 02-27-2024 ambulatory MIKAYLA SIN Not Available Start: 02-23-2024 End: 02-23-2024 ambulatory SUBHASH KILLIANFarida Not Available Start: 02-23-2024 Patient encounter procedure Swapnil La DO Work Phone: 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); Encounter for postoperative care Start: 01-03-2024 End: 01-03-2024 ambulatory [facility] Start: 12-27-2023 Telephone encounter Chela HILL Work Phone: [facility] Start: 12-22-2023 End: 12-22-2023 Evaluation and management of inpatient NATASHA Batres DALIARENETTACAROLINA [facility] Start: 12-22-2023 End: 12-22-2023 Evaluation and management of inpatient MELQUIADES WEBER [facility] Start: 12-21-2023 End: 12-21-2023 ambulatory SUBHASH MARIA DFarida [facility] Start: 12-20-2023 End: 12-21-2023 Admission to [facility] Laci [facility] Phone Call Provider 2 Abby Aguero [facility]-Admission [facility] Start: 12-19-2023 End: 12-19-2023 ambulatory [facility] Start: 12-19-2023 Encounter for other preprocedural examination CHELA RODRIGUEZ [facility] Start: 12-16-2023 Orders Only Melquiades Mott i, MD Work Phone: [facility] Comment on above: Vulvar dysplasia (Pr imary Dx); Pre-op testing Start: 12-16-2023 Patient encounter status Felipe Weber MD Work Phone: [facility] Start: 12-13-2023 Telephone encounter [facility] Work Phone: [facility] Start: 12-12-2023 End: 12-12-2023 ambulatory [facility] Start: 12-12-2023 End: 12-12-2023 Office outpatient new 45 minutes Melquiades Weber MD Work Phone: [facility] Comment on above: Vulvar dysplasia (Pr imary Dx); Encounter for tobacco use cessation counseling Start: 12-01-2023 Telephone encounter Celine Mccauley RN [facility] Start: 11-30-2023 End: 11-30-2023 ambulatory SWAPNIL LA Not Available Start: 02-03-2023 End: 02-03-2023 ambulatory Subhash Caba Facility:[facility] Start: 02-03-2023 End: 02-03-2023 Admission to same day surgery center MD Subhash Caba Work Phone: [facility] Work Phone: Start: 02-03-2023 End: 02-03-2023 ambulatory MD Subhash Caba Work Phone: [facility] Work Phone: Start: 01-29-2023 End: 01-30-[address] Hernesto CUNNINGHAM Facility: Start: 07-25-2022 Encounter for genera l adult medical examination without abnormal findings DR SUBHASH CABA [facility] Start: 07-22-2022 End: 07-23-[address] SUBHASH CABA Facility:[facility] Start: 07-22-2022 End: 07-23-2022 Encounter for general adult medical examination without abnormal findings DR SUBHASH CABA Facility:[facility] Start: 12-06-2016 End: 12-07-2016 Ambulatory Eusebio Emery [place] [place] Procedure Procedure Detail Performing Clinician Start: 11-12-2024 IGP,APTIMA HPV,AGE GDLN Viviana HILL Work Phone: Start: 10-26-2024 ALL PROGESTERONE Swapnil Abhinav DO Work Phone: Start: 09-24-2024 ALL PROGESTERONE Swapnil Abhinav DO Work Phone: Start: 08-23-2024 ALL PROGESTERONE Swapnil Abhinav DO Work Phone: Start: 07-25-2024 ALL CBC WITH AUTO DIFF Swapnil Abhinav DO Work Phone: Start: 01-24-2024 Follow-up visit Follow-up CHELA RODRIGUEZ Start: 11-02-2023 Microscopic observation [Identifier] in Cervix by Cyto stain Swapnil Abhinav DO Work Phone: Start: 11-02-2023 Cytp cerv/vag auto thin layer prep mnl screen Viviana HILL Work Phone: Start: 02-03-2023 Esophagogastroduodenoscopy MD Subhash jones Work Phone: Plan of Treatment Date Care Activity Detail Author Start: 11-02-2028 Screening for malign ant neoplasm of cervix [facility] Start: 11-18-2025 End: 11-18-2025 Patient encounter procedure 11/18/2025 3:00 PM EST Office Visit [facility] [address] [id number] Viviana Bloom PA [address] [place] [address] [facility] Start: 01-23-2025 Adult BMI Screening Adult BMI Screen ing [facility] Start: 01-03-2025 Adult BMI Screening Adult BMI Screen ing [facility] Start: 12-22-2024 Adult BMI Screening Adult BMI Screen ing [facility] Start: 12-22-2024 Tobacco Screening Tobacco Screening [facility] Start: 12-12-2024 Adult BMI Screening Adult BMI Screen ing [facility] Start: 12-12-2024 Tobacco Screening Tobacco Screening [facility] Start: 11-12-2024 End: 11-12-2024 Patient encounter procedure [facility] Comment on above: Arrived Start: 07-31-2024 End: 07-31-2024 Patient encounter procedure 07/31/2024 8:30 AM EDT Office Visit [facility] - Medical Oncology [facility] [place] [place] [address] Chela Rodriguez PA [address] [place] [address] [facility] - Medical Oncology Start: 07-23-2024 End: 07-23-2024 Patient encounter procedure 07/23/2024 3:40 PM EDT Office Visit [facility] [address] [phone] Swapnil La DO [address] [place] [address] Arrived [facility] Comment on above: Arrived Start: 07-23-2024 End: 07-23-2025 Antimullerian hormone (AMH) Antimullerian hormone (AMH) Lab Routine PCOS (polycystic ovarian syndrome) Expected: 07/23/2024 (Approximate), Expires: 07/23/2025 [facility] Comment on above: Expected: 07/23/2024 (Approximate), Expires: 07/23/2025 Start: 07-23-2024 End: 07-23-2025 DHEA DHEA Lab Routine Female fertility problem PCOS (polycystic ovarian syndrome) Expected: 07/23/2024 (Approximate), Expires: 07/23/2025 [facility] Comment on above: Expected: 07/23/2024 (Approximate), Expires: 07/23/2025 Start: 07-23-2024 End: 07-23-2025 US for US PELVIS-TRANSVAG IF INDICATED Imaging Routine Female fertility problem PCOS (polycystic ovarian syndrome) Expected: 07/23/2024 (Approximate), Expires: 07/23/2025 [facility] Comment on above: Expected: 07/23/2024 (Approximate), Expires: 07/23/2025 Start: 07-15-2024 Influenza vaccination Influenza Vacc ine (#1) [facility] Start: 01-24-2024 End: 01-24-2024 Patient encounter procedure 01/24/2024 9:30 AM EDT Office Visit [facility] - Medical Oncology [address] [place] [phone] Chela Rodriguez PA [address] [facility] [place] [address] [facility] Start: 01-03-2024 End: 01-03-2024 Patient encounter procedure 01/03/2024 8:30 AM EST Office Visit [facility]cology [address] [place] [phone] Chela Rodriguez PA [address] [facility] [place] [address] [facility] - Medical Oncology Start: 12-22-2023 End: 12-22-2023 Admission to same day surgery center 12/22/2023 7:30 AM EST - 12/22/2023 8:45 AM EST Surgery [facility] - Surgery [address] [address] Melquiades Weber MD [address] [place] [address] WIDE LOCAL EXCISION LESION VULVA [facility] Surgery Comment on above: WIDE LOCAL EXCISION LESION VULVA Start: 12-22-2023 End: 12-22-2023 BIOPSY VULVA BIOPSY VULVA VULVAR DYSPLASIA 12/22/2023 7:30 AM EST [facility] Start: 12-22-2023 End: 12-22-2023 EXCISION LESION VULVA EXCISION LESION VULVA VULVAR DYSPLASIA 12/22/2023 7:30 AM EST [facility] Start: 12-22-2023 Subsequent hospital visit by physician 12/22/2023 7:30 AM EST Hospital Encounter [facility] Surgery [address] [address] Melquiades Weber MD [address] [facility] [place] [address] [facility] Surgery Start: 12-20-2023 End: 12-20-2023 Admission to establishment 12/20/2023 8:00 AM EST Support Visit [facility] On [address] [phone] [facility] On [facility] Start: 12-12-2023 End: 12-12-2023 Patient encounter procedure 12/12/2023 9:00 AM EST Office Visit [facility] [address] [facility] [place] [address] Melquiades Weber MD [address] [place] [address] [facility] Start: 07-15-2023 Influenza vaccination Influenza Vacc ine [facility] Start: 02-03-2023 [facility] Start: 2009 Screening for malign ant neoplasm of cervix Pap Smear [facility] Start: 2007 DTaP,Tdap and Td Vaccines (1 - Tdap) DTaP,Tdap and Td Vaccines (1 - Tdap) [facility] Start: 2006 Adult BMI Follow Up Plan Adult BMI Follow Up Plan [facility] Start: 2006 Adult BMI Screening Adult BMI Screen ing [facility] Start: 2000 Depression Screening Depression Scre ening [facility] Start: 2000 Tobacco Screening Tobacco Screening [facility] Start: 1988 Tobacco Counseling Tobacco Counselin g [facility] End: 12-16-2024 CBC panel - Blood by Automated count CBC without diff Lab Routine Vulvar dysplasia Pre-op testing 1 Occurrences starting 12/16/2023 until 12/16/2024 [employer] Work Phone: Comment on above: 1 Occurrences starti ng 12/16/2023 until 12/16/2024 CBC W Auto Different ial panel - Blood CBC and differential Lab Routine Female fertility problem PCOS (polycystic ovarian syndrome) Ordered: 07/23/2024 [facility] [employer] Comment on above: Ordered: 07/23/2024 End: 12-16-2024 Comprehensive metabolic 2000 panel - Serum or Plasma Comprehensive metabolic panel Lab Routine Vulvar dysplasia Pre-op testing 1 Occurrences starting 12/16/2023 until 12/16/2024 [facility] Comment on above: 1 Occurrences starti ng 12/16/2023 until 12/16/2024 Cytology Cervical or vaginal smear or scraping study Pap Smear Pathology and Cytology Routine Well woman exam with routine gynecological exam Ordered: 11/12/2024 [facility] [employer] Work Phone: Comment on above: Ordered: 11/12/2024 DHEA-sulfate DHEA-sulfate Lab Routine Female fertility problem PCOS (polycystic ovarian syndrome) Ordered: 07/23/2024 [facility] Comment on above: Ordered: 07/23/2024 Follicle stimulating hormone Follicle stimulating hormone Lab Routine Female fertility problem PCOS (polycystic ovarian syndrome) Ordered: 07/23/2024 [facility] Comment on above: Ordered: 07/23/2024 hCG, quantitative, hCG, quantitative, Lab Routine Female fertility problem PCOS (polycystic ovarian syndrome) Ordered: 07/23/2024 [facility] [employer] Work Phone: Comment on above: Ordered: 07/23/2024 Human papilloma viru s DNA [Presence] in Unspecified specimen by Probe with amplification HPV DNA probe, amplified Microbiology Routine Well woman exam with routine gynecological exam Ordered: 11/12/2024 [facility] Comment on above: Ordered: 11/12/2024 Luteinizing hormone Luteinizing hormone Lab Routine Female fertility problem PCOS (polycystic ovarian syndrome) Ordered: 07/23/2024 [facility] Comment on above: Ordered: 07/23/2024 Patient Education Esophagitis Hi atal Hernia (DC) [facility] Work Phone: Thyrotropin [Units/volume] in Serum or Plasma TSH Lab Routine Female fertility problem PCOS (polycystic ovarian syndrome) Ordered: 07/23/2024 [facility] Comment on above: Ordered: 07/23/2024 Thyroxine (T4) free [Mass/volume] in Serum or Plasma T4, free Lab Routine Female fertility problem PCOS (polycystic ovarian syndrome) Ordered: 07/23/2024 [facility] Comment on above: Ordered: 07/23/2024 Payers Date Payer Category Payer Unknown [employer] [id number] 2023-Present [phone] [address] [address] [place] [address] [id number] 2023 Self-pay 2022 Private Health Insurance [id number] .[id number] 1988 Unknown [id number] 2.16.840.1.561242.3.579 .2.593 1988 Unknown [id number] 2.16.840.1.773279.3.579 .2.593 1988 Unknown [id number] 2.16.840.1.488362.3.579 .2.1286 1988 Unknown [id number] 2.16.840.1.945280.3.579 .2.1286 1988 Unknown [id number] 2.16.840.1.181916.3.579 .2.1285 1988 Unknown [id number] 2.16.840.1.595867.3.579 .2.1285 1988 Unknown [id number] 2.16.840.1.749443.3.579 .2.1285 1988 Unknown [id number] 2.16.840.1.816764.3.579 .2.1285 1988 Unknown [id number] 2.16.840.1.478227.3.579 .2.1285 1988 Unknown [id number] 2.16.840.1.885636.3.579 .2.1285 1988 Unknown [id number] 2.16.840.1.784313.3.579 .2.1285 1988 Unknown [id number] 2.16840.1.089634.3.579 .2.1258 1988 Unknown [id number] 2.16840.1.258680.3.579 .2.1258 1988 Unknown [id number] 2.16.840.1.929383.3.579 .2.1258 1988 Unknown [id number] 2.16.840.1.726730.3.579 .2.1258 1988 Unknown [id number] 2.16.840.1.914571.3.579 .2.1258 1988 Unknown [id number] 2.16.840.1.449209.3.579 .2.1258 1988 Unknown [id number] 2.16.840.1.332932.3.579 .2.1258 1988 Unknown [id number] 2.16.840.1.734054.3.579 .2.1258 1988 Unknown [id number] 2.16.840.1.908393.3.579 .2.1258 1988 Unknown [id number] 2.16.840.1.582663.3.579 .2.1259 1988 Unknown [id number] 2.16.840.1.282801.3.579 .2.1259 1959 Unknown [id number] 1959 Unknown [id number] Unknown [id number] 2.16.840.1.740888.3.579 .2.531 Social History Date Type Detail Facility Tobacco smoking stat [facility] Unknown if ever smoked [facility] Work Phone: Start: 1988 Sex Assigned At Female [facility] Tobacco smoking stat [facility] Tobacco smoking consumption unknown [facility] Start: 04-25-2019 End: 02-23-2024 History of Social function [facility] Start: 04-25-2019 End: 02-23-2024 Housing Instability [facility] Housing Instability Unknown [facility] Start: 1988 Sex Assigned At Not on file [facility] Start: 12-12-2023 End: 05-01-2024 Tobacco smoking status PRIS Smokes tobacco daily [facility] Work Phone: Start: 11-14-2006 History of tobacco use Cigarette Smoker [facility] Start: 12-12-2023 End: 05-01-2024 Tobacco use and exposure Smokeless tobacco non-user [facility] Start: 12-12-2023 End: 07-23-2024 Alcohol intake Lifetime non-drinker (finding) [facility] How hard is it for y ou to pay for the very basics like food, housing, medical care, and heating Hard [facility] History of tobacco use Passive smoker [facility] Start: 11-01-2023 Alcohol Comment Caffeine intake: 3-4 cups per day [facility] Start: 10-13-2023 Gender identity Identifies as female gender (finding) [facility] Start: 10-13-2023 Sexual orientation Heterosexual (finding) [facility] Goals Date Patient Goal Desired Activity /State Clinical Notes 02-03-2023 to 11-12-2024 SERGIO Galvan - 11/12/2024 4:00 PM Alejandro Manzo SENIOR WINDOWS ENGINEER - 07/23/2024 3:40 PM SERGIO Saucedo - [...] nursing note reviewed. Exam conducted with a maintenance repairer present. Vitals: Estimated body mass index is [...] of: SERGIO Galvan documented in this encounter [facility] 07-23-2024 History of Presen t illness Narrative [...] nursing note reviewed. Exam conducted with a maintenance repairer present. Vitals: Estimated body mass index is [...] by Brenda Manzo LPN on behalf of: Swapnil La DO documented in this encounter [facility] 01-24-2024 History of Presen t illness Narrative [...] Past Surgical History: Procedure Laterality Date APPENDECTOMY 2008 open BIOPSY VULVA N/A 12/22/2023 Performed by Melquiades Weber MD at [facility] COLONOSCOPY 2022 COLONOSCOPY 2016 OOPHORECTOMY Right 2009 performed at time of appendectomy WIDE LOCAL EXCISION LESION VULVA N/A 12/22/2023 Performed by Melquiades Weber MD at [facility] Past Medical History: Diagnosis Date Asthma [...] *This note was completed using a voice nuclear engineering technician system. Every effort was made to ensure accuracy. However, inadvertent computerized nuclear engineering technician errors may be present. .Total time spent was 26 minutes: Preparing to see the patient (e.g., review of tests) Performing a medically appropriate examination and/or evaluation Counseling and educating the patient/family/caregiver Documenting clinical information in the electronic or other health record Care coordination (not separately reported) Chela Rodriguez PA-C, RD, IF SERGIO Coleman 01/24/24 1010 documented in this encounter [employer] 01-03-2024 History of Presen t illness Narrative [...] 12/22/2023 Performed by Melquiades Weber MD at [facility] COLONOSCOPY 2022 COLONOSCOPY 2016 OOPHORECTOMY Right 2009 performed at time of appendectomy WIDE LOCAL EXCISION LESION VULVA N/A 12/22/2023 Performed by Melquiades Weber MD at [facility] SURG[facility] Past Medical History: Diagnosis Date Asthma [...] *This note was completed using a voice nuclear engineering technician system. Every effort was made to ensure accuracy. However, inadvertent computerized nuclear engineering technician errors may be present. .Total time spent was 26 minutes: Preparing to see the patient (e.g., review of tests) Performing a medically appropriate examination and/or evaluation Counseling and educating the patient/family/caregiver Documenting clinical information in the electronic or other health record Care coordination (not separately reported) Chela Rodriguez PA-C, RD, IF SERGIO Coleman 01/03/24 0912 documented in this encounter [facility] 12-27-2023 Miscellaneous Notes Spoke with patient regarding surgery results, explaining TIM III with negative margins. She is doing well at home. Pain well controlled. No drainage, bleeding, fevers/chills. Post op appt confirmed. documented in this encounter [employer] 12-27-2023 Telephone encounter Note Spoke with patient regarding surgery results, explaining TIM III with negative margins. She is doing well at home. Pain well controlled. No drainage, bleeding, fevers/chills. Post op appt confirmed. [employer] Work Phone: 12-21-2023 Instructions Formatting of th is note might be different from the original. Your surgery/procedure is scheduled at [facility] on 12/22/23 at 0730 [address]rival Time [address] [place] [address] Address: [address] [place] [address], [facility] in the Emergency Center Parking lot. Report to the front of house manager in the Emergency/Surgery Registration lobby of the hospital. Please call Pre-Admission Clinic at [phone] if you have any questions prior to surgery. For questions the morning of surgery, please call the Pre-op Department at [phone]. IF YOU DO NOT FOLLOW THESE INSTRUCTIONS [...] would like to schedule therapy at a [facility] Rehab facility, please call [phone] ([phone]). Do not use lotions, creams, powders, perfume, make up, cologne or after-shaves day of surgery. Remove ALL jewelry including wedding rings, body piercings, hair extensions that contain metal, nail ukrainian, make-up, and contact lens. You may brush your teeth the morning of surgery, but do not swallow the water. Wear your dentures and partial plates to the hospital (no adhesive). Shower the night the before. If applicable, use the CHG (chlorhexidine gluconate) soap or wipes. Please be advised, [facility] has transitioned to a cashless payment system. [...] RIGHTS AND RESPONSIBILITIES As a patient at [facility], you have the right to: Receive medical care and be informed of who is taking care of you Be treated with dignity and respect Have a family member/accounts receivable representative of choice and your physician notified of your admission Receive information and actively participate in decisions about your care and treatment Refuse care, treatment and services Decide who may provide your support and speak for you Access druze and spiritual services Participate in ethical issues [...] of hospital charges and payment methods Patient/patient accounts receivable representative responsibilities are to: Provide information about health status to facilitate care, treatment and services Follow the treatment, plan, keep appointments and speak up when you do not understand the plan Respect the rights of other patients and healthcare personnel Follow organizational rules and regulations that support quality care and a safe environment Fulfill financial obligations as promptly as possible [facility] 12-21-2023 Miscellaneous Notes Your surgery/procedure is scheduled at [facility] on 12/22/23 at 0730 Arrival Time 0530 [facility] Address: [address] [place] [address], [facility] in the Emergency Center Parking lot. Report to the front of house manager in the Emergency/Surgery Registration lobby of the hospital. Please call Pre-Admission Clinic at [phone] if you have any questions prior to surgery. For questions the morning of surgery, please call the Pre-op Department at [phone]. IF YOU DO NOT FOLLOW THESE INSTRUCTIONS [...] would like to schedule therapy at a [facility] Rehab facility, please call [phone] ([phone]). Do not use lotions, creams, powders, perfume, make up, cologne or after-shaves day of surgery. Remove ALL jewelry including wedding rings, body piercings, hair extensions that contain metal, nail ukrainian, make-up, and contact lens. You may brush your teeth the morning of surgery, but do not swallow the water. Wear your dentures and partial plates to the hospital (no adhesive). Shower the night the before. If applicable, use the CHG (chlorhexidine gluconate) soap or wipes. Please be advised, [facility] has transitioned to a cashless payment system. [...] RIGHTS AND RESPONSIBILITIES As a patient at [facility], you have the right to: Receive medical care and be informed of who is taking care of you Be treated with dignity and respect Have a family member/accounts receivable representative of choice and your physician notified of your admission Receive information and actively participate in decisions about your care and treatment Refuse care, treatment and services Decide who may provide your support and speak for you Access druze and spiritual services Participate in ethical issues [...] of hospital charges and payment methods Patient/patient accounts receivable representative responsibilities are to: Provide information about [...] promptly as possible documented in this encounter [facility] 12-13-2023 Miscellaneous Notes New referral received from [...] in smoking cessation program. Called patient at [phone] and left a voicemail requesting a callback to schedule an appointment. Lennie Buenrostro 12/13/2023 0951 Called patient again at [phone] and left message for patient to call back to schedule visit with pharmacist. documented in this encounter [employer] 12-13-2023 Telephone encounter Note New referral received from Dr. Melquiades [facility] Patient saw provider on 12/12/2023. Patient has a history of tobacco use 1.5 PPD x 17 years. She has quit using tobacco products for a period of time in the past. At that point she quit on her own without use of nicotine replacement or alternative medications. She was interested in smoking cessation program. Called patient at [phone] and left a voicemail requesting a callback to schedule an appointment. Lennie Buenrostro 12/13/2023 0951 [facility] 12-13-2023 Telephone encounter Note Called patient again at [phone] and left message for patient to call back to schedule visit with pharmacist. [employer] Work Phone: 12-12-2023 History of Presen t [...] form was signed. - Patient lives in [place] - will follow up with SERGIO Coleman in [place] - Will request Pap report from Dr. [...] procedures Referring and communicating with other health home health aide caregiver (not separately reported) Documenting clinical information in the electronic or other health record Independently interpreting results (not separately reported) and communicating results to the patient/family/caregiver Patient seen and examined with Lawanda Eaton MD PGY-4 MELQUIADES WEBER MD documented in this encounter [facility] 12-01-2023 Miscellaneous Notes Left VM to schedule COMMUTATOR PRESSER appt with rooter operator onc, call back number provided. documented in this encounter [facility] 12-01-2023 Telephone encounter Note Left VM to schedule COMMUTATOR PRESSER appt with rooter operator onc, call back number provided. [facility] 02-03-2023 Procedure note [facility] Evaluation note No assessment inform ation available 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, vulva Encounter for postoperative care [facility] Diagnosis Female fertility problem PCOS (polycystic ovarian syndrome) Polycystic ovaries documented in this encounter [facility]* Diagnosis Annual physical exam- Primary Routine general medical examination at a health care facility Ganglion cyst of dorsum of right wrist Irritable bowel syndrome with both constipation and diarrhea Well woman exam with routine gynecological exam Routine gynecological examination [facility] Additional Instructions DISCHARGE INSTRUCTIONS FOR [...] me in 6-8 weeks. Low FODMAP diet [place] [employer] 1 p.o. every morning [employer] 1-2 once or twice a day -Notify the doctor if you have any problems. -Office number [phone] Work Phone: InstructionsNot on filedocumented [...] use cessation counseling Melquiades Weber MD [address] [place] [address] [facility] [address] [place] [address] Referral ID Status Reason Start Date Expiration Date Visits Requested Visits Authorized [id number] Pending Review Specialty Services Required 12/12/2023 12/11/2024 1 1 [facility] Summary Purpose Family History Relationship Condition Age at Onset Recorded Date/T lino Not Specified No pertinent family history Unknown Advance Directives Advance Directive Response Recorded Date/ Time Advance Directives No February 02, 2 023 3:13pm Chief Complaint and Reason for Visit Chief Complaint Alternating, Diarrhe a, Constipation, Abdominal Sylvester Additional Source Comments INFORMATION SOURCE (unrecogn ized section and content) DATE CREATED AUTHOR 05/10/2018 [facility] DATE CREATED AUTHOR AUTHOR'S ORGANIZ ATION 02/13/2023 [facility] DATE CREATED AUTHOR AUTHOR'S ORGANIZ ATION 02/15/2023 [facility] DATE CREATED AUTHOR AUTHOR'S ORGANIZ ATION 12/13/2023 [facility] DATE CREATED AUTHOR AUTHOR'S ORGANIZ ATION 12/28/2023 [facility] DATE CREATED AUTHOR AUTHOR'S ORGANIZ ATION 08/06/2024 [facility] DATE CREATED AUTHOR AUTHOR'S ORGANIZ ATION 11/14/2024 [facility] EPIC Care Teams (unrecognized sec tion and content) Team Status: Active Member Role Status Dates Subhash Caba MD Primary Care Provider Active Team Status: Inactive Member Role Status Dates Omero Cunningham MD Attending Provider Active Subhash Caba MD Primary Care Provider Active Superintendent [employer] Relationship Specialty Start Date End Date Subhash Caba MD [address] [place] [address] PCP - General Family Medicine 12/12/23 [employer] Relationship Specialty Start Date End Date Subhash Caba MD [address] [place] [place] [address] PCP - General Family Medicine 12/12/23 [employer] Relationship Specialty Start Date End Date Subhash Caba MD [address] [facility] [place] [address] PCP - General Family Medicine 12/12/23 [employer] Relationship Specialty Start Date End Date Subhash Caba MD [address] [place] [place] [address] PCP - General Family Medicine 12/12/23 [employer] Relationship Specialty Start Date End Date Subhash Caba MD [address] [place] [phone] PCP - General Family Medicine 02/23/24 [employer] Relationship Specialty Start Date End Date Subhash Caba MD [address] [place] [phone] PCP - General Family Medicine 02/23/24 [employer] Relationship Specialty Start Date End Date Subhash Caba MD [address] [place] [phone] PCP - General Family Medicine 02/23/24 [employer] Relationship Specialty Start Date End Date Subhash Caba MD [address] [place] [phone] PCP - General Family Medicine 02/23/24 [employer] Relationship Specialty Start Date End Date Subhash Caba MD [address] [place] [phone] PCP - General Family Medicine 02/23/24 [employer] Relationship Specialty Start Date End Date Subhash Caba MD [address] [place] [phone] PCP - General Family Medicine 02/23/24 [employer] Relationship Specialty Start Date End Date Subhash Caba MD [address] [place] [phone] PCP - General Family Medicine 02/23/24 Reason [...] BE BASED ON THE PRIMARY CLINICAL RECORDS. [facility] [employer] [facility]. provides no warranty or guarantee of the accuracy or completeness of information in this document.
[2024-11-25 06:37] LABS: Progesterone 15.2 ng/mL (.)
== END 2024-11-23 15:23 | disposition home or self-care (01) ==
LOC: LAB 15:22
PROVIDERS: PCP Family Medicine; Visit Provider Obstetrics & Gynecology
DX: E28.2 Polycystic ovarian syndrome (principal); N97.0 Female infertility associated with anovulation
CPT/HCPCS: 36415; 84144

== ENCOUNTER 2024-12-14 12:54 | Day surgery (SDC) | payer OTHER, SELFPAY ==
--- NOTE | 2024-12-14 13:04 | FL_ITS ---
The [address] [address] Patient Name: SOMMER FABIAN MRN: [id number] date: 1990 Sex: F Assigned Patient Location: [place] Current Patient Location: [place] Accession/Order Number: [id number] Exam Date: 12/14/2024 13:30 Report Date: 12/14/2024 14:27 At the request of: RAMBO URBINA Procedure: FL Hysterosal cath placement EXAMINATION: FL hysterosalpingography, FL Hysterosal cath placement HISTORY: Anovulation, Polycystic Ovarian Syndrome COMPARISON: No relevant comparison available. TECHNIQUE: Informed consent was obtained. A sterile vaginal speculum was introduced and, following cleansing of the cervix, a balloon-tipped catheter was inserted into the endometrial cavity. The procedure was then completed in the usual manner with water-soluble contrast. Standard level fluoroscopic mode of operation utilized. FINDINGS: FALLOPIAN TUBES: Absent right consistent with known hysterectomy. The left fallopian tube was not initially visualized requiring increased pressure. Suspected small proximal tube rupture however the distal fallopian tube did eventually opacify. ENDOMETRIAL CAVITY: No scarring, filling defects, or dilatation. OTHER: Negative. FL/FL Hysterosal cath placement IMPRESSION: Patent left fallopian tube Electronically authenticated by: KAELYN FABIAN Date: 12/14/2024 14:27
--- NOTE | 2024-12-14 13:04 | FL_ITS ---
The [address] [address] Patient Name: SOMMER FABIAN MRN: [id number] date: 1990 Sex: F Assigned Patient Location: [place] Current Patient Location: [place] Accession/Order Number: [id number] Exam Date: 12/14/2024 13:30 Report Date: 12/14/2024 14:27 At the request of: RAMBO URBINA Procedure: FL hysterosalpingography EXAMINATION: FL hysterosalpingography, FL Hysterosal cath placement HISTORY: Anovulation, Polycystic Ovarian Syndrome COMPARISON: No relevant comparison available. TECHNIQUE: Informed consent was obtained. A sterile vaginal speculum was introduced and, following cleansing of the cervix, a balloon-tipped catheter was inserted into the endometrial cavity. The procedure was then completed in the usual manner with water-soluble contrast. Standard level fluoroscopic mode of operation utilized. FINDINGS: FALLOPIAN TUBES: Absent right consistent with known hysterectomy. The left fallopian tube was not initially visualized requiring increased pressure. Suspected small proximal tube rupture however the distal fallopian tube did eventually opacify. ENDOMETRIAL CAVITY: No scarring, filling defects, or dilatation. OTHER: Negative. FL/FL hysterosalpingography IMPRESSION: Patent left fallopian tube Electronically authenticated by: KAELYN FABIAN Date: 12/14/2024 14:27
--- OUTSIDE RECORDS SUMMARY | 2024-12-14 13:15 | XMS_ITS | CCD ---
Author Organization [facility] Care Team Providers Care Corporate Banking Officer Name Role Phone Nill, Eusebio R Unavailable Unavailable Nill, Eusebio R Unavailable Unavailable Nill, Eusebio R Unavailable Unavailable DAKOTAHBETH ABDI Unavailable Unavailable MD Omero Cunningham Attending Provider [phone] MD Subhash Caba Primary Care Provider GERTRUDIS, [...] Primary Care Provider MELQUIADES WEBER Attending Unavailable SUBHSAH CABA Primary Care Unavailable SUBHASH CABA Referring Unavailable SUBHASH CABA Primary Care Unavailable TIA, ANJALIKA Admitting Unavailable MELQUIADES WEBER Attending Unavailable TAI, ANJADIONYKA Referring Unavailable SUBHASH CABA Primary Care [...] (1 source) Morphine Drug Allergy 04-27-2013 [facility] Repository Medications Current Medications Medication Drug Class(es) Dates Sig (Normalized) Sig (Original) acetaminophen 500 mg oral tablet (3 sources) Start: 12-22-2023 take 2 tablets by mouth every eight hours acetaminophen (TYLENOL EXTRA STRENGTH) 500 mg tablet Take 2 tablets (1,000 mg total) by mouth every 8 (eight) hours. 30 tablet 0 12/22/2023 Active albuterol 0.83 mg/ml inhalation solution (12 sources) beta2-Adrenergic Agonist Start: 11-12-2023 albuterol (2.5 [...] 12/27/2023 Active loratadine 10 mg oral tablet (20 sources) Start: 02-29-2024 End: 08-02-2025 take 1 [...] pantoprazole 40 mg delayed release oral tablet (20 sources) Proton Pump Inhibitor Start: 02-29-2024 End: [...] vulva] Onset: 4 01-03-2024 Chronic Esophageal disorders (12 sources) Gastroesophageal reflux disease without esophagitis; Translations: [Gastro-esophageal reflux disease without esophagitis] Onset: 4 02-23-2024 Chronic Female infertility (12 sources) Anovulation; Translations: [Female infertility associated with anovulation] Onset: 4 08-06-2024 Chronic Other aftercare (2 sources) Postoperative visit; Translations: [Encounter for other specified surgical aftercare] 01-03-2024 Episodic Other endocrine disorders (12 sources) Polycystic ovary syndrome; Translations: [Polycystic ovarian syndrome] Onset: 4 08-06-2024 Chronic Other female genital disorders (2 sources) Dysplasia of vulva; Translations: [Dysplasia of vulva, unspecified] 12-12-2023 Episodic Other gastrointestinal disorders (12 sources) Irritable bowel syndrome; Translations: [Mixed irritable [...] Onset: 4 Episodic Other upper respiratory disease (12 sources) Allergic rhinitis due to pollen; Translations: [Allergic rhinitis due to pollen] Onset: 4 02-23-2024 Chronic Unclassified (1 source) VULVAR DYSPLASIA Onset: 4 Past or Other Problems Problem Classification Problem Date Documented Da te Episodic/Chronic Other connective tissue disease (12 sources) Ganglion cyst of right dorsal wrist; Translations: [Ganglion, right wrist] Onset: 02-23-2024 02-23-2024 Episodic Other female genital disorders (1 source) Dysplasia of vulva, unspecified; Translations: [Dysplasia of vulva, unspecified] Onset: 12-19-2023 Episodic Other screening for suspected conditions (not mental disorders or infectious disease) (12 sources) Lesion of vulva; Translations: [Abnormal cytological findings in specimens from other female genital organs] Onset: 11-30-2023 11-30-2023 Episodic Results Test Name Value Interpretation Reference Range Facility ALL PROGESTERONEon 5 PROGESTERONE 15.2 ng/mL . [facility] Comment on above: Follicular phase 0.1 - 0.9 Luteal phase 1.8 - 23.9 Ovulation phase 0.1 - 12.0 First trimester 11.0 - 44.3 Second trimester 25.4 - 83.3 Third trimester 58.7 - 214.0 Postmenopausal 0.0 - 0.1 Performed at: [facility] [address] [id number] Greenskeeper Supervisor: Jose Chaney PhD, Phone: [phone] [facility] IGP,APTIMA HPV,AGE GDLNon AGE GDLN ACOG TESTING Note . [facility] Comment on above: TESTS RESULT FLAG UN ITS REF RANGE LAB Clinician Provided Cytology Information Source.............Cervix No. of containers..01 ThinPrep Vial Age Deuce HUTCHINS Senait... 30 FLAG LEGEND: L-Low Normal,H-High Normal,LL-Alert Low,HH-Alert High <-Panic Low,>-Panic High,A-Abnormal,AA-Critical Abnormal Performed at: 01 =G [address] [place] [address] Myriam Levi MD, HPV APTIMA Negative Negative [facility] Comment on above: This nucleic acid am plification test detects fourteen high- risk HPV types (16,18,31,33,35,39,45,51,52,56,58,59,66,68) without differentiation. Performed at: =G - [address] [id number] Greenskeeper Supervisor: Myriam Levi MD, Phone: [phone] Performed at: - [address] [id number] Greenskeeper Supervisor: Myriam Levi MD, Phone: [phone] IGP, APTIMA HPV, RFX 16/18,45 Note . [facility] Comment on above: TESTS RESULT FLAG UN ITS REF RANGE LAB DIAGNOSIS: 02 NEGATIVE FOR INTRAEPITHELIAL LESION OR MALIGNANCY. THIS SPECIMEN WAS RESCREENED PART OF OUR PSYCHIATRY TEACHER PROGRAM. Specimen adequacy: 02 Satisfactory for evaluation. No endocervical component is identified. Performed by: 02 Dennis Tse, Geothermal Operations Engineer (ASC) QC reviewed by: 02 Aurora Avalos, Geothermal Operations Engineer . 02 Note: Note 02 The Pap [...] High <-Panic Low,>-Panic High,A-Abnormal,AA-Critical Abnormal Performed at: [address] [address] Myriam Levi MD, BRUSH-SPATULA CERVIX [facility] ALL PROGESTERONEon 4 PROGESTERONE 14.2 ng/mL . [facility] Comment on above: Follicular phase 0.1 - 0.9 Luteal phase 1.8 - 23.9 Ovulation phase 0.1 - 12.0 First trimester 11.0 - 44.3 Second trimester 25.4 - 83.3 Third trimester 58.7 - 214.0 Postmenopausal 0.0 - 0.1 Performed at: [address] [id number] Greenskeeper Supervisor: Jose Chaney PhD, Phone: [phone] [facility] ALL PROGESTERONEon 4 PROGESTERONE 12.5 ng/mL . [facility] Comment on above: Follicular phase 0.1 - 0.9 Luteal phase 1.8 - 23.9 Ovulation phase 0.1 - 12.0 First trimester 11.0 - 44.3 Second trimester 25.4 - 83.3 Third trimester 58.7 - 214.0 Postmenopausal 0.0 - 0.1 Performed at: [address] [id number] Greenskeeper Supervisor: Jose Chaney PhD, Phone: [phone] [facility] ALL PROGESTERONEon 4 PROGESTERONE 18.5 ng/mL . [facility] Comment on above: Follicular phase 0.1 - 0.9 Luteal phase 1.8 - 23.9 Ovulation phase 0.1 - 12.0 First trimester 11.0 - 44.3 Second trimester 25.4 - 83.3 Third trimester 58.7 - 214.0 Postmenopausal 0.0 - 0.1 Performed at: [address] [id number] Greenskeeper Supervisor: Jose Chaney PhD, Phone: [phone] [facility] ALL CBC WITH AUTO DIFFon BASOPHILS ABSOLUTE AUTO 0.[address] [facility] Basophils/100 WBC (Bld) 0.4 % 0.2 - 2.0 % [facility] Eosinophils/100 WBC (Bld) 2.5 % 0.9 - 7.0 % [facility] Erythrocyte distribution width (RBC) [Ratio] 12.4 % 11.0 - 15.0 % [facility] Hematocrit (Bld) [Volume fraction] 37.6 % 36.0 - 48.0 % [facility] Hemoglobin (Bld) [Mass/Vol] 12.5 g/dL 12.0 - 16.0 g/dL [facility] IMMATURE GRANULOCYTES ABS AUTO 0.[address] [facility] Immature granulocytes/100 WBC (Bld) 0.1 % 0.0 - 0.5 % [facility] Interpretation and review of laboratory results Abnormal [facility] LYMPHOCYTES ABSOLUTE AUTO 3.[address] [facility] Lymphocytes/100 WBC (Bld) 35.3 % 20.5 - 60.0 % [facility] MCH (RBC) [Entitic mass] 31.9 pg 26.7 - 34.[address] [facility] MCHC (RBC) [Mass/Vol] 33.2 g/dL 29.9 - 35.2 g/dL [facility] MCV (RBC) [Entitic vol] 95.9 fL 81.0 - 99.[address] [facility] MONOCYTES ABSOLUTE AUTO 0.[address] [facility] Monocytes/100 WBC (Bld) 5.3 % 1.7 - 12.0 % [facility] NEUTROPHILS ABSOLUTE AUTO 4.[address] [facility] Neutrophils/100 WBC (Bld) 56.4 % 43.0 - 75.0 % [facility] Platelet mean volume (Bld) [Entitic vol] 10.5 fL 9.5 - 13.[address] [facility] TBH EO # 0.[address] [facility] PLT [address] [facility] TB RBC 3.92 Low [facility] WBC 8.[address] [facility] MR WRIST RIGHT WO IV CONTRAS Ton [...] Anion gap [Moles/Vol] 10 mmol/L Normal 5-15 [facility] Comment on above: Performed By: #### C BCA, BMP, 80171-6, LIVR, 3016-3 #### [facility] ([id number]) [address], [address] [place] [address] Calcium [Mass/Vol] 9.5 mg/dL Normal 8.5-10.5 [facility] Comment on above: Performed By: #### C BCA, BMP, 55773-8, LIVR, 3016-3 #### [facility] ([id number]) [address], [address] [place] [address] Chloride [Moles/Vol] 104 mmol/L Normal 98-109 [facility] Comment on above: Performed By: #### C BCA, BMP, 32384-4, LIVR, 3016-3 #### [facility] ([id number]) [address], [address] [place] [address] CO2 [Moles/Vol] 25 mmol/L Normal 22-32 [facility] Comment on above: Performed By: #### C BCA, BMP, 49331-6, LIVR, 3016-3 #### [facility] ([id number]) [address], [address] [place] [address] Creatinine [Mass/Vol] 0.67 mg/dL Normal 0.40-1.00 [facility] Comment on above: Result Comment: METH OD TRACEABLE TO IDMS STANDARD Performed By: #### C BCA, BMP, 47682-5, LIVR, 3016-3 #### [facility] ([id number]) [address], [address] [place] [address] eGFR (CKD-EPI) NON-RACE DEPENDENT >90 Normal >59 [facility] Comment on above: Result Comment: Reported eGFR is based on the CKD-EPI 2020 equation that does not use a race coefficient. Performed By: #### C BCA, BMP, 18258-3, LIVR, 3016-3 #### [facility] ([id number]) [address], [address] [place] [address] Glucose [Mass/Vol] 75 mg/dL Normal 65-99 [facility] Comment on above: Performed By: #### C BCA, BMP, 24462-2, LIVR, 3016-3 #### [facility] ([id number]) [address], [address] [place] [address] Potassium [Moles/Vol] 3.8 mmol/L Normal 3.5-5.0 [facility] Comment on above: Performed By: #### C BCA, BMP, 79916-1, LIVR, 3016-3 #### [facility] ([id number]) [address], [address] [place] [address] Sodium [Moles/Vol] 139 mmol/L Normal 134-146 [facility] Comment on above: Performed By: #### C BCA, BMP, 76238-5, LIVR, 3015-3 #### [facility] ([id number]) [address], [address] [place] [address] Urea nitrogen [Mass/Vol] 13 mg/dL Normal 5-23 [facility] Comment on above: Performed By: #### C BCA, BMP, 44935-4, LIVR, 6-3 #### [facility] ([id number]) [address] [address] [place] [address] CBC AND AUTO DIFFon 17-20 24 ABSOLUTE BASOPHIL 0.0 X10E9/L Normal 0.0-0.2 [facility] Comment on above: Performed By: #### C BCA, BMP, 99091-9, LIVR, 3016-3 #### [facility] ([id number]) [address], [address] [place] [address] ABSOLUTE NEUTROPHIL 4.3 X10E9/L Normal 1.5-6.6 [facility] Comment on above: Performed By: #### C BCA, BMP, 92565-3, LIVR, 301-3 #### [facility] ([id number]) [address], [address] [place] [address] Basophils/100 WBC (Bld) 0.4 % Normal [facility] Comment on above: Performed By: #### C BCA, BMP, 24808-0, LIVR, 3015- #### [facility] ([id number]) [address], [address] [place] [address] Eosinophils (Bld) [#/Vol] 0.1 10*3/uL Normal 0.0-0.4 [facility] Comment on above: Performed By: #### C BCA, BMP, 95627-9, LIVR, 3016-01 #### [facility] ([id number]) [address] [address] [place] [address] Eosinophils/100 WBC (Bld) 1.6 % Normal [facility] Comment on above: Performed By: #### C BCA, BMP, 38153-7, LIVR, 3015- #### [facility] ([id number]) [address], [address] [place] [address] Erythrocyte distribution width (RBC) [Ratio] 12.9 % Normal 11.5-15.0 [facility] Comment on above: Performed By: #### C BCA, BMP, 27161-0, LIVR, 3015-3 #### [facility] ([id number]) [address], [address] [place] [address] Hematocrit (Bld) [Volume fraction] 36.5 % Normal 35-47 [facility] Comment on above: Performed By: #### C BCA, BMP, 50863-8, LIVR, 3016-01 #### [facility] ([id number]) [address], [address] [place] [address] Hemoglobin (Bld) [Mass/Vol] 12.5 g/dL Normal 11.7-15.5 [facility] Comment on above: Performed By: #### C BCA, BMP, 35865-7, LIVR, 3015- #### [facility] ([id number]) [address], [address] [place] [address] Lymphocytes (Bld) [#/Vol] 3.3 10*3/uL Normal 1.0-3.5 [facility] Comment on above: Performed By: #### C BCA, BMP, 53890-9, LIVR, 3016-01 #### [facility] ([id number]) [address], [address] [place] [address] Lymphocytes/100 WBC (Bld) 40.3 % Normal [facility] Comment on above: Performed By: #### C BCA, BMP, 72598-9, LIVR, 3016-01 #### [facility] ([id number]) [address], [address] [place] [address] MCH (RBC) [Entitic mass] 32.1 pg Normal 27-34 [facility] Comment on above: Performed By: #### C BCA, BMP, 01728-0, LIVR, 3016-01 #### [facility] ([id number]) [address], [address] [place] [address] MCHC (RBC) [Mass/Vol] 34.3 g/dL Normal 32-36 [facility] Comment on above: Performed By: #### C BCA, BMP, 18251-9, LIVR, 3015- #### [facility] ([id number]) [address], [address] [place] [address] MCV (RBC) [Entitic vol] 94 fL Normal 80-100 [facility] Comment on above: Performed By: #### C BCA, BMP, 69637-0, LIVR, 3016-3 #### [facility] ([id number]) [address], [address] [place] [address] Monocytes (Bld) [#/Vol] 0.4 10*3/uL Normal 0-0.9 [facility] Comment on above: Performed By: #### C BCA, BMP, 60027-5, LIVR, 6- #### [facility] ([id number]) [address], [address] [place] [address] Monocytes/100 WBC (Bld) 4.9 % Normal [facility] Comment on above: Performed By: #### C BCA, BMP, 26864-9, LIVR, 301- #### [facility] ([id number]) [address], [address] [place] [address] Neutrophils/100 WBC (Bld) 52.8 % Normal [facility] Comment on above: Performed By: #### C BCA, BMP, 81107-7, LIVR, 3016-01 #### [facility] ([id number]) [address], [address] [place] [address] Platelet mean volume (Bld) [Entitic vol] 9.7 fL Normal 7-12 [facility] Comment on above: Performed By: #### C BCA, BMP, 20157-1, LIVR, 6- #### [facility] ([id number]) [address], [address] [place] [address] Platelets (Bld) [#/Vol] 254 10*3/uL Normal 150-450 [facility] Comment on above: Performed By: #### C BCA, BMP, 68774-6, LIVR, 3016-3 #### [facility] ([id number]) [address] [address] [place] [address] RBC COUNT 3.90 X10E12/L Normal 3.80-5.20 [facility] Comment on above: Performed By: #### C MARIO, ALLY, 65238-0, LIVR, 3016-3 #### [facility] ([id number]) [address] [address] [place] [address] WBC (Bld) [#/Vol] 8.2 10*3/uL Normal 4.0-11.0 [facility] Comment on above: Performed By: #### C MARIO, ALLY, 09289-3, LIVR, 6-3 #### [facility] ([id number]) [address] [address] [place] [address] HGB A1C (GLYCO-HGB)on 2023 Glucose [Mass/Vol] 103 mg/dL Normal [facility] Comment on above: Performed By: #### C MARIO, ALLY, 71255-1, LIVR, 63 #### [facility] ([id number]) [address] [address] [place] [address] HbA1c (Bld) [Mass fraction] 5.2 % Normal 4.4-5.6 [facility] Comment on above: Result Comment: NOTE ADA Guidelines Result HgbA1c Normal : less than 5.7 % Prediabetes : 5.7 % to 6.4 % Diabetes : > 6.4 % Use with caution in patients with abnormal hemoglobin variants as the half-life of red blood cells and in vivo glycation rates are affected. Performed By: #### C BCA, BMP, 74863-9, LIVR, 3016-3 #### [facility] ([id number]) [address] [place] [address] LIVER PANELon 02-29-2024 Albumin [Mass/Vol] 4.5 g/dL Normal 3.2-5.3 [facility] Comment on above: Performed By: #### C BCA, BMP, 86914-9, LIVR, 3016-3 #### [facility] ([id number]) [address] [place] [address] ALP [Catalytic activity/Vol] 84 U/L Normal 39-130 [facility] Comment on above: Performed By: #### C BCA, BMP, 52183-2, LIVR, 3016-3 #### [facility] ([id number]) [address] [place] [address] ALT [Catalytic activity/Vol] 23 U/L Normal 0-31 [facility] Comment on above: Performed By: #### C BCA, BMP, 69558-6, LIVR, 3016-3 #### [facility] ([id number]) [address], [address] [place] [address] AST [Catalytic activity/Vol] 19 U/L Normal 0-41 [facility] Comment on above: Performed By: #### C BCA, BMP, 82325-3, LIVR, 3016-3 #### [facility] ([id number]) [address] [place] [address] Bilirubin [Mass/Vol] 0.5 mg/dL Normal 0.3-1.2 [facility] Comment on above: Performed By: #### C BCA, BMP, 27936-2, LIVR, 3016-3 #### [facility] ([id number]) [address] [place] [address] Bilirubin.direct [Mass/Vol] 0.1 mg/dL Normal 0.0-0.4 [facility] Comment on above: Performed By: #### C BCA, BMP, 85692-1, LIVR, 3016-3 #### [facility] ([id number]) [address] [place] [address] Protein [Mass/Vol] 8.1 g/dL High 6.0-8.0 [facility] Comment on above: Performed By: #### C MARIO, ALLY, 85546-5, LIVR, 3016-3 #### [facility] ([id number]) [address] [address] [place] [address] Lipid 1996 panelon 4 Cholesterol [Mass/Vol] 197 mg/dL Normal 150-200 [facility] Comment on above: Performed By: #### C MARIO, BMP, 41359-4, LIVR, 3016-3 #### [facility] ([id number]) [address] [address] Cholesterol in HDL [Mass/Vol] 50 mg/dL Normal >39 [facility] Comment on above: Result Comment: HDL <40 mg/dL - High Risk HDL > or = 40mg/dL- Desirable HDL >60 mg/dL - Negative Risk Performed By: #### Billy MARTIN, ALLY, 77755-9, LIVR, 3016-3 #### [facility] ([id number]) [address] [facility] [address] [place] [address] Cholesterol in LDL [Mass/Vol] 130 mg/dL High <130 [facility] Comment on above: Result Comment: LDL <100 mg/dL - Desirable LDL >160 mg/dL - High Risk Performed By: #### Billy BCA, BMP, 66104-2, LIVR, 3016-3 #### [facility] ([id number]) [address], [address] [place] [address] Cholesterol in VLDL [Mass/Vol] 17 mg/dL Normal 0-30 [facility] Comment on above: Performed By: #### C BCA, BMP, 51066-4, LIVR, 3016-3 #### [facility] ([id number]) [address], [address] [place] [address] CHOLESTEROL:HDL 3.9 Normal 1.0-5.0 [facility] Comment on above: Performed By: #### C BCA, BMP, 81552-9, LIVR, 3016-3 #### [facility] ([id number]) [address] [place] [address] Triglyceride [Mass/Vol] 85 mg/dL Normal 27-150 [facility] Comment on above: Performed By: #### C BCA, BMP, 77390-9, LIVR, 3016-3 #### [facility] ([id number]) [address] [place] [address] TSH Qnon 02-29-2024 TSH 2.50 uIU/mL Normal 0.49-4.67 [facility] Comment on above: Performed By: #### C BCA, BMP, 95608-9, LIVR, 3016-3 #### [facility] ([id number]) [address] [place] [address] HCG ( test) Ql (U)o n 12-22-2023 Beta HCG ( test) Ql (U) Negative Normal NEG [facility] Comment on above: Performed By: #### 2 106-3 #### [facility] ([id number]) [address] [place] [address] Surgical Pathologyon 024 Surgical Pathology Normal [facility] Comment on above: Result Comment: [facility] [address] [place] [address] Surgical Pathology Consultation Patient Name:ELISHA COLBERT Alla:1990 (Age: 32)Gender:FTaken:12/22/2023eported:2023hysician(s):Melquiades Weber MD ([phone])Copy To: Rec. 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 Clinical History Vulvar dysplasia. Gross Description Received [...] to the 6:00 tip in cassette F. (6,ns,[id number], m6) . /12/22/2023GR Microscopic Findings Microscopic examination performed. Specimen(s) Received Left vulva Fee Codes(s): 1; 31030 COMPLETE BLOOD COUNTon 12-19 Erythrocyte distribution width (RBC) [Ratio] 13.3 % Normal 11.5-15.0 [facility] Comment on above: Performed By: #### C BALDO, CMP #### [facility] ([id number]) [address] [place] [address] Hematocrit (Bld) [Volume fraction] 36.4 % Normal 35-47 [facility] Comment on above: Performed By: #### C BALDO, CMP #### [facility] ([id number]) [address] [place] [address] Hemoglobin (Bld) [Mass/Vol] 12.2 g/dL Normal 11.7-15.5 [facility] Comment on above: Performed By: #### C BALDO, CMP #### [facility] ([id number]) [address] [place] [address] MCH (RBC) [Entitic mass] 31.4 pg Normal 27-34 [facility] Comment on above: Performed By: #### Billy BLAND, CMP #### [facility] ([id number]) [address] [place] [address] MCHC (RBC) [Mass/Vol] 33.5 g/dL Normal 32-36 [facility] Comment on above: Performed By: #### C BALDO, CMP #### [facility] ([id number]) [address] [place] [address] MCV (RBC) [Entitic vol] 94 fL Normal 80-100 [facility] Comment on above: Performed By: #### C BALDO, CMP #### [facility] ([id number]) [address] [place] [address] Platelet mean volume (Bld) [Entitic vol] 9.8 fL Normal 7-12 [facility] Comment on above: Performed By: #### Billy BLAND, CMP #### [facility] ([id number]) [address] [place] [address] Platelets (Bld) [#/Vol] 226 10*3/uL Normal 150-450 [facility] Comment on above: Performed By: #### C BALDO, CMP #### [facility] ([id number]) [address] [place] [address] RBC COUNT 3.89 X10E12/L Normal 3.80-5.20 [facility] Comment on above: Performed By: #### C BALDO, CMP #### [facility] ([id number]) [address] [place] [address] WBC (Bld) [#/Vol] 11.0 10*3/uL Normal 4.0-11.0 [facility] Comment on above: Performed By: #### Billy BLAND, CMP #### [facility] ([id number]) [address] [place] [address] COMPREHENSIVE METABOLIC PANE Christoph 12-19-2023 Albumin [Mass/Vol] 4.3 g/dL Normal 3.2-5.3 [facility] Comment on above: Performed By: #### Billy BLAND, CMP #### [facility] ([id number]) [address] [place] [address] ALP [Catalytic activity/Vol] 65 U/L Normal 39-130 [facility] Comment on above: Performed By: #### Billy BLAND, CMP #### [facility] ([id number]) [address] [place] [address] ALT [Catalytic activity/Vol] 14 U/L Normal 0-31 [facility] Comment on above: Performed By: #### Billy BLAND, CMP #### [facility] ([id number]) [address], [address] [place] [address] Anion gap [Moles/Vol] 10 mmol/L Normal 5-15 [facility] Comment on above: Performed By: #### Billy BLAND, CMP #### [facility] ([id number]) [address], [address] [place] [address] AST [Catalytic activity/Vol] 14 U/L Normal 0-41 [facility] Comment on above: Performed By: #### C BC, CMP #### [facility] ([id number]) [address], [address] [place] [address] Bilirubin [Mass/Vol] 0.4 mg/dL Normal 0.3-1.2 [facility] Comment on above: Performed By: #### C BALDO, CMP #### [facility] ([id number]) [address], [address] [place] [address] Calcium [Mass/Vol] 9.6 mg/dL Normal 8.5-10.5 [facility] Comment on above: Performed By: #### Billy BLAND, CMP #### [facility] ([id number]) [address], [address] [place] [address] Chloride [Moles/Vol] 106 mmol/L Normal 98-109 [facility] Comment on above: Performed By: #### Billy BLAND, CMP #### [facility] ([id number]) [address] [place] [address] CO2 [Moles/Vol] 24 mmol/L Normal 22-32 [facility] Comment on above: Performed By: #### Billy BLAND, CMP #### [facility] ([id number]) [address], [address] [place] [address] Creatinine [Mass/Vol] 0.70 mg/dL Normal 0.40-1.00 [facility] Comment on above: Result Comment: METH OD TRACEABLE TO IDMS STANDARD Performed By: #### C BC, CMP #### [facility] ([id number]) [address], [address] [place] [address] eGFR (CKD-EPI) NON-RACE DEPENDENT >90 Normal >59 [facility] Comment on above: Result Comment: Reported eGFR is based on the CKD-EPI 2020 equation that does not use a race coefficient. Performed By: #### C BALDO, CMP #### [facility] ([id number]) [address], [address] [place] [address] Glucose [Mass/Vol] 79 mg/dL Normal 65-99 [facility] Comment on above: Performed By: #### C BC, CMP #### [facility] ([id number]) [address] [address] [place] [address] Potassium [Moles/Vol] 3.7 mmol/L Normal 3.5-5.0 [facility] Comment on above: Performed By: #### C BALDO, CMP #### [facility] ([id number]) [address], [address] [place] [address] Protein [Mass/Vol] 7.7 g/dL Normal 6.0-8.0 [facility] Comment on above: Performed By: #### C BALDO, CMP #### [facility] ([id number]) [address] [place] [address] Sodium [Moles/Vol] 140 mmol/L Normal 134-146 [facility] Comment on above: Performed By: #### C BALDO, CMP #### [facility] ([id number]) [address] [address] [place] [address] Urea nitrogen [Mass/Vol] 12 mg/dL Normal 5-23 [facility] Comment on above: Performed By: #### C BC, CMP #### [facility] ([id number]) [address] [place] [address] Cytology Cervical or vaginal smear or scraping studyOrdered By: Cathy Blum on 11-02-[address] [facility] LACTOFERRIN FECAL QUANTon Lactoferrin, Fecal, Quant. <1.00 Normal 0.00-7.24 [facility] Comment on above: Result Comment: Re [...] (IBS). Performed By: #### L ACTFQ #### [facility] [address] [address] [address] Susana Rivrea PANCREATIC ELASTASE FECALon 02-04-2023 Pancreatic Elastase, Fecal 292 ug Elast./g Normal >200 [facility] Comment on above: Result Comment: Elaina re Pancreatic Insufficiency: <100 Moderate Pancreatic Insufficiency: 100 - 200 Normal: >200 Performed By: #### L IVER, TSH, LIPID, BMP #### [facility] [address] [place] [address] Dr. Susana Rivera HCG ( test) IA.rapi d Ql (U)Ordered By: Omero Cunningham on 02-03-2023 HCG ( test) Ql (U) Negative [facility] HCG,Urineon 02-03-2023 Beta HCG ( test) Ql (U) Negative Normal [facility] Comment on above: Result Comment: PERF ORMED BY: [place] [address] PATHOLOGIST [employer] STITCHER JAIRO LEYVA M.D. Performed By: #### U HCG #### [address] [id number] [place] Christoph 02-03-2023 L - -------- Specimen: [id number] Received: 02/03/23 Status: KEVIN Meza Num: [id number] Spec Type: Surgical Subm Dr: Omero Cunningham MD Tissues: A Duodenum - Biopsy (DUODENUM BX) B Esophagus Biopsy (ESOPHAGEAL BX) C Colon Biopsy (RANDOM COLON BX) Procedures: HE/6, Gross/Micro L4/3 -------- Age/ Patient Sex Location Account Attending Physician -------- Elisha Colbert 32/F [id number] Omero Cunningham MD -------- SPEC NUM: [id number] RECD: 02/03/23 STATUS: KEVIN MEZA NUM: [id number] STEFFANY: 02/03/23- [facility] DR: Omero Cunningham MD ENTERED: 02/03/[address]: SPEC TYPE: Surgical DEPT: S ORDERED: [...] - Negative for epithelial dysplasia. -------- Specimen: [id number] Received: 02/03/23 Status: KEVIN Taylor Num: [id number] Spec Type: Surgical Subm Dr: Omero Cunningham MD Tissues: A Duodenum - Biopsy (DUODENUM BX) B Esophagus Biopsy (ESOPHAGEAL BX) C Colon Biopsy (RANDOM COLON BX) Procedures: HE/6, Gross/Micro L4/3 -------- Patient: Elisha Colbert [id number] (Continued) -------- Specimen: Received: 02/03/23 (Continued) Signed (signature on file) Nan Lawler MD 02/04/23 1110 -------- Specimen: Received: 02/03/23 Status: KEVIN Taylor Num: [id number] Spec Type: Surgical Subm Dr: Omero Cunningham MD Tissues: A Duodenum - Biopsy (DUODENUM BX) B Esophagus Biopsy (ESOPHAGEAL BX) C Colon Biopsy (RANDOM COLON BX) Procedures: HE/6, Gross/Micro L4/3 -------- Patient: Elisha Colbert [id number] (Continued) -------- Specimen: Received: 02/03/23 (Continued) Clinical Information Diarrhea, constipation, [...] support the above pathologic diagnosis. CPT Codes 07704?3 ----- (more content not included)... Normal [facility] BOWEL DISORDERS EVALUATION R ULE-OUT CASCon 02-02-2023 Atypical pANCA Negative Normal Negative [facility] Comment on above: Performed By: #### B DERC #### [facility] [address] [address] [address] Susana Rivera Note: Comment Normal [facility] Comment on above: Result Comment: Sugg estive of Crohn's disease. Subsequent testing with the Crohn's Disease Prognostic Profile (197242) that includes antiglycan antibodies AMCA, ALCA, ACCA, and Segundo may aid in the differentiation of clinical forms of CD and prognosis of disease progression. Performed By: #### B DER #### [facility] [address] [address] [address] Susana Rivera Saccharomyces Cer. IgG 34.3 Units Critically high 0.0-24.9 [facility] Comment on above: Result Comment: Nega tive <20.0 Equivocal 20.1 - 24.9 Positive >or= 25.0 Performed By: #### B DERC #### [facility] [address] [place] [address] Dr. Susana Rivera tTG/DGP SCR Negative Normal Negative [facility] Comment on above: Result Comment: Ef fective February 04, 2023 this profile will be made non-orderable due to non-availability of reagents for tTG/DGP Combo. No replacement number is available at this time. For further information, please contact your local [facility]. Performed By: #### B DERC #### [facility] [address] [place] [address] Dr. Susana Rivera CALPROTECTIN, FECALon 2022 Calprotectin, Fecal 20 ug/g Normal 0-120 [facility] Comment on above: Result Comment: Conc entration Interpretation Follow-Up <16 - 50 ug/g Normal None >50 -120 ug/g Borderline Re-evaluate in 4-6 weeks >120 ug/g Abnormal Repeat as clinically indicated Performed By: #### L IVER, TSH, LIPID, BMP #### [facility] [address] [place] [address] Dr. Susana Rivera CHROMOGRANIN Aon 02-02-2023 Chromogranin A 85.4 ng/mL Normal 0.0-101.8 [facility] Comment on above: Result Comment: Resident Care Coordinator mogranin A performed by [employer] methodology . Values obtained with different assay methods or kits cannot be used interchangeably. Performed By: #### C HROMOA #### [facility] [address] [place] [address] Dr. Susana Rivera CBC AUTO DIFFon 01-29-2023 BASO # 0.0 103/ul Normal 0.0-0.1 [facility] Comment on above: Performed By: #### C BC #### [facility] [address] [place] [address] Dr. Susana Rivera Basophils/100 WBC (Bld) 0.3 % Normal 0.2-2.0 [facility] Comment on above: Performed By: #### C BC #### [facility] [address] [place] [address] Dr. Susana Rivera EO # 0.2 103/ul Normal 0.0-0.7 [facility] Comment on above: Performed By: #### C BC #### [facility] [address] [place] [address] Dr. Susana Rivera Eosinophils/100 WBC (Bld) 3.3 % Normal 0.9-7.0 [facility] Comment on above: Performed By: #### C BC #### [facility] [address] [place] [address] Dr. Susana Rivera Erythrocyte distribution width (RBC) [Ratio] 12.3 % Normal 11.0-15.0 [facility] Comment on above: Performed By: #### C BC #### [facility] [address] [place] [address] Dr. Susana Rivera Hematocrit (Bld) [Volume fraction] 36.9 % Normal 36.0-48.0 [facility] Comment on above: Performed By: #### C BC #### [facility] [address] [place] [address] Dr. Susana Rivera Hemoglobin (Bld) [Mass/Vol] 12.2 g/dL Normal 12.0-16.0 [facility] Comment on above: Performed By: #### C BC #### [facility] [address] [place] [address] Dr. Susana Rivera IG # 0.01 10e3/ul Normal 0.00-0.03 [facility] Comment on above: Performed By: #### C BC #### [facility] [address] [place] [address] Dr. Susana Rivera IG % 0.2 % Normal 0.0-0.5 [facility] Comment on above: Performed By: #### C BC #### [facility] [address] [place] [address] Dr. Susana Rivera LYMPH # 2.8 103/ul Normal 1.2-3.8 [facility] Comment on above: Performed By: #### C BC #### [facility] [address] [place] [address] Dr. Susana Rivera Lymphocytes/100 WBC (Bld) 42.0 % Normal 20.5-60.0 [facility] Comment on above: Performed By: #### C BC #### [facility] [address] [place] [address] Dr. Susana Rivera MANUAL DIFF REQ NO Normal [facility] Comment on above: Performed By: #### C BC #### [facility] [address] [place] [address] Dr. Susana Rivera MCH (RBC) [Entitic mass] 31.2 pg Normal 26.7-34.0 [facility] Comment on above: Performed By: #### C BC #### [facility] [address] [place] [address] Dr. Susana Rivera MCHC (RBC) [Mass/Vol] 33.1 g/dL Normal 29.9-35.2 [facility] Comment on above: Performed By: #### C BC #### [facility] [address] [place] [address] Dr. Susana Rivera MCV (RBC) [Entitic vol] 94.4 fL Normal 81.0-99.0 [facility] Comment on above: Performed By: #### C BC #### [facility] [address] [place] [address] Dr. Susana Rivera MONO # 0.4 103/ul Normal 0.3-0.8 [facility] Comment on above: Performed By: #### C BC #### [facility] [address] [place] [address] Dr. Susana Rivera Monocytes/100 WBC (Bld) 6.5 % Normal 1.7-12.0 [facility] Comment on above: Performed By: #### C BC #### [facility] [address] [place] [address] Dr. Susana Rivera NEUT # 3.1 103/ul Normal 1.4-6.5 [facility] Comment on above: Performed By: #### C BC #### [facility] [address] [place] [address] Dr. Susana Rivera Neutrophils/100 WBC (Bld) 47.7 % Normal 43.0-75.0 [facility] Comment on above: Performed By: #### C BC #### [facility] [address] [place] [address] Dr. Susana Rivera Platelet mean volume (Bld) [Entitic vol] 11.0 fL Normal 9.5-13.5 [facility] Comment on above: Performed By: #### C BC #### [facility] [address] [place] [address] Dr. Susana Rivera PLT 213 103/ul Normal 150-450 [facility] Comment on above: Performed By: #### C BC #### [facility] [address] [place] [address] Dr. Susana Rivera RBC 3.91 106/ul Critically low 4.20-5.40 [facility] Comment on above: Performed By: #### C BC #### [facility] [address] [place] [address] Dr. Susana Rivera WBC 6.6 103/ul Normal 4.0-11.0 [facility] Comment on above: Performed By: #### C BC #### [facility] [address] [place] [address] Dr. Susana Rivera FREE T4on 01-29-2023 Free T4 [Mass/Vol] 0.92 ng/dL Normal 0.76-1.46 [facility] Comment on above: Performed By: #### L IVER, TSH, LIPID, BMP #### [facility] [address] [place] [address] Dr. Susana Rivera PROF 14(COMP METB)on 023 Albumin [Mass/Vol] 3.6 g/dL Normal 3.4-5.0 [facility] Comment on above: Performed By: #### L IVER, TSH, LIPID, BMP #### [facility] [address] [address] [address] Susana Rivera Albumin/Globulin [Mass ratio] 0.8 {ratio} Normal [facility] Comment on above: Performed By: #### L IVER, TSH, LIPID, BMP #### [facility] [address] [address] [address] Susana Rivera ALP [Catalytic activity/Vol] 75 U/L Normal 46-116 [facility] Comment on above: Performed By: #### L IVER, TSH, LIPID, BMP #### [facility] [address] [address] [address] Susana Rivera ALT [Catalytic activity/Vol] 24 U/L Normal 14-59 [facility] Comment on above: Performed By: #### L IVER, TSH, LIPID, BMP #### [facility] [address] [place] [address] Dr. Susana Rivera Anion gap [Moles/Vol] 12.5 mmol/L Normal [facility] Comment on above: Performed By: #### L IVER, TSH, LIPID, BMP #### [facility] [address] [place] [address] Dr. Susana Rivera AST [Catalytic activity/Vol] 14 U/L Critically low 15-37 [facility] Comment on above: Performed By: #### L IVER, TSH, LIPID, BMP #### [facility] [address] [place] [address] Dr. Susana Rivera Bilirubin [Mass/Vol] 0.3 mg/dL Normal 0.2-1.0 [facility] Comment on above: Performed By: #### L IVER, TSH, LIPID, BMP #### [facility] [address] [place] [address] Dr. Susana Rivera Calcium [Mass/Vol] 9.2 mg/dL Normal 8.5-10.1 [facility] Comment on above: Performed By: #### L IVER, TSH, LIPID, BMP #### [facility] [address] [address] [address] Susana Rivera Chloride [Moles/Vol] 106 mmol/L Normal 98-107 [facility] Comment on above: Performed By: #### L IVER, TSH, LIPID, BMP #### [facility] [address] [address] [address] Susana Rivera CO2 [Moles/Vol] 25.6 mmol/L Normal 21.0-32.0 [facility] Comment on above: Performed By: #### L IVER, TSH, LIPID, BMP #### [facility] [address] [place] [address] Dr. Susana Rivera Creatinine [Mass/Vol] 0.58 mg/dL Normal 0.55-1.02 [facility] Comment on above: Performed By: #### L IVER, TSH, LIPID, BMP #### [facility] [address] [place] [address] Dr. Susana Rivera EGFR-AF ICELANDIC >60 Normal >=60 [facility] Comment on above: Performed By: #### L IVER, TSH, LIPID, BMP #### [facility] [address] [place] [address] Dr. Susana Rivera EGFR-NON AF ICELANDIC >60 Normal >=60 [facility] Comment on above: Performed By: #### L IVER, TSH, LIPID, BMP #### [facility] [address] [place] [address] Dr. Susana Rivera Globulin (S) [Mass/Vol] 4.3 g/dL Normal [facility] Comment on above: Performed By: #### L IVER, TSH, LIPID, BMP #### [facility] [address] [place] [address] Dr. Susana Rivera Glucose [Mass/Vol] 93 mg/dL Normal 74-106 [facility] Comment on above: Performed By: #### L IVER, TSH, LIPID, BMP #### [facility] [address] [place] [address] Dr. Susana Rivera Potassium [Moles/Vol] 4.1 mmol/L Normal 3.5-5.1 [facility] Comment on above: Performed By: #### L IVER, TSH, LIPID, BMP #### [facility] [address] [place] [address] Dr. Susana Rivera Protein [Mass/Vol] 7.9 g/dL Normal 6.4-8.2 [facility] Comment on above: Performed By: #### L IVER, TSH, LIPID, BMP #### [facility] [address] [place] [address] Dr. Susana Rivera Sodium [Moles/Vol] 140 mmol/L Normal 136-145 [facility] Comment on above: Performed By: #### L IVER, TSH, LIPID, BMP #### [facility] [address] [place] [address] Dr. Susana Rivera Urea nitrogen [Mass/Vol] 10.0 mg/dL Normal 7.0-18.0 [facility] Comment on above: Performed By: #### L IVER, TSH, LIPID, BMP #### [facility] [address] [place] [address] Dr. Susana Rivera Urea nitrogen/Creatinine [Mass ratio] 17.2 mg/mg Normal [facility] Comment on above: Performed By: #### L IVER, TSH, LIPID, BMP #### [facility] [address] [place] [address] Dr. Susana Rivera PROTIMEon 01-29-2023 INR Coag (PPP) [Relative time] 0.94 {INR} Normal [facility] Comment on above: Performed By: #### L IVER, TSH, LIPID, BMP #### [facility] [address] [place] [address] Dr. Susana Rivera INR GUIDELINES SEE BELOW Normal [facility] Comment on above: Result Comment: REYMUNDO RED INR: 2.0 - 3.0 CONDITIONS NOT LISTED BELOW 2.5 - 3.5 FOR PROSTHETIC HEART VALVE REPLACEMENT 2.5 - 3.5 RECURRENT THROMBOSIS Performed By: #### L IVER, TSH, LIPID, BMP #### [facility] [address] [place] [address] Dr. Susana Rivera PT Coag (PPP) [Time] 10.0 s Normal 9.0-11.6 [facility] Comment on above: Performed By: #### L IVER, TSH, LIPID, BMP #### [facility] [address] [place] [address] Dr. Susana Rivera TSHon 01-29-2023 TSH 1.619 uIU/mL Normal 0.358-3.740 [facility] Comment on above: Performed By: #### L IVER, TSH, LIPID, BMP #### [facility] [address] [place] [address] Dr. Susana Rivera CBC AUTO DIFFon 07-22-2022 BASO # 0.0 103/ul Normal 0.0-0.1 [facility] Comment on above: Performed By: #### C BC #### [facility] [address] [place] [address] Dr. Susana Rivera Basophils/100 WBC (Bld) 0.3 % Normal 0.2-2.0 [facility] Comment on above: Performed By: #### C BC #### [facility] [address] [place] [address] Dr. Susana Rivera EO # 0.2 103/ul Normal 0.0-0.7 [facility] Comment on above: Performed By: #### C BC #### [facility] [address] [place] [address] Dr. Susana Rivera Eosinophils/100 WBC (Bld) 2.3 % Normal 0.9-7.0 [facility] Comment on above: Performed By: #### C BC #### [facility] [address] [place] [address] Dr. Susana Rivera Erythrocyte distribution width (RBC) [Ratio] 12.3 % Normal 11.0-15.0 [facility] Comment on above: Performed By: #### C BC #### [facility] [address] [place] [address] Dr. Susana Rivera Hematocrit (Bld) [Volume fraction] 38.6 % Normal 36.0-48.0 [facility] Comment on above: Performed By: #### C BC #### [facility] [address] [place] [address] Dr. Susana Rivera Hemoglobin (Bld) [Mass/Vol] 12.4 g/dL Normal 12.0-16.0 [facility] Comment on above: Performed By: #### C BC #### [facility] [address] [place] [address] Dr. Susana Rivera IG # 0.02 10e3/ul Normal 0.00-0.03 [facility] Comment on above: Performed By: #### C BC #### [facility] [address] [place] [address] Dr. Susana Rivera IG % 0.2 % Normal 0.0-0.5 [facility] Comment on above: Performed By: #### C BC #### [facility] [address] [place] [address] Dr. Susana Rivera LYMPH # 3.3 103/ul Normal 1.2-3.8 [facility] Comment on above: Performed By: #### C BC #### [facility] [address] [place] [address] Dr. Susana Rivera Lymphocytes/100 WBC (Bld) 32.0 % Normal 20.5-60.0 [facility] Comment on above: Performed By: #### C BC #### [facility] [address] [place] [address] Dr. Susana Rivera MANUAL DIFF REQ NO Normal [facility] Comment on above: Performed By: #### C BC #### [facility] [address] [place] [address] Dr. Susana Rivera MCH (RBC) [Entitic mass] 30.7 pg Normal 26.7-34.0 [facility] Comment on above: Performed By: #### C BC #### [facility] [address] [place] [address] Dr. Susana Rivera MCHC (RBC) [Mass/Vol] 32.1 g/dL Normal 29.9-35.2 [facility] Comment on above: Performed By: #### C BC #### [facility] [address] [place] [address] Dr. Susana Rivera MCV (RBC) [Entitic vol] 95.5 fL Normal 81.0-99.0 [facility] Comment on above: Performed By: #### C BC #### [facility] [address] [address] [address] Susana Rivera MONO # 0.6 103/ul Normal 0.3-0.8 [facility] Comment on above: Performed By: #### C BC #### [facility] [address] [address] [address] Susana Rivera Monocytes/100 WBC (Bld) 5.9 % Normal 1.7-12.0 [facility] Comment on above: Performed By: #### C BC #### [facility] [address] [address] [address] Susana Rivera NEUT # 6.2 103/ul Normal 1.4-6.5 [facility] Comment on above: Performed By: #### C BC #### [facility] [address] [place] [address] Dr. Susana Rivera Neutrophils/100 WBC (Bld) 59.3 % Normal 43.0-75.0 [facility] Comment on above: Performed By: #### C BC #### [facility] [address] [address] [address] Susana Rivera Platelet mean volume (Bld) [Entitic vol] 11.2 fL Normal 9.5-13.5 [facility] Comment on above: Performed By: #### C BC #### [facility] [address] [address] [address] Susana Rivera PLT 235 103/ul Normal 150-450 [facility] Comment on above: Performed By: #### C BC #### [facility] [address] [address] [address] Susana Rivera RBC 4.04 106/ul Critically low 4.20-5.40 [facility] Comment on above: Performed By: #### C BC #### [facility] [address] [address] [address] Susana Rivera WBC 10.4 103/ul Normal 4.0-11.0 [facility] Comment on above: Performed By: #### C BC #### [facility] [address] [address] [address] Susana Rivera GLYCOHEMOGLOBIN A1Con 2021 ADA RECOMMENDATION SEE BELOW Normal [facility] Comment on above: Result Comment: ADA RECOMMENDED LIMIT 4.0 - 6.0 ADA THERAPEUTIC TARGET < 7.0 ACTION SUGGESTED > 7.0 Performed By: #### A 1C #### [facility] [address] [address] [address] Susana Rivera Glucose [Mass/Vol] 105 mg/dL Normal [facility] Comment on above: Performed By: #### A 1C #### [facility] [address] [address] [address] Susana Rivera HbA1c (Bld) [Mass fraction] 5.3 % Normal 4.5-6.2 [facility] Comment on above: Performed By: #### A 1C #### [facility] [address] [place] [address] Dr. Susana Rivera LIPID PROFILEon 07-22-2022 CHOL-HDL RATIO NORM SEE BELOW Normal [facility] Comment on above: Result Comment: 3.3 - 4.4 LOW RISK 4.4 - 7.1 AVERAGE RISK 7.1 - 11.0 MODERATE RISK >11.0 HIGH RISK Performed By: #### L IVER, TSH, LIPID, BMP #### [facility] [address] [place] [address] Dr. Susana Rivera Cholesterol [Mass/Vol] 193 mg/dL Normal <=200 [facility] Comment on above: Performed By: #### L IVER, TSH, LIPID, BMP #### [facility] [address] [place] [address] Dr. Susana Rivera Cholesterol in HDL [Mass/Vol] 45 mg/dL Normal 40-60 [facility] Comment on above: Performed By: #### L IVER, TSH, LIPID, BMP #### [facility] [address] [address] [address] Susana Rivera Cholesterol in LDL [Mass/Vol] 121.0 mg/dL Normal [facility] Comment on above: Performed By: #### L IVER, TSH, LIPID, BMP #### [facility] [address] [address] [address] Susana Rivera Cholesterol.total/Ch olesterol in HDL [Mass ratio] 4.3 {ratio} Normal [facility] Comment on above: Performed By: #### L IVER, TSH, LIPID, BMP #### [facility] [address] [address] [address] Susana Rivera HDL NORMAL > or = 60 mg/dl - LO W CARDIOVASCULAR RISK <40 mg/dl - HIGH CARDIOVASCULAR RISK Normal [facility] Comment on above: Performed By: #### L IVER, TSH, LIPID, BMP #### [facility] [address] [place] [address] Dr. Susana Rivera LDL CALC NORMAL SEE BELOW Normal [facility] Comment on above: Result Comment: <100 mg/dl OPTIMAL 100 - 129 mg/dl NEAR OR ABOVE OPTIMAL 130 - 159 mg/dl BORDERLINE HIGH 160 - 189 mg/dl HIGH >190 mg/dl VERY HIGH Performed By: #### L IVER, TSH, LIPID, BMP #### [facility] [address] [place] [address] Dr. Susana Rivera Triglyceride [Mass/Vol] 135 mg/dL Normal <=150 [facility] Comment on above: Performed By: #### L IVER, TSH, LIPID, BMP #### [facility] [address] [place] [address] Dr. Susana Rivera VLDL CALC 27.0 mg/dL Normal [facility] Comment on above: Performed By: #### L IVER, TSH, LIPID, BMP #### [facility] [address] [place] [address] Dr. Susana Rivera LIVER PROFILEon 07-22-2022 Albumin [Mass/Vol] 3.8 g/dL Normal 3.4-5.0 [facility] Comment on above: Performed By: #### L IVER, TSH, LIPID, BMP #### [facility] [address] [place] [address] Dr. Ssuana Rivera Albumin/Globulin [Mass ratio] 0.8 {ratio} Normal [facility] Comment on above: Performed By: #### L IVER, TSH, LIPID, BMP #### [facility] [address] [place] [address] Dr. Susana Rivera ALP [Catalytic activity/Vol] 73 U/L Normal 46-116 [facility] Comment on above: Performed By: #### L IVER, TSH, LIPID, BMP #### [facility] [address] [place] [address] Dr. Susana Rivera ALT [Catalytic activity/Vol] 27 U/L Normal 14-59 [facility] Comment on above: Performed By: #### L IVER, TSH, LIPID, BMP #### [facility] [address] [place] [address] Dr. Susana Rivera AST [Catalytic activity/Vol] 17 U/L Normal 15-37 [facility] Comment on above: Performed By: #### L IVER, TSH, LIPID, BMP #### [facility] [address] [place] [address] Dr. Susana Rivera BILI, CONJUGATED 0.1 mg/dL Normal 0.0-0.2 [facility] Comment on above: Performed By: #### L IVER, TSH, LIPID, BMP #### [facility] [address] [place] [address] Dr. Susana Rivera Bilirubin [Mass/Vol] 0.3 mg/dL Normal 0.2-1.0 [facility] Comment on above: Performed By: #### L IVER, TSH, LIPID, BMP #### [facility] [address] [place] [address] Dr. Susana Rivera Globulin (S) [Mass/Vol] 4.6 g/dL Normal [facility] Comment on above: Performed By: #### L IVER, TSH, LIPID, BMP #### [facility] [address] [place] [address] Dr. Susana Rivera Protein [Mass/Vol] 8.4 g/dL Critically high 6.4-8.2 [facility] Comment on above: Performed By: #### L IVER, TSH, LIPID, BMP #### [facility] [address] [address] [address] Susana Rivera PROF CHEM 8 (BAS METB)on Anion gap [Moles/Vol] 12.3 mmol/L Normal [facility] Comment on above: Performed By: #### L IVER, TSH, LIPID, BMP #### [facility] [address] [place] [address] Dr. Susana Rivera Calcium [Mass/Vol] 9.2 mg/dL Normal 8.5-10.1 [facility] Comment on above: Performed By: #### L IVER, TSH, LIPID, BMP #### [facility] [address] [place] [address] Dr. Susana Rivera Chloride [Moles/Vol] 104 mmol/L Normal 98-107 [facility] Comment on above: Performed By: #### L IVER, TSH, LIPID, BMP #### [facility] [address] [place] [address] Dr. Susana Rivera CO2 [Moles/Vol] 24.7 mmol/L Normal 21.0-32.0 [facility] Comment on above: Performed By: #### L IVER, TSH, LIPID, BMP #### [facility] [address] [place] [address] Dr. Susana Rivera Creatinine [Mass/Vol] 0.67 mg/dL Normal 0.55-1.02 [facility] Comment on above: Performed By: #### L IVER, TSH, LIPID, BMP #### [facility] [address] [place] [address] Dr. Susana Rivera EGFR-AF ICELANDIC >60 Normal >=60 [facility] Comment on above: Performed By: #### L IVER, TSH, LIPID, BMP #### [facility] [address] [place] [address] Dr. Susana Rivera EGFR-NON AF ICELANDIC >60 Normal >=60 [facility] Comment on above: Performed By: #### L IVER, TSH, LIPID, BMP #### [facility] [address] [place] [address] Dr. Susana Rivera Glucose [Mass/Vol] 94 mg/dL Normal 74-106 [facility] Comment on above: Performed By: #### L IVER, TSH, LIPID, BMP #### [facility] [address] [place] [address] Dr. Susana Rivera Potassium [Moles/Vol] 4.0 mmol/L Normal 3.5-5.1 [facility] Comment on above: Performed By: #### L IVER, TSH, LIPID, BMP #### [facility] [address] [place] [address] Dr. Susana Rivera Sodium [Moles/Vol] 137 mmol/L Normal 136-145 [facility] Comment on above: Performed By: #### L IVER, TSH, LIPID, BMP #### [facility] [address] [place] [address] Dr. Susana Rivera Urea nitrogen [Mass/Vol] 21.0 mg/dL Critically high 7.0-18.0 [facility] Comment on above: Performed By: #### L IVER, TSH, LIPID, BMP #### [facility] [address] [place] [address] Dr. Susana Rivera Urea nitrogen/Creatinine [Mass ratio] 31.3 mg/mg Normal [facility] Comment on above: Performed By: #### L IVER, TSH, LIPID, BMP #### [facility] [address] [place] [address] Dr. Susana Rivera TSHon 07-22-2022 TSH 2.863 uIU/mL Normal 0.358-3.740 [facility] Comment on above: Performed By: #### L IVER, TSH, LIPID, BMP #### [facility] [address] [place] [address] Dr. Susana Rivera Vital Signs Date Time Vital Sign Value Performing Clinician Facility 11-12-2024 16:00-0500 Body mass index (BMI) [Ratio] 36.84 kg/m2 Viviana HILL Work Phone: [facility] 11-12-2024 16:00-0500 Body weight 100.43 kg Viviana HILL Work Phone: [facility] 11-12-2024 16:00-0500 Diastolic blood pressure 80 mm[Hg] Viviana Bulley PA Work Phone: [facility] 11-12-2024 16:00-0500 Systolic blood pressure 120 mm[Hg] Viviana Keyanna PA Work Phone: [facility] 07-23-2024 15:44-0400 Body height 165.1 cm Swapnil Abhinav DO Work Phone: [facility] 07-23-2024 15:44-0400 Body mass index (BMI) [Ratio] 35.47 kg/m2 Swapnil Abhinav DO Work Phone: [facility] 07-23-2024 15:44-0400 Body weight 96.67 kg Swapnil Abhinav DO Work Phone: [facility] 07-23-2024 15:44-0400 Diastolic blood pressure 80 mm[Hg] Swapnil Abhinav DO Work Phone: [facility] 07-23-2024 15:44-0400 Systolic blood pressure 130 mm[Hg] Swapnil Abhinav DO Work Phone: [facility] 01-24-2024 09:22-0400 Body height 165.1 cm Chela Rodriguez PA Work Phone: [facility] 01-24-2024 09:22-0400 Body mass index (BMI) [Ratio] 38.77 kg/m2 Chela Rodriguez PA Work Phone: [facility] 01-24-2024 09:22-0400 Body temperature 98.8 [degF] Chela Rodriguez PA Work Phone: [facility] 01-24-2024 09:22-0400 Body weight 105.69 kg Chela Rodriguez PA Work Phone: [facility] 01-24-2024 09:22-0400 Diastolic blood pressure 89 mm[Hg] Chela Rodriguez PA Work Phone: [facility] 03-12-2024 09:22-0400 Heart rate 73 /min Chela Rodriguez PA Work Phone: [facility] 01-24-2024 09:22-0400 Respiratory rate 16 /min Chela Rodriguez PA Work Phone: [facility] 01-24-2024 09:22-0400 SaO2% (BldA) [Mass fraction] 98 % [facility] 01-24-2024 09:22-0400 Systolic blood pressure 142 mm[Hg] Chel[facility] Rodriguez [facility] 01-03-2024 08:27-0500 Body height 165.1 cm Chela Rodriguez [facility] 01-03-2024 08:27-0500 Body mass index (BMI) [Ratio] 38.11 kg/m2 Chela Rodriguez [facility] 01-03-2024 08:27-0500 Body temperature 98.8 [degF] Chela Rodriguez PA Work Phone: [facility] 01-03-2024 08:27-0500 Body weight 103.87 kg Chela Rodriguez PA Work Phone: [facility] 01-03-2024 08:27-0500 Diastolic blood pressure 90 mm[Hg] Chela Rodriguez [facility] 01-03-2024 08:27-0500 Heart rate 90 /min Chela Rodriguez PA Work Phone: [facility] 01-03-2024 08:27-0500 Respiratory rate 16 /min Chela Rodriguez [facility] 01-03-2024 08:27-0500 SaO2% (BldA) [Mass fraction] 97 % Chela Rodriguez PA [facility] 01-03-2024 08:27-0500 Systolic blood pressure 145 mm[Hg] Chela HILL Work Phone: [facility] 12-21-2023 15:23-0500 Body height 167 cm [facility] 12-21-2023 15:23-0500 Body mass index (BMI) [Ratio] 36.59 kg/m2 [facility] 12-21-2023 15:23-0500 Body weight 102.06 kg [facility] 12-12-2023 09:09-0500 Diastolic blood pressure 84 mm[Hg] Melquiades Weber MD Work Phone: [facility] 12-12-2023 09:09-0500 Heart rate 77 /min Melquiades Weber MD Work Phone: [facility] 12-12-2023 09:09-0500 SaO2% (BldA) [Mass fraction] 98 % Melquiades Weber MD Work Phone: [facility] 12-12-2023 09:09-0500 Systolic blood pressure 136 mm[Hg] Melquiades Weber MD Work Phone: [facility] 12-12-2023 09:03-0500 Body height 167 cm Melquiades Weber MD Work Phone: [facility] 12-12-2023 09:03-0500 Body mass index (BMI) [Ratio] 37.08 kg/m2 Melquiades Weber MD Work Phone: [facility] 12-12-2023 09:03-0500 Body weight 103.42 kg Melquiades Weber MD Work Phone: [facility] 02-03-2023 12:23-0400 Diastolic blood pressure 80 mm[Hg] MD Subhash Caba Work Phone: [facility] 02-03-2023 12:23-0400 Heart rate 56 /min MD Subhash Caba Work Phone: [facility] 02-03-2023 12:23-0400 Respiratory rate 18 /min MD Subhash Caba Work Phone: [facility] 02-03-2023 12:23-0400 SaO2% (BldA) [Mass fraction] 96 % MD Subhash Caba Work Phone: [facility] 02-03-2023 12:23-0400 Systolic blood pressure 135 mm[Hg] MD Subhash Caba Work Phone: [facility] 02-03-2023 10:14-0400 Body height 162.56 cm MD Subhash Caba Work Phone: [facility] 02-03-2023 10:14-0400 Body temperature 97.7 [degF] MD Subhash Caba Work Phone: [facility] 02-03-2023 10:14-0400 Body weight 99.79 kg MD Subhash Caba Work Phone: [facility] Encounters Encounter Date Encounter Type Care Provider Facility Start: 11-23-2024 End: 11-25-2024 Clinisync Result Encounter Swapnil Avaloso DO Work Phone: [facility] Unsolicited Start: 11-23-2024 End: 11-25-2024 Clinisync Result Encounter Swapnil Avaloso DO Work Phone: [facility] Unsolicited Start: 11-12-2024 End: 11-12-2024 Periodic preventive med [...] Department Unsolicited Start: 07-31-2024 End: 08-04-2024 ambulatory [facility] Start: 07-25-2024 End: 07-25-2024 Clinisync Result [...] Bamboo flowsheet Swapnil Abhinav DO Work Phone: [facility] Start: 07-23-2024 End: 07-23-2024 Bamboo [...] Not Available Start: 02-29-2024 End: 02-29-2024 [facility] Start: 02-29-2024 Encounter for genera l adult medical examination without abnormal findings [facility] Start: 02-27-2024 End: 02-27-2024 ambulatory MIKAYLA SIN Not Available Start: 02-23-2024 End: 02-23-2024 ambulatory SUBHASH ANGELESADELSO Not Available Start: 02-23-2024 Patient encounter procedure Swapnil Abhinav DO Work Phone: 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); Encounter for postoperative care Start: 01-03-2024 End: 01-03-2024 ambulatory [facility] Start: 12-27-2023 Telephone encounter Chela HILL Work Phone: [facility] Start: 12-22-2023 End: 12-22-2023 Evaluation and management of inpatient NATASHA SANTANA [facility] Start: 12-22-2023 End: 12-22-2023 Evaluation and management of inpatient [facility] Start: 12-21-2023 End: 12-21-2023 [facility] Start: 12-20-2023 End: 12-21-2023 Admission to [facility] Phone Call Provider 2 [facility] On [facility] Start: 12-19-2023 End: 12-19-2023 ambulatory [facility] Start: 12-19-2023 Encounter for other preprocedural examination [facility] Start: 12-16-2023 Orders Only Melquiades Mott i, MD Work Phone: [facility] Comment on above: Vulvar dysplasia (Pr imary Dx); Pre-op testing Start: 12-16-2023 Patient encounter status Felipe Weber MD Work Phone: [facility] Start: 12-13-2023 Telephone encounter [facility] Work Phone: [facility] Start: 12-12-2023 End: 12-12-2023 ambulatory [facility] Start: 12-12-2023 End: 12-12-2023 Office outpatient new 45 minutes Melquiades Weber MD Work Phone: [facility] Comment on above: Vulvar dysplasia (Pr imary Dx); Encounter for tobacco use cessation counseling Start: 12-01-2023 Telephone encounter Celine Mccauley RN [facility] Start: 11-30-2023 End: 11-30-2023 ambulatory SWAPNIL ABHINAV Not Available Start: 02-03-2023 End: 02-03-2023 ambulatory Subhash Caba Facility:[facility] Start: 02-03-2023 End: 02-03-2023 Admission to same day surgery center MD Subhash Caba Work Phone: [facility] Work Phone: Start: 02-03-2023 End: 02-03-2023 ambulatory MD Subhash Caba Work Phone: [facility] Work Phone: Start: 01-29-2023 End: 01-30-[address] Hernesto CUN[place]AM Facility:[facility] Start: 07-25-2022 Encounter for genera l adult medical examination without abnormal findings DR SUBHASH CABA [facility] Start: 07-22-2022 End: 07-23-[address] SUBHASH CABA Facility:[facility] Start: 07-22-2022 End: 07-23-2022 Encounter for general adult medical examination without abnormal findings DR SUBHASH CABA Facility:[facility] Start: 12-06-2016 End: 12-07-2016 Ambulatory Eusebio Emery Facility[facility] Procedures Date Procedure Procedure Detail Performing Clinician Start: 11-23-2024 ALL PROGESTERONE Generic External Data Provider Start: 11-12-2024 IGP,APTIMA HPV,AGE GDLN Viviana HILL [...] [Identifier] in Cervix by Cyto stain Swapnil La DO Work Phone: Start: 11-02-2023 Cytp cerv/vag auto thin layer prep mnl screen Viviana HILL Work Phone: Start: 02-03-2023 Esophagogastroduodenoscopy MD Subhash jones Work Phone: Plan of Treatment Date Care Activity Detail Author Start: 11-02-2028 Screening for malign ant neoplasm of cervix [facility] Start: 11-18-2025 End: 11-18-2025 Patient encounter procedure 11/18/2025 3:00 PM EST Office Visit [facility] [address] [place] [id number] Viviana Bloom PA [address] [place] [address] [facility] Start: 01-23-2025 Adult BMI Screening Adult BMI Screen ing [facility] Start: 01-03-2025 Adult BMI Screening Adult BMI Screen ing [facility] Start: 12-22-2024 Adult BMI Screening Adult BMI Screen ing [facility] Start: 12-22-2024 Tobacco Screening Tobacco Screening [facility] Start: 12-12-2024 Adult BMI Screening Adult BMI Screen ing [facility] Start: 12-12-2024 Tobacco Screening Tobacco Screening [facility] Start: 11-12-2024 End: 11-12-2024 Patient encounter procedure [facility] Comment on above: Arrived Start: 07-31-2024 End: 07-31-2024 Patient encounter procedure 07/31/2024 8:30 AM EDT Office Visit [facility] [address] [place] [address] Chela Rodriguez PA [address] [place] [address] [facility] Start: 07-23-2024 End: 07-23-2024 Patient encounter procedure 07/23/2024 3:40 PM EDT Office Visit [facility] [address] [place] [address] Swapnil La DO [address] [address] Arrived [facility] Comment on above: Arrived Start: 07-23-2024 End: 07-23-2025 Antimullerian hormone (AMH) Antimullerian hormone (AMH) Lab Routine PCOS (polycystic ovarian syndrome) Expected: 07/23/2024 (Approximate), Expires: 07/23/2025 [facility] Comment on above: Expected: 07/23/2024 (Approximate), Expires: 07/23/2025 Start: 07-23-2024 End: 07-23-2025 DHEA DHEA Lab Routine Female fertility problem PCOS (polycystic ovarian syndrome) Expected: 07/23/2024 (Approximate), Expires: 07/23/2025 [facility] Comment on above: Expected: 07/23/2024 (Approximate), Expires: 07/23/2025 Start: 07-23-2024 End: 07-23-2025 US for US PELVIS-TRANSVAG IF INDICATED Imaging Routine Female fertility problem PCOS (polycystic ovarian syndrome) Expected: 07/23/2024 (Approximate), Expires: 07/23/2025 [facility] Comment on above: Expected: 07/23/2024 (Approximate), Expires: 07/23/2025 Start: 07-15-2024 Influenza vaccination Influenza Vacc ine (#1) [facility] Start: 01-24-2024 End: 01-24-2024 Patient encounter procedure 01/24/2024 9:30 AM EDT Office Visit [facility] [address] [place] [address] Chela Rodriguez PA [address] [place] [address] [facility] Start: 01-03-2024 End: 01-03-2024 Patient encounter procedure 01/03/2024 8:30 AM EST Office Visit [facility] [address] [place] [phone] Chela Rodriguez PA [address] [place] [address] [facility] Start: 12-22-2023 End: 12-22-2023 Admission to same day surgery center 12/22/2023 7:30 AM EST - 12/22/2023 8:45 AM EST Surgery [facility] Surgery [address] [place] [address] Melquiades Weber MD [address] [place] [address] WIDE LOCAL EXCISION LESION VULVA [facility] Comment on above: WIDE LOCAL EXCISION LESION VULVA Start: 12-22-2023 End: 12-22-2023 BIOPSY VULVA BIOPSY VULVA VULVAR DYSPLASIA 12/22/2023 7:30 AM EST [facility] Start: 12-22-2023 End: 12-22-2023 EXCISION LESION VULVA EXCISION LESION VULVA VULVAR DYSPLASIA 12/22/2023 7:30 AM EST [facility] Start: 12-22-2023 Subsequent hospital visit by physician 12/22/2023 7:30 AM EST Hospital Encounter [facility] Surgery [address], [place] [address] Melquiades Weber MD [address] [place] [address] [facility] Start: 12-20-2023 End: 12-20-2023 Admission to establishment 12/20/2023 8:00 AM EST Support Visit [facility] On [address] [address] [facility] On [facility] Start: 12-12-2023 End: 12-12-2023 Patient encounter procedure 12/12/2023 9:00 AM EST Office Visit [facility] [address] [place] [phone] Melquiades Weber MD [address] [place] [address] [facility] Start: 07-15-2023 Influenza vaccination Influenza Vacc ine [facility] Start: 02-03-2023 [facility] Start: 2009 Screening for malign ant neoplasm of cervix Pap Smear [facility] Start: 2007 DTaP,Tdap and Td Vaccines (1 - Tdap) DTaP,Tdap and Td Vaccines (1 - Tdap) [facility] Start: 2006 Adult BMI Follow Up Plan Adult BMI Follow Up Plan [facility] Start: 2006 Adult BMI Screening Adult BMI Screen ing [facility] Start: 2000 Depression Screening Depression Scre ening [facility] Start: 2000 Tobacco Screening Tobacco Screening [facility] Start: 1988 Tobacco Counseling Tobacco Counselin g [facility] End: 12-16-2024 CBC panel - Blood by Automated count CBC without diff Lab Routine Vulvar dysplasia Pre-op testing 1 Occurrences starting 12/16/2023 until 12/16/2024 [facility] Work Phone: Comment on above: 1 Occurrences starti ng 12/16/2023 until 12/16/2024 CBC W Auto Different ial panel - Blood CBC and differential Lab Routine Female fertility problem PCOS (polycystic ovarian syndrome) Ordered: 07/23/[address] [facility] Comment on above: Ordered: 07/23/2024 End: 12-16-2024 Comprehensive metabolic 2000 panel - Serum or Plasma Comprehensive metabolic panel Lab Routine Vulvar dysplasia Pre-op testing 1 Occurrences starting 12/16/2023 until 12/16/2024 [facility] Comment on above: 1 Occurrences starti ng 12/16/2023 until 12/16/2024 Cytology Cervical or vaginal smear or scraping study Pap Smear Pathology and Cytology Routine Well woman exam with routine gynecological exam Ordered: 11/12/2024 [facility] Work Phone: Comment on above: Ordered: 11/12/2024 DHEA-sulfate DHEA-sulfate Lab Routine Female fertility problem PCOS (polycystic ovarian syndrome) Ordered: 07/23/[address] [facility] Comment on above: Ordered: 07/23/2024 Follicle stimulating hormone Follicle stimulating hormone Lab Routine Female fertility problem PCOS (polycystic ovarian syndrome) Ordered: 07/23/[address] [facility] Comment on above: Ordered: 07/23/2024 hCG, quantitative, hCG, quantitative, Lab Routine Female fertility problem PCOS (polycystic ovarian syndrome) Ordered: 07/23/2024 [facility] Work Phone: Comment on above: Ordered: 07/23/2024 Human papilloma viru s DNA [Presence] in Unspecified specimen by Probe with amplification HPV DNA probe, amplified Microbiology Routine Well woman exam with routine gynecological exam Ordered: 11/12/[address] [facility] Comment on above: Ordered: 11/12/2024 Luteinizing hormone Luteinizing hormone Lab Routine Female fertility problem PCOS (polycystic ovarian syndrome) Ordered: 07/23/[address] [facility] Comment on above: Ordered: 07/23/2024 Patient Education Esophagitis Hi atal Hernia (DC) [facility] Work Phone: Thyrotropin [Units/volume] in Serum or Plasma TSH Lab Routine Female fertility problem PCOS (polycystic ovarian syndrome) Ordered: 07/23/[address] [facility] Comment on above: Ordered: 07/23/2024 Thyroxine (T4) free [Mass/volume] in Serum or Plasma T4, free Lab Routine Female fertility problem PCOS (polycystic ovarian syndrome) Ordered: 07/23/[address] [facility] Comment on above: Ordered: 07/23/2024 Payers Date Payer Category Payer Unknown [employer] [id number] 2023-Present [phone] [address] [address] [place] [id number] 2023 Self-pay 2022 Private Health Insurance [id number] .[id number] 1988 Unknown [id number] 2.16.840.1.121484.3.579 .2.593 1988 Unknown [id number] 2.16.840.1.487964.3.579 .2.593 1988 Unknown [id number] 2.16.840.1.492817.3.579 .2.1286 1988 Unknown [id number] 2.16.840.1.900562.3.579 .2.1286 1988 Unknown [id number] 2.16.840.1.788470.3.579 .2.1286 1988 Unknown [id number] 2.16.840.1.883501.3.579 .2.1286 1988 Unknown [id number] 2.16.840.1.281291.3.579 .2.6 1988 Unknown [id number] 2.16.840.1.133157.3.579 .2.1286 1988 Unknown [id number] 2.16.840.1.492422.3.579 .2.1286 1988 Unknown [id number] 2.16.840.1.020265.3.579 .2.1286 1988 Unknown [id number] 2.16.840.1.221515.3.579 .2.1286 1988 Unknown [id number] 2.16.840.1.520631.3.579 .2.1259 1988 Unknown [id number] 2.16.840.1.353162.3.579 .2.1259 1988 Unknown [id number] 2.16.840.1.793308.3.579 .2.9 1988 Unknown [id number] 2.16.840.1.691518.3.579 .2.9 1988 Unknown [id number] 2.16.840.1.563437.3.579 .2.9 1988 Unknown [id number] 2.16.840.1.357049.3.579 .2.1258 1988 Unknown [id number] 2.16.840.1.178691.3.579 .2.1258 1988 Unknown [id number] 2.16.840.1.561734.3.579 .2.1258 1988 Unknown [id number] 2.16.840.1.730927.3.579 .2.1258 1988 Unknown [id number] 2.16.840.1.333758.3.579 .2.1258 1988 Unknown [id number] 2.16.840.1.894219.3.579 .2.9 1959 Unknown [id number] 1959 Unknown [id number] Unknown [id number] 2.16.840.1.869347.3.579 .2.531 Social History Date Type Detail Facility Tobacco smoking stat [facility] Unknown if ever smoked [facility] Work Phone: Start: 1990 Sex Assigned At Female [facility] Tobacco smoking stat [facility] Tobacco smoking consumption unknown [facility] Start: 04-25-2019 End: 02-23-2024 History of Social function [facility] Start: 04-25-2019 End: 02-23-2024 Housing Instability [facility] Housing Instability Unknown [facility] Start: 1990 Sex Assigned At Not on file [facility] Start: 12-12-2023 End: 05-01-2024 Tobacco smoking status NHIS Smokes tobacco daily [facility] Work Phone: Start: 11-14-2006 History of tobacco use Cigarette Smoker [facility] Start: 12-12-2023 End: 05-01-2024 Tobacco use and exposure Smokeless tobacco non-user [facility] Start: 12-12-2023 End: 07-23-2024 Alcohol intake Lifetime non-drinker (finding) [facility] How hard is it for y ou to pay for the very basics like food, housing, medical care, and heating Hard [facility] History of tobacco use Passive smoker [facility] Start: 11-01-2023 Alcohol Comment Caffeine intake: 3-4 cups per day [facility] Start: 10-13-2023 Gender identity Identifies as female gender (finding) [facility] Start: 10-13-2023 Sexual orientation Heterosexual (finding) [facility] Goals Date Patient Goal Desired [...] nursing note reviewed. Exam conducted with a bmw service technician present. Vitals: Estimated body mass index is [...] of: SERGIO Galvan documented in this encounter [facility] 07-23-2024 History of Presen t illness Narrative [...] nursing note reviewed. Exam conducted with a bmw service technician present. Vitals: Estimated body mass index is [...] Swapnil La DO documented in this encounter [facility] 01-24-2024 History of Presen t illness Narrative [...] 12/22/2023 Performed by Melquiades Weber MD at [facility] COLONOSCOPY 2022 COLONOSCOPY 2016 OOPHORECTOMY Right 2009 performed at time of appendectomy WIDE LOCAL EXCISION LESION VULVA N/A 12/22/2023 Performed by Melquiades Weber MD at [facility] SURGERY Past Medical History: Diagnosis Date [...] *This note was completed using a voice overedge sewer system. Every effort was made to ensure accuracy. However, inadvertent computerized overedge sewer errors may be present. .Total time spent was 26 minutes: Preparing to see the patient (e.g., review of tests) Performing a medically appropriate examination and/or evaluation Counseling and educating the patient/family/caregiver Documenting clinical information in the electronic or other health record Care coordination (not separately reported) Chela Rodriguez PA-C, RD, IF SERGIO Coleman 01/24/24 1010 documented in this encounter [facility] 01-03-2024 History of Presen t illness Narrative Subjective: Elisha Dominguezgladis Colbert female who is 33 y.o. female [...] 12/22/2023 Performed by Melquiades Weber MD at [facility] COLONOSCOPY 2022 COLONOSCOPY 2016 OOPHORECTOMY Right 2009 performed at time of appendectomy WIDE LOCAL EXCISION LESION VULVA N/A 12/22/2023 Performed by Melquiades Weber MD at [facility] Past Medical History: Diagnosis Date Asthma [...] *This note was completed using a voice overedge sewer system. Every effort was made to ensure accuracy. However, inadvertent computerized overedge sewer errors may be present. .Total time spent was 26 minutes: Preparing to see the patient (e.g., review of tests) Performing a medically appropriate examination and/or evaluation Counseling and educating the patient/family/caregiver Documenting clinical information in the electronic or other health record Care coordination (not separately reported) Chela Rodriguez PA-C, RD, IF SERGIO Coleman 01/03/24 0912 documented in this encounter [facility] 12-27-2023 Miscellaneous Notes Spoke with patient regarding surgery results, explaining TIM III with negative margins. She is doing well at home. Pain well controlled. No drainage, bleeding, fevers/chills. Post op appt confirmed. documented in this encounter [facility] 12-27-2023 Telephone encounter Note Spoke with patient regarding surgery results, explaining TIM III with negative margins. She is doing well at home. Pain well controlled. No drainage, bleeding, fevers/chills. Post op appt confirmed. [facility] Work Phone: 12-21-2023 Instructions Formatting of th is note might be different from the original. Your surgery/procedure is scheduled at [facility] on 12/22/23 at 0730 Arrival Time 0530 [facility] Address: [address] [place] [address], [address] Park in the Emergency Center Parking lot. Report to the front office coordinator in the Emergency/Surgery Registration lobby of the hospital. Please call Pre-Admission Clinic at [phone] if you have any questions prior to surgery. For questions the morning of surgery, please call the Pre-op Department at [phone]. IF YOU DO NOT FOLLOW THESE INSTRUCTIONS [...] would like to schedule therapy at a [facility] facility, please call [phone] ([phone]). Do not use lotions, creams, powders, perfume, make up, cologne or after-shaves day of surgery. Remove ALL jewelry including wedding rings, body piercings, hair extensions that contain metal, nail lao, make-up, and contact lens. You may brush your teeth the morning of surgery, but do not swallow the water. Wear your dentures and partial plates to the hospital (no adhesive). Shower the night the before. If applicable, use the CHG (chlorhexidine gluconate) soap or wipes. Please be advised, [employer] has transitioned to a cashless payment system. [...] RIGHTS AND RESPONSIBILITIES As a patient at [facility], you have the right to: Receive medical care and be informed of who is taking care of you Be treated with dignity and respect Have a family member/artist representative of choice and your physician notified of your admission Receive information and actively participate in decisions about your care and treatment Refuse care, treatment and services Decide who may provide your support and speak for you Access christianity and spiritual services Participate in ethical issues [...] of hospital charges and payment methods Patient/patient artist representative responsibilities are to: Provide information about health status to facilitate care, treatment and services Follow the treatment, plan, keep appointments and speak up when you do not understand the plan Respect the rights of other patients and healthcare personnel Follow organizational rules and regulations that support quality care and a safe environment Fulfill financial obligations as promptly as possible [facility] 12-21-2023 Miscellaneous Notes Your surgery/procedure is scheduled at [facility] on 12/22/23 at 07[address] [place] [address] Address: [address] [place] [address], [address] Park in the Emergency Center Parking lot. Report to the front office coordinator in the Emergency/Surgery Registration lobby of the hospital. Please call Pre-Admission Clinic at [phone] if you have any questions prior to surgery. For questions the morning of surgery, please call the Pre-op Department at [phone]. IF YOU DO NOT FOLLOW THESE INSTRUCTIONS [...] would like to schedule therapy at a [facility] facility, please call [phone] ([phone]). Do not use lotions, creams, powders, perfume, make up, cologne or after-shaves day of surgery. Remove ALL jewelry including wedding rings, body piercings, hair extensions that contain metal, nail lao, make-up, and contact lens. You may brush your teeth the morning of surgery, but do not swallow the water. Wear your dentures and partial plates to the hospital (no adhesive). Shower the night the before. If applicable, use the CHG (chlorhexidine gluconate) soap or wipes. Please be advised, [employer] has transitioned to a cashless payment system. [...] RIGHTS AND RESPONSIBILITIES As a patient at [facility], you have the right to: Receive medical care and be informed of who is taking care of you Be treated with dignity and respect Have a family member/artist representative of choice and your physician notified of your admission Receive information and actively participate in decisions about your care and treatment Refuse care, treatment and services Decide who may provide your support and speak for you Access christianity and spiritual services Participate in ethical issues [...] of hospital charges and payment methods Patient/patient artist representative responsibilities are to: Provide information about [...] promptly as possible documented in this encounter [facility] 12-13-2023 Miscellaneous Notes New referral received from Dr. Melqiuades Weber for tobacco cessation with Michelle LOPEZ. [...] in smoking cessation program. Called patient at [phone] and left a voicemail requesting a callback to schedule an appointment. Lennie Buenrostro 12/13/2023 0951 Called patient again at [phone] and left message for patient to call back to schedule visit with pharmacist. documented in this encounter [facility] 12-13-2023 Telephone encounter Note New referral [...] in smoking cessation program. Called patient at [phone] and left a voicemail requesting a callback to schedule an appointment. Lennie Buenrostro 12/13/2023 0951 A 12-13-2023 Telephone encounter Note Called patient again at [phone] and left message for patient to call back to schedule visit with pharmacist. [facility] Work Phone: 12-12-2023 History of Presen t [...] form was signed. - Patient lives in [place] - will follow up with SERGIO Coleman in [place] - Will request Pap report from Dr. 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 documented in this encounter [facility] 12-01-2023 Telephone encounter Note Left VM to schedule [employer] appt with straddle buggy operator onc, call back number provided. [facility] 02-03-2023 Procedure note [facility] Evaluation note No assessment inform ation available [facility] Work Phone: Evaluation note Diagnosis Vulvar dysplasia- Primary Other specified noninflammatory disorder of vulva and perineum Encounter for tobacco use cessation counseling [facility] Vulvar dysplasia- Primary Other specified noninflammatory disorder of vulva and perineum Pre-op testing Unspecified pre-operative examination [facility] Diagnosis 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, vulva Encounter for postoperative care [facility] Diagnosis Female fertility problem PCOS (polycystic ovarian syndrome) Polycystic ovaries documented in this encounter [facility]* Diagnosis Annual physical exam- Primary Routine general medical examination at a health care facility Ganglion cyst of dorsum of right wrist Irritable bowel syndrome with both constipation and diarrhea Well woman exam with routine gynecological exam Routine gynecological examination [facility] Discharge instructions Additional Instructions DISCHARGE INSTRUCTIONS FOR [...] me in 6-8 weeks. Low FODMAP diet [employer] 1 p.o. every morning [employer] 1-2 once or twice a day -Notify the doctor if you have any problems. -Office number [phone] Work Phone: InstructionsNot on filedocumented in this encounter [facility] filedocumented in this encounter [facility] on filedocumented in this encounter [facility]ructionsNot on filedocumented in this encounter [facility]ructionsNot on filedocumented in this encounter [facility] System[facility]ructionsNot on filedocumented in this encounter [facility] for referral (narrative)* Consultation (Routine) - Pending Review Specialty Diagnoses / Procedures Referred By Kam t Referred To Contact Medication Therapy Management Diagnoses Encounter for tobacco use cessation counseling Melquiades Weber MD [address] [place] [address] [facility] [address] [place] [address] Referral ID Status Reason Start Date Expiration Date Visits Requested Visits Authorized [id number] Pending Review Specialty Services Required 12/12/2023 12/11/2024 1 1 [facility] Summary Purpose Family History Relationship Condition Age at Onset Recorded Date/T lino Not Specified No pertinent family history Unknown Advance Directives Advance Directive Response Recorded Date/ Time Advance Directives No February 02, 2 023 3:13pm Chief Complaint and Reason for Visit Chief Complaint Alternating, Diarrhe a, Constipation, Abdominal Sylvester Additional Source Comments INFORMATION SOURCE (unrecogn ized section and content) DATE CREATED AUTHOR 05/10/2018 [facility] DATE CREATED AUTHOR AUTHOR'S ORGANIZ ATION 02/13/2023 [facility] DATE CREATED AUTHOR AUTHOR'S ORGANIZ ATION 02/15/2023 [facility] DATE CREATED AUTHOR AUTHOR'S ORGANIZ ATION 12/13/2023 [facility] DATE CREATED AUTHOR AUTHOR'S ORGANIZ ATION 12/28/2023 [facility] DATE CREATED AUTHOR AUTHOR'S ORGANIZ ATION 08/06/2024 [facility] DATE CREATED AUTHOR AUTHOR'S ORGANIZ ATION 11/14/2024 [facility] Care Teams (unrecognized sec tion and content) Team Status: Active Member Role Status Dates Subhash Caba MD Primary Care Provider Active Team Status: Inactive Member Role Status Dates Omero Cunningham MD Attending Provider Active Subhash Caba MD Primary Care Provider Active Corporate Banking Officer Relationship Specialty Start Date End Date Subhash Caba MD [address] [place] [address] PCP - General Family Medicine 12/12/23 Corporate Banking Officer Relationship Specialty Start Date End Date Subhash Caba MD [address] [place] [address] PCP - General Family Medicine 12/12/23 Corporate Banking Officer Relationship Specialty Start Date End Date Subhash Caba MD [address] [place] [address] PCP - General Family Medicine 12/12/23 Corporate Banking Officer Relationship Specialty Start Date End Date Subhash Caba MD [address] [place] [address] PCP - General Family Medicine 12/12/23 Corporate Banking Officer Relationship Specialty Start Date End Date Subhash Caba MD [address] [place] [phone] PCP - General Family Medicine 02/23/24 Corporate Banking Officer Relationship Specialty Start Date End Date Subhash Caba MD [address] [place] [address] PCP - General Family Medicine 02/23/24 Corporate Banking Officer Relationship Specialty Start Date End Date Subhash Caba MD [address] [place] [address] PCP - General Family Medicine 02/23/24 Corporate Banking Officer Relationship Specialty Start Date End Date Subhash Caba MD [address] [place] [address] PCP - General Family Medicine 02/23/24 Corporate Banking Officer Relationship Specialty Start Date End Date Subhash Caba MD [address] [place] [address] PCP - General Family Medicine 02/23/24 Corporate Banking Officer Relationship Specialty Start Date End Date Subhash Caba MD [address] [place] [address] PCP - General Family Medicine 02/23/24 Corporate Banking Officer Relationship Specialty Start Date End Date Subhash Caba MD [address] [place] [address] PCP - General Family Medicine 02/23/24 Reason [...] BE BASED ON THE PRIMARY CLINICAL RECORDS. [employer] provides no warranty or guarantee of the accuracy or completeness of information in this document.
[2024-12-14 13:42] LABS: HCG Quantitative <1 mIU/mL
--- NOTE | 2024-12-14 14:25 | SUR.PREOP ---
12/13/24 Pt instructed on procedure, date, time, and prep.
--- NOTE | 2024-12-14 14:31 | PC.NURSE ---
1413 Pt denies any abdominal cramping or bleeding after procedure.
== END 2024-12-14 14:15 | disposition home or self-care (01) ==
PROVIDERS: Radiology Diagnostic Radiology; PCP Family Medicine; Visit Provider Obstetrics & Gynecology
DX: N97.0 Female infertility associated with anovulation (principal); E28.2 Polycystic ovarian syndrome; N83.9 Noninflammatory disorder of ovary, fallopian tube and broad ligament, unspecified
CPT/HCPCS: 36415; 58340; 74740; 84702; Q9966

== ENCOUNTER 2024-12-28 13:52 | Outpatient (OUT) | payer OTHER, SELFPAY ==
[2024-12-29 04:11] LABS: Progesterone 19.5 ng/mL (.)
== END 2024-12-28 13:53 | disposition home or self-care (01) ==
LOC: LAB 13:52
PROVIDERS: PCP Family Medicine; Visit Provider Obstetrics & Gynecology
DX: E28.2 Polycystic ovarian syndrome (principal)
CPT/HCPCS: 36415; 84144

== ENCOUNTER 2025-06-26 09:46 | Outpatient (OUT) | payer OTHER, SELFPAY ==
--- OUTSIDE RECORDS SUMMARY | 2025-06-26 09:52 | XMS_ITS | CCD ---
Author Organization [facility] Care Team Providers Care Doper Operator Name Role Phone Nill, Eusebio R Unavailable Unavailable Nill, Eusebio R Unavailable Unavailable Nill, Eusebio R Unavailable Unavailable BETH CLAIRE Unavailable Unavailable MD Omero Cunningham Attending Provider MD Subhash Caba Primary Care Provider [phone] GERTRUDIS, DR SUBHASH Pereyra Admitting Unavailable GERTRUDIS, DR SUBHASH Pereyra Attending Unavailable GERTRUDIS, DR SUBHASH Pereyra Primary Care Unavailable GERTRUDIS, DR SUBHASH Pereyra Consulting Unavailable ISMAEL, DR Hernesto Iqbal Admitting Unavailable ISMAEL, DR Hernesto Iqbal Attending Unavailable GERTRUDIS, DR SUBHASH Pereyra Primary Care Unavailable ISMAEL, DR Hernesto Iqbal Consulting Unavailable Subhash Caba Primary Care Unavailable Ismael, Omero Iqbal Attending Unavailsusy Cunningham, Omero Iqbal Admitting Unavailsusy WEBER, MELQUIADES Attending Unavailable SUBHASH CABA Primary Care Unavailable SUBHASH CABA Referring Unavailable SUBHASH CABA Primary Care Unavailable WEBER, ANJALIKA Admitting Unavailable TIA, MELQUIADES Attending Unavailable CHELO WEBERJADIONYKA Referring Unavailable SUBHASH CABA Primary Care Unavailable NATASHA SANTANA Attending Unavailable SUBHASH CABA Primary Care Unavailable Subhash Caba MD Primary Care Provider [phone] SWAPNIL LA Attending Unavailable SUBHASH CABA Attending Unavailable MIKAYLA SIN Attending Unavailable MIKAYLA SIN Referring Unavailable MIKAYLA SIN Referring Unavailable JR. KAM GEORGE C Attending Unavaila ble MIKAYLA SIN Attending Unavailable MIKAYLA SIN Attending Unavailable MIKAYLA SIN Attending Unavailable SWAPNIL LA Attending Unavailable VIVIANA BLOOM Attending Unavailable Unavailable Primary Care Provider UnavailSubhash Hill MD Primary Care Provider [phone] Subhash Caba MD Primary Care Provider CHELA RODRIGUEZ Attending Unavailable SUBHASH CABA Referring Unavailable SUBHASH CABA Primary Care Unavailable CHELA RODRIGUEZ Attending Unavailable SUBHASH CABA Referring Unavailable SUBHASH CABA Primary Care Unavailable Allergies Allergy Classification Reported Allergen(s) Allergy Type Date of Onset Reaction(s) Facility (1 source) Morphine Drug Allergy 04-27-2013 [facility] Medications Current Medications Medication Drug Class(es) Dates Sig (Normalized) Sig (Original) acetaminophen 500 mg oral tablet (4 sources) Start: 12-22-2023 take 2 tablets by mouth every eight hours acetaminophen (TYLENOL EXTRA STRENGTH) 500 mg tablet Take 2 tablets (1,000 mg total) by mouth every 8 (eight) hours. 30 tablet 12/22/2023 Active albuterol 0.83 mg/ml inhalation solution (19 sources) beta2-Adrenergic Agonist Start: 11-12-2023 albuterol (2.5 [...] days. 15 tablet 0 12/22/2023 12/27/2023 Active letrozole 2.5 mg oral tablet (3 sources) Aromatase Inhibitor Start: 12-11-2024 End: 12-16-2024 take 2 tablets by mouth once daily letrozole (Femara) 2.5 MG chemo tablet Indications: Anovulation , PCOS (polycystic ovarian syndrome) Take 2 tablets (5 mg total) by mouth Daily for 5 days. 10 tablet 12/11/2024 12/16/2024 Active loratadine 10 mg oral tablet (20 sources) Start: 02-03-2023 End: 08-02-2025 take 1 tablet by mouth once daily loratadine (Claritin) 10 MG tablet Indications: Seasonal allergic rhinitis due to pollen Take 1 tablet (10 mg) by mouth Daily 30 tablet 11 08/02/2024 08/02/2025 Active 24 hr oxybutynin chloride 10 mg extended release oral tablet (2 sources) Cholinergic Muscarinic Antagonist Start: 06-26-2025 take 1 tablet by mouth once daily oxybutynin XL (Ditropan-XL) 10 MG 24 hr tablet Indications: Overactive bladder Take 1 tablet (10 mg) by mouth Daily Do not crush, chew, or split. 30 tablet 3 06/26/2025 Active Start: 06-26-2025 take 1 tablet by samm th once daily oxybutynin XL (Ditropan-XL) 10 MG 24 hr tablet Indications: Overactive bladder Take 1 tablet (10 mg) by mouth Daily Do not crush, chew, or split. 30 tablet 3 06/26/2025 Active pantoprazole 40 mg delayed release oral tablet (20 sources) Proton Pump Inhibitor Start: 07-26-2023 End: 08-02-2025 take 1 tablet by mouth once daily pantoprazole (ProtoNix) 40 MG EC tablet Indications: Gastroesophageal reflux disease without esophagitis Take 1 tablet (40 mg) by mouth Daily 30 tablet 11 08/02/2024 08/02/2025 Active Start: 02-03-2023 take 40 mg by mouth once daily Pantoprazole Active 40 MG PO Daily February 03, 2023 12:00am Problems Active Problems Problem Classification Problem Date Documented Da te Episodic/Chronic Abdominal pain (2 sources) Unspecified abdominal pain; Translations: [UNSPECIFIED ABDOMINAL PAIN] Onset: 3 Episodic Cancer of other female genital organs (5 sources) Vulval intraepithelial neoplasia grade 3; 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] Onset: 4 01-03-2024 Chronic Esophageal disorders (20 sources) Gastroesophageal reflux disease without esophagitis; Translations: [Gastro-esophageal reflux disease without esophagitis] Onset: 4 02-23-2024 Chronic Female infertility (19 sources) Anovulation; Translations: [Female infertility associated with anovulation] Onset: 4 08-06-2024 Chronic Genitourinary symptoms and ill-defined conditions (4 sources) Polyuria; Translations: [Polyuria] Onset: 5 06-26-2025 Episodic Inflammatory diseases of female pelvic organs (1 source) Acute vulvitis; Translations: [Acute vulvitis] 05-07-2025 Episodic Other bone disease and musculoskeletal deformities (4 sources) Posterior calcaneal exostosis; Translations: [Juvenile osteochondrosis of tarsus, left ankle] Onset: 5 06-26-2025 Chronic Other bone disease and musculoskeletal deformities (2 sources) Posterior calcaneal exostosis 06-26-2025 Episodic Other diseases of bladder and urethra (4 sources) Overactive bladder; Translations: [Overactive bladder] Onset: 5 06-26-2025 Chronic Other endocrine disorders (19 sources) Polycystic ovary syndrome; Translations: [Polycystic ovarian syndrome] Onset: 4 08-06-2024 Chronic Other gastrointestinal disorders (19 sources) Irritable bowel syndrome; Translations: [Mixed irritable [...] acute postprocedural pain] Onset: 4 Episodic Other nutritional; endocrine; and metabolic disorders (4 sources) Severe obesity; Translations: [Class 2 severe obesity due to excess calories with serious comorbidity and body mass index (BMI) of 36.0 to 36.9 in adult ([facility])] Onset: 5 06-26-2025 Chronic Other upper respiratory disease (19 sources) Allergic rhinitis due to pollen; Translations: [Allergic rhinitis due to pollen] Onset: 4 02-23-2024 Chronic Unclassified (1 source) VULVAR DYSPLASIA Onset: 4 Past or Other Problems Problem Classification Problem Date Documented Date Episodic/Chronic Administrative/social admission (1 source) Patient encounter status; Translations: [Tobacco abuse counseling] 12-12-2023 Episodic Other aftercare (2 sources) Postoperative visit; Translations: [Encounter for other specified surgical aftercare] 01-03-2024 Episodic Other connective tissue disease (19 sources) Ganglion cyst of right dorsal wrist; Translations: [Ganglion, right wrist] Onset: 02-23-2024 02-23-2024 Episodic Other female genital disorders (2 sources) Dysplasia of vulva; Translations: [Dysplasia of vulva, unspecified] 12-12-2023 Episodic Other screening for suspected conditions (not mental disorders or infectious disease) (19 sources) Lesion of vulva; Translations: [Abnormal cytological findings in specimens from other female genital organs] Onset: 11-30-2023 11-30-2023 Episodic Results Test Name Value Interpretation Reference Range Facility Urinalysis macro (dipstick) panel (U)on 06-26-2025 Bilirubin, UA Negative Negative - 4(70) +++ mg/dL [facility] Blood, UA Negative Negative - 50 [place]/mcL [facility] Clarity, UA Cloudy [facility] Color, UA [place] [facility] Glucose, UA Negative Negative - 2000(110) ++++ mg/dL [facility] Interpretation and review of laboratory results Normal [facility] Ketones, UA Negative Negative - 160(16) ++++ mg/dL [facility] Leukocytes, UA Negative Negative - 500+++ Mu/mcL [facility] Nitrite, UA Negative Negative - Positive [facility] pH, UA 7 5 - 9 [facility] Protein, UA Negative Negative - 2000(20) ++++ mg/dL [facility] Spec Grav, UA 1.025 1 - 1.03 [facility] Urobilinogen, UA 0.2 0.2 - 12 mg/dL [facility] ALL PROGESTERONEon PROGESTERONE 19.5 ng/mL . [facility] Comment on above: Follicular phase 0.1 - 0.9 Luteal phase 1.8 - 23.9 Ovulation phase 0.1 - 12.0 First trimester 11.0 - 44.3 Second trimester 25.4 - 83.3 Third trimester 58.7 - 214.0 Postmenopausal 0.0 - 0.1 Performed at: - [facility] [id number] Clinical Trial Coordinator: Jose Chaney PhD, Phone: [phone] [facility] [place] [address] Fluoroscopy Report Signed Patient: ELISHA COLBERT MR#: [id number] : 1990 Acct:[id number] Age/Sex: 33 / F ADM Date: 12/14/24 Loc: [place] Attending Dr: Swapnil La D.O. Ordering Physician: Swapnil La D.O. Date of Service: 12/14/24 Procedure(s): FL Hysterosal cath placement Accession Number(s): [id number] cc: Swapnil La D.O.; Subhash Caba M.D. The [place] [address] Patient Name: ELISHA COLBERT MRN: [facility]:[id number] date: 1990 Sex: F Assigned Patient Location: IN Current Patient Location: [place] Accession/Order Number: [id number] Exam Date: 12/14/2024 13:30 Report Date: 12/14/2024 14:27 At the request of: SWAPNIL LA Procedure: FL Hysterosal cath placement EXAMINATION: FL hysterosalpingography, FL Hysterosal cath placement HISTORY: Anovulation, Polycystic Ovarian Syndrome COMPARISON: No relevant comparison available. TECHNIQUE: Informed consent was obtained. A sterile vaginal speculum was introduced and, following cleansing of the cervix, a balloon-tipped catheter was inserted into the endometrial cavity. The procedure was then completed in the usual manner with water-soluble contrast. Standard level fluoroscopic mode of operation utilized. FINDINGS: FALLOPIAN TUBES: Absent right consistent with known hysterectomy. The left fallopian tube was not initially visualized requiring increased pressure. Suspected small proximal tube rupture however the distal fallopian tube did eventually opacify. ENDOMETRIAL CAVITY: No scarring, filling defects, or dilatation. OTHER: Negative. FL/FL Hysterosal cath placement IMPRESSION: Patent left fallopian tube Electronically authenticated by: KAELYN FABIAN Date: 12/14/2024 14:27 Dictated By: Kaelyn Fabian M.D. Signed By: 12/14/24 1437 DD/ 1427 TD/TT: Ui Developer: [facility] Radiology, Radiologi MD bhumi - 12/14/2024 [place] [address] Fluoroscopy Report Signed Patient: ELISHA COLBERT MR#: [id number] : 1990 Acct:[id number] Age/Sex: 33 / F ADM Date: 12/14/24 Loc: [place] Attending Dr: Swapnil La D.O. Ordering Physician: Swapnil La D.O. Date of Service: 12/14/24 Procedure(s): FL Hysterosal cath placement Accession Number(s): [id number] cc: Swapnil La D.O.; Subhash Caba M.D. [facility] [place] [address] Patient Name: ELISHA COLBERT MRN: [facility]:[id number] date: 1990 Sex: F Assigned Patient Location: IN Current Patient Location: [place] Accession/Order Number: [id number] Exam Date: 12/14/2024 13:30 Report Date: 12/14/2024 14:27 At the request of: SWAPNIL LA Procedure: FL Hysterosal cath placement EXAMINATION: FL hysterosalpingography, FL Hysterosal cath placement HISTORY: Anovulation, Polycystic Ovarian Syndrome COMPARISON: No relevant comparison available. TECHNIQUE: Informed consent was obtained. A sterile vaginal speculum was introduced and, following cleansing of the cervix, a balloon-tipped catheter was inserted into the endometrial cavity. The procedure was then completed in the usual manner with water-soluble contrast. Standard level fluoroscopic mode of operation utilized. FINDINGS: FALLOPIAN TUBES: Absent right consistent with known hysterectomy. The left fallopian tube was not initially visualized requiring increased pressure. Suspected small proximal tube rupture however the distal fallopian tube did eventually opacify. ENDOMETRIAL CAVITY: No scarring, filling defects, or dilatation. OTHER: Negative. FL/FL Hysterosal cath placement IMPRESSION: Patent left fallopian tube Electronically authenticated by: KAELYN FABIAN Date: 12/14/2024 14:27 Dictated By: Kaelyn Fabian M.D. Signed By: 12/14/24 1436 DD/ 1427 TD/TT: Ui Developer: [email or web address] [place] HYSTEROSALPINGOGRAPHYon 0 1-31-2025 [place] [address] Fluoroscopy Report Signed Patient: ELISHA COLBERT MR#: [id number] : 1990 Acct:[id number] Age/Sex: 33 / F ADM Date: 12/14/24 Loc: [place] Attending Dr: Swapnil La D.O. Ordering Physician: Swapnil La D.O. Date of Service: 12/14/24 Procedure(s): FL hysterosalpingography Accession Number(s): [id number] cc: Swapnil La D.O.; Subhash Caba M.D. [place] [address] Patient Name: ELISHA COLBERT MRN: [facility]:[id number] date: 1990 Sex: F Assigned Patient Location: IN Current Patient Location: IN Accession/Order Number: [id number] Exam Date: 12/14/2024 13:30 Report Date: 12/14/2024 14:27 At the request of: SWAPNIL LA Procedure: FL hysterosalpingography EXAMINATION: FL hysterosalpingography, FL Hysterosal cath placement HISTORY: Anovulation, Polycystic Ovarian Syndrome COMPARISON: No relevant comparison available. TECHNIQUE: Informed consent was obtained. A sterile vaginal speculum was introduced and, following cleansing of the cervix, a balloon-tipped catheter was inserted into the endometrial cavity. The procedure was then completed in the usual manner with water-soluble contrast. Standard level fluoroscopic mode of operation utilized. FINDINGS: FALLOPIAN TUBES: Absent right consistent with known hysterectomy. The left fallopian tube was not initially visualized requiring increased pressure. Suspected small proximal tube rupture however the distal fallopian tube did eventually opacify. ENDOMETRIAL CAVITY: No scarring, filling defects, or dilatation. OTHER: Negative. FL/FL hysterosalpingography IMPRESSION: Patent left fallopian tube Electronically authenticated by: KAELYN FABIAN Date: 12/14/2024 14:27 Dictated By: Kaelyn Fabian M.D. Signed By: 12/14/24 1431 DD/ 1427 TD/TT: Ui Developer: [facility] Radiology, Radiologi MD bhumi - 12/14/2024 [place] [address] Fluoroscopy Report Signed Patient: ELISHA COLBERT MR#: [id number] : 1990 Acct:[id number] Age/Sex: 33 / F ADM Date: 12/14/24 Loc: [place] Attending Dr: Swapnil La D.O. Ordering Physician: Swapnil La D.O. Date of Service: 12/14/24 Procedure(s): FL hysterosalpingography Accession Number(s): [id number] cc: Swapnil La D.O.; Subhash Caba M.D. [facility] [place] [address] Patient Name: ELISHA COLBERT MRN: [facility]:[id number] date: 1990 Sex: F Assigned Patient Location: IN Current Patient Location: IN Accession/Order Number: [id number] Exam Date: 12/14/2024 13:30 Report Date: 12/14/2024 14:27 At the request of: SWAPNIL LA Procedure: FL hysterosalpingography EXAMINATION: FL hysterosalpingography, FL Hysterosal cath placement HISTORY: Anovulation, Polycystic Ovarian Syndrome COMPARISON: No relevant comparison available. TECHNIQUE: Informed consent was obtained. A sterile vaginal speculum was introduced and, following cleansing of the cervix, a balloon-tipped catheter was inserted into the endometrial cavity. The procedure was then completed in the usual manner with water-soluble contrast. Standard level fluoroscopic mode of operation utilized. FINDINGS: FALLOPIAN TUBES: Absent right consistent with known hysterectomy. The left fallopian tube was not initially visualized requiring increased pressure. Suspected small proximal tube rupture however the distal fallopian tube did eventually opacify. ENDOMETRIAL CAVITY: No scarring, filling defects, or dilatation. OTHER: Negative. FL/FL hysterosalpingography IMPRESSION: Patent left fallopian tube Electronically authenticated by: KAELYN FABIAN Date: 12/14/2024 14:27 Dictated By: Kaelyn Fabian M.D. Signed By: 12/14/24 1435 DD/ 7971 TD/TT: Ui Developer: [facility] No Panel InformationOrdered By: Radiologist Radiology on 12-14-2024 [facility] Work Phone: No Panel Informationon 12-14 Radiology Study observation (narrative) [facility]H PREG QUANT HCGon 025 HCG QUANTITATIVE <1 mIU/mL [facility] Comment on above: 5-50 0.2-1 WEEK 50-500 1-2 WEEKS 100-5,000 2-3 WEEKS 500-10,000 3-4 WEEKS 1,000-50,000 4-5 WEEKS 10,000-100,000 5-6 WEEKS 15,000-200,000 6-8 WEEKS 10,000-100,000 2-3 MONTHS [facility] ALL PROGESTERONEon 5 PROGESTERONE 15.2 ng/mL . [facility] Comment on above: Follicular phase 0.1 - 0.9 Luteal phase 1.8 - 23.9 Ovulation phase 0.1 - 12.0 First trimester 11.0 - 44.3 Second trimester 25.4 - 83.3 Third trimester 58.7 - 214.0 Postmenopausal 0.0 - 0.1 Performed at: [place] [id number] Clinical Trial Coordinator: Jose Chaney PhD, Phone: [phone] [facility] IGP,APTIMA HPV,AGE GDLNon AGE GDLN ACOG TESTING Note . [facility] Comment on above: TESTS RESULT FLAG UN ITS REF RANGE LAB Clinician Provided Cytology Information Source.............Cervix No. of containers..01 ThinPrep Vial Age Algo ACOG Senait... 30- FLAG LEGEND: L-Low Normal,H-High Normal,LL-Alert Low,HH-Alert High <-Panic Low,>-Panic High,A-Abnormal,AA-Critical Abnormal Performed at: 01 =[address] [phone] Myriam Levi MD, HPV APTIMA Negative Negative [facility] Comment on above: This nucleic acid am plification test detects fourteen high- risk HPV types (16,18,31,33,35,39,45,51,52,56,58,59,66,68) without differentiation. Performed at: =[address] [id number] Clinical Trial Coordinator: Myriam Levi MD, Phone: [phone] Performed at: [address] [id number] Clinical Trial Coordinator: Myriam Levi MD, Phone: [phone] IGP, APTIMA HPV, RFX 16/18,45 Note . [facility] Comment on above: TESTS RESULT FLAG UN ITS REF RANGE LAB DIAGNOSIS: 02 NEGATIVE FOR INTRAEPITHELIAL LESION OR MALIGNANCY. THIS SPECIMEN WAS RESCREENED PART OF OUR VALANCE CUTTER PROGRAM. Specimen adequacy: 02 Satisfactory for evaluation. No endocervical component is identified. Performed by: Nickie Tse Corporate Communications Specialist (ASCP) QC reviewed by: Nickie Avalos Corporate Communications Specialist . 02 Note: Note 02 The Pap [...] High <-Panic Low,>-Panic High,A-Abnormal,AA-Critical Abnormal Performed at: [address] [place] [id number] Myriam Levi MD, BRUSH-SPATULA CERVIX [facility] ALL PROGESTERONEon 4 PROGESTERONE 14.2 ng/mL . [facility] Comment on above: Follicular phase 0.1 - 0.9 Luteal phase 1.8 - 23.9 Ovulation phase 0.1 - 12.0 First trimester 11.0 - 44.3 Second trimester 25.4 - 83.3 Third trimester 58.7 - 214.0 Postmenopausal 0.0 - 0.1 Performed at: [facility] [id number] Clinical Trial Coordinator: Jose Chaney PhD, Phone: [phone] [facility] ALL PROGESTERONEon 4 PROGESTERONE 12.5 ng/mL . [facility] Comment on above: Follicular phase 0.1 - 0.9 Luteal phase 1.8 - 23.9 Ovulation phase 0.1 - 12.0 First trimester 11.0 - 44.3 Second trimester 25.4 - 83.3 Third trimester 58.7 - 214.0 Postmenopausal 0.0 - 0.1 Performed at: - [facility] [id number] Clinical Trial Coordinator: Jose Chaney PhD, Phone: [phone] [facility] ALL PROGESTERONEon PROGESTERONE 18.5 ng/mL . [facility] Comment on above: Follicular phase 0.1 - 0.9 Luteal phase 1.8 - 23.9 Ovulation phase 0.1 - 12.0 First trimester 11.0 - 44.3 Second trimester 25.4 - 83.3 Third trimester 58.7 - 214.0 Postmenopausal 0.0 - 0.1 Performed at: [facility] [id number] Clinical Trial Coordinator: Jose Chaney PhD, Phone: [phone] [facility] ALL CBC WITH AUTO DIFFon BASOPHILS ABSOLUTE AUTO 0.0 N [facility] Basophils/100 WBC (Bld) 0.4 % 0.2 - 2.0 % [facility] Eosinophils/100 WBC (Bld) 2.5 % 0. 9 - 7.0 % [facility] Erythrocyte distribution width (RBC) [Ratio] 12.4 % 11.0 - 15.0 % [facility] Hematocrit (Bld) [Volume fraction] 37.6 % 36.0 - 48.0 % [facility] Hemoglobin (Bld) [Mass/Vol] 12.5 g/dL 12.0 - 16.0 g/dL [facility] IMMATURE GRANULOCYTES ABS AUTO 0.01 [facility] Immature granulocytes/100 WBC (Bld) 0.1 % 0.0 - 0.5 % [facility] Interpretation and review of laboratory results Abnormal [facility] LYMPHOCYTES ABSOLUTE AUTO 3.0 [facility] Lymphocytes/100 WBC (Bld) 35.3 % 20 .5 - 60.0 % [facility] MCH (RBC) [Entitic mass] 31.9 pg 26. 7 - 34.0 pg [facility] MCHC (RBC) [Mass/Vol] 33.2 g/dL 29.9 - 35.2 g/dL [facility] MCV (RBC) [Entitic vol] 95.9 fL 81.0 - 99.0 fL [facility] MONOCYTES ABSOLUTE AUTO 0.4 [facility] Monocytes/100 WBC (Bld) 5.3 % 1.7 - 12.0 % [facility] NEUTROPHILS ABSOLUTE AUTO 4.7 [facility] Neutrophils/100 WBC (Bld) 56.4 % 43 .0 - 75.0 % [facility] Platelet mean volume (Bld) [Entitic vol] 10.5 fL 9.5 - 13.5 fL [facility] EO # 0.2 [facility] PLT 228 [facility] RBC 3.92 Low [facility] WBC 8.4 [facility] MR WRIST RIGHT WO IV CONTRAS Ton [...] BY: Griffin Norris MD Normal Not Available HCG ( test) Ql (U)o n 12-22-2023 Beta HCG ( test) Ql (U) Negative Normal NEG [facility] Comment on above: Performed By: #### 2 106-3 #### [facility] ([id number]) [address] [place] [address] Surgical Pathologyon 024 Surgical Pathology Normal [facility] Comment on above: Result Comment: [facility] [address] [place] [address] Surgical Pathology Consultation Patient Name:ELISHA COLBERT:1990 (Age: 32)Gender:FTaken:12/22/2023eported:2023hysician(s):Yaritza Weber MD ([phone])Copy To: Rec. 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 Clinical History Vulvar dysplasia. Gross Description Received in formalin labeled anthony COLBERT vulvar is a pink-sarabia ellipse of skin [...] to the 6:00 tip in cassette F. (6,ns,[id number], m6) . /12/22/2023GR Microscopic Findings Microscopic examination performed. Specimen(s) Received Left vulva Fee Codes(s): 1; [id number] Cytology Cervical or vaginal smear or scraping studyOrdered By: Cathy Blum on 11-02-2023 [facility] LACTOFERRIN FECAL QUANTon Lactoferrin, Fecal, Quant. <1.00 Normal 0.00-7.24 [facility] Comment on above: Result Comment: Re [...] (IBS). Performed By: #### L ACTFQ #### [facility] [address] [place] [address] Dr. Susana Rivera PANCREATIC ELASTASE FECALon 02-04-2023 Pancreatic Elastase, Fecal 292 ug Elast./g Normal >200 [facility] Comment on above: Result Comment: Elaina re Pancreatic Insufficiency: <100 Moderate Pancreatic Insufficiency: 100 - 200 Normal: >200 Performed By: #### L IVER, TSH, LIPID, BMP #### [facility] [address] [place] [address] Dr. Susana Rivera HCG ( test) IAsteven peoples Ql (U)Ordered By: Omero Cunningham on 02-03-2023 HCG ( test) Ql (U) Negative [facility] HCG,Urineon 02-03-2023 Beta HCG ( test) Ql (U) Negative Normal [facility] Comment on above: Result Comment: PERF ORMED BY: [place] [address] PATHOLOGIST MANAGER OF DEVELOPMENT JAIRO LEYVA M.D. Performed By: #### U HCG #### [place] [address] [place] Christoph 02-03-2023 L --- Specimen: [id number] Received: 02/03/23 Status: KEVIN Ramirezmatt Num: [id number] Spec Type: Surgical Subm Dr: Omero Cunningham MD Tissues: A Duodenum - Biopsy (DUODENUM BX) B Esophagus Biopsy (ESOPHAGEAL BX) C Colon Biopsy (RANDOM COLON BX) Procedures: HE/6, Gross/Micro L4/3 Age/ Patient Sex Location Account Attending Physician Elisha Colbert 32/F [id number] Omero Cunningham MD SPEC NUM: [id number] RECD: 02/03/23 STATUS: KEVIN FIDEL NUM: [id number] STEFFANY: 02/03/23- ESTRELLA DR: Omero Cunningham MD ENTERED: 02/03/23 ARANZA [...] colitis. - Negative for epithelial dysplasia. Specimen: [id number] Received: 02/03/23 Status: KEVIN Taylor Num: [id number] Spec Type: Surgical Subm Dr: Omero Cunningham MD Tissues: A Duodenum - Biopsy (DUODENUM BX) B Esophagus Biopsy (ESOPHAGEAL BX) C Colon Biopsy (RANDOM COLON BX) Procedures: HE/6, Gross/Micro L4/3 Patient: Elisha Colbert [id number] (Continued) Specimen: [id number] Received: 02/03/23 (Continued) Signed (signature on file) Nan Lawler MD 02/04/23 1110 Specimen: [id number] Received: 02/03/23 Status: KEVIN Taylor Num: [id number] Spec Type: Surgical Subm Dr: Omero Cunningham MD Tissues: A Duodenum - Biopsy (DUODENUM BX) B Esophagus Biopsy (ESOPHAGEAL BX) C Colon Biopsy (RANDOM COLON BX) Procedures: RODRIGUEZ/Jose Ovalles/Margaret L4/3 Patient: Elisha Colbert [id number] (Continued) Specimen: [id number] Received: 02/03/23 (Continued) Clinical Information Diarrhea, constipation, [...] support the above pathologic diagnosis. CPT Codes 58155?3 (more content not included)... Normal [facility] BOWEL DISORDERS EVALUATION R ULE-OUT CASCon 02-02-2023 Atypical pANCA Negative Normal Negative [facility] Comment on above: Performed By: #### B [facility] #### [facility] [address] [place] [address] Dr. uSsana Rivera Note: Comment Normal [facility] Comment on above: Result Comment: Sugg estive of Crohn's disease. Subsequent testing with the Crohn's Disease Prognostic Profile (230916) that includes antiglycan antibodies AMCA, ALCA, ACCA, and Segundo may aid in the differentiation of clinical forms of CD and prognosis of disease progression. Performed By: #### B DERC #### [facility] [address] [place] [address] Dr. Susana Rivera Saccharomyces Cer. IgG 34.3 Units Critically high 0.0-24.9 [facility] Comment on above: Result Comment: Nega tive <20.0 Equivocal 20.1 - 24.9 Positive >or= 25.0 Performed By: #### B DERC #### [facility] [address] [place] [address] Dr. Susana Rivera tTG/DGP SCR Negative Normal Negative [facility] Comment on above: Result Comment: Ef fective February 04, 2023 this profile will be made non-orderable due to non-availability of reagents for tTG/DGP Combo. No replacement number is available at this time. For further information, please contact your local [facility]. Performed By: #### B DERC #### [facility] [address] [place] [address] Dr. Susana Rivera CALPROTECTIN, FECALon 2022 Calprotectin, Fecal 20 ug/g Normal 0-120 [facility] Comment on above: Result Comment: Conc entration Interpretation Follow-Up <16 - 50 ug/g Normal None >50 -120 ug/g Borderline Re-evaluate in 4-6 weeks >120 ug/g Abnormal Repeat as clinically indicated Performed By: #### L IVER, TSH, LIPID, BMP #### [facility] [address] [place] [address] Dr. Susana Rivera CHROMOGRANIN Aon 02-02-2023 Chromogranin A 85.4 ng/mL Normal 0.0-101.8 [facility] Comment on above: Result Comment: Controller Operations And Hr Manager mogranin A performed by [employer] methodology . Values obtained with different assay methods or kits cannot be used interchangeably. Performed By: #### C HROMOA #### [facility] [address] [place] [address] Dr. Susana Rivera CBC AUTO DIFFon 01-29-2023 BASO # 0.0 103/ul Normal 0.0-0.1 [facility] Comment on above: Performed By: #### C BC #### [facility] [address] [place] [address] Dr. Susana Rivera Basophils/100 WBC (Bld) 0.3 % Normal 0.2-2.0 [facility] Comment on above: Performed By: #### C BC #### [facility] [address] [place] [address] Dr. Susana Rivera EO # 0.2 103/ul Normal 0.0-0.7 [facility] Comment on above: Performed By: #### C BC #### [facility] [address] [place] [address] Dr. Susana Rivera Eosinophils/100 WBC (Bld) 3.3 % Normal 0.9-7.0 [facility] Comment on above: Performed By: #### C BC #### [facility] [address] [place] [address] Dr. Susana Rivera Erythrocyte distribution width (RBC) [Ratio] 12.3 % Normal 11.0-15.0 [facility] Comment on above: Performed By: #### C BC #### [facility] [address] [place] [address] Dr. Susana Rivera Hematocrit (Bld) [Volume fraction] 36.9 % Normal 36.0-48.0 [facility] Comment on above: Performed By: #### C BC #### [facility] [address] [place] [address] Dr. Susana Rivera Hemoglobin (Bld) [Mass/Vol] 12.2 g/dL Normal 12.0-16.0 [facility] Comment on above: Performed By: #### C BC #### [facility] [address] [place] [address] Dr. Susana Rivera IG # 0.01 10e3/ul Normal 0.00-0.03 [facility] Comment on above: Performed By: #### C BC #### [facility] [address] [place] [address] Dr. Susana Rivera IG % 0.2 % Normal 0.0-0.5 [facility] Comment on above: Performed By: #### C BC #### [facility] [address] [place] [address] Dr. Susana Rivera LYMPH # 2.8 103/ul Normal 1.2-3.8 [facility] Comment on above: Performed By: #### C BC #### [facility] [address] [place] [address] Dr. Susana Rivera Lymphocytes/100 WBC (Bld) 42.0 % Normal 20.5-60.0 [facility] Comment on above: Performed By: #### C BC #### [facility] [address] [place] [address] Dr. Susana Rivera MANUAL DIFF REQ NO Normal [facility] Comment on above: Performed By: #### C BC #### [facility] [address] [place] [address] Dr. Susana Rivera MCH (RBC) [Entitic mass] 31.2 pg Normal 26.7-34.0 [facility] Comment on above: Performed By: #### C BC #### [facility] [address] [place] [address] Dr. Susana Rivera MCHC (RBC) [Mass/Vol] 33.1 g/dL Normal 29.9-35.2 [facility] Comment on above: Performed By: #### C BC #### [facility] [address] [place] [address] Dr. Susana Rivera MCV (RBC) [Entitic vol] 94.4 fL Normal 81.0-99.0 [facility] Comment on above: Performed By: #### C BC #### [facility] [address] [place] [address] Dr. Susana Rivera MONO # 0.4 103/ul Normal 0.3-0.8 [facility] Comment on above: Performed By: #### C BC #### [facility] [address] [place] [address] Dr. Susana Rivera Monocytes/100 WBC (Bld) 6.5 % Normal 1.7-12.0 [facility] Comment on above: Performed By: #### C BC #### [facility] [address] [place] [address] Dr. Susana Rivera NEUT # 3.1 103/ul Normal 1.4-6.5 [facility] Comment on above: Performed By: #### C BC #### [facility] [address] [place] [address] Dr. Susana Rivera Neutrophils/100 WBC (Bld) 47.7 % Normal 43.0-75.0 [facility] Comment on above: Performed By: #### C BC #### [facility] [address] [place] [address] Dr. Susana Rivera Platelet mean volume (Bld) [Entitic vol] 11.0 fL Normal 9.5-13.5 [facility] Comment on above: Performed By: #### C BC #### [facility] [address] [place] [address] Dr. Susana Rivera PLT 213 103/ul Normal 150-450 [facility] Comment on above: Performed By: #### C BC #### [facility] [address] [place] [address] Dr. Susana Rivera RBC 3.91 106/ul Critically low 4.20-5.40 [facility] Comment on above: Performed By: #### C BC #### [facility] [address] [place] [address] Dr. Susana Rivera WBC 6.6 103/ul Normal 4.0-11.0 [facility] Comment on above: Performed By: #### C BC #### [facility] [address] [place] [address] Dr. Susana Rivera FREE T4on 01-29-2023 Free T4 [Mass/Vol] 0.92 ng/dL Normal 0.76-1.46 [facility] Comment on above: Performed By: #### L IVER, TSH, LIPID, BMP #### [facility] [address] [place] [address] Dr. Susana Rivera PROF 14(COMP METB)on 023 Albumin [Mass/Vol] 3.6 g/dL Normal 3.4-5.0 [facility] Comment on above: Performed By: #### L IVER, TSH, LIPID, BMP #### [facility] [address] [place] [address] Dr. Susana Rivera Albumin/Globulin [Mass ratio] 0.8 {ratio} Normal [facility] Comment on above: Performed By: #### L IVER, TSH, LIPID, BMP #### [facility] [address] [place] [address] Dr. Susana Rivera ALP [Catalytic activity/Vol] 75 U/L Normal 46-116 [facility] Comment on above: Performed By: #### L IVER, TSH, LIPID, BMP #### [facility] [address] [place] [address] Dr. Susana Rivera ALT [Catalytic activity/Vol] 24 U/L Normal 14-59 [facility] Comment on above: Performed By: #### L IVER, TSH, LIPID, BMP #### [facility] [address] [place] [address] Dr. Susana Rivera Anion gap [Moles/Vol] 12.5 mmol/L Normal [facility] Comment on above: Performed By: #### L IVER, TSH, LIPID, BMP #### [facility] [address] [place] [address] Dr. Susana Rivera AST [Catalytic activity/Vol] 14 U/L Critically low 15-37 [facility] Comment on above: Performed By: #### L IVER, TSH, LIPID, BMP #### [facility] [address] [place] [address] Dr. Susana Rivera Bilirubin [Mass/Vol] 0.3 mg/dL Normal 0.2-1.0 [facility] Comment on above: Performed By: #### L IVER, TSH, LIPID, BMP #### [facility] [address] [place] [address] Dr. Susana Rivera Calcium [Mass/Vol] 9.2 mg/dL Normal 8.5-10.1 [facility] Comment on above: Performed By: #### L IVER, TSH, LIPID, BMP #### [facility] [address] [address] [address] Susana Rivera Chloride [Moles/Vol] 106 mmol/L Normal 98-107 [facility] Comment on above: Performed By: #### L IVER, TSH, LIPID, BMP #### [facility] [address] [address] [address] Susana Rivera CO2 [Moles/Vol] 25.6 mmol/L Normal 21.0-32.0 [facility] Comment on above: Performed By: #### L IVER, TSH, LIPID, BMP #### [facility] [address] [place] [address] Dr. Susana Rivera Creatinine [Mass/Vol] 0.58 mg/dL Normal 0.55-1.02 [facility] Comment on above: Performed By: #### L IVER, TSH, LIPID, BMP #### [facility] [address] [place] [address] Dr. Susana Rivera EGFR-AF SWISS >60 Normal >=60 [facility] Comment on above: Performed By: #### L IVER, TSH, LIPID, BMP #### [facility] [address] [place] [address] Dr. Susana Rivera EGFR-NON AF SWISS >60 Normal >=60 [facility] Comment on above: Performed By: #### L IVER, TSH, LIPID, BMP #### [facility] [address] [place] [address] Dr. Susana Rivera Globulin (S) [Mass/Vol] 4.3 g/dL Normal T [facility] Comment on above: Performed By: #### L IVER, TSH, LIPID, BMP #### [facility] [address] [place] [address] Dr. Susana Rivera Glucose [Mass/Vol] 93 mg/dL Normal 74-106 [facility] Comment on above: Performed By: #### L IVER, TSH, LIPID, BMP #### [facility] [address] [place] [address] Dr. Susana Rivera Potassium [Moles/Vol] 4.1 mmol/L Normal 3.5-5.1 [facility] Comment on above: Performed By: #### L IVER, TSH, LIPID, BMP #### [facility] [address] [place] [address] Dr. Susana Rivera Protein [Mass/Vol] 7.9 g/dL Normal 6.4-8.2 [facility] Comment on above: Performed By: #### L IVER, TSH, LIPID, BMP #### [facility] [address] [place] [address] Dr. Susana Rivera Sodium [Moles/Vol] 140 mmol/L Normal 136-145 [facility] Comment on above: Performed By: #### L IVER, TSH, LIPID, BMP #### [facility] [address] [place] [address] Dr. Susana Rivera Urea nitrogen [Mass/Vol] 10.0 mg/dL Normal 7.0-18.0 [facility] Comment on above: Performed By: #### L IVER, TSH, LIPID, BMP #### [facility] [address] [place] [address] Dr. Susana Rivera Urea nitrogen/Creatinine [Mass ratio] 17.2 mg/mg Normal [facility] Comment on above: Performed By: #### L IVER, TSH, LIPID, BMP #### [facility] [address] [place] [address] Dr. Susana Rivera PROTIMEon 01-29-2023 INR Coag (PPP) [Relative time] 0.94 {INR} Normal [facility] Comment on above: Performed By: #### L IVER, TSH, LIPID, BMP #### [facility] [address] [place] [address] Dr. Susana Rivera INR GUIDELINES SEE BELOW Normal [facility] Comment on above: Result Comment: REYMUNDO RED INR: 2.0 - 3.0 CONDITIONS NOT LISTED BELOW 2.5 - 3.5 FOR PROSTHETIC HEART VALVE REPLACEMENT 2.5 - 3.5 RECURRENT THROMBOSIS Performed By: #### L IVER, TSH, LIPID, BMP #### [facility] [address] [place] [address] Dr. Susana Rivera PT Coag (PPP) [Time] 10.0 s Normal 9.0-11.6 [facility] Comment on above: Performed By: #### L IVER, TSH, LIPID, BMP #### [facility] [address] [place] [address] Dr. Susana Rivera TSHon 01-29-2023 TSH 1.619 uIU/mL Normal 0.358-3.74 0 [facility] Comment on above: Performed By: #### L IVER, TSH, LIPID, BMP #### [facility] [address] [place] [address] Dr. Susana Rivera CBC AUTO DIFFon 07-22-2022 BASO # 0.0 103/ul Normal 0.0-0.1 [facility] Comment on above: Performed By: #### C BC #### [facility] [address] [place] [address] Dr. Susana Rivera Basophils/100 WBC (Bld) 0.3 % Normal 0.2-2.0 [facility] Comment on above: Performed By: #### C BC #### [facility] [address] [place] [address] Dr. Susana Rivera EO # 0.2 103/ul Normal 0.0-0.7 [facility] Comment on above: Performed By: #### C BC #### [facility] [address] [place] [address] Dr. Susana Rivera Eosinophils/100 WBC (Bld) 2.3 % Normal 0.9-7.0 [facility] Comment on above: Performed By: #### C BC #### [facility] [address] [place] [address] Dr. Susana Rivera Erythrocyte distribution width (RBC) [Ratio] 12.3 % Normal 11.0-15.0 [facility] Comment on above: Performed By: #### C BC #### [facility] [address] [place] [address] Dr. Susana Rivera Hematocrit (Bld) [Volume fraction] 38.6 % Normal 36.0-48.0 [facility] Comment on above: Performed By: #### C BC #### [facility] [address] [place] [address] Dr. Susana Rivera Hemoglobin (Bld) [Mass/Vol] 12.4 g/dL Normal 12.0-16.0 [facility] Comment on above: Performed By: #### C BC #### [facility] [address] [place] [address] Dr. Susana Rivera IG # 0.02 10e3/ul Normal 0.00-0.03 [facility] Comment on above: Performed By: #### C BC #### [facility] [address] [place] [address] Dr. Susana Rivera IG % 0.2 % Normal 0.0-0.5 [facility] Comment on above: Performed By: #### C BC #### [facility] [address] [place] [address] Dr. Susana Rivera LYMPH # 3.3 103/ul Normal 1.2-3.8 [facility] Comment on above: Performed By: #### C BC #### [facility] [address] [place] [address] Dr. Susana Rivera Lymphocytes/100 WBC (Bld) 32.0 % Normal 20.5-60.0 [facility] Comment on above: Performed By: #### C BC #### [facility] [address] [place] [address] Dr. Susana Rivera MANUAL DIFF REQ NO Normal [facility] Comment on above: Performed By: #### C BC #### [facility] [address] [place] [address] Dr. Susana Rivera MCH (RBC) [Entitic mass] 30.7 pg Normal 26.7-34.0 [facility] Comment on above: Performed By: #### C BC #### [facility] [address] [place] [address] Dr. Susana Rivera MCHC (RBC) [Mass/Vol] 32.1 g/dL Normal 29.9-35.2 [facility] Comment on above: Performed By: #### C BC #### [facility] [address] [address] [address] Susana Rivera MCV (RBC) [Entitic vol] 95.5 fL Normal 81.0-99.0 [facility] Comment on above: Performed By: #### C BC #### [facility] [address] [place] [address] Dr. Susana Rivera MONO # 0.6 103/ul Normal 0.3-0.8 [facility] Comment on above: Performed By: #### C BC #### [facility] [address] [place] [address] Dr. Susana Rivera Monocytes/100 WBC (Bld) 5.9 % Normal 1.7-12.0 [facility] Comment on above: Performed By: #### C BC #### [facility] [address] [place] [address] Dr. Susana Rivera NEUT # 6.2 103/ul Normal 1.4-6.5 [facility] Comment on above: Performed By: #### C BC #### [facility] [address] [place] [address] Dr. Susana Rivera Neutrophils/100 WBC (Bld) 59.3 % Normal 43.0-75.0 [facility] Comment on above: Performed By: #### C BC #### [facility] [address] [place] [address] Dr. Susana Rivera Platelet mean volume (Bld) [Entitic vol] 11.2 fL Normal 9.5-13.5 [facility] Comment on above: Performed By: #### C BC #### [facility] [address] [place] [address] Dr. Susana Rivera PLT 235 103/ul Normal 150-450 [facility] Comment on above: Performed By: #### C BC #### [facility] [address] [place] [address] Dr. Susana Rivera RBC 4.04 106/ul Critically low 4.20-5.40 [facility] Comment on above: Performed By: #### C BC #### [facility] [address] [address] [address] Susana Rivera WBC 10.4 103/ul Normal 4.0-11.0 [facility] Comment on above: Performed By: #### C BC #### [facility] [address] [address] [address] Susana Rivera GLYCOHEMOGLOBIN A1Con 2021 ADA RECOMMENDATION SEE BELOW Normal [facility] Comment on above: Result Comment: ADA RECOMMENDED LIMIT 4.0 - 6.0 ADA THERAPEUTIC TARGET < 7.0 ACTION SUGGESTED > 7.0 Performed By: #### A 1C #### [facility] [address] [place] [address] Dr. Susana Rivera Glucose [Mass/Vol] 105 mg/dL Normal [facility] Comment on above: Performed By: #### A 1C #### [facility] [address] [place] [address] Dr. Susana Rivera HbA1c (Bld) [Mass fraction] 5.3 % Normal 4.5-6.2 [facility] Comment on above: Performed By: #### A 1C #### [facility] [address] [place] [address] Dr. Susana Rivera LIPID PROFILEon 07-22-2022 CHOL-HDL RATIO NORM SEE BELOW Normal [facility] Comment on above: Result Comment: 3.3 - 4.4 LOW RISK 4.4 - 7.1 AVERAGE RISK 7.1 - 11.0 MODERATE RISK >11.0 HIGH RISK Performed By: #### L IVER, TSH, LIPID, BMP #### [facility] [address] [place] [address] Dr. uSsana Rivera Cholesterol [Mass/Vol] 193 mg/dL Normal <=200 Th [facility] Comment on above: Performed By: #### L IVER, TSH, LIPID, BMP #### [facility] [address] [place] [address] Dr. Susana Rivera Cholesterol in HDL [Mass/Vol] 45 mg/dL Normal 40-60 [facility] Comment on above: Performed By: #### L IVER, TSH, LIPID, BMP #### [facility] [address] [address] [address] Susana Rivera Cholesterol in LDL [Mass/Vol] 121.0 mg/dL Normal [facility] Comment on above: Performed By: #### L IVER, TSH, LIPID, BMP #### [facility] [address] [address] [address] Susana Rivera Cholesterol.total/Cholest jakub in HDL [Mass ratio] 4.3 {ratio} Normal [facility] Comment on above: Performed By: #### L IVER, TSH, LIPID, BMP #### [facility] [address] [address] [address] Susana Rivera HDL NORMAL > or = 60 mg/dl - LO W CARDIOVASCULAR RISK <40 mg/dl - HIGH CARDIOVASCULAR RISK Normal [facility] Comment on above: Performed By: #### L IVER, TSH, LIPID, BMP #### [facility] [address] [place] [address] Dr. Susana Rivera LDL CALC NORMAL SEE BELOW Normal [facility] Comment on above: Result Comment: <100 mg/dl OPTIMAL 100 - 129 mg/dl NEAR OR ABOVE OPTIMAL 130 - 159 mg/dl BORDERLINE HIGH 160 - 189 mg/dl HIGH >190 mg/dl VERY HIGH Performed By: #### L IVER, TSH, LIPID, BMP #### [facility] [address] [place] [address] Dr. Susana Rivera Triglyceride [Mass/Vol] 135 mg/dL Normal <=150 T [facility] Comment on above: Performed By: #### L IVER, TSH, LIPID, BMP #### [facility] [address] [place] [address] Dr. Susana Rivera VLDL CALC 27.0 mg/dL Normal [facility] [facility] Comment on above: Performed By: #### L IVER, TSH, LIPID, BMP #### [facility] [address] [place] [address] Dr. Susana Rivera LIVER PROFILEon 07-22-2022 Albumin [Mass/Vol] 3.8 g/dL Normal 3.4-5.0 [facility] Comment on above: Performed By: #### L IVER, TSH, LIPID, BMP #### [facility] [address] [address] [address] Susana Rivera Albumin/Globulin [Mass ratio] 0.8 {ratio} Normal [facility] Comment on above: Performed By: #### L IVER, TSH, LIPID, BMP #### [facility] [address] [address] [address] Susana Rivera ALP [Catalytic activity/Vol] 73 U/L Normal 46-116 [facility] Comment on above: Performed By: #### L IVER, TSH, LIPID, BMP #### [facility] [address] [place] [address] Dr. Susana Rivera ALT [Catalytic activity/Vol] 27 U/L Normal 14-59 [facility] Comment on above: Performed By: #### L IVER, TSH, LIPID, BMP #### [facility] [address] [place] [address] Dr. Susana Rivera AST [Catalytic activity/Vol] 17 U/L Normal 15-37 [facility] Comment on above: Performed By: #### L IVER, TSH, LIPID, BMP #### [facility] [address] [place] [address] Dr. Susana Rivera BILI, CONJUGATED 0.1 mg/dL Normal 0.0-0.2 [facility] Comment on above: Performed By: #### L IVER, TSH, LIPID, BMP #### [facility] [address] [place] [address] Dr. Susana Rivera Bilirubin [Mass/Vol] 0.3 mg/dL Normal 0.2-1.0 [facility] Comment on above: Performed By: #### L IVER, TSH, LIPID, BMP #### [facility] [address] [place] [address] Dr. Susana Rivera Globulin (S) [Mass/Vol] 4.6 g/dL Normal T [facility] Comment on above: Performed By: #### L IVER, TSH, LIPID, BMP #### [facility] [address] [address] [address] Susana Rivera Protein [Mass/Vol] 8.4 g/dL Critically high 6.4-8.2 T [facility] Comment on above: Performed By: #### L IVER, TSH, LIPID, BMP #### [facility] [address] [place] [address] Dr. Susana Rivera PROF CHEM 8 (BAS METB)on Anion gap [Moles/Vol] 12.3 mmol/L Normal Th [facility] Comment on above: Performed By: #### L IVER, TSH, LIPID, BMP #### [facility] [address] [place] [address] Dr. Susana Rivera Calcium [Mass/Vol] 9.2 mg/dL Normal 8.5-10.1 [facility] Comment on above: Performed By: #### L IVER, TSH, LIPID, BMP #### [facility] [address] [place] [address] Dr. Susana Rivera Chloride [Moles/Vol] 104 mmol/L Normal 98-107 [facility] Comment on above: Performed By: #### L IVER, TSH, LIPID, BMP #### [facility] [address] [place] [address] Dr. Susana Rivera CO2 [Moles/Vol] 24.7 mmol/L Normal 21.0-32.0 [facility] Comment on above: Performed By: #### L IVER, TSH, LIPID, BMP #### [facility] [address] [place] [address] Dr. Susana Rivera Creatinine [Mass/Vol] 0.67 mg/dL Normal 0.55-1.02 [facility] Comment on above: Performed By: #### L IVER, TSH, LIPID, BMP #### [facility] [address] [place] [address] Dr. Susana Rivera EGFR-AF SWISS >60 Normal >=60 [facility] Comment on above: Performed By: #### L IVER, TSH, LIPID, BMP #### [facility] [address] [place] [address] Dr. Susana Rivera EGFR-NON AF SWISS >60 Normal >=60 [facility] Comment on above: Performed By: #### L IVER, TSH, LIPID, BMP #### [facility] [address] [address] [address] Susana Rivera Glucose [Mass/Vol] 94 mg/dL Normal 74-106 [facility] Comment on above: Performed By: #### L IVER, TSH, LIPID, BMP #### [facility] [address] [place] [address] Dr. Susana Rivera Potassium [Moles/Vol] 4.0 mmol/L Normal 3.5-5.1 [facility] Comment on above: Performed By: #### L IVER, TSH, LIPID, BMP #### [facility] [address] [place] [address] Dr. Susana Rivera Sodium [Moles/Vol] 137 mmol/L Normal 136-145 [facility] Comment on above: Performed By: #### L IVER, TSH, LIPID, BMP #### [facility] [address] [place] [address] Dr. Susana Rivera Urea nitrogen [Mass/Vol] 21.0 mg/dL Critically high 7.0-18 .0 [facility] Comment on above: Performed By: #### L IVER, TSH, LIPID, BMP #### [facility] [address] [place] [address] Dr. Susana Rivera Urea nitrogen/Creatinine [Mass ratio] 31.3 mg/mg Normal [facility] Comment on above: Performed By: #### L IVER, TSH, LIPID, BMP #### [facility] [address] [place] [address] Dr. Susana Rivera TSHon 07-22-2022 TSH 2.863 uIU/mL Normal 0.358-3.74 0 [facility] Comment on above: Performed By: #### L IVER, TSH, LIPID, BMP #### [facility] [address] [place] [address] Dr. Susana Rivera Vital Signs Date Time Vital Sign Value Performing Clinician Facility 06-26-2025 08:30-0400 Body height 165.1 cm Subhash Caba MD Work Phone: [facility] 06-26-2025 08:30-0400 Body mass index (BMI) [Ratio] 36.94 kg/m2 Subhash Caba MD Work Phone: [facility] 06-26-2025 08:30-0400 Body temperature 97.5 [degF] Subhash Caba MD Work Phone: [facility] 06-26-2025 08:30-0400 Body weight 100.7 kg Subhash Caba MD Work Phone: [facility] 06-26-2025 08:30-0400 Diastolic blood pressure 80 mm[Hg] Subhash Caba MD Work Phone: [facility] 06-26-2025 08:30-0400 Heart rate 86 /min Subhash Caba MD Work Phone: [facility] 06-26-2025 08:30-0400 Respiratory rate 20 /min Subhash Caba MD Work Phone: [facility] 06-26-2025 08:30-0400 SaO2% (BldA) [Mass fraction] 95 % Subhash Caba MD Work Phone: [facility] 06-26-2025 08:30-0400 Systolic blood pressure 124 mm[Hg] Subhash Caba MD Work Phone: [facility] 05-07-2025 14:55-0400 Body height 165.1 cm Chela HILL Work Phone: [facility] 05-07-2025 14:55-0400 Body mass index (BMI) [Ratio] 37.01 kg/m2 Chela HILL Work Phone: [facility] 05-07-2025 14:55-0400 Body temperature 98.2 [degF] Chela HILL Work Phone: [facility] 05-07-2025 14:55-0400 Body weight 100.88 kg Chela HILL Work Phone: [facility] 05-07-2025 14:55-0400 Diastolic blood pressure 84 mm[Hg] Chela Romerone PA Work Phone: [facility] 05-07-2025 14:55-0400 Heart rate 78 /min Chela Romerone PA Work Phone: [facility] 05-07-2025 14:55-0400 Respiratory rate 18 /min Chela Romerone PA Work Phone: [facility] 05-07-2025 14:55-0400 SaO2% (BldA) [Mass fraction] 97 % Chela Romerone PA Work Phone: [facility] 05-07-2025 14:55-0400 Systolic blood pressure 142 mm[Hg] Chela Romerone PA Work Phone: [facility] 11-12-2024 16:00-0500 Body mass index (BMI) [Ratio] 36.84 kg/m2 Viviana Saint Mary PA Work Phone: [facility] 11-12-2024 16:00-0500 Body weight 100.43 kg Viviana Keynana PA Work Phone: [facility] 11-12-2024 16:00-0500 Diastolic blood pressure 80 mm[Hg] Viviana Saint Mary PA Work Phone: [facility] 11-12-2024 16:00-0500 Systolic blood pressure 120 mm[Hg] Viviana Saint Mary PA Work Phone: [facility] 07-23-2024 15:44-0400 Body height 165.1 cm Swapnil Abhinav DO Work Phone: [facility] 07-23-2024 15:44-0400 Body mass index (BMI) [Ratio] 35.47 kg/m2 Swapnil Abhinav DO Work Phone: [facility] 07-23-2024 15:44-0400 Body weight 96.67 kg Swapnil Abhinav DO Work Phone: [facility] 07-23-2024 15:44-0400 Diastolic blood pressure 80 mm[Hg] Swapnil Abhinav DO Work Phone: [facility] 07-23-2024 15:44-0400 Systolic blood pressure 130 mm[Hg] Swapnil Abhinav DO Work Phone: [facility] 01-24-2024 09:22-0400 Body height 165.1 cm Chela Rodriguez PA Work Phone: [facility] 01-24-2024 09:22-0400 Body mass index (BMI) [Ratio] 38.77 kg/m2 Chela Rodriguez PA Work Phone: [facility] 01-24-2024 09:22-0400 Body temperature 98.8 [degF] Chela Rodriguez PA Work Phone: [facility] 01-24-2024 09:22-0400 Body weight 105.69 kg Chela Rodriguez PA Work Phone: [facility] 01-24-2024 09:22-0400 Diastolic blood pressure 89 mm[Hg] Chela Rodriguez PA Work Phone: [facility] 01-24-2024 09:22-0400 Heart rate 73 /min Chela Rodriguez PA Work Phone: [facility] 01-24-2024 09:22-0400 Respiratory rate 16 /min Chela Rodriguez PA Work Phone: [facility] 01-24-2024 09:22-0400 SaO2% (BldA) [Mass fraction] 98 % Chela Rodriguez PA Work Phone: [facility] 01-24-2024 09:22-0400 Systolic blood pressure 142 mm[Hg] Chela Rodriguez PA Work Phone: [facility] 01-03-2024 08:27-0500 Body height 165.1 cm Chela Rodriguez PA Work Phone: [facility] 02-20-2024 08:27-0500 Body mass index (BMI) [Ratio] 38.11 kg/m2 Chela Rodriguez PA Work Phone: [facility] 01-03-2024 08:27-0500 Body temperature 98.8 [degF] Chela Rodriguez PA Work Phone: [facility] 01-03-2024 08:27-0500 Body weight 103.87 kg Chela Rodriguez PA Work Phone: [facility] 01-03-2024 08:27-0500 Diastolic blood pressure 90 mm[Hg] Chela Rodriguez PA Work Phone: [facility] 01-03-2024 08:27-0500 Heart rate 90 /min Chela Rodriguez PA Work Phone: [facility] 01-03-2024 08:27-0500 Respiratory rate 16 /min Chela Rodriguez PA Work Phone: [facility] 01-03-2024 08:27-0500 SaO2% (BldA) [Mass fraction] 97 % Chela Romerone PA Work Phone: [facility] 01-03-2024 08:27-0500 Systolic blood pressure 145 mm[Hg] Chela Romerone PA Work Phone: [facility] 12-21-2023 15:23-0500 Body height 167 cm [facility] 12-21-2023 15:23-0500 Body mass index (BMI) [Ratio] 36.59 kg/m2 [facility] 12-21-2023 15:23-0500 Body weight 102.06 kg [facility] 12-12-2023 09:09-0500 Diastolic blood pressure 84 mm[Hg] Melquiades Weber MD Work Phone: [facility] 12-12-2023 09:09-0500 Heart rate 77 /min Melquiades Weber MD Work Phone: [facility] 12-12-2023 09:09-0500 SaO2% (BldA) [Mass fraction] 98 % Melquiades Weber MD Work Phone: [facility] 12-12-2023 09:09-0500 Systolic blood pressure 136 mm[Hg] Melquiades Weber MD Work Phone: [facility] 12-12-2023 09:03-0500 Body height 167 cm Melquiades Weber MD Work Phone: [facility] 12-12-2023 09:03-0500 Body mass index (BMI) [Ratio] 37.08 kg/m2 Melquiades Weber MD Work Phone: [facility] 12-12-2023 09:03-0500 Body weight 103.42 kg Melquiades Weber MD Work Phone: [facility] 02-03-2023 12:23-0400 Diastolic blood pressure 80 mm[Hg] MD Subhash Caba Work Phone: [facility] 02-03-2023 12:23-0400 Heart rate 56 /min MD Subhash Caba Work Phone: [facility] 02-03-2023 12:23-0400 Respiratory rate 18 /min MD Subhash Caba Work Phone: [facility] 02-03-2023 12:23-0400 SaO2% (BldA) [Mass fraction] 96 % MD Subhash Caba Work Phone: [facility] 02-03-2023 12:23-0400 Systolic blood pressure 135 mm[Hg] MD Subhash Caba Work Phone: [facility] 02-03-2023 10:14-0400 Body height 162.56 cm MD Subhash Caba Work Phone: [facility] 02-03-2023 10:14-0400 Body temperature 97.7 [degF] MD Subhash Caba Work Phone: [facility] 02-03-2023 10:140400 Body weight 99.79 kg MD Subhash Caba Work Phone: [facility] Encounters Encounter Date Encounter Type Care Provider Facility Start: 06-26-2025 End: 06-26-2025 Bamboo flowsheet Subhash Caba MD Work Phone: [facility] Start: 06-26-2025 End: 06-26-2025 Bamboo flowsheet Subhash Caba MD Work Phone: [facility] Start: 06-26-2025 End: 06-26-2025 Office outpatient visit 25 minutes Subhash Caba MD Work Phone: [facility] Comment on above: Polyuria (Primary Dx ); Overactive bladder; Terry deformity of left heel; Annual physical exam; Class 2 severe obesity due to excess calories with serious comorbidity and body mass index (BMI) of 36.0 to 36.9 in adult ([facility]); Gastroesophageal reflux disease without esophagitis Start: 06-26-2025 End: 06-26-2025 Patient encounter procedure Subhash Caba MD Work Phone: [facility] Start: 05-07-2025 End: 05-07-2025 Office outpatient visit 15 minutes Chela HILL Work Phone: [facility] Comment on above: Acute vulvitis (Prim kike Dx) Start: 05-07-2025 End: 05-07-2025 ambulatory CHELA RODRIGUEZ [facility] Start: 12-28-2024 End: 12-29-2024 Clinisync Result Encounter Generic External Data Provider [facility] Unsolicited Start: 12-28-2024 End: 12-29-2024 Clinisync Result Encounter Generic External Data Provider [facility] Unsolicited Start: 12-14-2024 End: 12-14-2024 Clinisync Result Encounter Swapnil La DO Work Phone: [facility] Unsolicited Start: 12-14-2024 End: 12-14-2024 Clinisync Result Encounter Swapnil Abhinav DO Work Phone: [facility] Unsolicited Start: 11-23-2024 End: 11-25-2024 Clinisync Result Encounter Swapnil Abhinav DO Work Phone: [facility] Unsolicited Start: 11-23-2024 End: 11-25-2024 Clinisync Result Encounter Swapnil Abhinav DO Work [...] Department Unsolicited Start: 07-31-2024 End: 08-04-2024 ambulatory [facility] Start: 07-25-2024 End: 07-25-2024 Clinisync Result [...] 03-02-2024 ambulatory MIKAYLA SIN Not Available Start: 02-27-2024 End: 02-27-2024 ambulatory MIKAYLA SIN Not Available Start: 02-23-2024 End: 02-23-2024 ambulatory SUBHASH CABA Not Available Start: 02-23-2024 Patient encounter procedure Swapnil La DO Work Phone: [facility] Start: 01-24-2024 End: 01-24-2024 Postop follow up visit related to original px Chela HILL Work Phone: [facility] Comment on above: 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); Encounter for postoperative care Start: 01-03-2024 End: 01-03-2024 Postop follow up visit related to original px Chela HILL [facility] Comment on above: 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); Encounter for postoperative care Start: 12-27-2023 Telephone encounter Chela HILL Work Phone: [facility] Start: 12-22-2023 End: 12-22-2023 [facility] Start: 12-22-2023 End: 12-22-2023 Evaluation and management of inpatient [facility] Start: 12-21-2023 End: 12-21-2023 [facility] Start: 12-20-2023 End: 12-21-2023 Admission to [facility] Phone Call Provider 2 [facility] On [facility] Start: 12-16-2023 Orders Only Melquiades Mott i, MD Work Phone: [facility] Comment on above: Vulvar dysplasia (Pr imary Dx); Pre-op testing Start: 12-16-2023 Patient encounter status Felipe Weber MD Work Phone: [facility] Start: 12-13-2023 Telephone encounter [facility] Work Phone: [facility] Start: 12-12-2023 End: 12-12-2023 ambulatory MELQUIADES WEBER [facility] Start: 12-12-2023 End: 12-12-2023 Office outpatient new 45 minutes Melquiades Weber MD Work Phone: [facility] Comment on above: Vulvar dysplasia (Pr imary Dx); Encounter for tobacco use cessation counseling Start: 12-01-2023 Telephone encounter [facility] Start: 11-30-2023 End: 11-30-2023 ambulatory SWAPNIL ABHINAV Not Available Start: 02-03-2023 End: 02-03-2023 ambulatory Subhash Caba Facility:[facility] Start: 02-03-2023 End: 02-03-2023 Admission to same day surgery center MD Subhash Caba Work Phone: [facility] Work Phone: Start: 02-03-2023 End: 02-03-2023 ambulatory MD Subhash Caba Work Phone: [facility] Work Phone: Start: 01-29-2023 End: 01-30-[address] Hernesto CUNNINGHAM Facility:[facility] Start: 07-25-2022 Encounter for genera l adult medical examination without abnormal findings DR SUBHASH CABA [facility] Start: 07-22-2022 End: 07-23-[address] SUBHASH CABA Facility:[facility] Start: 07-22-2022 End: 07-23-2022 Encounter for general adult medical examination without abnormal findings DR SUBHASH CABA Facility:[facility] Start: 12-06-2016 End: 12-07-2016 Ambulatory Eusebio Emery Facility:[facility] Procedures Date Procedure Procedure Detail Performing Clinician Start: 06-26-2025 Urnls dip stick/tablet rgnt non-auto w/o micrscp Subhash Caba MD Work Phone: Start: 12-28-2024 ALL PROGESTERONE Swapnil Abhinav DO Work Phone: Start: 12-14-2024 FL HYSTEROSALPINGOGRAM Generic External Data Provider Start: 12-14-2024 FL HYSTEROSALPINGOGRAPHY Generic Externa l Data Provider Start: 12-14-2024 [facility] PREG QUANT HCG Generic External Data Provider Start: 11-23-2024 ALL PROGESTERONE Generic External Data Provider Start: 11-12-2024 IGP,APTIMA HPV,AGE GDLN Viviana HILL Work Phone: Start: 11-12-2024 Microscopic observation [Identifier] in Cervix by Cyto stain Swapnil Abhinav DO Work Phone: Start: 10-26-2024 ALL PROGESTERONE Swapnil Abhinav DO Work Phone: Start: 09-24-2024 ALL PROGESTERONE Swapnil Abhinav DO Work Phone: Start: 08-23-2024 ALL PROGESTERONE Swapnil Abhinav DO Work Phone: Start: 07-25-2024 ALL CBC WITH AUTO DIFF Swapnil Abhinav DO Work Phone: Start: 11-02-2023 Microscopic observation [Identifier] in Cervix by Cyto stain Swapnil Abhinav DO Work Phone: Start: 11-02-2023 Cytp cerv/vag auto thin layer prep mnl screen Viviana HILL Work Phone: Start: 02-03-2023 Esophagogastroduodenoscopy MD Subhash jones Work Phone: Plan of Treatment Date Care Activity Detail Author Start: 11-12-2029 Screening for malign ant neoplasm of cervix [facility] Start: 11-02-2028 Screening for malign ant neoplasm of cervix [facility] Start: 11-12-2027 Screening for malign ant neoplasm of cervix Pap Smear [facility] Start: 11-18-2025 End: 11-18-2025 Patient encounter procedure [facility] Start: 09-26-2025 End: 09-26-2025 Patient encounter procedure 09/26/2025 3:00 PM EST Office Visit [facility] [address] [place] [address] Subhash Caba MD [address] [place] [address] [facility] Start: 07-15-2025 Influenza vaccination P [facility] Start: 06-26-2025 End: 06-26-2026 Basic metabolic 1998 panel - Serum or Plasma Basic metabolic panel Lab Routine Annual physical exam Expected: 06/26/2025 (Approximate), Expires: 06/26/2026 [facility] Comment on above: Expected: 06/26/2025 (Approximate), Expires: 06/26/2026 Start: 06-26-2025 End: 06-26-2026 CBC W Auto Differential panel - Blood CBC and differential Lab Routine Annual physical exam Expected: 06/26/2025 (Approximate), Expires: 06/26/2026 [facility] Comment on above: Expected: 06/26/2025 (Approximate), Expires: 06/26/2026 Start: 06-26-2025 End: 06-26-2026 Hemoglobin A1c/Hemoglobin.total in Blood Hemoglobin A1c Lab Routine Annual physical exam Expected: 06/26/2025 (Approximate), Expires: 06/26/2026 [facility] Comment on above: Expected: 06/26/2025 (Approximate), Expires: 06/26/2026 Start: 06-26-2025 End: 06-26-2026 Hepatic function 2000 panel - Serum or Plasma Hepatic function panel Lab Routine Annual physical exam Expected: 06/26/2025 (Approximate), Expires: 06/26/2026 [facility] Comment on above: Expected: 06/26/2025 (Approximate), Expires: 06/26/2026 Start: 06-26-2025 End: 06-26-2026 Lipid 1996 panel - Serum or Plasma Lipid panel Lab Routine Annual physical exam Expected: 06/26/2025 (Approximate), Expires: 06/26/2026 [facility] Comment on above: Expected: 06/26/2025 (Approximate), Expires: 06/26/2026 Start: 06-26-2025 End: 06-26-2026 Thyrotropin [Units/volume] in Serum or Plasma TSH Lab Routine Annual physical exam Expected: 06/26/2025 (Approximate), Expires: 06/26/2026 [facility] Comment on above: Expected: 06/26/2025 (Approximate), Expires: 06/26/2026 Start: 06-26-2025 End: 06-26-2026 XR Calcaneus - left 2 Views XR calcaneus 2 views left Imaging Routine Terry deformity of left heel Expected: 06/26/2025, Expires: 06/26/2026 [facility] Work Phone: Comment on above: Expected: 06/26/2025 , Expires: 06/26/2026 Start: 06-26-2025 End: 06-26-2025 Patient encounter procedure 06/26/2025 8:15 AM EDT Office Visit [facility] [address] [place] [address] Subhash Caba MD [address] [place] [id number] Arrived [facility] Comment on above: Arrived Start: 01-23-2025 Adult BMI Screening Adult BMI Screen ing [facility] Start: 01-03-2025 Adult BMI Screening Adult BMI Screen ing [facility] Start: 12-22-2024 Adult BMI Screening Adult BMI Screen ing [facility] Start: 12-22-2024 Tobacco Screening Tobacco Screening [facility] Start: 12-12-2024 Adult BMI Screening Adult BMI Screen ing [facility] Start: 12-12-2024 Tobacco Screening Tobacco Screening [facility] Start: 11-12-2024 End: 11-12-2024 Patient encounter procedure [facility] Comment on above: Arrived Start: 07-31-2024 End: 07-31-2024 Patient encounter procedure 07/31/2024 8:30 AM EDT Office Visit [facility] [address] [place] [address] Chela Rodriguez PA [address] [place] [address] [facility] Start: 07-23-2024 End: 07-23-2024 Patient encounter procedure 07/23/2024 3:40 PM EDT Office Visit [facility] [address] [place] [id number] Swapnil La DO [address] [place] [address] Arrived [facility] Comment on above: Arrived Start: 07-23-2024 End: 07-23-2025 Antimullerian hormone (AMH) Antimullerian hormone (AMH) Lab Routine PCOS (polycystic ovarian syndrome) Expected: 07/23/2024 (Approximate), Expires: 07/23/2025 [facility] Comment on above: Expected: 07/23/2024 (Approximate), Expires: 07/23/2025 Start: 07-23-2024 End: 07-23-2025 DHEA DHEA Lab Routine Female fertility problem PCOS (polycystic ovarian syndrome) Expected: 07/23/2024 (Approximate), Expires: 07/23/2025 [facility] Comment on above: Expected: 07/23/2024 (Approximate), Expires: 07/23/2025 Start: 07-23-2024 End: 07-23-2025 US for US PELVIS-TRANSVAG IF INDICATED Imaging Routine Female fertility problem PCOS (polycystic ovarian syndrome) Expected: 07/23/2024 (Approximate), Expires: 07/23/2025 [facility] Comment on above: Expected: 07/23/2024 (Approximate), Expires: 07/23/2025 Start: 07-15-2024 Influenza vaccination Influenza Vacc ine (#1) [facility] Start: 01-24-2024 End: 01-24-2024 Patient encounter procedure 01/24/2024 9:30 AM EDT Office Visit [facility] [address] [place] [address] Chela Rodriguez PA [address] [place] [address] [facility] Start: 01-03-2024 End: 01-03-2024 Patient encounter procedure 01/03/2024 8:30 AM EST Office Visit Silva Zaman [facility] [address] [place] [address] Chela Rodriguez PA [address] [place] [address] Silva Zaman [facility] Start: 12-22-2023 End: 12-22-2023 Admission to same day surgery center 12/22/2023 7:30 AM EST - 12/22/2023 8:[address] [facility] Surgery [address] [place] [address] Melquiades Weber MD [address] [place] [address] WIDE LOCAL EXCISION LESION VULVA [facility] Comment on above: WIDE LOCAL EXCISION LESION VULVA Start: 12-22-2023 End: 12-22-2023 BIOPSY VULVA BIOPSY VULVA VULVAR DYSPLASIA 12/22/2023 7:30 AM EST [facility] Start: 12-22-2023 End: 12-22-2023 EXCISION LESION VULVA EXCISION LESION VULVA VULVAR DYSPLASIA 12/22/2023 7:30 AM EST [facility] Start: 12-22-2023 Subsequent hospital visit by physician 12/22/2023 7:30 AM EST Hospital Encounter [facility] Surgery [address] [place] [address] Melquiades Weber MD [address] [place] [address] [facility] Surgery Start: 12-20-2023 End: 12-20-2023 Admission to establishment 12/20/2023 8:00 AM EST [facility] On [address] [place] [address] Abby Aguero [facility]-Ad[facility] On [facility] Start: 12-12-2023 End: 12-12-2023 Patient encounter procedure 12/12/2023 9:00 AM EST Office Visit [facility] On[facility] [address] [facility] [place] [id number] Melquiades Weber MD [address] [place] [address] [facility] Start: 07-15-2023 Influenza vaccination Influenza Vacc ine [facility] Start: 02-03-2023 [facility] Start: 2009 Screening for malign ant neoplasm of cervix Pap Smear [facility] Start: 2007 DTaP,Tdap and Td Vaccines (1 - Tdap) DTaP,Tdap and Td Vaccines (1 - Tdap) [facility] Start: 2006 Adult BMI Follow Up Plan Adult BMI Follow Up Plan [facility] Start: 2006 Adult BMI Screening Adult BMI Screen ing [facility] Start: 2000 Depression Screening Depression Scre ening [facility] Start: 2000 Tobacco Screening Tobacco Screening [facility] Start: 1988 Tobacco Counseling Tobacco Counselin g [facility] End: 12-16-2024 CBC panel - Blood by Automated count CBC without diff Lab Routine Vulvar dysplasia Pre-op testing 1 Occurrences starting 12/16/2023 until 12/16/2024 [facility] Work Phone: Comment on above: 1 Occurrences starti ng 12/16/2023 until 12/16/2024 CBC W Auto Different ial panel - Blood CBC and differential Lab Routine Female fertility problem PCOS (polycystic ovarian syndrome) Ordered: 07/23/2024 [facility] Comment on above: Ordered: 07/23/2024 End: 12-16-2024 Comprehensive metabolic 2000 panel - Serum or Plasma Comprehensive metabolic panel Lab Routine Vulvar dysplasia Pre-op testing 1 Occurrences starting 12/16/2023 until 12/16/2024 [facility] Comment on above: 1 Occurrences starti ng 12/16/2023 until 12/16/2024 Cytology Cervical or vaginal smear or scraping study Pap Smear Pathology and Cytology Routine Well woman exam with routine gynecological exam Ordered: 11/12/2024 [facility] Work Phone: Comment on above: Ordered: 11/12/2024 DHEA-sulfate DHEA-sulfate Lab Routine Female fertility problem PCOS (polycystic ovarian syndrome) Ordered: 07/23/2024 [facility] Comment on above: Ordered: 07/23/2024 Follicle stimulating hormone Follicle stimulating hormone Lab Routine Female fertility problem PCOS (polycystic ovarian syndrome) Ordered: 07/23/2024 [facility] Comment on above: Ordered: 07/23/2024 hCG, quantitative, hCG, quantitative, Lab Routine Female fertility problem PCOS (polycystic ovarian syndrome) Ordered: 07/23/2024 [facility] Work Phone: Comment on above: Ordered: 07/23/2024 Human papilloma viru s DNA [Presence] in Unspecified specimen by Probe with amplification HPV DNA probe, amplified Microbiology Routine Well woman exam with routine gynecological exam Ordered: 11/12/2024 [facility] Comment on above: Ordered: 11/12/2024 Luteinizing hormone Luteinizing hormone Lab Routine Female fertility problem PCOS (polycystic ovarian syndrome) Ordered: 07/23/2024 [facility] Comment on above: Ordered: 07/23/2024 Patient Education Esophagitis Hi atal Hernia (DC) [facility] Work Phone: Thyrotropin [Units/volume] in Serum or Plasma TSH Lab Routine Female fertility problem PCOS (polycystic ovarian syndrome) Ordered: 07/23/2024 [facility] Comment on above: Ordered: 07/23/2024 Thyroxine (T4) free [Mass/volume] in Serum or Plasma T4, free Lab Routine Female fertility problem PCOS (polycystic ovarian syndrome) Ordered: 07/23/2024 [facility] Comment on above: Ordered: 07/23/2024 Payers Date Payer Category Payer Unknown [employer] [id number] 2023-Present [phone] [address] [address] [place] [address] [id number] 2023 Self-pay 2022 Managed Care Other (unspecified) [employer] [id number] 2022 Private Health Insurance [id number] 1988 Unknown [id number] 2.16.840.1.897345.3.579. 2.593 1988 Unknown [id number] 2.16.840.1.355357.3.579. 2.593 1988 Unknown [id number] 2.16.840.1.073158.3.579. 2.1286 1988 Unknown [id number] 2.16.840.1.356586.3.579. 2.1286 1988 Unknown [id number] 2.16.840.1.955398.3.579. 2.1286 1988 Unknown [id number] 2.16.840.1.945863.3.579. 2.1286 1988 Unknown [id number] 2.16.840.1.987246.3.579. 2.1259 1988 Unknown [id number] 2.16.840.1.813612.3.579. 2.1259 1988 Unknown [id number] 2.16.840.1.578421.3.579. 2.9 1988 Unknown [id number] 2.16.840.1.876227.3.579. 2.1259 1988 Unknown [id number] 2.16.840.1.696132.3.579. 2.9 1988 Unknown [id number] 2.16.840.1.680338.3.579. 2.1259 1988 Unknown [id number] 2.16.840.1.712908.3.579. 2.9 1988 Unknown [id number] 2.16.840.1.327193.3.579. 2.9 1988 Unknown [id number] 2.16.840.1.504244.3.579. 2.9 1988 Unknown [id number] 2.16.840.1.387797.3.579. 2.9 1988 Unknown [id number] 2.16.840.1.679052.3.579. 2.9 1988 Unknown [id number] 2.16.840.1.991797.3.579. 2.1286 1988 Unknown [id number] 2.16.840.1.336918.3.579. 2.1286 1959 Unknown [id number] 1959 Unknown [id number] Unknown [id number] 2.16.840.1.863193.3.579. 2.531 Social History Date Type Detail Facility Tobacco smoking stat us [facility] Unknown if ever smoked [facility] Work Phone: Start: 1990 Sex Assigned At Female [facility] Start: 11-14-2006 End: 05-07-2025 Tobacco smoking status ILIS Smokes tobacco daily [facility] Start: 11-14-2006 History of tobacco use Cigarette Smoker [facility] History of tobacco use Passive smoker [facility] Start: 05-01-2024 End: 05-07-2025 Tobacco use and exposure Smokeless tobacco non-user [facility] Start: 07-23-2024 End: 06-26-2025 Alcoholic beverage intake Lifetime non-drinker (finding) [facility] Start: 05-01-2024 End: 06-26-2025 History of Social function [facility] Start: 05-01-2024 End: 06-26-2025 Tobacco use panel [facility] Start: 11-01-2023 Alcohol Comment Caffeine intake: 3-4 cups per day [facility] Start: 10-13-2023 Gender identity Identifies as female gender (finding) [facility] Start: 10-13-2023 Sexual orientation Heterosexual (finding) [facility] Tobacco smoking stat NHIS Tobacco smoking consumption unknown [facility] Housing Instability Unknown [facility] Start: 1988 Sex Assigned At Not on file [facility] How hard is it for y ou to pay for the very basics like food, housing, medical care, and heating Hard [facility] Start: 06-19-2015 Sex Female (finding) [facility] How often do you nee d to have someone help you when you read instructions, pamphlets, or other written material from your doctor or pharmacy [SILS] Never [facility] Within the last year , have you been afraid of your partner or ex-partner? No [facility] Do you belong to any clubs or organizations such as pentecostalism groups, unions, fraternal or athletic groups, or school groups? Yes [facility] Are you now , , , , never or living with a partner? Living with partner [facility] Do you feel stress - tense, restless, nervous, or anxious, or unable to sleep at night because your mind is troubled all the time - these days [OSQ] Not at all [facility] (I/We) worried wheth er (my/our) food would run out before (I/we) got money to buy more. Never true [facility] Goals Date Patient Goal Desired Activity /State Functional Status Date Assessment Result Facility 06-26-2025 Total score [AUDIT-C] 0 06/26/20 25 6:21 AM EDT Mychart, Generic [facility] 06-26-2025 How often to you hav e a drink containing alcohol? Never 06/26/2025 6:21 AM EDT Mychart, Generic Never [facility] 06-26-2025 Functional status Patient does n ot drink 06/26/2025 6:21 AM EDT [facility] Patient does not drink [facility] 06-26-2025 How often do you hav e 6 or more drinks on 1 occasion? Never 06/26/2025 6:21 AM EDT [facility], Generic Never [facility] Clinical Notes 02-03-2023 to 06-26-2025 Subhash Caba MD - 06/26/2025 9:17 AM Guillermina Caba MD - 06/26/2025 9:16 AM Guillermina Caba MD - 06/26/2025 9:16 AM Guillermina Caba MD - 06/26/2025 9:16 AM EDT Note Date & Type Note Facility 06-26-2025 History of Presen t illness Narrative Associated Problem(s): Class 2 severe obesity due to excess calories with serious comorbidity and body mass index (BMI) of 36.0 to 36.9 in adult ([facility]) Weight loss indicated. Associated Problem(s): Terry deformity of left heel Painful lump after new shoes. Check x-ray and refer to podiatry. Associated Problem(s): Overactive bladder Increased frequency and urgency. Try ditropan. Associated Problem(s): Polyuria UA normal and unlikely to be UTI. Likely related to overactive bladder. Check labs. Images from the original note were not included. Subjective Patient ID: Elisha Colbert is a 34 y.o. female who presents for UTI and Foot Injury (POSSIBLE HEAL SPUR). Concerned of possible UTI. Over past few weeks developed urinary urgency and increased frequency. Symptoms worse in am. Frequently need bathroom breaks and affecting work. At times small volumes but other times seems normal. No pain or burning with urination. No change in color or odor. No incontinence. C/o painful bump on back left heel for over 6 months. Initially started after new pair of shoes. No change in size but very tender and sore to touch. Pain with walking and standing. Pain to rest on bed at night. Lump firm with mild redness. Review of Systems Respiratory: Negative for cough, shortness of breath and wheezing. Cardiovascular: Negative for chest pain and palpitations. Gastrointestinal: Negative for abdominal pain, diarrhea, nausea and vomiting. Genitourinary: Negative for dysuria. Objective Physical Exam Constitutional: General: She is not in acute distress. Appearance: Normal appearance. HENT: Head: Normocephalic. Right Ear: Tympanic membrane normal. Left Ear: Tympanic membrane normal. Eyes: Extraocular Movements: Extraocular movements intact. Pupils: Pupils are equal, round, and reactive to light. Cardiovascular: Rate and Rhythm: Normal rate and regular rhythm. Heart sounds: No murmur heard. No friction rub. No gallop. Pulmonary: Effort: Pulmonary effort is normal. Breath sounds: Normal breath sounds. No wheezing, rhonchi or rales. Abdominal: General: Bowel sounds are normal. There is no distension. Palpations: Abdomen is soft. Tenderness: There is no abdominal tenderness. There is no guarding or rebound. Musculoskeletal: Cervical back: Neck supple. Right lower leg: No edema. Left lower leg: No edema. Neurological: Mental Status: She is alert. Assessment/Plan Problem List Items Addressed This Visit Gastroesophageal reflux disease without esophagitis Annual physical exam Relevant Orders Hemoglobin A1c Basic metabolic panel CBC and differential Hepatic function panel Lipid panel TSH Polyuria - Primary UA normal and unlikely to be UTI. Likely related to overactive bladder. Check labs. Relevant Orders POCT Urinalysis dipstick (Completed) Overactive bladder Increased frequency and urgency. Try ditropan. Relevant Medications oxybutynin XL (Ditropan-XL) 10 MG 24 hr tablet Terry deformity of left heel Painful lump after new shoes. Check x-ray and refer to podiatry. Relevant Orders XR calcaneus 2 views left Ambulatory referral to Podiatry Class 2 severe obesity due to excess calories with serious comorbidity and body mass index (BMI) of 36.0 to 36.9 in adult ([facility]) Weight loss indicated. documented in this encounter [facility] 05-07-2025 History of Presen t illness Narrative Subjective: Elisha Colbert female who is 34 y.o. female who is s/p a WLE of the vulva on 12/22/23. Pathology: TIM III, negative margins. She is here today with a chief complaint of vulvar pain and lesion. She states while on vacation she was wearing jennifer shorts and noticed a lot of rubbing followed by discomfort the next day. She states there is a bump there that is quite tender most days. She denies any bleeding or drainage, fevers or chills. Patient was originally a consultation from Dr. La for evaluation and management of HSIL vulvar biopsy. She has since returned to his office for routine care. Oncology History No history exists. Elisha Colbert [...] 12/22/2023 Performed by Melquiades Weber MD at [facility] SURGERY CARPAL TUNNEL RELEASE Right 04/2024 COLONOSCOPY 2022 COLONOSCOPY 2016 OOPHORECTOMY Right 2008 performed at time of appendectomy WIDE LOCAL EXCISION LESION VULVA N/A 12/22/2023 Performed by Melquiades Weber MD at [facility] Past Medical History: Diagnosis Date Asthma Carpal tunnel syndrome GERD (gastroesophageal reflux disease) IBS (irritable bowel syndrome) PCOS (polycystic ovarian syndrome) Visual impairment glasses Family History Problem Relation Age of Onset Melanoma Maternal Aunt Lung cancer Maternal Grandfather Cancer Maternal Grandfather Anesthesia problems Neg Hx Social History Socioeconomic History Marital status: Single Tobacco Use Smoking status: Every Day Current packs/day: 0.50 Average packs/day: 0.5 packs/day for 18.5 years (9.2 ttl pk-yrs) Types: Cigarettes Start date: 2006 Smokeless tobacco: Never Vaping Use Vaping status: Never Used Substance and Sexual Activity Alcohol use: Never Drug use: Never Sexual activity: Defer Social Drivers of Health Financial Resource Strain: Low Risk (05/06/2025) Overall Financial Resource Strain (CARDIA) Difficulty of Paying Living Expenses: Not hard at all Food Insecurity: No Food Insecurity (05/06/2025) Hunger Screening Food Insecurity - Worry: Never True Food Insecurity - Inability: Never True Transportation Needs: No Transportation Needs (05/06/2025) PRAPARE - Transportation Lack of Transportation (Medical): No Lack of Transportation (Non-Medical): No Housing Instability: Low Risk (05/06/2025) Housing Instability Housing Instability: No Review of Symptoms: Pertinent items are noted in HPI. Objective: BP 142/84 Pulse 78 Temp 36.8 C (98.2 F) (Oral) Resp 18 Ht 165.1 cm (5' 5 ) Wt 100.9 kg (222 lb 6.4 oz) SpO2 97% BMI 37.01 kg/m ECO- Asymptomatic General appearance: alert, appears stated age and cooperative Head: Normocephalic, without obvious abnormality, atraumatic Lungs: clear to auscultation bilaterally Heart: regular rate and rhythm, S1, S2 normal, no murmur, click, rub or gallop Abdomen: soft, nontender Pelvic: vulva: well healed incision along the left labia majora ,there is an erythematous hair follicle just below the scar on the left lower labia with firmness noted, no pustular drainage or bleeding, no aceto white changes, plaques or evidence of dysplasia. Extremities: extremities normal, atraumatic, no cyanosis or edema Pulses: 2+ and symmetric Skin: Skin color, texture, turgor normal. No rashes or lesions Lymph nodes: Cervical, supraclavicular, and axillary nodes normal. Neurologic: Grossly normal Labs: Lab Results Component Value Date WBC 8.2 02/29/2024 HGB 12.5 02/29/2024 HCT 36.5 02/29/2024 MCV 94 02/29/2024 PLT 254 02/29/2024 Lab Results Component Value Date GLU 75 02/29/2024 CALCIUM 9.5 02/29/2024 SODIUM 139 02/29/2024 K 3.8 02/29/2024 CO2 25 02/29/2024 BUN 13 02/29/2024 CREATININE 0.67 02/29/2024 No results found for: CA125 Assessment: Patient is diagnosed with History TIM III Plan: Vulvar lesion/ history of TIM III: exam consistent with inflamed hair follicle without infection or evidence of dysplasia. Discussed warm compresses to the area 5-6 times daily and Aquaphor for protection. Encouraged her to call if this is not improved after one month where she notices any new lesions or symptoms. *The patient has a documented plan of care to address pain. All questions were answered to the patient's satisfaction. She is agreeable to this plan of care. *This note was completed using a voice flavoring oil filterer system. Every effort was made to ensure accuracy. However, inadvertent computerized flavoring oil filterer errors may be present. .Total time spent was 20 minutes: Preparing to see the patient (e.g., review of tests) Performing a medically appropriate examination and/or evaluation Counseling and educating the patient/family/caregiver Documenting clinical information in the electronic or other health record Care coordination (not separately reported) Chela Rodriguez PA-C, RD, IF SERGIO Coleman 05/07/25 1515 documented in this encounter [employer] 11-12-2024 History of Presen t illness Narrative [...] CARPAL TUNNEL RELEASE Right 05/10/2024 [facility] Right REVIEW OF SYSTEMS Review [...] nursing note reviewed. Exam conducted with a foot piece assembler present. Vitals: Estimated body mass index is [...] of: SERGIO Galvan documented in this encounter [facility] 07-23-2024 History of Presen t illness Narrative [...] nursing note reviewed. Exam conducted with a foot piece assembler present. Vitals: Estimated body mass index is [...] Swapnil La DO documented in this encounter [facility] 01-24-2024 History of Presen t illness Narrative [...] 12/22/2023 Performed by Melquiades Weber MD at [facility] SURGERY COLONOSCOPY 2022 COLONOSCOPY 2016 OOPHORECTOMY Right 2009 performed at time of appendectomy WIDE LOCAL EXCISION LESION VULVA N/A 12/22/2023 Performed by Melquiades Weber MD at [facility] SURGERY Past Medical History: Diagnosis Date [...] *This note was completed using a voice flavoring oil filterer system. Every effort was made to ensure accuracy. However, inadvertent computerized flavoring oil filterer errors may be present. .Total time spent was 26 minutes: Preparing to see the patient (e.g., review of tests) Performing a medically appropriate examination and/or evaluation Counseling and educating the patient/family/caregiver Documenting clinical information in the electronic or other health record Care coordination (not separately reported) Chela Rodriguez PA-C, RD, IF SERGIO Coleman 01/24/24 1010 [email or web address] History of Presen t illness Narrative [...] 12/22/2023 Performed by Melquiades Weber MD at [facility] SURGERY COLONOSCOPY 2022 COLONOSCOPY 2016 OOPHORECTOMY Right 2009 performed at time of appendectomy WIDE LOCAL EXCISION LESION VULVA N/A 12/22/2023 Performed by Melquiades Weber MD at [facility] SURGERY Past Medical History: Diagnosis Date [...] *This note was completed using a voice flavoring oil filterer system. Every effort was made to ensure accuracy. However, inadvertent computerized flavoring oil filterer errors may be present. .Total time spent was 26 minutes: Preparing to see the patient (e.g., review of tests) Performing a medically appropriate examination and/or evaluation Counseling and educating the patient/family/caregiver Documenting clinical information in the electronic or other health record Care coordination (not separately reported) Chela Rodriguez PA-C, RD, IF SERGIO Coleman 01/03/24 0912 documented in this encounter [facility] 12-27-2023 Miscellaneous Notes Spoke with patient regarding surgery results, explaining TIM III with negative margins. She is doing well at home. Pain well controlled. No drainage, bleeding, fevers/chills. Post op appt confirmed. documented in this encounter [facility] 12-27-2023 Telephone encounter Note Spoke with patient regarding surgery results, explaining TIM III with negative margins. She is doing well at home. Pain well controlled. No drainage, bleeding, fevers/chills. Post op appt confirmed. [facility] Work Phone: 12-21-2023 Instructions Formatting of th is note might be different from the original. Your surgery/procedure is scheduled at [facility] on 12/22/23 at 0730 Arrival Time 0530 [facility] Address: [address] [place] [address], [facility] Park in the Emergency Center Parking lot. Report to the hotel front desk agent in the Emergency/Surgery Registration lobby of the hospital. Please call Pre-Admission Clinic at [phone] if you have any questions prior to surgery. For questions the morning of surgery, please call the Pre-op Department at [phone]. IF YOU DO NOT FOLLOW THESE INSTRUCTIONS [...] would like to schedule therapy at a [facility] facility, please call [phone] ([phone]). Do not use lotions, creams, powders, perfume, make up, cologne or after-shaves day of surgery. Remove ALL jewelry including wedding rings, body piercings, hair extensions that contain metal, nail georgian, make-up, and contact lens. You may brush your teeth the morning of surgery, but do not swallow the water. Wear your dentures and partial plates to the hospital (no adhesive). Shower the night the before. If applicable, use the CHG (chlorhexidine gluconate) soap or wipes. Please be advised, [facility] has transitioned to a cashless payment system. [...] RIGHTS AND RESPONSIBILITIES As a patient at [facility], you have the right to: Receive medical care and be informed of who is taking care of you Be treated with dignity and respect Have a family member/client care representative of choice and your physician notified of your admission Receive information and actively participate in decisions about your care and treatment Refuse care, treatment and services Decide who may provide your support and speak for you Access protestant and spiritual services Participate in ethical issues [...] of hospital charges and payment methods Patient/patient client care representative responsibilities are to: Provide information about health status to facilitate care, treatment and services Follow the treatment, plan, keep appointments and speak up when you do not understand the plan Respect the rights of other patients and healthcare personnel Follow organizational rules and regulations that support quality care and a safe environment Fulfill financial obligations as promptly as possible [facility] 12-21-2023 Miscellaneous Notes Your surgery/procedure is scheduled at [facility] on 12/22/23 at 0730 Arrival Time [address] [place] [address] Address: [address] [place] [address], [facility] Park in the Emergency Center Parking lot. Report to the hotel front desk agent in the Emergency/Surgery Registration lobby of the hospital. Please call Pre-Admission Clinic at [phone] if you have any questions prior to surgery. For questions the morning of surgery, please call the Pre-op Department at [phone]. IF YOU DO NOT FOLLOW THESE INSTRUCTIONS [...] would like to schedule therapy at a [facility] facility, please call [phone] ([phone]). Do not use lotions, creams, powders, perfume, make up, cologne or after-shaves day of surgery. Remove ALL jewelry including wedding rings, body piercings, hair extensions that contain metal, nail georgian, make-up, and contact lens. You may brush your teeth the morning of surgery, but do not swallow the water. Wear your dentures and partial plates to the hospital (no adhesive). Shower the night the before. If applicable, use the CHG (chlorhexidine gluconate) soap or wipes. Please be advised, [facility] has transitioned to a cashless payment system. [...] RIGHTS AND RESPONSIBILITIES As a patient at [facility], you have the right to: Receive medical care and be informed of who is taking care of you Be treated with dignity and respect Have a family member/client care representative of choice and your physician notified of your admission Receive information and actively participate in decisions about your care and treatment Refuse care, treatment and services Decide who may provide your support and speak for you Access protestant and spiritual services Participate in ethical issues [...] of hospital charges and payment methods Patient/patient client care representative responsibilities are to: Provide information about [...] promptly as possible documented in this encounter [facility] 12-13-2023 Miscellaneous Notes New referral received [...] in smoking cessation program. Called patient at [phone] and left a voicemail requesting a callback to schedule an appointment. Lennie Buenrostro 12/13/2023 0951 Called patient again at [phone] and left message for patient to call back to schedule visit with pharmacist. documented in this encounter [employer] 12-13-2023 Telephone encounter Note New [facility] from Dr[facility] Melquiades Weber [facility] Patient saw provider on 12/12/2023. Patient has a history of tobacco use 1.5 PPD x 17 years. She has quit using tobacco products for a period of time in the past. At that point she quit on her own without use of nicotine replacement or alternative medications. She was interested in smoking cessation program. Called patient at [phone] and left a voicemail requesting a callback to schedule an appointment. Lennie Buenrostro 12/13/2023 0951 [employer] 12-13-2023 Telephone encounter Note Called patient again at [phone] and left message for patient to call back to schedule visit with pharmacist. [employer] Work Phone: 12-12-2023 History of Presen t [...] form was signed. - Patient lives in [place] - will follow up with SERGIO Coleman in [place] - Will request Pap report from Dr. [...] procedures Referring and communicating with other health adult live in caregiver (not separately reported) Documenting clinical information in the electronic or other health record Independently interpreting results (not separately reported) and communicating results to the patient/family/caregiver Patient seen and examined with Lawanda Eaton MD PGY-4 MELQUIADES WEBER MD documented in this encounter [facility] 12-01-2023 Miscellaneous Notes Left VM to schedule PORTAL ADMINISTRATOR appt with corporate fitness program coordinator onc, call back number provided. documented in this encounter [facility] 12-01-2023 Telephone encounter Note Left VM to schedule PORTAL ADMINISTRATOR appt with corporate fitness program coordinator onc, call back number provided. [facility] 02-03-2023 Procedure note [facility] Evaluation note No assessment inform ation available [facility] Work Phone: Evaluation note Diagnosis Female fertility problem PCOS (polycystic ovarian syndrome) Polycystic ovaries documented in this encounter [facility] HealthcareEvaluation note* Diagnosis Annual physical exam- Primary Routine general medical examination at a [facility] care facility Ganglion cyst of dorsum of right wrist Irritable bowel syndrome with both constipation and diarrhea Well woman exam with routine gynecological exam Routine gynecological examination documented in this encounter [facility] HealthcareEvaluation note* Diagnosis Vulvar dysplasia- Primary Other specified noninflammatory disorder of vulva and perineum Encounter for tobacco use cessation counseling [facility] Diagnosis Vulvar dysplasia- Primary Other specified noninflammatory disorder of vulva and perineum Pre-op testing Unspecified pre-operative examination [facility] Diagnosis 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, vulva Encounter for postoperative care [facility] Acute vulvitis- Primary Unspecified vaginitis and vulvovaginitis [facility] Diagnosis Annual physical exam- Primary Routine general medical examination at a health care facility Ganglion cyst of dorsum of right wrist Irritable bowel syndrome with both constipation and diarrhea Polyuria- Primary Overactive bladder 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 Low FODMAP diet [place] Zursh 1 p.o. every morning IBgard 1-2 once or twice a day -Notify the doctor if you have any problems. -Office number [phone] Work Phone: InstructionsNot on filedocumented in this encounter [facility] filedocumented in this encounter [facility] filedocumented in this encounter [facility] filedocumented in this encounter [facility] filedocumented in this encounter [facility] for [facility] (narrative)* Consultation (Routine) - Pending Review Specialty Diagnoses / Procedures Referred By Kam beaulieu Referred To Contact Medication Therapy Management Diagnoses Encounter for tobacco use cessation counseling Melquiades Weber MD [address] [place] [address] [facility] [address] [place] [address] Referral ID Status Reason Start Date Expiration Date Visits Requested Visits Authorized [id number] Pending Review Specialty Services Required 12/12/2023 12/11/2024 1 1 [facility] Summary Purpose Family History Relationship Condition [...] section and content) DATE CREATED AUTHOR 05/10/2018 [facility] DATE CREATED AUTHOR AUTHOR'S ORGANIZ ATION 02/13/2023 [facility] DATE CREATED AUTHOR AUTHOR'S ORGANIZ ATION 02/15/2023 [facility] DATE CREATED AUTHOR AUTHOR'S ORGANIZ ATION 12/13/2023 [facility] DATE CREATED AUTHOR AUTHOR'S ORGANIZ ATION 12/28/2023 [facility] DATE CREATED AUTHOR AUTHOR'S ORGANIZ ATION 11/14/2024 [facility] DATE CREATED AUTHOR AUTHOR'S ORGANIZ ATION 05/08/2025 [facility] Care Teams (unrecognized sec tion and content) Team Status: Active Member Role Status Dates Subhash Caba MD Primary Care Provider Active Team Status: Inactive Member Role Status Dates Omero Cunningham MD Attending Provider Active Subhash Caba MD Primary Care Provider Active Doper Operator Relationship Specialty Start Date End Date Subhash Caba MD [address] [place] [id number] PCP - General Family Medicine 02/23/24 Doper Operator Relationship Specialty Start Date End Date Subhash Caba MD [address] [place] [id number] PCP - General Family Medicine 02/23/24 Doper Operator Relationship Specialty Start Date End Date Subhash Caba MD [address] [place] [address] PCP - General Family Medicine 02/23/24 Doper Operator Relationship Specialty Start Date End Date Subhash Caba MD [address] [place] [address] PCP - General Family Medicine 02/23/24 Doper Operator Relationship Specialty Start Date End Date Subhash Caba MD [address] [place] [address] PCP - General Family Medicine 02/23/24 Doper Operator Relationship Specialty Start Date End Date Subhash Caba MD [address] [place] [address] PCP - General Family Medicine 02/23/24 Doper Operator Relationship Specialty Start Date End Date Subhash Caba MD [address] [place] [address] PCP - General Family Medicine 02/23/24 Doper Operator Relationship Specialty Start Date End Date Subhash Caba MD [address] [place] [address] PCP - General Family Medicine 02/23/24 Doper Operator Relationship Specialty Start Date End Date Subhash Caba MD [address] [place] [address] PCP - General Family Medicine 12/12/23 Doper Operator Relationship Specialty Start Date End Date Subhash Caba MD [address] [place] [address] PCP - General Family Medicine 12/12/23 Doper Operator Relationship Specialty Start Date End Date Subhash Caba MD [address] [place] [address] PCP - General Family Medicine 12/12/23 Doper Operator Relationship Specialty Start Date End Date Subhash Caba MD [address] [place] [address] PCP - General Family Medicine 12/12/23 Doper Operator Relationship Specialty Start Date End Date Subhash Caba MD PCP - General Family Medicine 12/12/23 Doper Operator Relationship Specialty Start Date End Date Subhash Caba MD [address] [place] [phone] PCP - General Family Medicine 02/23/24 Doper Operator Relationship Specialty Start Date End Date Subhash Caba MD [address] [place] [address] PCP - General Family Medicine 02/23/24 Reason for Visit (unrecogniz ed section and content) Reason Comments Infertility Reason Comments Gynecologic Exam Reason Comments New Patient HSIL VULVAPt states she noticed small bump on vulva in Augid have some itching or irritation at timesHad bx Oct 2023 Reason Comments Follow-up Reason Comments UTI Foot Injury POSSIBLE HEAL SPUR FOR RECORDS PERTAINING TO PATIENTS WHO ARE [...] BE BASED ON THE PRIMARY CLINICAL RECORDS. [facility]. provides no warranty or guarantee of the accuracy or completeness of information in this document.
--- NOTE | 2025-06-26 10:10 | XR_ITS ---
The [address] [address] Patient Name: SOMMER FABIAN MRN: [id number] date: 1990 Sex: F Assigned Patient Location: LAB Current Patient Location: LAB Accession/Order Number: [id number] Exam Date: 06/26/2025 14:15 Report Date: 06/26/2025 14:15 At the request of: VANE CABA MD Procedure: XR calcaneus LT min 2V Calcaneus 2 views. Reason for exam: Acute posterior left heel pain for 2 months. COMPARISON: Left foot series 08/06/2021 FINDINGS: No acute process. Enthesophyte formation is seen involving the insertions of the Achilles tendon and plantar fascia. No bony destructive lesion. XR/XR calcaneus LT min 2V IMPRESSION: No acute bony process. Impression dictated by: Marlo Duarte Jr., D.O. 06/26/2025 2:15 PM Dictation Location: [place] [address] Electronically authenticated by: [id number] Y Date: 06/26/2025 14:15
[2025-06-26 10:49] LABS: Hematocrit 37.5 % (36.0-48.0); Hemoglobin 12.6 g/dL (12.0-16.0); Immature Granulocytes Abs Auto 0.01 10^3/uL (0.00-0.03); Immature Granulocytes Pct Auto 0.1 % (0.0-0.5); Lymphocytes Absolute Auto 3.0 10^3/uL (1.2-3.8); Mean Corpuscular HGB Conc 33.6 g/dL (29.9-35.2); Mean Corpuscular Hemoglobin 32.0 pg (26.7-34.0); Mean Corpuscular Volume 95.2 fL (81.0-99.0); Platelet Count 225 10^3/uL (150-450); Red Blood Count 3.94 10^6/uL (4.20-5.40); White Blood Count 8.2 10^3/uL (4.0-11.0)
[2025-06-26 10:57] LABS: Alanine Aminotransferase 23 U/L (14-59); Albumin Globulin Ratio 0.9; Albumin Level 3.8 g/dL (3.4-5.0); Alkaline Phosphatase 80 U/L (46-116); Anion Gap 13.7; Aspartate Amino Transferase 14 U/L (15-37); Blood Urea Nitrogen 12.0 mg/dL (7.0-18.0); Calcium 9.4 mg/dL (8.5-10.1); Carbon Dioxide 26.5 mmol/L (21.0-32.0); Chloride 106 mmol/L (98-107); Cholesterol 180 mg/dL (<=200); Estimated GFR (African America >60 (>=60 mL/min/1.73m^2); Estimated GFR (Non-African Ame >60 (>=60 mL/min/1.73m^2); Globulin 4.4 g/dL; Glucose 101 mg/dL (74-106); HDL Cholesterol 42 mg/dL (40-60); Potassium 4.2 mmol/L (3.5-5.1); Sodium 142 mmol/L (136-145); Thyroid Stimulating Hormone 1.557 uIU/mL (0.358-3.740); Total Protein 8.2 g/dL (6.4-8.2); Triglycerides 162 mg/dL (<=150); VLDL CHOLESTEROL 32.4 mg/dL
== END 2025-06-26 09:47 | disposition home or self-care (01) ==
LOC: LAB 09:47
PROVIDERS: PCP Family Medicine; Visit Provider Family Medicine
DX: Z00.00 Encounter for general adult medical examination without abnormal findings (principal); M92.62 Juvenile osteochondrosis of tarsus, left ankle
CPT/HCPCS: 36415; 73650; 80048; 80061; 80076; 83036; 84443; 85025